=== PATIENT | male | born 1950 | race Caucasian/White ===

== ENCOUNTER → 2017-06-29 14:45 | Outpatient (CLI) | payer MEDICARE, BC, SELFPAY ==
[2017-06-29 18:19] LABS: Hemoglobin A1c 7.5 % (4.2-6.3)
[2017-06-29 18:29] LABS: Anion Gap 8 (5-15); BUN 11 mg/dL (7-18); BUN/Creat Ratio 8.3 RATIO (10-20); Calcium,Total 8.6 mg/dL (8.5-10.1); Chloride 102 mmol/L (98-107); Cholesterol 185 mg/dL (200); Creatinine, Serum 1.33 mg/dL (0.70-1.30); EST Glomerular Filtration Rate 57 mL/min (>60); Est Glom Filt Rate - Afr Amer 69 mL/min (>60); Glucose 130 mg/dL (74-106); High Density Lipoprotein 28 mg/dL; Sodium Level 135 mmol/L (136-145); Triglycerides 185 mg/dL; Very Low Density Lipoprotein 37 mg/dL (5-40)
== END ==
PROVIDERS: Family Provider Family Medicine; PCP Family Medicine; Visit Provider Family Medicine
DX: I10 Essential (primary) hypertension (principal); E66.9 Obesity, unspecified
CPT/HCPCS: 36415; 80048; 80061; 83036

== ENCOUNTER → 2017-12-15 15:28 | Outpatient (CLI) | payer MEDICARE, BC, SELFPAY ==
--- NOTE | 2017-12-15 15:34 | RAD_ITS ---
STUDY: X-RAY - LUMBAR SPINE REASON FOR EXAM: Male, 67 years old. Lower back pain TECHNIQUE: 5 view(s) of the lumbar spine were obtained. COMPARISON: None FINDINGS: There is no evidence of fracture or dislocation in the lumbar spine. The vertebral body heights are well-maintained. There are moderate degenerative changes with disc space narrowing, facet hypertrophy and osteophyte formation. This is most pronounced at T12/L1 and L1/L2. RAD/L/S Spine Min 4 Views IMPRESSION: No fracture or dislocation in the lumbar spine. Moderate degenerative changes which are most pronounced in the upper lumbar spine. Electronically Signed: Win Khan, at 16:00 EDT Tel , Service support ,
== END ==
PROVIDERS: Family Provider Family Medicine; PCP Family Medicine; Visit Provider Family Medicine
DX: M54.40 Lumbago with sciatica, unspecified side (principal)
CPT/HCPCS: 72110

== ENCOUNTER 2018-02-03 12:00 | Outpatient (RCR) | payer MEDICARE, BC, SELFPAY ==
--- NOTE | 2018-01-10 07:41 | HP.PTEVAL ---
Patient's Visit Information EARLINE PINTO is a 67 year old M referred to Physical Therapy by Sharmaine Palma MD with a diagnosis of Lumbar spine DDD. Date of Evaluation: 12/28/17 Physical Therapist: Brad Sin - Visit Plan Frequency: 2x /Week Duration: 4 Weeks Plan: Start with core strength, lumbar ROM, decompression exercises and HS/hip flexor stretching in aquatic setting to reduce stress applied to lumbar spine. - Subjective Subjective: Pt.. is here today for his initial evaluation with diagnosis of DDD of lumbar spine. Pt. reports ahving symptoms for years. 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 Pt. 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 Pt. reports some radiating pain. Increased pain: standing, walking for greater than 5 minutes, lifting. Decreased pain: sitting, lying down. Pt. trys to do some stretching, but has difficulty knowing what to do. No changes in B/B, no saddle region pain. Pt. reports no BLE weakness. Pt. does have some numbness in either leg at times, R worse than L. Pt. is hopeful to reduce symptoms in order to get back to all recreational activities without limitations. - Pain Lumbar spine Pain Intensity (Out of 10): 3 Pain Intensity Range: 1, 6 RLE Pain Intensity (Out of 10): 2 Pain Intensity Range: 1, 6 Comment: Mostly tingling - Objective POSTURE: Pt. has rounded shoulder, flexed lumnbar spine, reduced lumbar lordosis. Pt. has normal iliac crest heights. PALPATION: Pt. has mild tenderness througout lumbar spine. Pt. reports no pain with palaption throughout BLEs. Pt. has no pain with spring testing, hypombility noted throught lumbar spine with spring testing. NEURO- all intance, normal. Normal DTR x4 bilateral LEs. ROM: LUMBAR SPINE: Flexion- min loss NE (HS stretch), ext mod loss increase NW, SB R min loss increase NW, SB L min loss NE, rotations min loss bilat NE. Pt. has tight bilateral HS and hip flexors. Pt. has decreased hip ER/IR, but no increase in symptoms with testing. MMT: Pt. has 5/5 bilateral LE strength, except 4/5 bilateral hip abd and ext. Pt. reports mild increase in symtoms with SLR testing. Pt. has poor core strength. - Special Tests L/S Slump test left side: Negative L/S Slump test right side: Negative L/S Left Straight Leg Raise: Negative L/S Right Straight Leg Raise: Negative Lumbar Standing: Flexion - Mechanical Response: No effect Lumbar Standing: Flexion - Symptoms During Testing: No effect Lumbar Standing: Flexion - Symptoms After Testing: No worse Lumbar Standing: Extension - Mechanical Response: No effect Lumbar Standing: Extension - Symptoms During Testing: Increases Lumbar Standing: Extension - Symptoms After Testing: No worse Lumbar Standing: Right Side Glides - Mechanical Response: No effect Lumbar Standing: Right Side [place] - Symptoms During Testing: Increases Lumbar Standing: Right Side [place] - Symptoms After Testing: No worse Lumbar Standing: Left Side [place] - Mechanical Response: No effect Lumbar Standing: Left Side [place] - Symptoms During Testing: Increases Lumbar Standing: Left Side [place] - Symptoms After Testing: No worse Lumbar Static: Slouched Sit - Mechanical Response: No effect Lumbar Static: Slouched Sit - Symptoms During Testing: No effect Lumbar Static: Slouched Sit - Symptoms After Testing: Better Lumbar Static: Sitting Erect - Mechanical Response: No effect Lumbar Static: Sitting Erect - Symptoms During Testing: Increases Lumbar Static: Sitting Erect - Symptoms After Testing: No worse Lumbar Static:Lying Prone in Extension - Mechanical Response: No effect Lumbar Static: Lying Prone in Extension - Sx During Testing: Increases Lumbar Static: Lying Prone in Extension - Sx After Testing: No worse - Goals Goal 1:: Pt to be I with HEP. Goal Time Frame: 4-6 Weeks Goal 2:: Pt. to have decrease pain in lumbar spine and BLEs to 0-2/10 pain with walking. Goal Time Frame: 4-6 Weeks Goal 3:: Pt. to sleep throughout the night without increase in symptoms. Goal Time Frame: 4-6 Weeks Goal 4:: Pt. to have increased hip/core strength by 1/2 grade of all effected musculature. Goal Time Frame: 4-6 Weeks Goal 5:: Pt. to have increased lumbar spine ROM by 25% in all effected directions. Goal Time Frame: 4-6 Weeks Goal 6:: Pt to be instructed in prophalxis techniques. Goal Time Frame: 4-6 Weeks - Rehabilitation Potential Physical Therapy Diagnosis: Pt. has signs and symptoms consistent with lumbar spine DDD. Pt. has increased pain with walking and lumbar ext, decreased pain with flexion movements. Pt. would benefit from PT initial in aquatic setting to increase core strength and lumbar ROM. Rehabilitation Potential: Good - Anticipated Interventions Patient/Client Instruction: Educate patient on: Condition, Plan of Care, Risk Factors, Benefits of Fitness Program For the Purpose of:: To reduce risk of recurrence, To improve safety, To improve health and function, To foster healthy habits, To improve decision making, To facilitate caregiver knowledge, To improve self management, To prevent re-injury, To improve ability to perform tasks related to life management, To improve tolerance to ADL's Therapeutic Exercise to Include: Strength training, Power training, Endurance training, Body mechanics, Postural training, Flexibilty training, In an aquatic setting, Passive ROM, Dynamic Lumbar Stabilization, Sabi Exercises, Scapular Strength/Stabilization For the Purpose of:: To decrease pain, To increase ROM, To improve nutrient delivery to tissue, To increase oxygenation perfusion, To improve muscle performance and motor function, To improve ability to perform ADL's, To improve gait and locomotor functions, To improve health of tissue, To decrease soft tissue restriction, To increase flexibility/ROM Manual Therapy Techniques to Include: Trigger point massage, Mobilization, Passive ROM, Functional dry needling, Soft tissue mobilization For the Purpose of:: To decrease pain, To decrease swelling/inflammation, To increase ROM, To improve nutrient delivery to tissue, To improve health of tissue, To decrease soft tissue restriction IF ES: Yes Cryotherapy (ice pack, ice massage): Yes Thermo therapy (hot pack): Yes Ultrasound (thermal/non thermal): Yes Pelvic traction supine: Yes For the Purpose of:: To decrease pain, To decrease swelling/inflammation, To increase ROM, To improve nutrient delivery to tissue Thank you for the opportunity to evaluate your patient. For Medicare and Medicare HMO plans, please review the plan of care and approve it. It will need to be FAXED BACK to us at [phone] for Medicare purposes. Please let me know if there are questions or concerns regarding this plan of care. Physician Signature: Date:
--- NOTE | 2018-03-18 09:05 | HP.PTDCSUM ---
HP - PT D/C Summary It has been my pleasure to treat EARLINE PINTO under orders from Sharmaine Palma MD, for the diagnosis of Lumbar spine DDD for a total of 9 visit(s). Discharge Date: 02/03/18 Please see the following information for a summary of their discharge status. - Subjective Subjective: Pt. reports I am doing okay, but I still have symptoms. He reports beign ~50% better overall. Pt. reports wanting to trial injections at this point in time and put PT on hold as he sees on the injection does. - Pain Lumbar spine Pain Intensity (Out of 10): 2 RLE Pain Intensity (Out of 10): 2 - Overall Improvement % Improvement: 50 - Objective Objective/Function: ROM: flexion- min/nil loss NE, ext mod loss increase nW, SB mod loss increase nW Bilat, rotation min loss bilat increase nW. MMT: 5/5 throughout bilateral Les. Core strngth- fair. Gait: pt. has normal gait pattern, but continues to have flexed posture, rounded shoulders and post pelvic tilt in stance. Pt. is able to correct with VCing. Reviewed body mechanics with patient. - Goals Goal 1:: Pt to be I with HEP. Goal Progress: Goal Met Goal 2:: Pt. to have decrease pain in lumbar spine and BLEs to 0-2/10 pain with walking. Goal Progress: Progressing Goal 3:: Pt. to sleep throughout the night without increase in symptoms. Goal Progress: Progressing Goal 4:: Pt. to have increased hip/core strength by 1/2 grade of all effected musculature. Goal Progress: Goal Met Goal 5:: Pt. to have increased lumbar spine ROM by 25% in all effected directions. Goal Progress: Progressing Goal 6:: Pt to be instructed in prophalxis techniques. Goal Progress: Goal Met - Plan Plan: Pt. to be DC from PT at this point in time. - D/C Information Discharge Comments: Pt. was seen in aquatic setting for his lumbar stenosis with focus on postural and core strength. Pt. has some mld relief, but was not fully better. Pt decided to get injections at this point in time. Pt. will be DC from PT at this point in time. If there are questions or concerns regarding this patient's physical therapy, please feel free to call me at [phone]. Thank you for the referral of this patient. Sincerely, Brad Sin
== END 2018-02-03 19:00 | disposition home or self-care (01) ==
LOC: PT 12:00
PROVIDERS: Family Provider Family Medicine; PCP Family Medicine; Visit Provider Family Medicine
DX: M51.36 Other intervertebral disc degeneration, lumbar region (principal)
CPT/HCPCS: 97113; 97161; 97530

== ENCOUNTER → 2018-03-10 10:30 | Outpatient (CLI) | payer MEDICARE, BC, SELFPAY ==
[2018-03-10 12:35] LABS: PSA,Total - Annual Screen 4.38 ng/mL (0.00-4.00)
== END ==
PROVIDERS: Family Provider Family Medicine; PCP Family Medicine; Referring Provider Urology; Visit Provider Urology
DX: Z12.5 Encounter for screening for malignant neoplasm of prostate (principal)
CPT/HCPCS: 36415; 84153; G0103

== ENCOUNTER → 2018-05-13 17:14 | Outpatient (CLI) | payer MEDICARE, BC, SELFPAY ==
--- NOTE | 2018-05-13 17:20 | MRI_ITS ---
STUDY: MRI LUMBAR SPINE WITHOUT CONTRAST REASON FOR EXAM: Male, 68 years old. Spondylolisthesis. Stenosis. Right leg numbness x6 months and low back pain x1 year. TECHNIQUE: Standardized fat and water weighted pulse sequences were obtained in the sagittal and axial planes. COMPARISON: None FINDINGS: T11-T12: (Sagittal only). Schmorl's node in the central aspect of the T11 inferior endplate. Mild anterior wedging of T12 superior endplate may be developmental or from remote injury. Altered space height narrowing. Normal central canal and bilateral intervertebral neural foramina. T12-L1: (Sagittal only). Schmorl's nodes in the central aspect of the vertebral endplates. Moderate disc space height narrowing. No ventral extradural defect. Normal central canal and bilateral intervertebral neural foramina. Normal lumbar lordosis. There is no substantial scoliosis. Normal conus medullaris that terminates at the upper L1 vertebral body level. L1-2: ([place]ag[place] only). Moderately pronounced disc space height narrowing. Mild degenerative retrolisthesis of L1 on L2. Normal central canal and bilateral intervertebral neural foramina. L2-3: Prominent Schmorl's node in the L2 inferior endplate. Normal L3 superior endplate. Moderately pronounced disc space height narrowing. Mild degenerative retrolisthesis of L2 on L3. Normal central canal and bilateral lateral recesses. Mild dorsal epidural lipomatosis. Mild bilateral degenerative facet arthropathy. Normal bilateral intervertebral neural foramina. L3-4: Normal endplates. Mild disc space height narrowing. Mild degenerative retrolisthesis of L3 on L4. Normal central canal and bilateral lateral recesses. Mild degenerative facet arthropathy. Normal bilateral intervertebral neural foramina. L4-5: Normal endplates. Mild disc space height narrowing. Mild central canal stenosis with an AP canal diameter of 10 mm. Moderate bilateral degenerative facet arthropathy. Normal bilateral lateral recesses. Normal bilateral intervertebral neural foramina. L5-S1: Normal endplates. Mild disc space height narrowing. Minimal degenerative retrolisthesis of L5 on S1. Normal central canal and bilateral lateral recesses. Moderate left degenerative facet arthropathy. Normal right facet joint. Normal bilateral intervertebral neural foramina. Normal visualized sacral ala. Normal visualized paraspinous soft tissue structures. MRI/Spine Lumbar (Routine) IMPRESSION: 1. No MRI evidence of lumbar extruded disc fragment. 2. Mild central canal stenosis at L4-L5 disc level and moderate bilateral L4-L5 degenerative facet arthropathy. 3. Minimal degenerative retrolisthesis of L5 on S1 and moderate left L5-S1 degenerative facet arthropathy. 4. Mild degenerative retrolisthesis of L3 on L4 and mild bilateral degenerative facet arthropathy. 5. Mild degenerative retrolisthesis of L2 on L3 and mild bilateral degenerative facet arthropathy. 6. Moderately pronounced L1-L2 disc space height narrowing and mild degenerative retrolisthesis of L1 on L2. 7. Mild anterior wedging of T12 superior endplate may be developmental or from remote injury. Electronically Signed: Min Marie MD at 15:11 EST , Service support ,
== END ==
PROVIDERS: Family Provider Family Medicine; PCP Family Medicine; Referring Provider Anesthesiology Pain Medicine; Visit Provider Anesthesiology Pain Medicine
DX: M51.37 Other intervertebral disc degeneration, lumbosacral region (principal); M47.817 Spondylosis without myelopathy or radiculopathy, lumbosacral region; M48.07 Spinal stenosis, lumbosacral region
CPT/HCPCS: 72148

== ENCOUNTER → 2018-06-29 14:17 | Outpatient (CLI) | payer MEDICARE, BC, SELFPAY ==
[2018-06-29 16:17] LABS: Absolute Lymphocyte Count 0.93 X10^3/ul (0.83-4.51); Basophil# 0.01 X10^3/uL; Basophil% 0.3 % (0-1); Eosinophil# 0.03 X10^3/uL; Eosinophils% 0.8 % (0-5); Hematocrit 39.1 % (40-54); Hemoglobin 13.7 g/dl (13.0-16.5); Lymphocyte # 0.93 X10^3/ul (4.0); Lymphocyte % 26.1 % (19-41); Mean Corpuscular Hgb 33.4 pg (27.0-32.0); Mean Corpuscular Volume 95.4 fL (80-94); Mean Platelet Vol. 10.2 fl (6.2-12.0); Monocyte# 0.61 X10^3/uL; Monocyte% 17.1 % (0-10); Neutrophil # 1.98 X10^3/uL (2.7-7.7); Neutrophil % 55.4 % (47-70); Platelet Count 187 K/mm3 (150-450); RBC Distribution Width SD 40.9 fl (35.1-43.9); White Blood Count 3.6 K/mm3 (4.4-11.0)
[2018-06-29 16:31] LABS: Vitamin B12 237 pg/mL (211-911)
[2018-06-29 16:44] LABS: POSITIVE COUNT NO; POSITIVE DIFFERENTIAL NO; POSITIVE MORPHOLOGY NO
[2018-06-29 17:56] LABS: Anion Gap 9 (5-15); BUN 11 mg/dL (7-18); BUN/Creat Ratio 9.6 RATIO (10-20); Calcium,Total 8.9 mg/dL (8.5-10.1); Chloride 103 mmol/L (98-107); Creatinine, Serum 1.14 mg/dL (0.70-1.30); EST Glomerular Filtration Rate 68 mL/min (>60); Est Glom Filt Rate - Afr Amer 82 mL/min (>60); Glucose 113 mg/dL (74-106); Potassium 3.7 mmol/L (3.5-5.1); Sodium Level 135 mmol/L (136-145); Thyroid Stim Hormone (TSH) 1.06 uIU/mL (0.358-3.74)
== END ==
PROVIDERS: Family Provider Family Medicine; PCP Family Medicine; Visit Provider Family Medicine
DX: I10 Essential (primary) hypertension (principal); G62.9 Polyneuropathy, unspecified
CPT/HCPCS: 36415; 80048; 82607; 82746; 84443; 85025

== ENCOUNTER → 2018-07-08 11:38 | Outpatient (CLI) | payer MEDICARE, BC, SELFPAY ==
[2018-07-08 13:01] LABS: Absolute Lymphocyte Count 0.87 X10^3/ul (0.83-4.51); Absolute Neutrophil Count 1.3 X10^3/uL (2.0-7.7); Basophil# 0.01 X10^3/uL; Basophil% 0.4 % (0-1); Eosinophil# 0.02 X10^3/uL; Eosinophils% 0.8 % (0-5); Lymphocyte # 0.87 X10^3/ul (4.0); Lymphocyte % 34.1 % (19-41); Mean Corp Hgb Conc 34.2 g/gl (32-36); Mean Corpuscular Hgb 32.6 pg (27.0-32.0); Mean Corpuscular Volume 95.2 fL (80-94); Mean Platelet Vol. 9.8 fl (6.2-12.0); Monocyte# 0.39 X10^3/uL; Monocyte% 15.3 % (0-10); Neutrophil # 1.25 X10^3/uL (2.7-7.7); Platelet Count 186 K/mm3 (150-450); RBC Distribution Width CV 12.3 % (11.6-14.6); Red Blood Count 3.99 M/mm3 (4.6-6.2); White Blood Count 2.6 K/mm3 (4.4-11.0)
[2018-07-08 13:03] LABS: POSITIVE COUNT NO; POSITIVE DIFFERENTIAL NO; POSITIVE MORPHOLOGY NO
[2018-07-11 11:05] LABS: EBV Acute VCA IgM < 36.0 U/mL (0.0-35.9); EBV Early Antigen IgG 24.9 U/mL (0.0-8.9); EBV Nuclear Antigen IgG > 600.0 U/mL (0.0-17.9)
== END ==
PROVIDERS: Family Provider Family Medicine; PCP Family Medicine; Visit Provider Family Medicine
DX: R53.83 Other fatigue (principal)
CPT/HCPCS: 36415; 85025; 86663; 86664; 86665

== ENCOUNTER → 2018-09-12 | Outpatient (CLI) | payer MEDICARE, BC, SELFPAY ==
[2018-09-12 15:13] LABS: Absolute Lymphocyte Count 1.13 X10^3/ul (0.83-4.51); Absolute Neutrophil Count 1.7 X10^3/uL (2.0-7.7); Basophil# 0.01 X10^3/uL; Basophil% 0.3 % (0-1); Eosinophil# 0.03 X10^3/uL; Eosinophils% 0.9 % (0-5); Hematocrit 34.8 % (40-54); Hemoglobin 12.3 g/dl (13.0-16.5); Lymphocyte # 1.13 X10^3/ul (4.0); Lymphocyte % 32.2 % (19-41); Mean Corp Hgb Conc 35.3 g/gl (32-36); Mean Corpuscular Hgb 33.2 pg (27.0-32.0); Mean Corpuscular Volume 93.8 fL (80-94); Mean Platelet Vol. 9.4 fl (6.2-12.0); Monocyte# 0.64 X10^3/uL; Monocyte% 18.2 % (0-10); Neutrophil # 1.69 X10^3/uL (2.7-7.7); Neutrophil % 48.1 % (47-70); Platelet Count 172 K/mm3 (150-450); RBC Distribution Width CV 13.1 % (11.6-14.6); Red Blood Count 3.71 M/mm3 (4.6-6.2); White Blood Count 3.5 K/mm3 (4.4-11.0)
[2018-09-12 15:17] LABS: POSITIVE COUNT NO; POSITIVE DIFFERENTIAL NO; POSITIVE MORPHOLOGY NO
[2018-09-12 15:34] LABS: Vitamin B12 234 pg/mL (211-911)
[2018-09-12 15:36] LABS: Anion Gap 6 (5-15); BUN 15 mg/dL (7-18); BUN/Creat Ratio 13.5 RATIO (10-20); Calcium,Total 8.7 mg/dL (8.5-10.1); Chloride 106 mmol/L (98-107); Creatinine, Serum 1.11 mg/dL (0.70-1.30); EST Glomerular Filtration Rate 70 mL/min (>60); Est Glom Filt Rate - Afr Amer 84 mL/min (>60); Glucose 120 mg/dL (74-106); Potassium 3.3 mmol/L (3.5-5.1); Sodium Level 137 mmol/L (136-145); Thyroid Stim Hormone (TSH) 0.76 uIU/mL (0.358-3.74)
== END | disposition home or self-care (01) ==
LOC: MFPLAB 13:45
PROVIDERS: Family Provider Family Medicine; PCP Family Medicine; Visit Provider Family Medicine
DX: I10 Essential (primary) hypertension (principal); G62.9 Polyneuropathy, unspecified
CPT/HCPCS: 36415; 80048; 82607; 82746; 84443; 85025

== ENCOUNTER → 2018-11-29 | Outpatient (CLI) | payer MEDICARE, BC, SELFPAY ==
--- NOTE | 2018-11-29 15:31 | RAD_ITS ---
HISTORY: back pain when standing, leg numbness TECHNIQUE: 7 views of the lumbar spine including AP, bilateral oblique, coned-down lateral and lateral views of the lumbar spine in neutral, flexion, and extension Number of images including paperwork: 7 COMPARISON: None FINDINGS: VERTEBRAE: No acute fracture. VERTEBRAL ALIGNMENT: No traumatic subluxation. Mild multilevel degenerative listhesis is noted measuring 2-4 mm. No instability is seen with flexion and extension. DISKS AND JOINTS: Moderate discogenic degenerative changes at L1-2 and L2-3. Minimal/mild discogenic degenerative changes elsewhere. Facet arthropathy, most pronounced L4-S1. SOFT TISSUES: Unremarkable paraspinous soft tissues. RAD/L/S Spine Comp/w Bending Views IMPRESSION: 1. No acute abnormality. 2. Lumbar spondylosis. at 0333 Reported and signed by: Zahida Benedict MD Electronically Signed: Zahida Benedict MD at 3:33 EDT Tel , Service support ,
== END | disposition home or self-care (01) ==
PROVIDERS: Family Provider Family Medicine; PCP Family Medicine; Referring Provider Anesthesiology Pain Medicine; Visit Provider Anesthesiology Pain Medicine
DX: M51.37 Other intervertebral disc degeneration, lumbosacral region (principal); M47.817 Spondylosis without myelopathy or radiculopathy, lumbosacral region
CPT/HCPCS: 72114

== ENCOUNTER → 2019-01-11 | Outpatient (CLI) | payer MEDICARE, BC, SELFPAY ==
[2019-01-11 12:29] LABS: Absolute Lymphocyte Count 0.88 X10^3/uL (0.83-4.51); Absolute Neutrophil Count 2.7 X10^3/uL (2.0-7.7); Basophil# 0.02 X10^3/uL; Basophil% 0.5 % (0-1); Eosinophil# 0.05 X10^3/uL; Eosinophils% 1.2 % (0-5); Hematocrit 37.5 % (40-54); Hemoglobin 13.3 g/dL (13.0-16.5); Lymphocyte # 0.88 X10^3/ul (4.0); Lymphocyte % 21.1 % (19-41); Mean Corp Hgb Conc 35.5 g/dL (32-36); Mean Corpuscular Hgb 33.8 pg (27.0-32.0); Mean Corpuscular Volume 95.2 fL (80-94); Mean Platelet Vol. 9.8 fl (6.2-12.0); NRBC Flagged by Analyzer 0 % (0-5); Neutrophil # 2.72 X10^3/uL (2.7-7.7); Platelet Count 181 K/mm3 (150-450); RBC Distribution Width CV 11.6 % (11.6-14.6); RBC Distribution Width SD 40.6 fl (35.1-43.9); Red Blood Count 3.94 M/mm3 (4.6-6.2); White Blood Count 4.2 K/mm3 (4.4-11.0)
[2019-01-11 12:54] LABS: AST(SGOT) 15 U/L (15-37); Alanine Aminotransfer ALT/SGPT 22 U/L (16-61); Albumin, Serum 3.5 g/dL (3.2-5.0); Alkaline Phosphatase 91 U/L (45-117); Anion Gap 6 (5-15); BUN 11 mg/dL (7-18); BUN/Creat Ratio 8.9 RATIO (10-20); Bilirubin, Direct 0.15 mg/dL (0.00-0.30); Calcium,Total 8.6 mg/dL (8.5-10.1); Chloride 101 mmol/L (98-107); Cholesterol 180 mg/dL (200); Creatinine, Serum 1.23 mg/dL (0.70-1.30); EST Glomerular Filtration Rate 62 mL/min (>60); Est Glom Filt Rate - Afr Amer 75 mL/min (>60); Globulin 3.6 g/dL (2.2-4.2); Glucose 156 mg/dL (74-106); High Density Lipoprotein 31 mg/dL; Potassium 4.1 mmol/L (3.5-5.1); Protein, Total 7.1 g/dL (6.4-8.2); Sodium Level 134 mmol/L (136-145); Thyroid Stim Hormone (TSH) 1.29 uIU/mL (0.358-3.74); Triglycerides 212 mg/dL; Very Low Density Lipoprotein 42 mg/dL (5-40)
== END | disposition home or self-care (01) ==
LOC: MFPLAB 10:21
PROVIDERS: Family Provider Family Medicine; PCP Family Medicine; Referring Provider Family Medicine; Visit Provider Family Medicine
DX: I10 Essential (primary) hypertension (principal); E11.9 Type 2 diabetes mellitus without complications; D72.819 Decreased white blood cell count, unspecified; R00.2 Palpitations
CPT/HCPCS: 36415; 80048; 80061; 80076; 84443; 85025

== ENCOUNTER → 2019-01-18 | Outpatient (CLI) | payer MEDICARE, BC, SELFPAY ==
--- NOTE | 2019-01-18 14:56 | ECHOCS_ITS ---
Reason For Study: RBBB Procedure This was a 2D Doppler, Color Flow transthoracic echocardiogram. The study was technically difficult. Due to body habitus. Contrast injection was performed. Exam performed in department. Left Ventricle Normal size and thickness. The estimated ejection fraction is 65 %. Stage 1 diastolic dysfunction. No regional wall motion abnormalities noted. Right Ventricle Mildly dilated right ventricle. Normal systolic function. Atria Normal left atrium. Normal right atrium. Normal atrial septum. Mitral Valve The mitral valve is structurally normal. No prolapse or stenosis seen. Tricuspid Valve Normal tricuspid valve. Trivial tricuspid valve insufficiency. Right ventricular systolic pressure estimated to be 18 mmHg. Aortic Valve Normal aortic valve. Trisinus/trileaflet aortic valve. Pulmonic Valve The pulmonic valve is not well visualized. Great Vessels Normal aortic root. Normal arch. Normal inferior vena cava. Inferior vena cava collapse with sniff. Pericardium/Pleural No pericardial effusion. Medication 22 gauge I.V. with prn adaptor inserted into right arm. Diluted definity 4.0ml given slow IV push to enhance endocardial definition. MMode/2D Measurements & Calculations LVIDd: 4.8 cm IVSd: 1.2 cm Ao root diam: 3.8 cm LVIDs: 3.3 cm LVPWd: 1.2 cm LA dimension: 3.4 cm RVDd: 3.8 cm FS: 31.3 % LAV(MOD-bp): 36.8 ml LA A4 area: 13.9 cm2 RA A4 area: 13.9 cm2 LAV(MOD-bp) Indexed: 14.7 ml/m2 LAV(MOD-sp2): 36.4 ml LAV(MOD-sp4): 33.9 ml Doppler Measurements & Calculations MV E max chilo: 65.3 cm/sec Lat Peak E' Chilo: 6.3 cm/sec Med Peak E' Chilo: 8.7 cm/sec MV A max chilo: 94.9 cm/sec E/E' lat: 10.3 E/E' med: 7.5 MV E/A: 0.69 Ao V2 max: 112.0 cm/sec LV V1 max: 81.5 cm/sec PA V2 max: 103.4 cm/sec Ao max P.0 mmHg LV V1 max P.7 mmHg TR max chilo: 176.0 cm/sec TR max P.4 mmHg Interpretation Summary The estimated ejection fraction is 65 %. Stage 1 diastolic dysfunction. Mildly dilated right ventricle. Trivial tricuspid valve insufficiency. Right ventricular systolic pressure estimated to be 18 mmHg. There is no comparison study available. The study was technically difficult. Contrast injection was performed. Ordering Physician: Sharmaine Palma Referring Physician: Sharmaine Palma Performed By: Shantel Griffiths RDCS, RVT
== END | disposition home or self-care (01) ==
LOC: CVS 14:54
PROVIDERS: Family Provider Family Medicine; PCP Family Medicine; Referring Provider Family Medicine; Visit Provider Family Medicine
DX: R94.31 Abnormal electrocardiogram [ECG] [EKG] (principal); I45.10 Unspecified right bundle-branch block
CPT/HCPCS: 93306; Q9957; A4216; C8929

== ENCOUNTER → 2019-03-16 11:04 | Outpatient (CLI) | payer MEDICARE, BC, SELFPAY ==
[2019-03-16 14:56] LABS: PSA,Total - Annual Screen 4.52 ng/mL (0.00-4.00)
== END ==
PROVIDERS: Family Provider Family Medicine; PCP Family Medicine; Referring Provider Urology; Visit Provider Urology
DX: Z12.5 Encounter for screening for malignant neoplasm of prostate (principal)
CPT/HCPCS: 36415; 84153; G0103

== ENCOUNTER 2019-07-04 14:00 | Outpatient (RCR) | payer MEDICARE, BC, SELFPAY ==
--- NOTE | 2019-05-26 14:24 | HP.PTEVAL_ITS ---
Patient's Visit Information GLENNA PINTO is a 69 year old M referred to Physical Therapy by Michael Lopez MD with a diagnosis of DEGENERATIVE OF LUMBARSACRAL INTERBARL DISC ,STENOSIS. Date of Evaluation: 05/26/19 Physical Therapist: Maverick Vitale, PT, Cert MDT, OCS - Visit Plan Frequency: 3x /Week Duration: 3 Weeks Plan: PT INTERVENTIONS LUMBAR FLEXION ,DLS ABD/BACK LE FLEXABLITY ,POSTURAL EX'S,MODALTIES - Subjective Findings: This 69 y/o male presents to physical therapy with lumbar pain. Patient has had lumbar pain with bilateral legs > right than left. Patient symptoms located symmtrical lumbar buttuck to knee. Aggravating factors standing ,walking ,lifting ,elvations from chair . Alleviating factors sitting rest. C/O parathesia/tingling in legs. Bowel/bladder -. Patient affect sleeping. Pain management for epidural injection x5 last year. Seen DR Moreno last May not bad enough to have surgery. Patient has had Aquatic PT in past. Patient has had MRI showed stenosis ,DDD. Patient pain affects ADL'S ,housework tasks and function with walking and standing. Pain affects QOL and function. SOCIAL: . 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 GAIT: reciprocal pattern mild foward posture. NEURO: denies parathesia/tingling,reflexes intact 1/3. PALAPTION: tender L-S. MMT: quads/hams 4/5, 4/5 hip. FLEXABILITY: hams mod tight. LUMBAR ROM: flexion min tight,extension min/mod tight,side glides min loss - Special Tests L/S Slump test left side: Negative L/S Slump test right side: Negative L/S Left Straight Leg Raise: Negative L/S Right Straight Leg Raise: Negative Lumbar Standing: Flexion - Mechanical Response: No effect Lumbar Standing: Flexion - Symptoms During Testing: No effect Lumbar Standing: Flexion - Symptoms After Testing: No effect Lumbar Standing: Extension - Mechanical Response: No effect Lumbar Standing: Extension - Symptoms During Testing: Increases Lumbar Standing: Extension - Symptoms After Testing: Worse Lumbar Standing: Right Side Glides - Mechanical Response: No effect Lumbar Standing: Right Side [place] - Symptoms During Testing: Produces Lumbar Standing: Right Side [place] - Symptoms After Testing: No effect Lumbar Standing: Left Side [place] - Mechanical Response: No effect Lumbar Standing: Left Side [place] - Symptoms During Testing: No effect Lumbar Standing: Left Side [place] - Symptoms After Testing: No effect - Goals Goal 1:: Independant with HEP. Goal Time Frame: 4-6 Weeks Goal 2:: Patient improve posture for ADL'S Goal Time Frame: 4-6 Weeks Goal 3:: Patient to decrease lumbar pain by 50 % or > to improve standing and walking. Goal Time Frame: 4-6 Weeks Goal 4:: Patient to improve lumbar ROM for function of recovery. Goal Time Frame: 4-6 Weeks Goal 5:: Patient to improve back owestry score by 5 points or > to inmprove QOL. Goal Time Frame: 4-6 Weeks - Rehabilitation Potential Physical Therapy Diagnosis: This patient has lumbar stenosis wirse with walking and standing better with sitting thus benifit from skilled PT. Rehabilitation Potential: Good - Anticipated Interventions Patient/Client Instruction: Educate patient on: Condition, Plan of Care For the Purpose of:: To decrease pain, To increase ROM, To improve muscle performance and motor function, To improve ability to perform ADL's, To increase tolerance to activity/condition/position, To improve ability of physical actions for home/community/work/leisure, To improve health of tissue, To decrease soft tissue restriction, To increase flexibility/ROM, To improve ability to perform tasks related to life management Therapeutic Exercise to Include: Strength training, Body mechanics, Postural training, Flexibilty training, Dynamic Lumbar Stabilization For the Purpose of:: To decrease pain, To improve muscle performance and motor function, To improve ability to perform ADL's, To increase tolerance to activity/condition/position, To improve ability of physical actions for home/community/work/leisure, To improve health of tissue, To decrease soft tissue restriction, To increase flexibility/ROM, To improve ability to perform tasks related to life management TENS: Yes IF ES: Yes Cryotherapy (ice pack, ice massage): Yes Thermo therapy (hot pack): Yes Ultrasound (thermal/non thermal): Yes For the Purpose of:: To decrease pain, To increase ROM, To improve nutrient delivery to tissue, To increase oxygenation perfusion, To improve health of tissue, To decrease soft tissue restriction Thank you for the opportunity to evaluate your patient. For Medicare and Medicare HMO plans, please review the plan of care and approve it. It will need to be FAXED BACK to us at [phone] for Medicare purposes. For Medicare only, by signing this I certify the plan of care. Please let me know if there are questions or concerns regarding this plan of care. Physician Signature: Date:
--- NOTE | 2019-06-16 13:35 | HP.PTREVAL_ITS ---
Michael Lopez MD, It has been my pleasure to treat GLENNA PINTO over the last 6 visits for DEGENERATIVE OF LUMBARSACRAL INTERBARL DISC ,STENOSIS. Please see the progress note below for an update on the physical therapy plan of care! Subjective: Doing better overall .. pain is in buttuck and hams with Objective/Function: POSTURE: mild foward posture. GAIT: mild foward posture reciprocal pattern. NUERO: denies parathesia/tingling. LUMBAR ROM: flexion min/mod loss,extension min loss,side glides. MMT: quads/hams 4/5,hip flexion 4- /5 Plan Plan: PT INTERVENTIONS LUMBAR FLEXION ,DLS ABD/BACK LE FLEXABLITY ,POSTURAL EX'S,MODALTIES Goals Goal 1:: Independant with HEP. Goal Time Frame: 4-6 Weeks Goal Progress: Progressing Goal 2:: Patient improve posture for ADL'S Goal Time Frame: 4-6 Weeks Goal Progress: Progressing Goal 3:: Patient to decrease lumbar pain by 50 % or > to improve standing and walking. Goal Time Frame: 4-6 Weeks Goal 4:: Patient to improve lumbar ROM for function of recovery. Goal Time Frame: 4-6 Weeks Goal Progress: Progressing Goal 5:: Patient to improve back owestry score by 5 points or > to inmprove QOL. Goal Time Frame: 4-6 Weeks Goal Progress: Progressing Anticipated Interventions Patient/Client Instruction: Educate patient on: Condition, Plan of Care For the Purpose of:: To decrease pain, To increase ROM, To improve muscle performance and motor function, To improve ability to perform ADL's, To increase tolerance to activity/condition/position, To improve ability of physical actions for home/community/work/leisure, To improve health of tissue, To decrease soft tissue restriction, To increase flexibility/ROM, To improve ability to perform tasks related to life management Therapeutic Exercise to Include: Strength training, Body mechanics, Postural training, Flexibilty training, Dynamic Lumbar Stabilization For the Purpose of:: To decrease pain, To improve muscle performance and motor function, To improve ability to perform ADL's, To increase tolerance to activity/condition/position, To improve ability of physical actions for home/community/work/leisure, To improve health of tissue, To decrease soft tissue restriction, To increase flexibility/ROM, To improve ability to perform tasks related to life management TENS: Yes IF ES: Yes Cryotherapy (ice pack, ice massage): Yes Thermo therapy (hot pack): Yes Ultrasound (thermal/non thermal): Yes For the Purpose of:: To decrease pain, To increase ROM, To improve nutrient delivery to tissue, To increase oxygenation perfusion, To improve health of tissue, To decrease soft tissue restriction Please do not hesitate to contact me at [phone] by phone or if you have questions or concerns regarding this new plan of care! Sincerely, Maverick Vitale, PT, Cert MDT, OCS
--- NOTE | 2019-09-19 12:45 | HP.PT.NRP ---
GLENNA PINTO was seen in my office for initial evaluation on 05/26/19. The following Plan of Care was established for this patient: Initial Frequency: 3x /Week Initial Duration: 3 Weeks Patient/Client Instruction: Educate patient on: Condition, Plan of Care For the Purpose of:: To decrease pain, To increase ROM, To improve muscle performance and motor function, To improve ability to perform ADL's, To increase tolerance to activity/condition/position, To improve ability of physical actions for home/community/work/leisure, To improve health of tissue, To decrease soft tissue restriction, To increase flexibility/ROM, To improve ability to perform tasks related to life management Therapeutic Exercise to Include: Strength training, Body mechanics, Postural training, Flexibilty training, Dynamic Lumbar Stabilization For the Purpose of:: To decrease pain, To improve muscle performance and motor function, To improve ability to perform ADL's, To increase tolerance to activity/condition/position, To improve ability of physical actions for home/community/work/leisure, To improve health of tissue, To decrease soft tissue restriction, To increase flexibility/ROM, To improve ability to perform tasks related to life management TENS: Yes IF ES: Yes Cryotherapy (ice pack, ice massage): Yes Thermo therapy (hot pack): Yes Ultrasound (thermal/non thermal): Yes For the Purpose of:: To decrease pain, To increase ROM, To improve nutrient delivery to tissue, To increase oxygenation perfusion, To improve health of tissue, To decrease soft tissue restriction This patient was last seen in our office . Pertinent comments regarding their Physical therapy will appear below: Patient seen for PT with low back pain focusing on DLS,lumbar ROM flexion ,postural ex's and strengthening/flexablity LE with symptoms cont to be affected with extended stabding. At this point I will be discontinuing this patient from physical therapy. I would be happy to see this patient again in the future if found appropriate by the physician. Thank you! Maverick Vitale, PT, Cert MDT, OCS
== END 2019-07-04 19:00 | disposition home or self-care (01) ==
LOC: PT 14:00
PROVIDERS: Family Provider Family Medicine; PCP Family Medicine; Referring Provider Anesthesiology Pain Medicine; Visit Provider Anesthesiology Pain Medicine
DX: M51.37 Other intervertebral disc degeneration, lumbosacral region (principal); M47.817 Spondylosis without myelopathy or radiculopathy, lumbosacral region; M48.07 Spinal stenosis, lumbosacral region
CPT/HCPCS: 97110; 97162; 97530

== ENCOUNTER → 2019-07-17 14:29 | Outpatient (CLI) | payer MEDICARE, BC, SELFPAY ==
[2019-07-17 17:35] LABS: Anion Gap 5 (5-15); BUN 11 mg/dL (7-18); BUN/Creat Ratio 9.5 RATIO (10-20); Calcium,Total 8.5 mg/dL (8.5-10.1); Chloride 104 mmol/L (98-107); Creatinine, Serum 1.16 mg/dL (0.70-1.30); EST Glomerular Filtration Rate 66 mL/min (>60); Est Glom Filt Rate - Afr Amer 80 mL/min (>60); Glucose 110 mg/dL (74-106); Potassium 3.7 mmol/L (3.5-5.1); Sodium Level 135 mmol/L (136-145)
== END ==
PROVIDERS: PCP Family Medicine; Referring Provider Family Medicine; Visit Provider Family Medicine
DX: E11.9 Type 2 diabetes mellitus without complications (principal)
CPT/HCPCS: 36415; 80048

== ENCOUNTER → 2019-08-21 13:14 | Outpatient (CLI) | payer MEDICARE, BC, SELFPAY ==
--- NOTE | 2019-08-21 13:16 | CT_ITS ---
STUDY: CT ABDOMEN AND PELVIS WITHOUT CONTRAST REASON FOR EXAM: Male, 69 years old. PT STATED RLQ PAIN, HX OF STONES RADIATION DOSAGE (If Supplied By Facility): CTDIvol = ( 23.72 ) mGy, DLP = ( 1351.38 ) mGycm TECHNIQUE: Transaxial images were obtained from the dome of the diaphragm to the symphysis pubis without oral contrast, and without intravenous contrast. Sagittal and coronal images were reconstructed. Individualized dose optimization techniques were used for this CT. COMPARISON: None. FINDINGS: The visualized lung bases are unremarkable. The visualized portions of the heart are within normal limits. Normal liver. Normal gallbladder and extrahepatic biliary system. Normal spleen. Normal pancreas. Normal bilateral adrenal glands. Multiple bilateral nonobstructing renal stones. 3 mm obstructing stone in the distal right ureter just proximal to the ureterovesical junction with mild ureteral dilatation, hydronephrosis, perinephric edema. Normal visualized stomach. Normal small intestine. Normal colon. The appendix is visualized and appears normal. Normal abdominal aorta. Normal inferior vena cava. Normal retroperitoneum. Normal urinary bladder. There are prostatic calcifications. Normal abdominal wall. Normal osseous structures. CT/Abdomen/Pelvis without Cont IMPRESSION: 3 mm obstructing stone in the distal right ureter just proximal to the ureterovesical junction with mild ureteral dilatation, hydronephrosis, and perinephric edema. Electronically Signed: Donald Rashid MD at 14:13 EDT Tel , Service support ,
== END ==
PROVIDERS: PCP Family Medicine; Referring Provider Urology; Visit Provider Urology
DX: R10.31 Right lower quadrant pain (principal)
CPT/HCPCS: 74176

== ENCOUNTER → 2019-09-12 09:12 | Outpatient (CLI) | payer MEDICARE, BC, SELFPAY ==
--- NOTE | 2019-09-12 09:17 | RAD_ITS ---
STUDY: X-RAY - ESOPHAGUS (BARIUM SWALLOW) WITH FLUOROSCOPY REASON FOR EXAM: Male, 69 years old. Hoarseness since Dec. 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 FLUOROSCOPY TIME (if supplied): (0:26) minutes/seconds COMPARISON: None. FINDINGS: There is no demonstrated esophageal foreign body. There is mild dilatation of the distal esophagus with the tertiary contractions of the mid and distal esophagus. There is no evidence of gastroesophageal reflux. The patient ingested a 12 mm tablet of barium without any difficulty. There is atherosclerotic tortuosity of the aortic arch and descending thoracic aorta. Normal visualized pulmonary parenchyma. There are diffuse degenerative changes of the visualized thoracic spine. RAD/Esophagus Single Contrast IMPRESSION: Mild dilatation of the distal esophagus with tertiary contractions as described. The patient ingested a 12 mm tablet of barium without any difficulty. Electronically Signed: Anthony Sorenson, at 10:53 EDT , Service support ,
== END ==
PROVIDERS: PCP Family Medicine; Referring Provider Otolaryngology; Visit Provider Otolaryngology
DX: R05 Cough (principal); K21.9 Gastro-esophageal reflux disease without esophagitis
CPT/HCPCS: 74220

== ENCOUNTER 2019-10-17 07:09 | Day surgery (SDC) | payer MEDICARE, BC, SELFPAY ==
[2019-10-17] VITALS (8 sets, daily range): BP systolic 138–177; BP diastolic 80–97; PULSE 73–99; RESP 16–18; TEMP 36.6–37.4; O2SAT 92–99; BMI 38.4
--- NOTE | 2019-10-17 | VOCOB_PTH ---
PATIENT: GLENNA PINTO LOC: [facility] [place] U#:[id number] AGE/SX: 69/M ROOM: RE10/17/[address]: Dr. Noel Razo MD : [id number] BED: DIS: 10/17/2019 SPEC #: [id number] RECD: 10/17/19 11:52 STATUS: SUSHMA HANSEN #: [id number] MARICEL: 10/17/19 00:[address]: Noel Razo DEPT: SURGICAL PATHOLOGY RECD BY: Danielito Mayfield ENTERED: 10/17/19 11:53 SP TYPE: VOCAL CORD OTHR DR: Dr. 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 Negative for malignancy. ARIEL:talib 10/18/19 COMMENT Case has been reviewed in consultation with Dr. Yanez who concurs with the above diagnosis. IDC:AM MICROSCOPIC DESCRIPTION Slides are reviewed. GROSS DESCRIPTION Received in fixative is one container labeled with the patient's name and designated left vocal cord mass. The specimen consists of one irregular fragment of light arshad soft tissue that measures 0.3 x 0.2 x 0.1 cm. The specimen is totally submitted in one cassette. / AM:talib 10/17/19 TC:5 CPT: 04769
--- NOTE | 2019-10-17 07:30 | EKG12_ITS ---
Test Reason : PRE-OP Blood Pressure : / mmHG Vent. Rate : 086 BPM Atrial Rate : 086 BPM P-R Int : 212 ms QRS Dur : 126 ms QT Int : 362 ms P-R-T Axes : 037 -01 -34 degrees QTc Int : 433 ms Atrial fibrillation /flutter with occasional Premature ventricular complexes Right bundle branch block Abnormal ECG Confirmed by CAROL CARR, KATEYLNN ([id number]), manuscript editor DUSTIN CULLEN ([id number]) on 10/19/2019 3:15:16 PM Referred By: Robe Razo Confirmed By:KATELYNN MEDINA MD
[2019-10-17] MEDS: Lactated Ringers 1,000 ML 100 ML IV (08:11)
[2019-10-17 08:20] LABS: Anion Gap 6 (5-15); BUN 18 mg/dL (7-18); BUN/Creat Ratio 14.5 RATIO (10-20); Calcium,Total 8.7 mg/dL (8.5-10.1); Chloride 103 mmol/L (98-107); Creatinine, Serum 1.24 mg/dL (0.70-1.30); EST Glomerular Filtration Rate 61 mL/min (>60); Est Glom Filt Rate - Afr Amer 74 mL/min (>60); Estimated Creatinine Clearance 60.84 ml/min; Glucose 144 mg/dL (74-106); Potassium 3.9 mmol/L (3.5-5.1); Sodium Level 137 mmol/L (136-145)
[2019-10-17] MEDS: Oxymetazoline 0.05% 1 SPRAY SPRAY.BTL 15 SPRAY (08:41)
--- NOTE | 2019-10-17 08:58 | DCINST_ITS ---
You will use the following diet at home:: No restrictions Your food should be the consistency of: Regular Discharge Activity: Return to Normal Activity Call your doctor if your incision/area has: Increased Pain/ Swelling Allergies/Adverse Reactions: Allergies No Known Allergies Allergy (Verified 10/13/19 11:16) Medications to take at Discharge Amlodipine Besylate [Norvasc] 10 mg PO DAILY 06/21/16 Albuterol Inhaler [Ventolin Hfa (SP)] 2 puff INHALATION Q4H PRN PRN 10/13/19 Amitriptyline HCl 75 mg PO QHS 10/13/19 Cetirizine HCl [Zyrtec] 10 mg PO DAILY 10/13/19 Omeprazole 40 mg PO DAILY 10/13/19 metFORMIN HCl [Glucophage] 500 mg PO QHS 10/13/19 Primary Care Physician: Sharmaine Palma MD [Primary Care Provider] - Test Results: Test results from this visit will be discussed in further detail at your follow- up appointment, if applicable. Please Follow Up With: Robe Razo MD When: 1 week
--- NOTE | 2019-10-17 08:59 | PCM.OPRPT ---
Problem List (1) Vocal cord mass Status: Chronic Report of Operation Date of Procedure: 10/17/19 Pre-Operative Diagnosis: left vocal cord mass Post-Operative Diagnosis: left vocal cord mass Surgery/Procedure Performed:: diagnostic laryngoscopy with biopsy and use of operative telescope Type of Anesthesia:: General Description of Procedure: on the day of the procedure, after appropriate informed consent was obtained, the patient was brought to the operating room and placed in supine position on the operating table. he was placed under general endotracheal anesthesia by the anesthesiologist. the endotracheal tube was secured, the eyes were taped. the table was rotated 90 degrees toward the anesthesiologist. a tooth guard was placed. a jerica laryngoscope was inserted and suspended from the garnica. a good glottic view was obtained. the zero degree scope was placed. a left 2mm mid-cord pedunculated mass was seen. this was medialized and trimmed with endoscopic scissor. hemostasis was achieved. he had no other laryngeal, pharyngeal or hypopharyngeal lesions. he was brought out of anesthesia and transferred to the PACU in stable condition.
[2019-10-17] MEDS: Ipratropium/Albuterol Sulfate 3 ML AMPUL.NEB INHALATION (10:17)
--- NOTE | 2019-10-17 10:35 | SUR.PHASEI ---
PT RECIEVED FROM OR, HR 120, TRENDING TO SR, 90'S. PULSE OX 96%, PT ANXIOUS AND C/O SOB. PT ASKED IF HE USES AN INHALER AT HOME. PT STATESSOMETIMES. CALLED, ORDERS FOR DUO NEB RESP TX ORDERED.
== END 2019-10-17 11:18 | disposition home or self-care (01) ==
LOC: SDC 07:10 → AC 07:11
PROVIDERS: PCP Family Medicine; Referring Provider Otolaryngology; Visit Provider Otolaryngology
PROC: 0CJS8ZZ Inspection of Larynx, Via Natural or Artificial Opening Endoscopic (ICD-10-PCS; CPT 31575; principal; 2019-10-17 08:45)
DX: J38.1 Polyp of vocal cord and larynx (principal); Z11.59 Encounter for screening for other viral diseases; K21.9 Gastro-esophageal reflux disease without esophagitis; I10 Essential (primary) hypertension; G47.30 Sleep apnea, unspecified; Z79.899 Other long term (current) drug therapy
CPT/HCPCS: 31536; 80048; 87635; 88305; 93005; 94640; G2023; J7120; J2405; U0004

== ENCOUNTER → 2020-01-11 | Outpatient (CLI) | payer MEDICARE, BC, SELFPAY ==
[2019-10-17 07:47] VITALS: BMI 38.4
== END | disposition home or self-care (01) ==
PROVIDERS: PCP Family Medicine; Referring Provider Family Medicine; Visit Provider Family Medicine
DX: R05 Cough (principal)
CPT/HCPCS: 87635; U0003

== ENCOUNTER 2020-01-16 12:20 | Inpatient (IN) | payer MEDICARE, BC, SELFPAY ==
[2019-10-17 07:47] VITALS: BMI 38.4
[2020-01-16] VITALS (17 sets, daily range): BP systolic 102–192; BP diastolic 58–126; PULSE 69–118; RESP 18–34; TEMP 36.8–39; O2SAT 83–97; BMI 40.1; BMI 37.9
--- NOTE | 2020-01-16 12:38 | EKG12_ITS ---
Test Reason : SOB Blood Pressure : / mmHG Vent. Rate : 107 BPM Atrial Rate : 288 BPM P-R Int : 000 ms QRS Dur : 128 ms QT Int : 374 ms P-R-T Axes : 212 -04 021 degrees QTc Int : 499 ms Atrial flutter with variable A-V block with premature ventricular or aberrantly conducted complexes Right bundle branch block Abnormal ECG Confirmed by VIK KUMAR ([id number]), writer editor MONTY WAGNER ([id number]) on 01/18/2020 8:58:57 AM Referred By: INCHO Confirmed By:VIK KUMAR
--- NOTE | 2020-01-16 13:07 | ED.DCSUM_ITS ---
History of Present Illness Chief Complaint: Cough Informant: Patient Narrative: Patient is a 69-year-old male with a past medical history of hypertension who presents to the emergency department for worsening shortness of breath and cough. He was diagnosed with COVID this past Wednesday. He has been having symptoms over the past 5 days. He did develop some diarrhea yesterday and today. He has been having fevers and chills up until today. His also has COVID and is currently hospitalized. He has not been taking anything for this. He has been coughing up phlegm. Denies any chest pain. No abdominal pain or nausea/vomiting. He denies any leg swelling or calf pain. No history of heart attacks, strokes or DVT/PE. He has not had any leg swelling or calf pain. No headache or neck stiffness. No rash or joint swelling. Past Medical History - Allergies and Home Meds Allergies/Adverse Reactions: Allergies No Known Allergies Allergy (Verified 10/13/19 11:16) Prior records reviewed: Yes Past Medical History: - - Hypertension Smoking Status: Never smoker - Family History Maternal Family History: Reports: Heart Disease Paternal Family History: Reports: Heart Disease Review of Systems All systems negative except as indicated General: Reports: Chills, Fever. Denies: Sweats Eyes: Denies: Visual changes - bilaterally, Diplopia ENT: Denies: Rhinorrhea, Sore throat Cardiovascular: Denies: Chest pain, Palpitations Respiratory: Reports: Dyspnea, Cough, Sputum Gastrointestinal: Reports: Diarrhea. Denies: Abdominal pain, Nausea, Vomiting Genitourinary: Denies: Dysuria, Hematuria, Frequency Musculoskeletal: Denies: Back pain, Extremity Pain Skin: Denies: Rash, Wounds Neurological: Denies: Headache, Weakness, Numbness Physical Exam Vital Signs/Narrative: Vital Signs Temp Pulse Resp BP Pulse Ox 01/16/20 12:36 98.2 F 106 H 30 H 183/83 H 93 01/16/20 12:22 98.2 F 118 H 28 H 156/126 H 83 Inital Vital Signs reviewed: Yes General: Well nourished, Well developed, No Acute Distress Head: Normocephalic, Atraumatic Eyes: Perrl, EOMI ENT: Moist mucous membranes, No rhinorrhea Neck: Supple, Nontender Cardiovascular: Regular rhythm, No murmurs, Tachycardia Respiratory: CTA bilaterally, Chest nontender, - - Increased work of breathing, tachypnea Abdomen: Soft, Nontender, Nondistended, Normal bowel sounds Back: Nontender, Normal Inspection Extremities: Nontender. Negative for: Edema, Calf Tenderness Skin: Normal color, No rash Neurological: Alert, Oriented x3, Cranial nerves II-XII grossly intact, Normal Strength, Normal Sensation Psychological: Normal affect, Normal Mood Diagnostic/Tx/Re-eval - EKG Initial EKG Interpretation: - - Rate of 107 bpm and an irregularly irregular rhythm. PVCs are present. Otherwise normal intervals. Normal axis. No significant ST elevations or depressions appreciated. No T wave abnormalities. No prior EKG for comparison. - Medical Decision Making Patient presents to the ED after being diagnosed with COVID. He is having cough and worsening shortness of breath. Upon arrival to the ED is tachycardic and hypoxic. Requiring supplemental oxygen. Chest x-ray, EKG and basic lab work being repeated. We will plan on hospitalization. Patient given a dose of Decadron and will be given albuterol for his cough. Due to the hypoxia and tachycardia we will do a CT scan to evaluate for PE. Hospitalist did request dose of antibiotic. We will give a dose of azithromycin. Started on IV fluids as he does have a mildly elevated lactic acid. Patient signed out due to end of shift mostly just for follow-up of the CT scan. Hospitalist already aware of patient and evaluating at bedside now. CT scan did not show any evidence of acute PE but did show the bilateral groundglass opacities. Patient will be brought into the hospital for further evaluation and management at this time. ED Disposition - Plan for ED Patient: Disposition: Acute Care Hospital [facility] Diagnosis: COVID-19, Hypoxia, Cough, Atrial fibrillation
[2020-01-16 13:28] LABS: Absolute Lymphocyte Count 0.45 X10^3/uL (0.83-4.51); Absolute Neutrophil Count 5.7 X10^3/uL (2.0-7.7); Hemoglobin 11.5 g/dL (13.0-16.5); Lymphocyte # 0.45 X10^3/ul (4.0); Lymphocyte % 6.8 % (19-41); Mean Corp Hgb Conc 33.8 g/dL (32-36); Mean Corpuscular Hgb 33.8 pg (27.0-32.0); Mean Platelet Vol. 9.7 fl (6.2-12.0); Monocyte# 0.38 X10^3/uL; Monocyte% 5.8 % (0-10); NRBC Flagged by Analyzer 0 % (0-5); Neutrophil # 5.73 X10^3/uL (2.7-7.7); Neutrophil % 86.8 % (47-70); POSITIVE DIFFERENTIAL YES; Platelet Count 190 K/mm3 (150-450); RBC Distribution Width CV 11.9 % (11.6-14.6); RBC Distribution Width SD 44.2 fl (35.1-43.9); White Blood Count 6.6 K/mm3 (4.4-11.0)
[2020-01-16 13:33] LABS: Differential Indicated SCAN CRITERIA MET
[2020-01-16 13:38] LABS: ALB/GLOB Ratio 0.6 RATIO (0.9-2.4); AST(SGOT) 31 U/L (15-37); Alanine Aminotransfer ALT/SGPT 15 U/L (16-61); Alkaline Phosphatase 73 U/L (45-117); Anion Gap 11 (5-15); BUN 21 mg/dL (7-18); BUN/Creat Ratio 15.2 RATIO (10-20); Calcium,Total 8.5 mg/dL (8.5-10.1); Chloride 98 mmol/L (98-107); Creatinine, Serum 1.38 mg/dL (0.70-1.30); EST Glomerular Filtration Rate 54 mL/min (>60); Est Glom Filt Rate - Afr Amer 65 mL/min (>60); Estimated Creatinine Clearance 51.43 ml/min; Globulin 4.8 g/dL (2.2-4.2); Glucose 114 mg/dL (74-106); Potassium 3.6 mmol/L (3.5-5.1); Protein, Total 7.8 g/dL (6.4-8.2); Sodium Level 130 mmol/L (136-145)
[2020-01-16 13:43] LABS: Lactic Acid 2.6 mmol/L (0.4-1.9)
--- NOTE | 2020-01-16 13:45 | RAD_ITS ---
STUDY: X-RAY CHEST REASON FOR EXAM: Male, 69 years old. COVID positive on Wednesday, cough worsening TECHNIQUE: Single AP portable view of the chest. COMPARISON: Comparison is made with prior study dated 06/21/2016. FINDINGS: EKG electrodes are seen. Patchy infiltrates are seen in the peripheral aspect of the left lung as well as increased markings at both lung bases worse on the right side. There is no demonstrated pleural abnormality. Normal size heart. Normal mediastinum and toro. Normal visualized pulmonary arteries. There is atherosclerotic tortuosity of the aortic arch and descending thoracic aorta. There are diffuse degenerative changes of the visualized thoracic spine. There is degenerative osteoarthritis of the bilateral shoulders. There is no demonstrated abnormality of the visualized soft tissue structures of the upper abdomen. RAD/Chest 1 View (Portable) IMPRESSION: Patchy infiltrates in both lungs in the peripheral lateral distribution in the left hemithorax. Follow-up is recommended. Electronically Signed: Anthony Sorenson, at 14:27 EDT , Service support ,
--- NOTE | 2020-01-16 14:21 | CT_ITS ---
STUDY: CTA CHEST REASON FOR EXAM: Male, 69 years old. HYPOXIA. POSITIVE COVID. FEVER SOB RADIATION DOSAGE (If Supplied By Facility): CTDIvol = ( 11.47 ) mGy, DLP = ( 645.13 ) mGycm TECHNIQUE: The examination was performed with the intravenous administration of IV 100mL [id number]-[id number]. Post-processing of the angiographic images was performed, with multiplanar reformation and 3D reconstruction. Individualized dose optimization techniques were used for this CT. COMPARISON: Comparison is made with prior examination dated 12/19/2016. FINDINGS: Normal enhancement of the main pulmonary artery and right and left pulmonary arteries. Normal enhancement of the bilateral peripheral pulmonary arteries. There is no demonstrated pulmonary embolism. Normal thoracic aorta and visualized great vessels. There is no demonstrated aortic dissection. There are calcifications of the coronary arteries. There are enlarged mediastinal lymph nodes. The largest node is in the precarinal space and measures 2.5 cm x 1.3 cm. This is unchanged. There are bilateral hilar lymph nodes, which are normal in size and morphology. Normal visualized trachea and bronchi. The lungs are well expanded. Patchy areas of groundglass appearance involving both lungs. There is evidence of a peripheral distribution. With the patient''s history of being Covid positive, this is consistent with bilateral pulmonary infiltrates. Normal pleura. Normal chest wall structures. There are degenerative changes of thoracic spine. Mildly distended gallbladder. Small hiatal hernia. CT/CTA Chest W/WO Contrast IMPRESSION: Bilateral groundglass appearance more prominent towards a peripheral distribution suggestive of the bilateral pulmonary infiltrates in keeping with Covid Electronically Signed: Anthony Sorenson, at 15:28 EDT , Service support ,
[2020-01-16] MEDS: dexAMETHasone 10 MG/ML Vial IV (15:17)
--- NOTE | 2020-01-16 15:46 | PCM.HP.STD ---
Problem List (1) Severe sepsis Status: Acute (2) Acute respiratory failure with hypoxia Status: Acute (3) COVID-19 Status: Acute (4) Bilateral pneumonia Status: Acute Qualifiers: Pneumonia type: due to unspecified organism Lung location: unspecified part of lung Qualified Code(s): J18.9 - Pneumonia, unspecified organism (5) Atrial fibrillation Status: Acute Qualifiers: Atrial fibrillation type: paroxysmal Qualified Code(s): I48.0 - Paroxysmal atrial fibrillation (6) HTN (hypertension) Status: Chronic Qualifiers: Hypertension type: essential hypertension Qualified Code(s): I10 - Essential (primary) hypertension (7) JOE (obstructive sleep apnea) Status: Chronic (8) GERD (gastroesophageal reflux disease) Status: Chronic Qualifiers: Esophagitis presence: esophagitis presence not specified Qualified Code(s): K21.9 - Gastro-esophageal reflux disease without esophagitis (9) Peripheral neuropathy Status: Chronic Qualifiers: Peripheral neuropathy type: mononeuropathy, other Qualified Code(s): G58.8 - Other specified mononeuropathies (10) Prediabetes Status: Chronic (11) Morbid obesity Status: Chronic (12) CKD (chronic kidney disease), stage III Status: Chronic History of Present Illness Date of Admission: 01/16/20 Chief Complaint: Cough, dyspnea, N/V/D, abd pain, headache, Fever/Chills, recent admission for COVID The patient is a 69 y/o M w/ PMHx: JOE on CPAP q HS, HTN, Prediabetes mellitus type II, Morbid obesity, GERD, Peripheral neuropathy, prior EKG evidence ? atrial fibrillation noted 10/17/19 confirmed at read per Dr. Conrad prior to patient intervention with ENT for removal benign left vocal cord mass but denied any prior history who presents to the [facility] ED on 01/16/20 with history of his being recently hospitalized with positive COVID testing with onset the prior with fevers up to 103, chills, body aches, frontal throbbing headaches rated 3-5 out of 10 in severity with no specific light or sound sensitivities in addition to nausea and occasional dry heaving and loss of smell but continued ability to taste with improvement of those symptoms over the last several days however he notes now onset abdominal cramping and loose stools with sudden worsened symptoms the day prior to current presentation with dyspnea and dry cough, worsened by any exertion prompting ED presentation. Patient did have COVID testing when his had tested positive on 01/11/2020 which was positive at that time. Work-up in the ED included T 98.2, heart rate initially 118, BP 156/126, respiratory rate 30, initially 83% on room air with increased work of breathing and accessory muscle usage with most recent vital signs set T 98.7 following treatment, heart rate 102, BP 192/107, respiratory rate 34, 94% on 4 L nasal cannula, CBC with WBC 6.6, hemoglobin 0.5, platelet 190 with no significant left shift with lymphopenia, d-dimer pending per ED, CMP with sodium 130, BUN/creatinine 21/1.38, glucose 114, lactic acid 2.6, AST/ALT 31/15, alk phos 73, troponin less than 0.015, EKG with appearance of rate controlled atrial fibrillation and comparison of prior as noted from 09/2019 similar and confirmed following read per Dr. Conrad as atrial fibrillation therefore as noted we will plan therapeutic Lovenox concurrently, chest x-ray with patchy infiltrates bilaterally in a peripheral lateral distribution especially in the left hemithorax with follow-up CTPA with noted bilateral groundglass appearance more prominent toward the peripheral distribution suggestive of bilateral pulmonary infiltrates consistent with COVID infection. In the ED patient administered normal saline, Decadron 10 mg IV x1, albuterol inhaler as well as azithromycin 5 mg x 1. Past Medical History Past Medical History (Chronic Problems): Chronic Problems Vocal cord mass (Chronic) HTN (hypertension) (Chronic) JOE (obstructive sleep apnea) (Chronic) GERD (gastroesophageal reflux disease) (Chronic) Peripheral neuropathy (Chronic) Prediabetes (Chronic) Morbid obesity (Chronic) CKD (chronic kidney disease), stage III (Chronic) Allergies No Known Allergies Allergy (Verified 10/13/19 11:16) Home Medications: Ambulatory Orders Medication Instructions Recorded Amlodipine Besylate [Norvasc] 10 mg PO DAILY 06/21/16 Albuterol Inhaler [Ventolin Hfa 2 puff INHALATION Q4H PRN PRN 10/13/19 (SP)] Amitriptyline HCl 75 mg PO QHS 10/13/19 Cetirizine HCl [Zyrtec] 10 mg PO DAILY 10/13/19 Omeprazole 40 mg PO DAILY 10/13/19 metFORMIN HCl [Glucophage] 500 mg PO QHS 10/13/19 Surgical History: - - Recent left vocal mass removal noted to be benign, tonsillectomy, cataract surgery. Psychiatric History: No pertinent psych hx Lives: Spouse/ Significant Other - Patient lives at home with his who is currently admitted secondary to COVID complications and per his report complicated nephrolithiasis. Smoking Status: Never smoker Tobacco Use: Non-smoker Alcohol: None Drugs: None - *Family History Maternal History Items: Heart Disease Paternal History Items: Heart Disease Review of Systems Constitutional: Reports: Anorexia, Chills, Fever, Malaise, Weakness, Fatigue. Denies: Weight Change HEENT: Reports: Head Aches, Nasal Congestion, Sinus Congestion, Sore Throat, - - Loss of sense of smell, still has taste.. Denies: Sinus Drainage Cardiovascular: Denies: Chest Pain, Chest Pressure, Chest Tightness, Light Headedness, Orthopnea, Palpitations, Syncope Respiratory: Reports: Cough, Shortness of Breath, Shortness of breath at rest, Shortness of breath upon exertion. Denies: Sputum production, Wheezing Gastrointestinal: Reports: Abdominal Pain, Diarrhea, Nausea, Vomiting Genitourinary: Denies: Dysuria Musculoskeletal: Reports: Joint Pain, Muscle pain. Denies: Joint Tenderness Skin: Denies: Rash, Wounds Neurological: Denies: Numbness, Tingling, Focal weakness Psychiatric: Denies: Anxiety, Depression, Homicidal Ideations, Suicidal Ideations Hematologic/ Lymphatic: Reports: Anemia. Denies: Easy Bruising, Easy Bleeding VTE Information - Inpt Only VTE Present on Admission: No VTE Mechan Device Prophylaxis: SCD's VTE Pharm Prophylaxis ordered?: Yes Patient Problems: Active and Suspected Problems COVID-19 (Acute) Hypoxia (Acute) Cough (Acute) Severe sepsis (Acute) Acute respiratory failure with hypoxia (Acute) COVID-19 (Acute) Bilateral pneumonia (Acute) Atrial fibrillation (Acute) Subjective: Patient seated upright in the ED bed, fatigued and ill appearing, increased work of breathing and some accessory muscle usage but notes feeling improved since oxygen supplementation, saturations had been 83% upon initial presentation. Objective: Physical Examination: General: awake, alert, oriented x 3 and cooperative, seated upright in the ED bed, fatigued and ill-appearing, still some accessory muscle usage and evidence of increased work of breathing, improved since initial ED presentation. Skin: normal color, turgor, no icterus, cyanosis. HEENT: AT/NC, EOMI, PERRLA, mildly dry MM, no carotid bruits or JVD noted; however thickened neck makes examination difficult. Lungs: CTA bilaterally, increased effort, some accessory muscle usage, notes feeling improved since and see supplementation, still increased work of breathing ongoing, no rales, ronchi or wheezing. Heart: Irregular, tachycardic; no gallop, rub audible. Abdomen: soft, morbidly obese, generalized discomfort with palpation but no rebound or guarding, difficult to assess distention secondary to habitus, morbidly obese, hypoactive bowel sounds, difficult to assess HSM secondary to morbid obese habitus. Extremities: no cyanosis, clubbing, mild bilateral nonpitting ankle edema. Neurological: patient awake, alert, oriented x 3; cognitive function intact; pupils equally reactive to light and accomodation; cranial nerves II-XII grossly normal, moving all 4 extremities, no focal deficits, strength severely global decrease secondary to acute presentation. Psychiatric: affect appears fatigued, ill-appearing, still some increased work of breathing accessory muscle usage but notes improving since initial ED presentation, no acute evidence of depressive or anxiety feelings. - Physical Exam Vitals/I&O's: Vital Signs Temp Pulse Resp BP Pulse Ox 98.7 F 102 H 34 H 192/107 H 94 01/16/20 15:28 01/16/20 15:28 01/16/20 15:28 01/16/20 15:28 01/16/20 15:28 Oxygen Flow Rate (L/min) 4 Oxygen Delivery Method Nasal Cannula Weight: 280 lb Body Mass Index (BMI) 40.1 Laboratory Results 01/16/20 12:35: WBC 6.6, RBC 3.40 L, Hgb 11.5 L, Hct 34.0 L, MCV 100.0 H, MCH 33.8 H, MCHC 33.8, RDW Std Deviation 44.2 H, RDW Coeff of [place] 11.9, Plt Count 190, MPV 9.7, Immature Gran % (Auto) 0.600, Neut % (Auto) 86.8 H, Lymph % (Auto) 6.8 L, [place] % (Auto) 5.8, Eos % (Auto) 0.0, Baso % (Auto) 0.0, Absolute Neuts (auto) 5.7, Absolute Lymphs (auto) 0.45 L, Nucleated RBC % 0 01/16/20 12:35: Sodium 130 L, Potassium 3.6, Chloride 98, Carbon Dioxide 21.0, Anion Gap 11, BUN 21 H, Creatinine 1.38 H, Estim Creat Clear Calc 51.43, Est GFR (MDRD) Af Amer 65, Est GFR (MDRD) Non-Af 54 L, BUN/Creatinine Ratio 15.2, Glucose 114 H, Calcium 8.5, Total Bilirubin 0.70, AST 31, ALT 15 L, Alkaline Phosphatase 73, Troponin I < 0.015, Total Protein 7.8, Albumin 3.0 L, Globulin 4.8 H, Albumin/Globulin Ratio 0.6 L 01/16/20 12:35: Lactic Acid 2.6 H* 01/16/20 12:35: D-Dimer Quant (PE/DVT) Pending Current Medications Azithromycin 500 mg/ Dextrose 255 mls @ 250 mls/hr IV X1 ONE Stop: 01/16/20 16:18 Assessment/Plan All Active Problems COVID-19 (Acute) Hypoxia (Acute) Cough (Acute) Severe sepsis (Acute) Acute respiratory failure with hypoxia (Acute) COVID-19 (Acute) Bilateral pneumonia (Acute) Atrial fibrillation (Acute) The patient is a 69 y/o M w/ PMHx: JOE on CPAP q HS, HTN, Prediabetes mellitus type II, Morbid obesity, GERD, Peripheral neuropathy, prior EKG evidence ? atrial fibrillation noted 10/17/19 confirmed at read per Dr. Conrad prior to patient intervention with ENT for removal benign left vocal cord mass but denied any prior history who presents to the [facility] ED on 01/16/20 with history of his being recently hospitalized with positive COVID testing with onset the prior with fevers up to 103, chills, body aches, frontal throbbing headaches rated 3-5 out of 10 in severity with no specific light or sound sensitivities in addition to nausea and occasional dry heaving and loss of smell but continued ability to taste with improvement of those symptoms over the last several days however he notes now onset abdominal cramping and loose stools with sudden worsened symptoms the day prior to current presentation with dyspnea and dry cough. 1. Acute Severe Sepsis secondary to Acute Hypoxic Respiratory Failure secondary to Bilateral Pneumonia secondary to Acute Viral Syndrome, COVID-19: Will admit to the COVID ICU unit, will maintain on oxygen with wean as tolerated to room air, if worsening may need to consider ABG/BIPAP administration, continue PRN albuterol, maintain on IV Rocephin and Azithromycin w/ pending MRSA screen, HOB, IS parameters w/ pending sputum cultures and urine antigens, will obtain procalcitonin, CRP, CPK, Ferritin, LDH, dimer pending per ED, ED and prior EKG w/ new onset atrial fibrillation with denied history per patient and trop <0.015 thus will also obtain ECHO, cycle cardiac enzymes, repeat EKG in AM, continue supportive care including q 2 hour turning including prone. Planned consultation with ICU physician. Will continue decadron 6 mg IV daily. Infectious disease also consulted. Bld cx x 2 obtained in the ED. 2. ? New onset, Paroxsymal atrial fibrillation: EKG in ED w/ atrial fibrillation, rate controlled, noted prior EKG 09/2019 read and confirmed as atrial fibrillation prior to procedure thus unclear timeline but denies history. Will maintain on telemetry, obtain cardiac enzyme serial set, obtain magnesium level, obtain ECHO, obtain TSH level. CHADs scoring appropriate for anticoagulation especially given #1 concurrent presentation thus will start at this time therapeutic lovenoxwith transition to alternate oral agent pending cost investigation. Will start metoprolol therapy. Coags requested. 3. Hyponatremia, acute, hypovolemic: Admission sodium 130, likely secondary to GI losses with recent nausea, emesis and loose stools, will judiciously hydrate given presentation as noted, repeat CMP in a.m. 4. Macrocytic anemia: No prior history, new onset, admission hemoglobin 11.5, MCV 100, will obtain iron panel, ferritin, vitamin B12 and folic acid in case of mixed picture, denies any black stools or rectal bleeding history especially given initiation of therapeutic Lovenox. 5. Prediabetes mellitus type II: We will hold patient metformin, notes hemoglobin A1c has been appropriate and has been improving with no formal diabetes diagnosis per his report, will maintain on clear liquids per discussion with patient given nausea and emesis bouts as well as abdominal cramping but transition to ADA once improving, continue Accu-Cheks with insulin sliding scale concurrently. 6. Hypertension: Continue home regimen including amlodipine with hold parameters, PRN hydralazine. 7. Chronic Kidney Disease Stage III: Admission BUN/Cr 21/1.38, baseline renal function 1.1-1.3, similar to prior although do suspect mild dehydration is noted given GI losses and acute presentation #1, repeat BMP in AM. 8. Morbid Obesity: Weight loss and lifestyle changes encouraged, nutrition consulted. 9. Allergic rhinitis: We will continue patient home Zyrtec regimen. 10. GERD: We will maintain on omeprazole. 11. JOE: CPAP nightly. 12. DVT prophylaxis: SCDs, maintain on therapeutic Lovenox as noted. 13. CODE status: Patient TERRY is his however she is currently ill and in the ICU with COVID as well and living will is place. Discussed CODE status at length including difference between FULL code, DNR-CCA and DNR-CC status. Following discussions about the differences in these status, requested Full Code status. Advanced Care Planning Face to Face Time: 16 minutes. Inpatient E&M: 71889 Init Hosp L3 Procedures: 72061 Advncd Care Plan 30 Min
--- NOTE | 2020-01-16 16:26 | NURSING ---
ICU 2 SEVERE SEPSIS, COVID, HYPOXIC RESP FAILURE WHITE
[2020-01-16 16:32] LABS: D-Dimer Quantitative (DVT/PE) 0.66 FEU/ug/m (0.27-0.49)
[2020-01-16] MEDS: Acetaminophen 500 MG Tablet 1000 MG PO (16:35)
[2020-01-16 17:17] LABS: Reflex Lactate? Y
[2020-01-16 17:40] LABS: International Normalized Ratio 1.1; Prothrombin Time (Protime)PT. 13.9 SECONDS (11.7-14.9)
[2020-01-16 18:01] LABS: Vitamin B12 532 pg/mL (211-911)
[2020-01-16 18:02] LABS: Ferritin 1204 ng/mL (26-388); Iron 27 ug/dL (65-175); Iron Binding Capacity,Total 254 ug/dL (250-450); LDH 339 U/L (87-241); Magnesium 1.9 mg/dL (1.6-2.6); PERCENT IRON SATURATION 10.6 % (15.0-55.0); T4 Free Direct 1.57 ng/dL (0.76-1.46); Thyroid Stim Hormone (TSH) 0.26 uIU/mL (0.358-3.74)
[2020-01-16] MEDS: 0.9% Normal Saline 1,000 ML 100 ML IV (18:35)
[2020-01-16] MEDS: Enoxaparin 150 MG/ML Syringe 130 MG SC (18:35)
[2020-01-16] MEDS: Metoprolol Tartrate 25 MG Tablet PO (18:35)
[2020-01-16 20:43] LABS: M R Staph aureus DNA By PCR Negative (Negative); Probe Check PASS; Specimen Processing Control PASS
[2020-01-16] MEDS: Amitriptyline 25 MG Tablet 75 MG PO (20:58)
[2020-01-16] MEDS: MELATONIN 3 MG TABLET PO (23:38)
[2020-01-16] MEDS: Acetaminophen 325 MG Tablet 650 MG PO (23:38)
[2020-01-16] MEDS: oxyCODONE 5 MG Tablet PO (23:38)
[2020-01-16] MEDS: Insulin Lispro 100 UNIT/ML INSULN.PEN SC (23:39)
[2020-01-16] MEDS: guaiFENesin 10 ML UDC (200MG/10ML) PO (23:40)
[2020-01-17] VITALS (33 sets, daily range): BP systolic 113–138; BP diastolic 7–90; PULSE 66–96; RESP 12–93; TEMP 36.6–37.1; O2SAT 91–98
[2020-01-17 00:51] LABS: Bedside Glucose 213 mg/dL (70-110)
[2020-01-17 05:14] LABS: ALB/GLOB Ratio 0.6 RATIO (0.9-2.4); AST(SGOT) 24 U/L (15-37); Alanine Aminotransfer ALT/SGPT 16 U/L (16-61); Albumin, Serum 2.6 g/dL (3.2-5.0); Alkaline Phosphatase 66 U/L (45-117); Anion Gap 10 (5-15); BUN 27 mg/dL (7-18); BUN/Creat Ratio 19.4 RATIO (10-20); Calcium,Total 8.1 mg/dL (8.5-10.1); Chloride 100 mmol/L (98-107); Creatinine, Serum 1.39 mg/dL (0.70-1.30); EST Glomerular Filtration Rate 54 mL/min (>60); Est Glom Filt Rate - Afr Amer 65 mL/min (>60); Estimated Creatinine Clearance 54.28 ml/min; Globulin 4.6 g/dL (2.2-4.2); Glucose 197 mg/dL (74-106); Potassium 3.7 mmol/L (3.5-5.1); Protein, Total 7.2 g/dL (6.4-8.2); Sodium Level 131 mmol/L (136-145)
[2020-01-17] MEDS: Enoxaparin 150 MG/ML Syringe 130 MG SC (05:18)
--- NOTE | 2020-01-17 05:55 | EKG12_ITS ---
Test Reason : AM EKG Blood Pressure : / mmHG Vent. Rate : 066 BPM Atrial Rate : 264 BPM P-R Int : 000 ms QRS Dur : 144 ms QT Int : 466 ms P-R-T Axes : 000 018 219 degrees QTc Int : 488 ms Atrial flutter Right bundle branch block Abnormal ECG When compared with ECG of 16-JAN-2020 13:25, MANUAL COMPARISON REQUIRED, DATA IS UNCONFIRMED Confirmed by OCTAVIA CARR, IHSAN ([id number]), mill tender warm up ADIN RAMOS ([id number]) on 01/22/2020 1:44:55 PM Referred By: KRISTAN Confirmed By:TEN DUDLEY MD
--- NOTE | 2020-01-17 06:09 | CON.PCM_ITS ---
Reason for Consult Date of Consultation: 01/17/20 Reason for Consultation: Acute hypoxemic respiratory failure History of Present Illness: The patient is a 69-year-old male, with a history as outlined below, who presented to the emergency department on January 15 with complaints of worsening shortness of breath and cough. The patient was recently diagnosed with coronavirus on January 10. The patient does not utilize supplemental oxygen at his baseline. 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 His symptoms have slowly worsened over the course of the last week. On presentation to the emergency department, the patient was noted to be afebrile but was tachycardic and tachypneic. He was initially documented to be saturating 83% on room air. Laboratory evaluation revealed a normal white blood cell count. D-dimer was only elevated to 0.66. Coagulation profile was within normal limits. Chemistry profile was notable for a sodium of 130 and creatinine of 1.38. Lactate was elevated to 2.6. MRSA screen was negative. A CTA chest was obtained which revealed no evidence for PE. Patchy bilateral ground space opacities were noted. The patient was subsequently placed on empiric antimicrob ials and admitted to the medical intensive care unit for further management. He was also started on treatment strength Lovenox and Decadron therapy. Past Medical History Past Medical History (Chronic Problems): Chronic Problems Vocal cord mass (Chronic) HTN (hypertension) (Chronic) JOE (obstructive sleep apnea) (Chronic) GERD (gastroesophageal reflux disease) (Chronic) Peripheral neuropathy (Chronic) Prediabetes (Chronic) Morbid obesity (Chronic) CKD (chronic kidney disease), stage III (Chronic) Allergies No Known Allergies Allergy (Verified 10/13/19 11:16) Home Medications: Ambulatory Orders Medication Instructions Recorded Amlodipine Besylate [Norvasc] 10 mg PO DAILY 06/21/16 Albuterol Inhaler [Ventolin Hfa 2 puff INHALATION 4X/DAY PRN 10/13/19 (SP)] Amitriptyline HCl 75 mg PO QHS 10/13/19 Omeprazole 40 mg PO DAILY 10/13/19 Cetirizine HCl [Zyrtec] 10 mg PO DAILY 01/16/20 Metformin HCl [Metformin HCl ER] 500 mg PO QHS 01/16/20 Promethazine HCl/Codeine 5 - 10 ml PO Q4H PRN PRN 01/16/20 [Promethazine-Codeine Syrup] Surgical History: - - Recent left vocal mass removal noted to be benign, tonsillectomy, cataract surgery. Psychiatric History: No pertinent psych hx Lives: Spouse/ Significant Other - Patient lives at home with his who is currently admitted secondary to COVID complications and per his report complicated nephrolithiasis. Smoking Status: Never smoker Tobacco Use: Non-smoker Alcohol: None Drugs: None - *Family History Maternal History Items: Heart Disease Paternal History Items: Heart Disease Review of Systems Constitutional: Reports: Chills, Fever, Malaise, Fatigue Eyes: Denies: Blurred vision, Double vision HEENT: Denies: Head Aches, Sinus Congestion, Sinus Drainage Cardiovascular: Denies: Chest Pain, Palpitations Respiratory: Reports: Cough, Shortness of Breath Gastrointestinal: Denies: Abdominal Pain, Nausea, Vomiting Genitourinary: Denies: Dysuria Musculoskeletal: Denies: Joint Pain, Joint Tenderness Skin: Denies: Rash, Wounds Neurological: Denies: Numbness, Tingling, Focal weakness Psychiatric: Denies: Anxiety, Depression, Homicidal Ideations, Suicidal Ideations Hematologic/ Lymphatic: Reports: Anemia. Denies: Hx of blood clot Patient Problems: Active and Suspected Problems COVID-19 (Acute) Hypoxia (Acute) Cough (Acute) Severe sepsis (Acute) Acute respiratory failure with hypoxia (Acute) COVID-19 (Acute) Bilateral pneumonia (Acute) Atrial fibrillation (Acute) Objective: The patient's most recent lab work, culture data and imaging studies have all been personally reviewed. - Physical Exam Vitals/I&O's: Vital Signs Temp Pulse Resp BP Pulse Ox 97.9 F 68 18 117/79 95 01/17/20 05:00 01/17/20 05:32 01/17/20 05:32 01/17/20 05:00 01/17/20 05:00 Oxygen Flow Rate (L/min) 5 Oxygen Delivery Method Nasal Cannula Weight: 282 lb 3.067 oz Body Mass Index (BMI) 37.9 Intake and Output for Last 24 Hours 01/15/20 01/16/20 01/17/20 23:59 23:59 23:59 Intake Total 805 / 805 350 / 350 Output Total 300 / 300 75 / 75 Balance 505 / 505 275 / 275 General: Alert, Oriented x3, Cooperative, No apparent distress, - - Sitting in bedside recliner HEENT: Atraumatic, Normocephalic Oral: Moist Mucosa, No Gingival or Mucosal Lesions/ Ulcerations Neck: Supple, No Nodes, Trachea Midline Lungs: No rhonchi, No wheeze, No rales, Diminished, Tachypneic Cardiovascular: Normal S1, Normal S2, No murmurs, Irregular Rate Abdomen: Bowel Sounds Present, Soft, Non Tender, Obese Extremities: No clubbing, No cyanosis, No edema Skin: No breakdown Musculoskeletal: No Tenderness to Palpation of Joints or Extremities, No Muscle Wasting Lymphatic: No Cervical, Supraclavicular, or Inguinal Adenopathy Neurological: Cranial nerves II-XII grossly intact, Neuro grossly intact Psych/Mental Status: Alert and oriented to time, place, person, mood and affect Labs (Last 48 Hours) 01/16/20 01/16/20 01/16/20 12:35 12:35 12:35 WBC 6.6 RBC 3.40 L Hgb 11.5 L Hct 34.0 L MCV 100.0 H MCH 33.8 H MCHC 33.8 RDW Std Deviation 44.2 H RDW Coeff of [place] 11.9 Plt Count 190 MPV 9.7 Immature Gran % (Auto) 0.600 Neut % (Auto) 86.8 H Lymph % (Auto) 6.8 L [place] % (Auto) 5.8 Eos % (Auto) 0.0 Baso % (Auto) 0.0 Absolute Neuts (auto) 5.7 Absolute Lymphs (auto) 0.45 L Nucleated RBC % 0 PT INR APTT D-Dimer Quant (PE/DVT) Sodium 130 L Potassium 3.6 Chloride 98 Carbon Dioxide 21.0 Anion Gap 11 BUN 21 H Creatinine 1.38 H Estim Creat Clear Calc 51.43 Est GFR (MDRD) Af Amer 65 Est GFR (MDRD) Non-Af 54 L BUN/Creatinine Ratio 15.2 Glucose 114 H Lactic Acid 2.6 H* Calcium 8.5 Magnesium Iron TIBC Iron Saturation Ferritin Total Bilirubin 0.70 AST 31 ALT 15 L Alkaline Phosphatase 73 Lactate Dehydrogenase Troponin I < 0.015 C-React Prot Ext Range Total Protein 7.8 Albumin 3.0 L Globulin 4.8 H Albumin/Globulin Ratio 0.6 L Vitamin B12 Folate Procalcitonin TSH Free T4 MRSA (PCR) POC Glucose 01/16/20 01/16/20 01/16/20 12:35 17:00 17:00 WBC RBC Hgb Hct MCV MCH MCHC RDW Std Deviation RDW Coeff of [place] Plt Count MPV Immature Gran % (Auto) Neut % (Auto) Lymph % (Auto) [place] % (Auto) Eos % (Auto) Baso % (Auto) Absolute Neuts (auto) Absolute Lymphs (auto) Nucleated RBC % PT 13.9 INR 1.1 APTT 34.0 D-Dimer Quant (PE/DVT) 0.66 H* Sodium Potassium Chloride Carbon Dioxide Anion Gap BUN Creatinine Estim Creat Clear Calc Est GFR (MDRD) Af Amer Est GFR (MDRD) Non-Af BUN/Creatinine Ratio Glucose Lactic Acid Calcium Magnesium 1.9 Iron 27 L TIBC 254 Iron Saturation 10.6 L Ferritin 1204 H Total Bilirubin AST ALT Alkaline Phosphatase Lactate Dehydrogenase 339 H Troponin I < 0.015 C-React Prot Ext Range 184.00 H Total Protein Albumin Globulin Albumin/Globulin Ratio Vitamin B12 Folate 7.90 Procalcitonin TSH 0.26 L Free T4 1.57 H MRSA (PCR) POC Glucose 01/16/20 01/16/20 01/16/20 17:00 17:00 20:05 WBC RBC Hgb Hct MCV MCH MCHC RDW Std Deviation RDW Coeff of [place] Plt Count MPV Immature Gran % (Auto) Neut % (Auto) Lymph % (Auto) [place] % (Auto) Eos % (Auto) Baso % (Auto) Absolute Neuts (auto) Absolute Lymphs (auto) Nucleated RBC % PT INR APTT D-Dimer Quant (PE/DVT) Sodium Potassium Chloride Carbon Dioxide Anion Gap BUN Creatinine Estim Creat Clear Calc Est GFR (MDRD) Af Amer Est GFR (MDRD) Non-Af BUN/Creatinine Ratio Glucose Lactic Acid Calcium Magnesium Iron TIBC Iron Saturation Ferritin Total Bilirubin AST ALT Alkaline Phosphatase Lactate Dehydrogenase Troponin I < 0.015 C-React Prot Ext Range Total Protein Albumin Globulin Albumin/Globulin Ratio Vitamin B12 532 Folate Procalcitonin 0.10 H TSH Free T4 MRSA (PCR) Negative POC Glucose 01/16/20 01/16/20 01/17/20 23:28 23:30 04:29 WBC RBC Hgb Hct MCV MCH MCHC RDW Std Deviation RDW Coeff of [place] Plt Count MPV Immature Gran % (Auto) Neut % (Auto) Lymph % (Auto) [place] % (Auto) Eos % (Auto) Baso % (Auto) Absolute Neuts (auto) Absolute Lymphs (auto) Nucleated RBC % PT INR APTT D-Dimer Quant (PE/DVT) Sodium 131 L Potassium 3.7 Chloride 100 Carbon Dioxide 21.0 Anion Gap 10 BUN 27 H Creatinine 1.39 H Estim Creat Clear Calc 54.28 Est GFR (MDRD) Af Amer 65 Est GFR (MDRD) Non-Af 54 L BUN/Creatinine Ratio 19.4 Glucose 197 H Lactic Acid Calcium 8.1 L Magnesium Iron TIBC Iron Saturation Ferritin Total Bilirubin 0.50 AST 24 ALT 16 Alkaline Phosphatase 66 Lactate Dehydrogenase Troponin I < 0.015 C-React Prot Ext Range Total Protein 7.2 Albumin 2.6 L Globulin 4.6 H Albumin/Globulin Ratio 0.6 L Vitamin B12 Folate Procalcitonin TSH Free T4 MRSA (PCR) POC Glucose 213 H Microbiology 01/16/20 17:00 Urine, Clean Catch Streptococcus pneumoniae Antigen (M - Final 01/16/20 17:00 Urine, Clean Catch Legionella Antigen - Final Clinical Impression(s) from Imaging Studies Chest X-Ray 01/16/20 13:45 IMPRESSION: Patchy infiltrates in both lungs in the peripheral lateral distribution in the left hemithorax. Follow-up is recommended. Electronically Signed: Anthony Sorenson, at 14:27 EDT , Service support , Chest CTA 01/16/20 14:21 IMPRESSION: Bilateral groundglass appearance more prominent towards a peripheral distribution suggestive of the bilateral pulmonary infiltrates in keeping with Covid Electronically Signed: Anthony Sorenson, at 15:28 EDT , Service support , Current Medications Acetaminophen (Tylenol) 650 mg PO Q6H PRN PRN PRN Reason: Pain Score 1-10/Temp > 100.7 F Last Admin: 01/16/20 23:38 Dose: 650 mg Documented by: Al Hydroxide/Mg Hydroxide (Mylanta Ii) 30 ml PO Q6H PRN PRN PRN Reason: Gastric Burning Albuterol Sulfate (Ventolin Aerosols) 2.5 mg INHALATION Q2H PRN PRN PRN Reason: Dyspnea, wheezing Amitriptyline HCl (Elavil) 75 mg PO QHS [facility] Last Admin: 01/16/20 20:58 Dose: 75 mg Documented by: Amlodipine Besylate (Norvasc) 10 mg PO DAILY [facility] Dexamethasone Sodium Phosphate (Decadron) 6 mg IV DAILY [facility] Enoxaparin Sodium (Lovenox) 130 mg SC Q12@0600,1800 [facility] Last Admin: 01/17/20 05:18 Dose: 130 mg Documented by: Guaifenesin (Robitussin) 10 ml PO Q4H PRN PRN PRN Reason: COUGH Last Admin: 01/16/20 23:40 Dose: 10 ml Documented by: Hydralazine HCl (Apresoline Iv) 10 mg IV Q4H PRN PRN PRN Reason: SBP > 160 Sodium Chloride () 1,000 mls @ 100 mls/hr IV .Q10H [facility] Last Admin: 01/16/20 18:35 Dose: 100 mls/hr Documented by: Ceftriaxone Sodium 2 gm/ (Sodium Chloride) 50 mls @ 100 mls/hr IV Q24 [facility] Last Infusion: 01/16/20 21:11 Dose: Infused Documented by: Azithromycin 500 mg/ Dextrose 255 mls @ 250 mls/hr IV Q24 [facility] Sodium Chloride () 250 mls @ 15 mls/hr IV .[id number] PRN PRN Reason: Saline Flush Sodium Chloride () 250 mls @ 15 mls/hr IV .[id number] PRN PRN Reason: Additional IVPB Infusion Insulin Human Lispro (Humalog Kwikpen (Bkc)) 0 unit SC ACHS [facility]; Protocol Last Admin: 01/16/20 23:39 Dose: 2 units Documented by: Loratadine (Claritin) 10 mg PO DAILY [facility] Melatonin (Melatonin) 3 mg PO QHS PRN PRN PRN Reason: INSOMNIA Last Admin: 01/16/20 23:38 Dose: 3 mg Documented by: Metoprolol Tartrate (Lopressor (Beta Ferdinand)) 25 mg PO BID [facility] Last Admin: 01/16/20 18:35 Dose: 25 mg Documented by: Morphine Sulfate () 2 mg IV Q3H PRN PRN PRN Reason: Pain Score 6-10/10 Nitroglycerin (Nitrostat) 0.4 mg SUBLINGUAL Q5M PRN PRN Reason: CARDIAC/CHEST PAIN Ondansetron HCl (Zofran) 4 mg IV Q8H PRN PRN PRN Reason: NAUSEA/VOMITING Oxycodone HCl (Oxyir) 5 mg PO Q4H PRN PRN PRN Reason: Pain Score 4-5/10 Last Admin: 01/16/20 23:38 Dose: 5 mg Documented by: Pantoprazole Sodium (Protonix) 40 mg PO DAILY [facility] Prochlorperazine Edisylate (Compazine Iv) 5 mg IV Q4H PRN PRN PRN Reason: Breakthrough Nausea/Vomiting Sodium Chloride () 10 - 40 ml IV UD PRN PRN Reason: SALINE FLUSH Throat Lozenges (Cepacol Sore Throat Lozenge) 1 lozenge MUCOUS MEM Q2H PRN PRN PRN Reason: SORE THROAT Assessment/Plan Active and Suspected Problems COVID-19 (Acute) Hypoxia (Acute) Cough (Acute) Severe sepsis (Acute) Acute respiratory failure with hypoxia (Acute) COVID-19 (Acute) Bilateral pneumonia (Acute) Atrial fibrillation (Acute) RECOMMENDATIONS: 1. Continue Decadron with plans to complete a 10-day treatment course. 2. Transition from Lovenox to Eliquis by mouth. 3. Continue beta-blockade as ordered. 4. Wean supplemental oxygen to maintain saturations at or above 90%. 5. Infectious diseases consultation is pending. Antibiotics can be discontinued from my perspective. IMPRESSIONS: 1. Acute hypoxemic respiratory failure secondary to COVID-19 pneumonia The patient presented to the hospital with 1 week of worsening shortness of breath and cough after having tested positive for coronavirus on January 10. The patient is currently stable from an oxygenation status on supplemental oxygen via nasal cannula. Agree with continuing Decadron and systemic anticoagulation. Continue to wean supplemental oxygen to maintain saturations at or above 90%. Infectious diseases consultation is currently pending. However, antibiotics can be discontinued from my perspective. 2. Atrial flutter/fibrillation The patient is currently rate controlled on Lopressor, which will be continued. I would recommend that he be continued on Eliquis as well, which will be started today. 3. Hypertension/chronic kidney disease/morbid obesity/GERD/obstructive sleep apnea Complicates care, management, recovery and prognosis. Continue home medications as indicated. Continue nocturnal Pap therapy per home regimen. This note was generated with Vin[employer] dictation software. It may contain incorrect words, spelling, and punctuation that were not noted in checking the note before signing. Inpatient E&M: 48568 Init Hosp L3
[2020-01-17] MEDS: 0.9% Normal Saline 1,000 ML 100 ML IV ×2 (06:17→21:15)
--- NOTE | 2020-01-17 08:18 | PN_ITS ---
Patient Problems: Active and Suspected Problems COVID-19 (Acute) Hypoxia (Acute) Cough (Acute) Severe sepsis (Acute) Acute respiratory failure with hypoxia (Acute) COVID-19 (Acute) Bilateral pneumonia (Acute) Atrial fibrillation (Acute) Subjective: Patient was seen and examined today in the ICU, he voices no complaints of any shortness of breath or chest discomfort, patient's respiratory status is stable on 5 L nasal cannula at this time, I wrote a diet for the patient today. Talked briefly with critical care about the patient's care - Physical Exam Vitals/I&O's: Vital Signs Temp Pulse Resp BP Pulse Ox 97.9 F 67 23 H 130/73 H 91 01/17/20 05:00 01/17/20 07:52 01/17/20 07:00 01/17/20 07:00 01/17/20 07:00 Oxygen Flow Rate (L/min) 5 Oxygen Delivery Method Nasal Cannula Weight: 128 kg Body Mass Index (BMI) 37.9 Intake and Output for Last 24 Hours 01/15/20 01/16/20 01/17/20 23:59 23:59 23:59 Intake Total 805 / 805 1550 / 1550 Output Total 300 / 300 175 / 175 Balance 505 / 505 1375 / 1375 General: Alert, Oriented x3, Cooperative HEENT: Atraumatic, PERRLA, EOMI, Normocephalic Oral: Moist Mucosa Neck: Supple, Trachea Midline, Thyroid Normal Size and Texture Lungs: Clear to auscultation, Normal air movement, No rhonchi, No wheeze, No rales Cardiovascular: Regular rate, Regular Rhythm, Normal S1, Normal S2, No murmurs, PMI Normal, No rub noted Abdomen: Bowel Sounds Present, Soft, Non Tender, Non-Distended Extremities: No clubbing, No cyanosis, No edema, Capillary Refill Less than 3 Seconds Skin: No rashes, No breakdown Musculoskeletal: No Tenderness to Palpation of Joints or Extremities Neurological: Cranial nerves II-XII grossly intact, Neuro grossly intact, Sensory exam intact to light touch and pain, Coordination normal Psych/Mental Status: Normal Affect, Appropriate, Alert and oriented to time, place, person, mood and affect Microbiology Past 72 Hours 01/16/20 17:00 Urine, Clean Catch Streptococcus pneumoniae Antigen (M - Final 01/16/20 17:00 Urine, Clean Catch Legionella Antigen - Final Laboratory Results 01/16/20 12:35: WBC 6.6, RBC 3.40 L, Hgb 11.5 L, Hct 34.0 L, MCV 100.0 H, MCH 33.8 H, MCHC 33.8, RDW Std Deviation 44.2 H, RDW Coeff of [place] 11.9, Plt Count 190, MPV 9.7, Immature Gran % (Auto) 0.600, Neut % (Auto) 86.8 H, Lymph % (Auto) 6.8 L, [place] % (Auto) 5.8, Eos % (Auto) 0.0, Baso % (Auto) 0.0, Absolute Neuts (auto) 5.7, Absolute Lymphs (auto) 0.45 L, Nucleated RBC % 0 01/16/20 12:35: Sodium 130 L, Potassium 3.6, Chloride 98, Carbon Dioxide 21.0, Anion Gap 11, BUN 21 H, Creatinine 1.38 H, Estim Creat Clear Calc 51.43, Est GFR (MDRD) Af Amer 65, Est GFR (MDRD) Non-Af 54 L, BUN/Creatinine Ratio 15.2, Glucose 114 H, Calcium 8.5, Total Bilirubin 0.70, AST 31, ALT 15 L, Alkaline Phosphatase 73, Troponin I < 0.015, Total Protein 7.8, Albumin 3.0 L, Globulin 4.8 H, Albumin/Globulin Ratio 0.6 L 01/16/20 12:35: Lactic Acid 2.6 H* 01/16/20 12:35: D-Dimer Quant (PE/DVT) 0.66 H* 01/16/20 17:00: Magnesium 1.9, Iron 27 L, TIBC 254, Iron Saturation 10.6 L, Ferritin 1204 H, Lactate Dehydrogenase 339 H, Troponin I < 0.015, C-React Prot Ext Range 184.00 H, Folate 7.90, TSH 0.26 L, Free T4 1.57 H 01/16/20 17:00: PT 13.9, INR 1.1, APTT 34.0 01/16/20 17:00: Vitamin B12 532, Procalcitonin 0.10 H 01/16/20 17:00: MRSA (PCR) Negative 01/16/20 20:05: Troponin I < 0.015 01/16/20 23:28: POC Glucose 213 H 01/16/20 23:30: Troponin I < 0.015 01/17/20 04:29: Sodium 131 L, Potassium 3.7, Chloride 100, Carbon Dioxide 21.0, Anion Gap 10, BUN 27 H, Creatinine 1.39 H, Estim Creat Clear Calc 54.28, Est GFR (MDRD) Af Amer 65, Est GFR (MDRD) Non-Af 54 L, BUN/Creatinine Ratio 19.4, Glucose 197 H, Calcium 8.1 L, Total Bilirubin 0.50, AST 24, ALT 16, Alkaline Phosphatase 66, Total Protein 7.2, Albumin 2.6 L, Globulin 4.6 H, Albumin/Globulin Ratio 0.6 L Current Medications Acetaminophen (Tylenol) 650 mg PO Q6H PRN PRN PRN Reason: Pain Score 1-10/Temp > 100.7 F Last Admin: 01/16/20 23:38 Dose: 650 mg Documented by: Al Hydroxide/Mg Hydroxide (Mylanta Ii) 30 ml PO Q6H PRN PRN PRN Reason: Gastric Burning Albuterol Sulfate (Ventolin Aerosols) 2.5 mg INHALATION Q2H PRN PRN PRN Reason: Dyspnea, wheezing Amitriptyline HCl (Elavil) 75 mg PO QHS [facility] Last Admin: 01/16/20 20:58 Dose: 75 mg Documented by: Amlodipine Besylate (Norvasc) 10 mg PO DAILY [facility] Dexamethasone Sodium Phosphate (Decadron) 6 mg IV DAILY [facility] Enoxaparin Sodium (Lovenox) 130 mg SC Q12@0600,1800 [facility] Last Admin: 01/17/20 05:18 Dose: 130 mg Documented by: Guaifenesin (Robitussin) 10 ml PO Q4H PRN PRN PRN Reason: COUGH Last Admin: 01/16/20 23:40 Dose: 10 ml Documented by: Hydralazine HCl (Apresoline Iv) 10 mg IV Q4H PRN PRN PRN Reason: SBP > 160 Sodium Chloride () 1,000 mls @ 100 mls/hr IV .Q10H [facility] Last Admin: 01/17/20 06:17 Dose: 100 mls/hr Documented by: Ceftriaxone Sodium 2 gm/ (Sodium Chloride) 50 mls @ 100 mls/hr IV Q24 [facility] Last Infusion: 01/16/20 21:11 Dose: Infused Documented by: Azithromycin 500 mg/ Dextrose 255 mls @ 250 mls/hr IV Q24 [facility] Sodium Chloride () 250 mls @ 15 mls/hr IV .[id number] PRN PRN Reason: Saline Flush Sodium Chloride () 250 mls @ 15 mls/hr IV .[id number] PRN PRN Reason: Additional IVPB Infusion Insulin Human Lispro (Humalog Kwikpen (Bkc)) 0 unit SC ACHS [facility]; Protocol Last Admin: 01/16/20 23:39 Dose: 2 units Documented by: Loratadine (Claritin) 10 mg PO DAILY [facility] Melatonin (Melatonin) 3 mg PO QHS PRN PRN PRN Reason: INSOMNIA Last Admin: 01/16/20 23:38 Dose: 3 mg Documented by: Metoprolol Tartrate (Lopressor (Beta Ferdinand)) 25 mg PO BID [facility] Last Admin: 01/16/20 18:35 Dose: 25 mg Documented by: Morphine Sulfate () 2 mg IV Q3H PRN PRN PRN Reason: Pain Score 6-10/10 Nitroglycerin (Nitrostat) 0.4 mg SUBLINGUAL Q5M PRN PRN Reason: CARDIAC/CHEST PAIN Ondansetron HCl (Zofran) 4 mg IV Q8H PRN PRN PRN Reason: NAUSEA/VOMITING Oxycodone HCl (Oxyir) 5 mg PO Q4H PRN PRN PRN Reason: Pain Score 4-5/10 Last Admin: 01/16/20 23:38 Dose: 5 mg Documented by: Pantoprazole Sodium (Protonix) 40 mg PO DAILY [facility] Prochlorperazine Edisylate (Compazine Iv) 5 mg IV Q4H PRN PRN PRN Reason: Breakthrough Nausea/Vomiting Sodium Chloride () 10 - 40 ml IV UD PRN PRN Reason: SALINE FLUSH Throat Lozenges (Cepacol Sore Throat Lozenge) 1 lozenge MUCOUS MEM Q2H PRN PRN PRN Reason: SORE THROAT Medical Necessity - Tobacco Use Smoking Status: Never smoker Tobacco Use: Non-smoker Assessment/Plan All Active Problems COVID-19 (Acute) Hypoxia (Acute) Cough (Acute) Severe sepsis (Acute) Acute respiratory failure with hypoxia (Acute) COVID-19 (Acute) Bilateral pneumonia (Acute) Atrial fibrillation (Acute) #1 Severe sepsis secondary to acute COVID-19 infection with hypoxic respiratory failure-again patient appears stable on 5 L nasal cannula at this time, continue present treatment #2 Acute atrial fibrillation-rate is controlled at this time, patient will have an echocardiogram today, etiology is unclear #3 type 2 diabetes-blood sugars will be monitored #4 essential hypertension #5 acute hypoxic respiratory failure secondary to #1 Inpatient E&M: 89787 Subs Hosp L2
[2020-01-17] MEDS: Insulin Lispro 100 UNIT/ML INSULN.PEN SC ×4 (08:26→21:34)
[2020-01-17] MEDS: Metoprolol Tartrate 25 MG Tablet PO ×2 (08:27→21:16)
[2020-01-17] MEDS: Pantoprazole Sodium 40 MG Tablet PO (08:27)
[2020-01-17] MEDS: Loratadine 10 MG Tablet PO (08:28)
[2020-01-17] MEDS: amLODIPine 10 MG Tablet PO (08:28)
[2020-01-17] MEDS: dexAMETHasone 10 MG/ML Vial 6 MG IV (08:29)
--- NOTE | 2020-01-17 11:28 | CASEMGMT ---
RAFAEL VASQUEZ ASSESSMENT Dx: COVID positive. Call to pt's room for initial transition planning/care coordination assessment. RAFAEL VASQUEZ introduced self and role at [facility]. Pt voices understanding and consents to assessment at this time. Pt is A/O at this time and answers all questions appropriately. Care providers, pharmacy, and demographics verified/updated at this time. PCP: Dr Palma Specialists: Dr Petersen Preferred Pharmacy: [facility]. Insurance: Rosalva LOVELL Prescription Benefit: Yes. Anticipate pt will discharge home on Eliquis for new-onset A-Fib. Pt made aware of Free 30-day trial offer/savings card that can be sent to [facility] pharmacy prior to discharge. Pt made aware, that if refills are not affordable, to inform his PCP to discuss other options before the 30-day supply runs out. Pt voices understanding. Living Will/HPOA: Has both LW and Healthcare POA, who is his , Lucretia. LNOK: . 2 daughters: Radha and Allison. Son, Dino Living Arrangements: Lives w/his in one-story home w/basement. Independent prior to hospitalization. was just discharged home w/COVID and pt states she is still weak and will not be able to help him much in the home if needed. He does state, though, that his daughter has been staying w/his to help her and would be available to assist him as well. He states they have been quarantining at home and that they have masks and cleaning supplies. His children are able to assist w/bringing groceries, supplies, and medications. Transportation: Pt states drives self and states no transportation concerns at this time. Daughter will be able to take him home @discharge. DME: States has the following DME: rails/grab bars, hand held shower. Does not have home O2. States if he needs oxygen @ home at discharge, he has no preference of DME company. Pt states no need for further DME at this time. HHC/SNF: No history of either and no needs identified. Pt wishes to return home and states has no concerns with going home at time of discharge. CM to follow for home oxygen needs and any further discharge planning/needs. Pt voices no further concerns/needs at this time. Advised pt to ask for CM if any further questions/concerns/needs arise. Voices understanding. PLAN: Home w/family support May need Home O2. CM to follow. Scott BEARDN RN CM
[2020-01-17 11:30] LABS: Bedside Glucose 202 mg/dL (70-110)
--- NOTE | 2020-01-17 14:14 | PCM.HP.ID ---
Reason for Consult: COVID-19 pneumonia Consulted by: Dr. Cho History of Present Illness: The patient is a 69 year old M [] This is a 69-year-old gentleman with history of hypertension, type 2 diabetes mellitus, obesity who initially presented with symptoms roughly a week ago with loss to smell and taste. Over the past week he has developed increasing shortness of breath with cough that is nonproductive. He is also had intermittent fevers for the past 4 days. He was diagnosed with COVID-19 as an outpatient earlier in the week and was subsequently admitted because of his respiratory symptoms. He is currently in the ICU bed 2. His also recently was found to have COVID-19. Patient is also found to have atrial fibrillation which is new finding and is currently on anticoagulation therapy upon his admission. Denies any significant gastrointestinal distress. He is otherwise hemodynamically stable. Is currently on 4 L nasal cannula. - Medical History Past Medical History (Chronic Problems): Chronic Problems Vocal cord mass (Chronic) HTN (hypertension) (Chronic) JOE (obstructive sleep apnea) (Chronic) GERD (gastroesophageal reflux disease) (Chronic) Peripheral neuropathy (Chronic) Prediabetes (Chronic) Morbid obesity (Chronic) CKD (chronic kidney disease), stage III (Chronic) Allergies/Adverse Reactions: Allergies No Known Allergies Allergy (Verified 10/13/19 11:16) Home Medications: Ambulatory Orders Medication Instructions Recorded Amlodipine Besylate [Norvasc] 10 mg PO DAILY 06/21/16 Albuterol Inhaler [Ventolin Hfa 2 puff INHALATION 4X/DAY PRN 10/13/19 (SP)] Amitriptyline HCl 75 mg PO QHS 10/13/19 Omeprazole 40 mg PO DAILY 10/13/19 Cetirizine HCl [Zyrtec] 10 mg PO DAILY 01/16/20 Metformin HCl [Metformin HCl ER] 500 mg PO QHS 01/16/20 Promethazine HCl/Codeine 5 - 10 ml PO Q4H PRN PRN 01/16/20 [Promethazine-Codeine Syrup] Vital Signs Temp Pulse Resp BP Pulse Ox 98.2 F 69 19 H 113/77 93 01/17/20 12:00 01/17/20 12:00 01/17/20 12:00 01/17/20 12:00 01/17/20 12:00 Oxygen Flow Rate (L/min) 4 Oxygen Delivery Method Nasal Cannula Weight: 128 kg Body Mass Index (BMI) 37.9 Alert responsive does not appear toxic on 4 L nasal cannula lungs are clear heart exam S1-S2 abdomen is obese but soft Microbiology Past 72 Hours 01/16/20 17:00 Streptococcus pneumoniae Antigen (M - Final Urine, Clean Catch 01/16/20 17:00 Legionella Antigen - Final Urine, Clean Catch Laboratory Tests Past 24 Hrs 01/16/20 01/16/20 01/16/20 12:35 17:00 17:00 PT 13.9 INR 1.1 APTT 34.0 D-Dimer Quant (PE/DVT) 0.66 H* Sodium Potassium Chloride Carbon Dioxide Anion Gap BUN Creatinine Estim Creat Clear Calc Est GFR (MDRD) Af Amer Est GFR (MDRD) Non-Af BUN/Creatinine Ratio Glucose Calcium Magnesium 1.9 Iron 27 L TIBC 254 Iron Saturation 10.6 L Ferritin 1204 H Total Bilirubin AST ALT Alkaline Phosphatase Lactate Dehydrogenase 339 H Troponin I < 0.015 C-React Prot Ext Range 184.00 H Total Protein Albumin Globulin Albumin/Globulin Ratio Vitamin B12 Folate 7.90 Procalcitonin TSH 0.26 L Free T4 1.57 H MRSA (PCR) 01/16/20 01/16/20 01/16/20 17:00 17:00 20:05 PT INR APTT D-Dimer Quant (PE/DVT) Sodium Potassium Chloride Carbon Dioxide Anion Gap BUN Creatinine Estim Creat Clear Calc Est GFR (MDRD) Af Amer Est GFR (MDRD) Non-Af BUN/Creatinine Ratio Glucose Calcium Magnesium Iron TIBC Iron Saturation Ferritin Total Bilirubin AST ALT Alkaline Phosphatase Lactate Dehydrogenase Troponin I < 0.015 C-React Prot Ext Range Total Protein Albumin Globulin Albumin/Globulin Ratio Vitamin B12 532 Folate Procalcitonin 0.10 H TSH Free T4 MRSA (PCR) Negative 01/16/20 01/17/20 23:30 04:29 PT INR APTT D-Dimer Quant (PE/DVT) Sodium 131 L Potassium 3.7 Chloride 100 Carbon Dioxide 21.0 Anion Gap 10 BUN 27 H Creatinine 1.39 H Estim Creat Clear Calc 54.28 Est GFR (MDRD) Af Amer 65 Est GFR (MDRD) Non-Af 54 L BUN/Creatinine Ratio 19.4 Glucose 197 H Calcium 8.1 L Magnesium Iron TIBC Iron Saturation Ferritin Total Bilirubin 0.50 AST 24 ALT 16 Alkaline Phosphatase 66 Lactate Dehydrogenase Troponin I < 0.015 C-React Prot Ext Range Total Protein 7.2 Albumin 2.6 L Globulin 4.6 H Albumin/Globulin Ratio 0.6 L Vitamin B12 Folate Procalcitonin TSH Free T4 MRSA (PCR) - Other Studies Radiology: [] Other Studies: [] Route of nutrition/ use of supplements: [] Nutritional Intake: [] IV Site: [] Dockery Catheter: [] - Assessment/Plan Antibiotics: [] Assessment/Plan: [] Active and Suspected Problems COVID-19 (Acute) Hypoxia (Acute) Cough (Acute) Severe sepsis (Acute) Acute respiratory failure with hypoxia (Acute) COVID-19 (Acute) Bilateral pneumonia (Acute) Atrial fibrillation (Acute) COVID-19 pneumonia in a older gentleman with obesity and underlying hypertension and diabetes mellitus. Patient does have bilateral infiltrates on CT scan of the chest. He also has elevated inflammatory markers. At this point we will continue dexamethasone low-dose 6 mg IV daily. Will start Remdesevir this afternoon and follow clinically.
--- NOTE | 2020-01-17 15:33 | CHAPLAIN ---
Type of Pastoral Visit ___ Initial Visit ___ Follow-up Visit ___ On-call Visit ___ General Patient Visit ___ Spiritual Assessment ___ Family Conference ___ Bereavement ___ Rapid Response ___ Code Blue _x__ Other (describe below) Pastoral Care Referral From _x__ Patient ___ Family ___ Nurse ___ Physician ___ Medical Service Representative ___ Family Support Worker ___ Other (describe below) Sacrament/Intervention ___ Active listening ___ Anointing ___ Rastafarian ___ Bereavement ___ Communion ___ Bee exploration ___ ___ Life review _x__ Prayer ___ Reconciliation ___ Sacrament of Sick _x__ Supportive presence ___ Wedding ___ Other (describe below) Pastoral Comments contacted made with patient through phone call; pt able to talk and receive support verbally; pt welcomes spiritual care support and prayers; pt also acknowledges needs for his who also was recently hospitalized;
[2020-01-17 17:05] LABS: Bedside Glucose 185 mg/dL (70-110)
[2020-01-17] MEDS: Amitriptyline 25 MG Tablet 75 MG PO (21:15)
[2020-01-17] MEDS: guaiFENesin 10 ML UDC (200MG/10ML) PO (21:15)
[2020-01-17] MEDS: APIXABAN 5 MG TABLET 10 MG PO (21:15)
[2020-01-17] MEDS: MELATONIN 3 MG TABLET PO (21:15)
[2020-01-17] MEDS: Acetaminophen 325 MG Tablet 650 MG PO (21:16)
[2020-01-18] VITALS (20 sets, daily range): BP systolic 118–155; BP diastolic 72–93; PULSE 63–118; RESP 16–23; TEMP 36.6–37.2; O2SAT 91–97
[2020-01-18] MEDS: busPIRone 5 MG Tablet PO (03:11)
[2020-01-18] MEDS: BENZOCAINE/MENTHOL 1 LOZENGE MUCOUS MEM (03:11)
[2020-01-18] MEDS: guaiFENesin 10 ML UDC (200MG/10ML) PO ×2 (03:11→21:53)
[2020-01-18 04:01] LABS: Hematocrit 29.8 % (40-54); Hemoglobin 10.1 g/dL (13.0-16.5); Mean Corp Hgb Conc 33.9 g/dL (32-36); Mean Corpuscular Hgb 34.1 pg (27.0-32.0); Mean Corpuscular Volume 100.7 fL (80-94); Mean Platelet Vol. 10.2 fl (6.2-12.0); Platelet Count 183 K/mm3 (150-450); RBC Distribution Width CV 11.9 % (11.6-14.6); RBC Distribution Width SD 43.2 fl (35.1-43.9); Red Blood Count 2.96 M/mm3 (4.6-6.2); White Blood Count 9.2 K/mm3 (4.4-11.0)
[2020-01-18 04:19] LABS: ALB/GLOB Ratio 0.6 RATIO (0.9-2.4); AST(SGOT) 28 U/L (15-37); Alanine Aminotransfer ALT/SGPT 18 U/L (16-61); Albumin, Serum 2.5 g/dL (3.2-5.0); Alkaline Phosphatase 60 U/L (45-117); Anion Gap 8 (5-15); BUN 35 mg/dL (7-18); BUN/Creat Ratio 28.2 RATIO (10-20); Calcium,Total 8.2 mg/dL (8.5-10.1); Chloride 100 mmol/L (98-107); Creatinine, Serum 1.24 mg/dL (0.70-1.30); EST Glomerular Filtration Rate 61 mL/min (>60); Est Glom Filt Rate - Afr Amer 74 mL/min (>60); Estimated Creatinine Clearance 60.84 ml/min; Globulin 4.2 g/dL (2.2-4.2); Glucose 163 mg/dL (74-106); Protein, Total 6.7 g/dL (6.4-8.2); Sodium Level 131 mmol/L (136-145)
--- NOTE | 2020-01-18 06:09 | PCM.PN.INT ---
Subjective: The patient was seen and examined at the bedside this morning. Events from the last 24 hours have been reviewed. The patient is currently afebrile, hemodynamically stable and maintaining appropriate oxygen saturations on 3 L/min via nasal cannula. Per nursing report, the patient did develop some anxiety overnight, for which he was started on buspar. The patient was also evaluated by infectious diseases yesterday and subsequently started on Remdesevir. He remains systemically anticoagulated on Eliquis and is currently receiving a 10-day treatment course of Decadron. Objective: The patient's most recent lab work, culture data and imaging studies have all been personally reviewed. General: Alert, Cooperative, No apparent distress HEENT: Atraumatic, Normocephalic Oral: Moist Mucosa, No Gingival or Mucosal Lesions/ Ulcerations Neck: Supple, No Nodes, Trachea Midline Lungs: No rhonchi, No wheeze, No rales, Diminished Cardiovascular: Normal S1, Normal S2, No murmurs, Irregular Rate Abdomen: Bowel Sounds Present, Soft, Non Tender, Obese Extremities: No clubbing, No cyanosis, No edema Skin: No breakdown Musculoskeletal: No Tenderness to Palpation of Joints or Extremities, No Muscle Wasting Lymphatic: No Cervical, Supraclavicular, or Inguinal Adenopathy Neurological: Cranial nerves II-XII grossly intact, Neuro grossly intact Psych/Mental Status: Normal Affect, Appropriate Vital Signs Temp Pulse Resp BP Pulse Ox 99 F 69 20 H 118/73 93 01/18/20 02:00 01/18/20 05:00 01/18/20 05:00 01/18/20 05:00 01/18/20 05:00 Oxygen Flow Rate (L/min) 3 Oxygen Delivery Method Nasal Cannula Weight: 282 lb 3.067 oz Body Mass Index (BMI) 37.9 Intake and Output for Last 24 Hours 01/16/20 01/17/20 01/18/20 23:59 23:59 23:59 Intake Total 805 / 805 4155 / 4355 750 / 750 Output Total 300 / 300 775 / 925 400 / 400 Balance 505 / 505 3380 / 3430 350 / 350 Labs (Last 48 Hours) 01/16/20 01/16/20 01/16/20 12:35 12:35 12:35 WBC 6.6 RBC 3.40 L Hgb 11.5 L Hct 34.0 L MCV 100.0 H MCH 33.8 H MCHC 33.8 RDW Std Deviation 44.2 H RDW Coeff of [place] 11.9 Plt Count 190 MPV 9.7 Immature Gran % (Auto) 0.600 Neut % (Auto) 86.8 H Lymph % (Auto) 6.8 L [place] % (Auto) 5.8 Eos % (Auto) 0.0 Baso % (Auto) 0.0 Absolute Neuts (auto) 5.7 Absolute Lymphs (auto) 0.45 L Nucleated RBC % 0 PT INR APTT D-Dimer Quant (PE/DVT) Sodium 130 L Potassium 3.6 Chloride 98 Carbon Dioxide 21.0 Anion Gap 11 BUN 21 H Creatinine 1.38 H Estim Creat Clear Calc 51.43 Est GFR (MDRD) Af Amer 65 Est GFR (MDRD) Non-Af 54 L BUN/Creatinine Ratio 15.2 Glucose 114 H Lactic Acid 2.6 H* Calcium 8.5 Magnesium Iron TIBC Iron Saturation Ferritin Total Bilirubin 0.70 AST 31 ALT 15 L Alkaline Phosphatase 73 Lactate Dehydrogenase Troponin I < 0.015 C-React Prot Ext Range Total Protein 7.8 Albumin 3.0 L Globulin 4.8 H Albumin/Globulin Ratio 0.6 L Vitamin B12 Folate Procalcitonin TSH Free T4 MRSA (PCR) POC Glucose 01/16/20 01/16/20 01/16/20 12:35 17:00 17:00 WBC RBC Hgb Hct MCV MCH MCHC RDW Std Deviation RDW Coeff of [place] Plt Count MPV Immature Gran % (Auto) Neut % (Auto) Lymph % (Auto) [place] % (Auto) Eos % (Auto) Baso % (Auto) Absolute Neuts (auto) Absolute Lymphs (auto) Nucleated RBC % PT 13.9 INR 1.1 APTT 34.0 D-Dimer Quant (PE/DVT) 0.66 H* Sodium Potassium Chloride Carbon Dioxide Anion Gap BUN Creatinine Estim Creat Clear Calc Est GFR (MDRD) Af Amer Est GFR (MDRD) Non-Af BUN/Creatinine Ratio Glucose Lactic Acid Calcium Magnesium 1.9 Iron 27 L TIBC 254 Iron Saturation 10.6 L Ferritin 1204 H Total Bilirubin AST ALT Alkaline Phosphatase Lactate Dehydrogenase 339 H Troponin I < 0.015 C-React Prot Ext Range 184.00 H Total Protein Albumin Globulin Albumin/Globulin Ratio Vitamin B12 Folate 7.90 Procalcitonin TSH 0.26 L Free T4 1.57 H MRSA (PCR) POC Glucose 01/16/20 01/16/20 01/16/20 17:00 17:00 20:05 WBC RBC Hgb Hct MCV MCH MCHC RDW Std Deviation RDW Coeff of [place] Plt Count MPV Immature Gran % (Auto) Neut % (Auto) Lymph % (Auto) [place] % (Auto) Eos % (Auto) Baso % (Auto) Absolute Neuts (auto) Absolute Lymphs (auto) Nucleated RBC % PT INR APTT D-Dimer Quant (PE/DVT) Sodium Potassium Chloride Carbon Dioxide Anion Gap BUN Creatinine Estim Creat Clear Calc Est GFR (MDRD) Af Amer Est GFR (MDRD) Non-Af BUN/Creatinine Ratio Glucose Lactic Acid Calcium Magnesium Iron TIBC Iron Saturation Ferritin Total Bilirubin AST ALT Alkaline Phosphatase Lactate Dehydrogenase Troponin I < 0.015 C-React Prot Ext Range Total Protein Albumin Globulin Albumin/Globulin Ratio Vitamin B12 532 Folate Procalcitonin 0.10 H TSH Free T4 MRSA (PCR) Negative POC Glucose 01/16/20 01/16/20 01/17/20 23:28 23:30 04:29 WBC RBC Hgb Hct MCV MCH MCHC RDW Std Deviation RDW Coeff of [place] Plt Count MPV Immature Gran % (Auto) Neut % (Auto) Lymph % (Auto) [place] % (Auto) Eos % (Auto) Baso % (Auto) Absolute Neuts (auto) Absolute Lymphs (auto) Nucleated RBC % PT INR APTT D-Dimer Quant (PE/DVT) Sodium 131 L Potassium 3.7 Chloride 100 Carbon Dioxide 21.0 Anion Gap 10 BUN 27 H Creatinine 1.39 H Estim Creat Clear Calc 54.28 Est GFR (MDRD) Af Amer 65 Est GFR (MDRD) Non-Af 54 L BUN/Creatinine Ratio 19.4 Glucose 197 H Lactic Acid Calcium 8.1 L Magnesium Iron TIBC Iron Saturation Ferritin Total Bilirubin 0.50 AST 24 ALT 16 Alkaline Phosphatase 66 Lactate Dehydrogenase Troponin I < 0.015 C-React Prot Ext Range Total Protein 7.2 Albumin 2.6 L Globulin 4.6 H Albumin/Globulin Ratio 0.6 L Vitamin B12 Folate Procalcitonin TSH Free T4 MRSA (PCR) POC Glucose 213 H 01/17/20 01/17/20 01/17/20 11:13 16:52 Unknown WBC RBC Hgb Hct MCV MCH MCHC RDW Std Deviation RDW Coeff of [place] Plt Count MPV Immature Gran % (Auto) Neut % (Auto) Lymph % (Auto) [place] % (Auto) Eos % (Auto) Baso % (Auto) Absolute Neuts (auto) Absolute Lymphs (auto) Nucleated RBC % PT INR APTT D-Dimer Quant (PE/DVT) Sodium Potassium Chloride Carbon Dioxide Anion Gap BUN Creatinine Estim Creat Clear Calc Est GFR (MDRD) Af Amer Est GFR (MDRD) Non-Af BUN/Creatinine Ratio Glucose Lactic Acid Calcium Magnesium Iron TIBC Iron Saturation Ferritin Total Bilirubin AST ALT Alkaline Phosphatase Cancelled Lactate Dehydrogenase Troponin I C-React Prot Ext Range Total Protein Albumin Globulin Albumin/Globulin Ratio Vitamin B12 Folate Procalcitonin TSH Free T4 MRSA (PCR) POC Glucose 202 H 185 H 01/18/20 01/18/20 03:40 03:40 WBC 9.2 RBC 2.96 L Hgb 10.1 L Hct 29.8 L MCV 100.7 H MCH 34.1 H MCHC 33.9 RDW Std Deviation 43.2 RDW Coeff of [place] 11.9 Plt Count 183 MPV 10.2 Immature Gran % (Auto) Neut % (Auto) Lymph % (Auto) [place] % (Auto) Eos % (Auto) Baso % (Auto) Absolute Neuts (auto) Absolute Lymphs (auto) Nucleated RBC % PT INR APTT D-Dimer Quant (PE/DVT) Sodium 131 L Potassium 4.0 Chloride 100 Carbon Dioxide 23.0 Anion Gap 8 BUN 35 H Creatinine 1.24 Estim Creat Clear Calc 60.84 Est GFR (MDRD) Af Amer 74 Est GFR (MDRD) Non-Af 61 BUN/Creatinine Ratio 28.2 H Glucose 163 H Lactic Acid Calcium 8.2 L Magnesium Iron TIBC Iron Saturation Ferritin Total Bilirubin 0.40 AST 28 ALT 18 Alkaline Phosphatase 60 Lactate Dehydrogenase Troponin I C-React Prot Ext Range Total Protein 6.7 Albumin 2.5 L Globulin 4.2 Albumin/Globulin Ratio 0.6 L Vitamin B12 Folate Procalcitonin TSH Free T4 MRSA (PCR) POC Glucose Microbiology 01/16/20 17:00 Urine, Clean Catch Streptococcus pneumoniae Antigen (M - Final 01/16/20 17:00 Urine, Clean Catch Legionella Antigen - Final Clinical Impression(s) from Imaging Studies Chest X-Ray 01/16/20 13:45 IMPRESSION: Patchy infiltrates in both lungs in the peripheral lateral distribution in the left hemithorax. Follow-up is recommended. Electronically Signed: Anthony Sorenson, at 14:27 EDT , Service support , Chest CTA 01/16/20 14:21 IMPRESSION: Bilateral groundglass appearance more prominent towards a peripheral distribution suggestive of the bilateral pulmonary infiltrates in keeping with Covid Electronically Signed: Anthony Sorenson, at 15:28 EDT , Service support , Medical Necessity - Tobacco Use Smoking Status: Never smoker Tobacco Use: Non-smoker Assessment/Plan All Active Problems COVID-19 (Acute) Hypoxia (Acute) Cough (Acute) Severe sepsis (Acute) Acute respiratory failure with hypoxia (Acute) COVID-19 (Acute) Bilateral pneumonia (Acute) Atrial fibrillation (Acute) RECOMMENDATIONS: 1. Continue Decadron with plans to complete a 10-day treatment course. 2. Continue Remdesevir to complete treatment course. 3. Continue Eliquis. 4. Wean supplemental oxygen to maintain saturations at or above 90%. IMPRESSIONS: 1. Acute hypoxemic respiratory failure secondary to COVID-19 pneumonia The patient presented to the hospital with 1 week of worsening shortness of breath and cough after having tested positive for coronavirus on January 10. The patient is currently stable from an oxygenation status on supplemental oxygen via nasal cannula. Agree with continuing Decadron and systemic anticoagulation. Continue to wean supplemental oxygen to maintain saturations at or above 90%. Continue Remdesevir to complete treatment course. 2. Atrial flutter/fibrillation The patient is currently rate controlled on Lopressor, which will be continued. I would recommend that he be continued on Eliquis as well. 3. Hypertension/chronic kidney disease/morbid obesity/GERD/obstructive sleep apnea Complicates care, management, recovery and prognosis. Continue home medications as indicated. Continue nocturnal Pap therapy per home regimen. This note was generated with Ziltaation software. It may contain incorrect words, spelling, and punctuation that were not noted in checking the note before signing. Inpatient E&M: 47138 Subs Hosp L2
[2020-01-18] MEDS: Insulin Lispro 100 UNIT/ML INSULN.PEN SC ×4 (06:46→22:06)
[2020-01-18] MEDS: 0.9% Normal Saline 1,000 ML 100 ML IV ×2 (06:46→17:01)
[2020-01-18] MEDS: amLODIPine 10 MG Tablet PO (08:30)
[2020-01-18] MEDS: Metoprolol Tartrate 25 MG Tablet PO ×2 (08:30→21:54)
[2020-01-18] MEDS: Loratadine 10 MG Tablet PO (08:30)
[2020-01-18] MEDS: Pantoprazole Sodium 40 MG Tablet PO (08:31)
[2020-01-18] MEDS: APIXABAN 5 MG TABLET 10 MG PO ×2 (08:31→21:54)
[2020-01-18] MEDS: dexAMETHasone 10 MG/ML Vial 6 MG IV (08:33)
--- NOTE | 2020-01-18 08:42 | PN.ID_ITS ---
Patient Problems: Active and Suspected Problems COVID-19 (Acute) Hypoxia (Acute) Cough (Acute) Severe sepsis (Acute) Acute respiratory failure with hypoxia (Acute) COVID-19 (Acute) Bilateral pneumonia (Acute) Atrial fibrillation (Acute) Subjective: Patient is alert and responsive currently on 4 L nasal cannula. Relatively uneventful night currently eating breakfast. Tolerating remdesivir Objective: Alert responsive in no acute distress eating breakfast. On 4 L nasal cannula. - Physical Exam Vitals/I&O's: Vital Signs Temp Pulse Resp BP Pulse Ox 99 F 95 16 123/78 H 96 01/18/20 02:00 01/18/20 08:30 01/18/20 07:00 01/18/20 08:30 01/18/20 07:00 Oxygen Flow Rate (L/min) 3 Oxygen Delivery Method Nasal Cannula Weight: 129.1 kg Body Mass Index (BMI) 37.9 Intake and Output for Last 24 Hours 01/16/20 01/17/20 01/18/20 23:59 23:59 23:59 Intake Total 805 / 805 4155 / 4355 / Output Total 300 / 300 775 / 925 625 / 625 Balance 505 / 505 3380 / 3430 1376.67 / 1376.67 Microbiology Past 72 Hours 01/16/20 17:00 Urine, Clean Catch Streptococcus pneumoniae Antigen (M - Final 01/16/20 17:00 Urine, Clean Catch Legionella Antigen - Final Laboratory Results 01/17/20 11:13: POC Glucose 202 H 01/17/20 16:52: POC Glucose 185 H 01/17/20 : Alkaline Phosphatase Cancelled 01/18/20 03:40: WBC 9.2, RBC 2.96 L, Hgb 10.1 L, Hct 29.8 L, MCV 100.7 H, MCH 34.1 H, MCHC 33.9, RDW Std Deviation 43.2, RDW Coeff of [place] 11.9, Plt Count 183, MPV 10.2 01/18/20 03:40: Sodium 131 L, Potassium 4.0, Chloride 100, Carbon Dioxide 23.0, Anion Gap 8, BUN 35 H, Creatinine 1.24, Estim Creat Clear Calc 60.84, Est GFR (MDRD) Af Amer 74, Est GFR (MDRD) Non-Af 61, BUN/Creatinine Ratio 28.2 H, Glucose 163 H, Calcium 8.2 L, Total Bilirubin 0.40, AST 28, ALT 18, Alkaline Phosphatase 60, Total Protein 6.7, Albumin 2.5 L, Globulin 4.2, Albumin/Globulin Ratio 0.6 L Current Medications Acetaminophen (Tylenol) 650 mg PO Q6H PRN PRN PRN Reason: Pain Score 1-10/Temp > 100.7 F Last Admin: 01/17/20 21:16 Dose: 650 mg Documented by: Al Hydroxide/Mg Hydroxide (Mylanta Ii) 30 ml PO Q6H PRN PRN PRN Reason: Gastric Burning Albuterol Sulfate (Ventolin Aerosols) 2.5 mg INHALATION Q2H PRN PRN PRN Reason: Dyspnea, wheezing Amitriptyline HCl (Elavil) 75 mg PO QHS [facility] Last Admin: 01/17/20 21:15 Dose: 75 mg Documented by: Amlodipine Besylate (Norvasc) 10 mg PO DAILY [facility] Last Admin: 01/18/20 08:30 Dose: 10 mg Documented by: Apixaban (Eliquis) 10 mg PO BID [facility] Stop: 01/23/20 22:01 Last Admin: 01/18/20 08:31 Dose: 10 mg Documented by: Apixaban (Eliquis) 5 mg PO BID [facility] Buspirone HCl (Buspar) 5 mg PO BID [facility] Last Admin: 01/18/20 08:31 Dose: Not Given Documented by: Dexamethasone Sodium Phosphate (Decadron) 6 mg IV DAILY [facility] Last Admin: 01/18/20 08:33 Dose: 6 mg Documented by: Guaifenesin (Robitussin) 10 ml PO Q4H PRN PRN PRN Reason: COUGH Last Admin: 01/18/20 03:11 Dose: 10 ml Documented by: Hydralazine HCl (Apresoline Iv) 10 mg IV Q4H PRN PRN PRN Reason: SBP > 160 Sodium Chloride () 1,000 mls @ 100 mls/hr IV .Q10H [facility] Last Admin: 01/18/20 06:46 Dose: 100 mls/hr Documented by: Sodium Chloride () 250 mls @ 15 mls/hr IV .[id number] PRN PRN Reason: Saline Flush Sodium Chloride () 250 mls @ 15 mls/hr IV .[id number] PRN PRN Reason: Additional IVPB Infusion Remdesivir (Investigational) (100 mg/ Sodium Chloride) 250 mls @ 125 mls/hr IV DAILY [facility]; Protocol Stop: 01/21/20 11:59 Insulin Human Lispro (Humalog Kwikpen (Bkc)) 0 unit SC ACHS [facility]; Protocol Last Admin: 01/18/20 06:46 Dose: 1 units Documented by: Loratadine (Claritin) 10 mg PO DAILY [facility] Last Admin: 01/18/20 08:30 Dose: 10 mg Documented by: Melatonin (Melatonin) 3 mg PO QHS PRN PRN PRN Reason: INSOMNIA Last Admin: 01/17/20 21:15 Dose: 3 mg Documented by: Metoprolol Tartrate (Lopressor (Beta Ferdinand)) 25 mg PO BID [facility] Last Admin: 01/18/20 08:30 Dose: 25 mg Documented by: Nitroglycerin (Nitrostat) 0.4 mg SUBLINGUAL Q5M PRN PRN Reason: CARDIAC/CHEST PAIN Ondansetron HCl (Zofran) 4 mg IV Q8H PRN PRN PRN Reason: NAUSEA/VOMITING Pantoprazole Sodium (Protonix) 40 mg PO DAILY [facility] Last Admin: 01/18/20 08:31 Dose: 40 mg Documented by: Prochlorperazine Edisylate (Compazine Iv) 5 mg IV Q4H PRN PRN PRN Reason: Breakthrough Nausea/Vomiting Sodium Chloride () 10 - 40 ml IV UD PRN PRN Reason: SALINE FLUSH Throat Lozenges (Cepacol Sore Throat Lozenge) 1 lozenge MUCOUS MEM Q2H PRN PRN PRN Reason: SORE THROAT Last Admin: 01/18/20 03:11 Dose: 1 lozenge Documented by: Medical Necessity - Tobacco Use Smoking Status: Never smoker Tobacco Use: Non-smoker Route of nutrition/ use of supplements: [] Nutritional Intake: [] IV Site: [] Dockery Catheter: [] COVID-19 pneumonia currently on low-dose dexamethasone plus remdesivir. Continue supportive care.
[2020-01-18 09:11] LABS: Bedside Glucose 159 mg/dL (70-110)
--- NOTE | 2020-01-18 09:20 | NURSING ---
report called to med-surg for transfer to room 209
--- NOTE | 2020-01-18 10:43 | NURSING ---
pt given remdesivir handout
[2020-01-18 12:10] LABS: Bedside Glucose 178 mg/dL (70-110)
--- NOTE | 2020-01-18 14:03 | CASEMGMT ---
RN CM Note: plan of care discussed with Dr. Branch. Patient started on Remdesivir which would require 4 day treatment. No dc plan at this time. Is on 2L [place] currently. Will continue to follow for dc needs re: oxygen on dc. DC PLAN: home. Arnie SELLERS RN ACM
--- NOTE | 2020-01-18 15:55 | PN_ITS ---
Patient Problems: Active and Suspected Problems COVID-19 (Acute) Hypoxia (Acute) Cough (Acute) Severe sepsis (Acute) Acute respiratory failure with hypoxia (Acute) COVID-19 (Acute) Bilateral pneumonia (Acute) Atrial fibrillation (Acute) Subjective: Patient was seen and examined today, he is currently on 2 L of O2, he does not complain of any shortness of breath or chest discomfort. - Physical Exam Vitals/I&O's: Vital Signs Temp Pulse Resp BP Pulse Ox 98.3 F 106 H 16 139/76 H 97 01/18/20 10:53 01/18/20 15:21 01/18/20 10:53 01/18/20 10:53 01/18/20 10:53 Oxygen Flow Rate (L/min) 2 Oxygen Delivery Method Nasal Cannula Weight: 129.1 kg Body Mass Index (BMI) 37.9 Intake and Output for Last 24 Hours 01/16/20 01/17/20 01/18/20 23:59 23:59 23:59 Intake Total 805 / 805 4155 / 4355 2931.67 / 2931.67 Output Total 300 / 300 775 / 925 625 / 625 Balance 505 / 505 3380 / 3430 2306.67 / 2306.67 General: Alert, Oriented x3, Cooperative HEENT: Atraumatic, PERRLA, EOMI, Normocephalic Oral: Moist Mucosa Neck: Supple, No JVD, Trachea Midline, Thyroid Normal Size and Texture Lungs: Clear to auscultation, Normal air movement, No rhonchi, No wheeze, No rales Cardiovascular: Normal S1, Normal S2, No murmurs, PMI Normal, Irregular Rate, No rub noted, No Gallop Abdomen: Bowel Sounds Present, Soft, Non Tender, Non-Distended, No hernias noted Extremities: No clubbing, No cyanosis, No edema, Capillary Refill Less than 3 Seconds Skin: No rashes, No breakdown Musculoskeletal: No Tenderness to Palpation of Joints or Extremities Neurological: Cranial nerves II-XII grossly intact, Neuro grossly intact, Sensory exam intact to light touch and pain, Coordination normal Psych/Mental Status: Normal Affect, Appropriate, Alert and oriented to time, place, person, mood and affect Microbiology Past 72 Hours 01/16/20 17:00 Urine, Clean Catch Streptococcus pneumoniae Antigen (M - Final 01/16/20 17:00 Urine, Clean Catch Legionella Antigen - Final Laboratory Results 01/17/20 16:52: POC Glucose 185 H 01/18/20 03:40: WBC 9.2, RBC 2.96 L, Hgb 10.1 L, Hct 29.8 L, MCV 100.7 H, MCH 34.1 H, MCHC 33.9, RDW Std Deviation 43.2, RDW Coeff of [place] 11.9, Plt Count 183, MPV 10.2 01/18/20 03:40: Sodium 131 L, Potassium 4.0, Chloride 100, Carbon Dioxide 23.0, Anion Gap 8, BUN 35 H, Creatinine 1.24, Estim Creat Clear Calc 60.84, Est GFR (MDRD) Af Amer 74, Est GFR (MDRD) Non-Af 61, BUN/Creatinine Ratio 28.2 H, Glucose 163 H, Calcium 8.2 L, Total Bilirubin 0.40, AST 28, ALT 18, Alkaline Phosphatase 60, Total Protein 6.7, Albumin 2.5 L, Globulin 4.2, Albumin/Globulin Ratio 0.6 L 01/18/20 06:44: POC Glucose 159 H 01/18/20 11:54: POC Glucose 178 H Current Medications Acetaminophen (Tylenol) 650 mg PO Q6H PRN PRN PRN Reason: Pain Score 1-10/Temp > 100.7 F Last Admin: 01/17/20 21:16 Dose: 650 mg Documented by: Al Hydroxide/Mg Hydroxide (Mylanta Ii) 30 ml PO Q6H PRN PRN PRN Reason: Gastric Burning Albuterol Sulfate (Ventolin Aerosols) 2.5 mg INHALATION Q2H PRN PRN PRN Reason: Dyspnea, wheezing Amitriptyline HCl (Elavil) 75 mg PO QHS [facility] Last Admin: 01/17/20 21:15 Dose: 75 mg Documented by: Amlodipine Besylate (Norvasc) 10 mg PO DAILY [facility] Last Admin: 01/18/20 08:30 Dose: 10 mg Documented by: Apixaban (Eliquis) 10 mg PO BID [facility] Stop: 01/23/20 22:01 Last Admin: 01/18/20 08:31 Dose: 10 mg Documented by: Apixaban (Eliquis) 5 mg PO BID [facility] Buspirone HCl (Buspar) 5 mg PO BID [facility] Last Admin: 01/18/20 08:31 Dose: Not Given Documented by: Dexamethasone Sodium Phosphate (Decadron) 6 mg IV DAILY [facility] Last Admin: 01/18/20 08:33 Dose: 6 mg Documented by: Guaifenesin (Robitussin) 10 ml PO Q4H PRN PRN PRN Reason: COUGH Last Admin: 01/18/20 03:11 Dose: 10 ml Documented by: Hydralazine HCl (Apresoline Iv) 10 mg IV Q4H PRN PRN PRN Reason: SBP > 160 Sodium Chloride () 1,000 mls @ 100 mls/hr IV .Q10H [facility] Last Admin: 01/18/20 06:46 Dose: 100 mls/hr Documented by: Sodium Chloride () 250 mls @ 15 mls/hr IV .[id number] PRN PRN Reason: Saline Flush Sodium Chloride () 250 mls @ 15 mls/hr IV .[id number] PRN PRN Reason: Additional IVPB Infusion Remdesivir (Investigational) (100 mg/ Sodium Chloride) 250 mls @ 125 mls/hr IV DAILY [facility]; Protocol Stop: 01/21/20 11:59 Last Infusion: 01/18/20 13:42 Dose: Infused Documented by: Insulin Human Lispro (Humalog Franchescapen (Bkc)) 0 unit SC ACHS [facility]; Protocol Last Admin: 01/18/20 11:56 Dose: 1 units Documented by: Loratadine (Claritin) 10 mg PO DAILY [facility] Last Admin: 01/18/20 08:30 Dose: 10 mg Documented by: Melatonin (Melatonin) 3 mg PO QHS PRN PRN PRN Reason: INSOMNIA Last Admin: 01/17/20 21:15 Dose: 3 mg Documented by: Metoprolol Tartrate (Lopressor (Beta Ferdinand)) 25 mg PO BID [facility] Last Admin: 01/18/20 08:30 Dose: 25 mg Documented by: Nitroglycerin (Nitrostat) 0.4 mg SUBLINGUAL Q5M PRN PRN Reason: CARDIAC/CHEST PAIN Ondansetron HCl (Zofran) 4 mg IV Q8H PRN PRN PRN Reason: NAUSEA/VOMITING Pantoprazole Sodium (Protonix) 40 mg PO DAILY [facility] Last Admin: 01/18/20 08:31 Dose: 40 mg Documented by: Prochlorperazine Edisylate (Compazine Iv) 5 mg IV Q4H PRN PRN PRN Reason: Breakthrough Nausea/Vomiting Sodium Chloride () 10 - 40 ml IV UD PRN PRN Reason: SALINE FLUSH Throat Lozenges (Cepacol Sore Throat Lozenge) 1 lozenge MUCOUS MEM Q2H PRN PRN PRN Reason: SORE THROAT Last Admin: 01/18/20 03:11 Dose: 1 lozenge Documented by: Medical Necessity - Tobacco Use Smoking Status: Never smoker Tobacco Use: Non-smoker Assessment/Plan All Active Problems COVID-19 (Acute) Hypoxia (Acute) Cough (Acute) Severe sepsis (Acute) Acute respiratory failure with hypoxia (Acute) COVID-19 (Acute) Bilateral pneumonia (Acute) Atrial fibrillation (Acute) #1 Severe sepsis secondary to acute COVID-19 infection with hypoxic respiratory failure-again patient appears stable on 5 L nasal cannula at this time, continue present treatment, infectious diseases is directing his treatment-I talked to infectious diseases today and they stated that if the patient made good improvement over the next 48 hours and was on room air, the Remdesivir possibly could be stopped and the patient could be discharged home #2 Paroxysmal atrial fibrillation-rate is controlled at this time, patient has had a previous history of atrial fibrillation but is never been on anticoagulants, I will start Eliquis on patient today and stop his Lovenox. #3 type 2 diabetes-blood sugars will be monitored #4 essential hypertension #5 acute hypoxic respiratory failure secondary to #1, patient is currently on nasal cannula O2 Inpatient E&M: 16798 [facility] Hosp L2
[2020-01-18 17:11] LABS: Bedside Glucose 221 mg/dL (70-110)
[2020-01-18] MEDS: Amitriptyline 25 MG Tablet 75 MG PO (21:53)
[2020-01-18] MEDS: MELATONIN 3 MG TABLET PO (21:54)
[2020-01-18 22:20] LABS: Bedside Glucose 176 mg/dL (70-110)
[2020-01-19] VITALS (11 sets, daily range): BP systolic 123–140; BP diastolic 66–95; PULSE 71–88; RESP 18–20; TEMP 36.5–36.8; O2SAT 92–95
[2020-01-19] MEDS: 0.9% Normal Saline 1,000 ML 100 ML IV ×3 (03:13→22:23)
[2020-01-19] MEDS: Acetaminophen 325 MG Tablet 650 MG PO (03:19)
[2020-01-19] MEDS: guaiFENesin 10 ML UDC (200MG/10ML) PO ×2 (03:19→22:17)
[2020-01-19] MEDS: Insulin Lispro 100 UNIT/ML INSULN.PEN SC ×4 (06:53→22:17)
[2020-01-19 07:05] LABS: Bedside Glucose 200 mg/dL (70-110)
--- NOTE | 2020-01-19 09:19 | PCM.PN.PUL ---
Patient Problems: Active and Suspected Problems COVID-19 (Acute) Hypoxia (Acute) Cough (Acute) Severe sepsis (Acute) Acute respiratory failure with hypoxia (Acute) COVID-19 (Acute) Bilateral pneumonia (Acute) Atrial fibrillation (Acute) Subjective: The patient was seen and examined at the bedside this morning. Events from the last 24 hours have been reviewed. The patient is currently afebrile, hemodynamically stable and maintaining appropriate oxygen saturations on 3 L/min via nasal cannula. The patient still gets winded very easily with exertion. He remains systemically anticoagulated on Eliquis and is receiving Decadron and Remdesevir. Objective: The patient's most recent lab work, culture data and imaging studies have all been personally reviewed. Coronavirus PCR was positive on January 10. Strep and urine Legionella antigens were negative. - Physical Exam Vitals/I&O's: Vital Signs Temp Pulse Resp BP Pulse Ox 97.7 F L 71 20 H 140/68 H 93 01/19/20 02:15 01/19/20 02:59 01/19/20 02:15 01/19/20 02:15 01/19/20 07:35 Oxygen Flow Rate (L/min) 3 Oxygen Delivery Method Nasal Cannula Weight: 284 lb 9.868 oz Body Mass Index (BMI) 37.9 Intake and Output for Last 24 Hours 01/17/20 01/18/20 01/19/20 23:59 23:59 23:59 Intake Total 4155 / 4355 4421.67 / 4421.67 1150 / 1150 Output Total 775 / 925 625 / 625 Balance 3380 / 3430 3796.67 / 3796.67 1150 / 1150 General: Alert, Cooperative, No apparent distress HEENT: Atraumatic, Normocephalic Oral: Moist Mucosa, No Gingival or Mucosal Lesions/ Ulcerations Neck: Supple, No Nodes, Trachea Midline Lungs: Diminished Cardiovascular: Normal S1, Normal S2, No murmurs, Irregular Rate Abdomen: Bowel Sounds Present, Soft, Non Tender, Obese Extremities: No clubbing, No cyanosis, No edema Skin: No breakdown Musculoskeletal: No Tenderness to Palpation of Joints or Extremities, No Muscle Wasting Lymphatic: No Cervical, Supraclavicular, or Inguinal Adenopathy Neurological: Cranial nerves II-XII grossly intact, Neuro grossly intact Psych/Mental Status: Normal Affect, Appropriate Labs (Last 48 Hours) 01/17/20 01/17/20 01/17/20 11:13 16:52 Unknown WBC RBC Hgb Hct MCV MCH MCHC RDW Std Deviation RDW Coeff of [place] Plt Count MPV Sodium Potassium Chloride Carbon Dioxide Anion Gap BUN Creatinine Estim Creat Clear Calc Est GFR (MDRD) Af Amer Est GFR (MDRD) Non-Af BUN/Creatinine Ratio Glucose Calcium Total Bilirubin AST ALT Alkaline Phosphatase Cancelled Total Protein Albumin Globulin Albumin/Globulin Ratio POC Glucose 202 H 185 H 01/18/20 01/18/20 01/18/20 03:40 03:40 06:44 WBC 9.2 RBC 2.96 L Hgb 10.1 L Hct 29.8 L MCV 100.7 H MCH 34.1 H MCHC 33.9 RDW Std Deviation 43.2 RDW Coeff of [place] 11.9 Plt Count 183 MPV 10.2 Sodium 131 L Potassium 4.0 Chloride 100 Carbon Dioxide 23.0 Anion Gap 8 BUN 35 H Creatinine 1.24 Estim Creat Clear Calc 60.84 Est GFR (MDRD) Af Amer 74 Est GFR (MDRD) Non-Af 61 BUN/Creatinine Ratio 28.2 H Glucose 163 H Calcium 8.2 L Total Bilirubin 0.40 AST 28 ALT 18 Alkaline Phosphatase 60 Total Protein 6.7 Albumin 2.5 L Globulin 4.2 Albumin/Globulin Ratio 0.6 L POC Glucose 159 H 01/18/20 01/18/20 01/18/20 11:54 16:51 22:05 WBC RBC Hgb Hct MCV MCH MCHC RDW Std Deviation RDW Coeff of [place] Plt Count MPV Sodium Potassium Chloride Carbon Dioxide Anion Gap BUN Creatinine Estim Creat Clear Calc Est GFR (MDRD) Af Amer Est GFR (MDRD) Non-Af BUN/Creatinine Ratio Glucose Calcium Total Bilirubin AST ALT Alkaline Phosphatase Total Protein Albumin Globulin Albumin/Globulin Ratio POC Glucose 178 H 221 H 176 H 01/19/20 06:49 WBC RBC Hgb Hct MCV MCH MCHC RDW Std Deviation RDW Coeff of [place] Plt Count MPV Sodium Potassium Chloride Carbon Dioxide Anion Gap BUN Creatinine Estim Creat Clear Calc Est GFR (MDRD) Af Amer Est GFR (MDRD) Non-Af BUN/Creatinine Ratio Glucose Calcium Total Bilirubin AST ALT Alkaline Phosphatase Total Protein Albumin Globulin Albumin/Globulin Ratio POC Glucose 200 H Clinical Impression(s) from Imaging Studies Chest X-Ray 01/16/20 13:45 IMPRESSION: Patchy infiltrates in both lungs in the peripheral lateral distribution in the left hemithorax. Follow-up is recommended. Electronically Signed: Anthony Jacomechicashelli, at 14:27 EDT , Service support , Chest CTA 01/16/20 14:21 IMPRESSION: Bilateral groundglass appearance more prominent towards a peripheral distribution suggestive of the bilateral pulmonary infiltrates in keeping with Covid Electronically Signed: Anthony Yas, at 15:28 EDT , Service support , Current Medications Acetaminophen (Tylenol) 650 mg PO Q6H PRN PRN PRN Reason: Pain Score 1-10/Temp > 100.7 F Last Admin: 01/19/20 03:19 Dose: 650 mg Documented by: Al Hydroxide/Mg Hydroxide (Mylanta Ii) 30 ml PO Q6H PRN PRN PRN Reason: Gastric Burning Albuterol Sulfate (Ventolin Aerosols) 2.5 mg INHALATION Q2H PRN PRN PRN Reason: Dyspnea, wheezing Amitriptyline HCl (Elavil) 75 mg PO QHS [facility] Last Admin: 01/18/20 21:53 Dose: 75 mg Documented by: Amlodipine Besylate (Norvasc) 10 mg PO DAILY [facility] Last Admin: 01/18/20 08:30 Dose: 10 mg Documented by: Apixaban (Eliquis) 10 mg PO BID [facility] Stop: 01/23/20 22:01 Last Admin: 01/18/20 21:54 Dose: 10 mg Documented by: Apixaban (Eliquis) 5 mg PO BID [facility] Buspirone HCl (Buspar) 5 mg PO BID [facility] Last Admin: 01/18/20 21:57 Dose: Not Given Documented by: Dexamethasone Sodium Phosphate (Decadron) 6 mg IV DAILY [facility] Last Admin: 01/18/20 08:33 Dose: 6 mg Documented by: Guaifenesin (Robitussin) 10 ml PO Q4H PRN PRN PRN Reason: COUGH Last Admin: 01/19/20 03:19 Dose: 10 ml Documented by: Hydralazine HCl (Apresoline Iv) 10 mg IV Q4H PRN PRN PRN Reason: SBP > 160 Sodium Chloride () 1,000 mls @ 100 mls/hr IV .Q10H [facility] Last Admin: 01/19/20 03:13 Dose: 100 mls/hr Documented by: Sodium Chloride () 250 mls @ 15 mls/hr IV .[id number] PRN PRN Reason: Saline Flush Sodium Chloride () 250 mls @ 15 mls/hr IV .[id number] PRN PRN Reason: Additional IVPB Infusion Remdesivir (Investigational) (100 mg/ Sodium Chloride) 250 mls @ 125 mls/hr IV DAILY [facility]; Protocol Stop: 01/21/20 11:59 Last Infusion: 01/18/20 13:42 Dose: Infused Documented by: Insulin Human Lispro (Humalog Kwikpen (Bkc)) 0 unit SC ACHS [facility]; Protocol Last Admin: 01/19/20 06:53 Dose: 2 units Documented by: Loratadine (Claritin) 10 mg PO DAILY [facility] Last Admin: 01/18/20 08:30 Dose: 10 mg Documented by: Melatonin (Melatonin) 3 mg PO QHS PRN PRN PRN Reason: INSOMNIA Last Admin: 01/18/20 21:54 Dose: 3 mg Documented by: Metoprolol Tartrate (Lopressor (Beta Ferdinand)) 25 mg PO BID [facility] Last Admin: 01/18/20 21:54 Dose: 25 mg Documented by: Nitroglycerin (Nitrostat) 0.4 mg SUBLINGUAL Q5M PRN PRN Reason: CARDIAC/CHEST PAIN Ondansetron HCl (Zofran) 4 mg IV Q8H PRN PRN PRN Reason: NAUSEA/VOMITING Pantoprazole Sodium (Protonix) 40 mg PO DAILY [facility] Last Admin: 01/18/20 08:31 Dose: 40 mg Documented by: Prochlorperazine Edisylate (Compazine Iv) 5 mg IV Q4H PRN PRN PRN Reason: Breakthrough Nausea/Vomiting Sodium Chloride () 10 - 40 ml IV UD PRN PRN Reason: SALINE FLUSH Throat Lozenges (Cepacol Sore Throat Lozenge) 1 lozenge MUCOUS MEM Q2H PRN PRN PRN Reason: SORE THROAT Last Admin: 01/18/20 03:11 Dose: 1 lozenge Documented by: Medical Necessity - Tobacco Use Smoking Status: Never smoker Tobacco Use: Non-smoker Assessment/Plan All Active Problems COVID-19 (Acute) Hypoxia (Acute) Cough (Acute) Severe sepsis (Acute) Acute respiratory failure with hypoxia (Acute) COVID-19 (Acute) Bilateral pneumonia (Acute) Atrial fibrillation (Acute) RECOMMENDATIONS: 1. Continue Decadron with plans to complete a 10-day treatment course. 2. Continue Remdesevir to complete treatment course. 3. Continue Eliquis. 4. Wean supplemental oxygen to maintain saturations at or above 90%. IMPRESSIONS: 1. Acute hypoxemic respiratory failure secondary to COVID-19 pneumonia The patient presented to the hospital with 1 week of worsening shortness of breath and cough after having tested positive for coronavirus on January 10. The patient is currently stable from an oxygenation status on supplemental oxygen via nasal cannula. Agree with continuing Decadron and systemic anticoagulation. Continue to wean supplemental oxygen to maintain saturations at or above 90%. Continue Remdesevir to complete treatment course. 2. Atrial flutter/fibrillation The patient is currently rate controlled on Lopressor, which will be continued. I would recommend that he be continued on Eliquis as well. 3. Hypertension/chronic kidney disease/morbid obesity/GERD/obstructive sleep apnea Complicates care, management, recovery and prognosis. Continue home medications as indicated. Continue nocturnal Pap therapy per home regimen. This note was generated with [employer] dictation software. It may contain incorrect words, spelling, and punctuation that were not noted in checking the note before signing. Inpatient E&M: 21213 [facility] Hosp L2
[2020-01-19] MEDS: Metoprolol Tartrate 25 MG Tablet PO ×2 (09:41→22:16)
[2020-01-19] MEDS: Loratadine 10 MG Tablet PO (09:42)
[2020-01-19] MEDS: dexAMETHasone 10 MG/ML Vial 6 MG IV (09:42)
[2020-01-19] MEDS: Pantoprazole Sodium 40 MG Tablet PO (09:42)
[2020-01-19] MEDS: amLODIPine 10 MG Tablet PO (09:42)
[2020-01-19] MEDS: APIXABAN 5 MG TABLET 10 MG PO ×2 (10:17→22:16)
[2020-01-19 12:46] LABS: Bedside Glucose 195 mg/dL (70-110)
--- NOTE | 2020-01-19 12:46 | PN_ITS ---
Patient Problems: Active and Suspected Problems COVID-19 (Acute) Hypoxia (Acute) Cough (Acute) Severe sepsis (Acute) Acute respiratory failure with hypoxia (Acute) COVID-19 (Acute) Bilateral pneumonia (Acute) Atrial fibrillation (Acute) Subjective: Patient was seen and examined today, he does not complain of any increased shortness of breath and he has no complaints of chest discomfort. I talked briefly with critical care concerning his medical condition and plan of care. I also talked with infectious diseases about his plan of care. Patient is currently on 2 L of oxygen at this time, he continues to receive Remdesivir. Objective: General: Alert, Oriented x3, Cooperative HEENT: Atraumatic, PERRLA, EOMI, Normocephalic Oral: Moist Mucosa Neck: Supple, No JVD, Trachea Midline, Thyroid Normal Size and Texture Lungs: Clear to auscultation, Normal air movement, No rhonchi, No wheeze, No rales Cardiovascular: Normal S1, Normal S2, No murmurs, PMI Normal, Irregular Rate, No rub noted, No Gallop Abdomen: Bowel Sounds Present, Soft, Non Tender, Non-Distended, No hernias noted Extremities: No clubbing, No cyanosis, No edema, Capillary Refill Less than 3 Seconds Skin: No rashes, No breakdown Musculoskeletal: No Tenderness to Palpation of Joints or Extremities Neurological: Cranial nerves II-XII grossly intact, Neuro grossly intact, Sensory exam intact to light touch and pain, Coordination normal Psych/Mental Status: Normal Affect, Appropriate, Alert and oriented to time, place, person, mood and affect - Physical Exam Vitals/I&O's: Vital Signs Temp Pulse Resp BP Pulse Ox 97.9 F 88 18 137/95 H 92 01/19/20 08:15 01/19/20 10:00 01/19/20 08:15 01/19/20 08:15 01/19/20 08:15 Oxygen Flow Rate (L/min) 2 Oxygen Delivery Method Nasal Cannula Weight: 129.1 kg Body Mass Index (BMI) 37.9 Intake and Output for Last 24 Hours 01/17/20 01/18/20 01/19/20 23:59 23:59 23:59 Intake Total 4155 / 4355 4421.67 / 4421.67 2054 / 2054 Output Total 775 / 925 625 / 625 Balance 3380 / 3430 3796.67 / 3796.67 2054 / 2054 Microbiology Past 72 Hours 01/16/20 17:00 Urine, Clean Catch Streptococcus pneumoniae Antigen (M - Final 01/16/20 17:00 Urine, Clean Catch Legionella Antigen - Final Laboratory Results 01/18/20 16:51: POC Glucose 221 H 01/18/20 22:05: POC Glucose 176 H 01/19/20 06:49: POC Glucose 200 H 01/19/20 12:31: POC Glucose Pending Current Medications Acetaminophen (Tylenol) 650 mg PO Q6H PRN PRN PRN Reason: Pain Score 1-10/Temp > 100.7 F Last Admin: 01/19/20 03:19 Dose: 650 mg Documented by: Al Hydroxide/Mg Hydroxide (Mylanta Ii) 30 ml PO Q6H PRN PRN PRN Reason: Gastric Burning Albuterol Sulfate (Ventolin Aerosols) 2.5 mg INHALATION Q2H PRN PRN PRN Reason: Dyspnea, wheezing Amitriptyline HCl (Elavil) 75 mg PO QHS [facility] Last Admin: 01/18/20 21:53 Dose: 75 mg Documented by: Amlodipine Besylate (Norvasc) 10 mg PO DAILY [facility] Last Admin: 01/19/20 09:42 Dose: 10 mg Documented by: Apixaban (Eliquis) 10 mg PO BID [facility] Stop: 01/23/20 22:01 Last Admin: 01/19/20 10:17 Dose: 10 mg Documented by: Apixaban (Eliquis) 5 mg PO BID [facility] Buspirone HCl (Buspar) 5 mg PO BID [facility] Last Admin: 01/19/20 09:44 Dose: Not Given Documented by: Dexamethasone Sodium Phosphate (Decadron) 6 mg IV DAILY [facility] Last Admin: 01/19/20 09:42 Dose: 6 mg Documented by: Guaifenesin (Robitussin) 10 ml PO Q4H PRN PRN PRN Reason: COUGH Last Admin: 01/19/20 03:19 Dose: 10 ml Documented by: Hydralazine HCl (Apresoline Iv) 10 mg IV Q4H PRN PRN PRN Reason: SBP > 160 Sodium Chloride () 1,000 mls @ 100 mls/hr IV .Q10H [facility] Last Infusion: 01/19/20 11:46 Dose: 100 mls/hr Documented by: Sodium Chloride () 250 mls @ 15 mls/hr IV .[id number] PRN PRN Reason: Saline Flush Sodium Chloride () 250 mls @ 15 mls/hr IV .[id number] PRN PRN Reason: Additional IVPB Infusion Remdesivir (Investigational) (100 mg/ Sodium Chloride) 250 mls @ 125 mls/hr IV DAILY [facility]; Protocol Stop: 01/21/20 11:59 Last Infusion: 01/19/20 11:46 Dose: Infused Documented by: Insulin Human Lispro (Humalog Kwikpen (Bkc)) 0 unit SC ACHS [facility]; Protocol Last Admin: 01/19/20 12:32 Dose: 2 units Documented by: Loratadine (Claritin) 10 mg PO DAILY [facility] Last Admin: 01/19/20 09:42 Dose: 10 mg Documented by: Melatonin (Melatonin) 3 mg PO QHS PRN PRN PRN Reason: INSOMNIA Last Admin: 01/18/20 21:54 Dose: 3 mg Documented by: Metoprolol Tartrate (Lopressor (Beta Ferdinand)) 25 mg PO BID [facility] Last Admin: 01/19/20 09:41 Dose: 25 mg Documented by: Nitroglycerin (Nitrostat) 0.4 mg SUBLINGUAL Q5M PRN PRN Reason: CARDIAC/CHEST PAIN Ondansetron HCl (Zofran) 4 mg IV Q8H PRN PRN PRN Reason: NAUSEA/VOMITING Pantoprazole Sodium (Protonix) 40 mg PO DAILY [facility] Last Admin: 01/19/20 09:42 Dose: 40 mg Documented by: Prochlorperazine Edisylate (Compazine Iv) 5 mg IV Q4H PRN PRN PRN Reason: Breakthrough Nausea/Vomiting Sodium Chloride () 10 - 40 ml IV UD PRN PRN Reason: SALINE FLUSH Throat Lozenges (Cepacol Sore Throat Lozenge) 1 lozenge MUCOUS MEM Q2H PRN PRN PRN Reason: SORE THROAT Last Admin: 01/18/20 03:11 Dose: 1 lozenge Documented by: Medical Necessity - Tobacco Use Smoking Status: Never smoker Tobacco Use: Non-smoker Assessment/Plan All Active Problems COVID-19 (Acute) Hypoxia (Acute) Cough (Acute) Severe sepsis (Acute) Acute respiratory failure with hypoxia (Acute) COVID-19 (Acute) Bilateral pneumonia (Acute) Atrial fibrillation (Acute) #1 Severe sepsis secondary to acute COVID-19 infection with hypoxic respiratory failure-patient is currently on 2 L of oxygen at this time, it appears likely that the patient will finish his treatment with his Remdesivir-his 5 days of treatment will and with the dose on 01/21/2020. Again, if the patient is on room air before that time, according to ID, he could be discharged to home without finishing the course of Remdesivir. #2 Paroxysmal atrial fibrillation-rate is controlled at this time, patient is currently on Eliquis #3 type 2 diabetes-blood sugars will be monitored #4 essential hypertension #5 acute hypoxic respiratory failure secondary to #1, patient is currently on nasal cannula O2 at 2 L/min Inpatient E&M: 53528 [facility] Hosp L2
--- NOTE | 2020-01-19 12:49 | CASEMGMT ---
Addendum entered by Bernard Mccarthy 01/19/20 14:43: Spoke w/Shiva from [facility]. He confirms they are able to accept pt. Call placed to [facility] and msg left informing her of same and was provided with [facility] contact informaion on VM as well. Call placed to pt and he was made aware of acceptance. He denies having any other discharge needs, questions, or concerns. Green sheet placed on pt's chart w/instructions for HHC and oxygen, if needed. Original Note: RAFAEL VASQUEZ NOTE: Pt may need oxygen at discharge. Call placed to pt's room. Pt states she does not have preference of [employer] for Oxygen and is agreeable to [employer]. Pt made aware his and Mary are both interested in /pt getting [facility] to have a nurse check on them. He is also agreeable to this and denies preference of HHC agency and is agreeable to [facility]. Call placed to [facility] and referral made for both pt and pt's . [facility] made aware pt and are both COVID +, that anticipate discharge for both pt's over the weekend. Awaiting acceptance. [facility] asked RAFAEL VASQUEZ to ensure pt is agreeable to wearing PPE while HHC in the home. Call placed back to pt at this time. He was made aware of referral sent to [facility] and confirmed he is agreeable to wearing PPE. Pt made aware Mary was inquiring about Healthcare POA paperwork for he and his to complete. Pt made aware these could be completed after he and his are no longer in isolation precautions for COVID and that Mary has been provided with contact info for he/ to make appt as an out-pt to have these completed. He voices appreciation. He denies having any other discharge needs/concerns/questions at this time. D/C Plan: Home w/HHC. Awaiting acceptance from [facility]. May need Home oxygen testing prior to discharge. If pt requires Home oxygen, green sheet is on chart w/instructions. Scott SELLERS RN, CM
--- NOTE | 2020-01-19 13:30 | PCM.PN.ID ---
Patient Problems: Active and Suspected Problems COVID-19 (Acute) Hypoxia (Acute) Cough (Acute) Severe sepsis (Acute) Acute respiratory failure with hypoxia (Acute) COVID-19 (Acute) Bilateral pneumonia (Acute) Atrial fibrillation (Acute) Subjective: Patient is out of bed to a chair just completed lunch currently on 2 L nasal cannula. States a feeling better. Does have some dyspnea with activity. No fever Objective: Alert does not appear toxic lungs are clear heart exam S1-S2 abdomen soft - Physical Exam Vitals/I&O's: Vital Signs Temp Pulse Resp BP Pulse Ox 97.9 F 88 18 137/95 H 92 01/19/20 08:15 01/19/20 10:00 01/19/20 08:15 01/19/20 08:15 01/19/20 08:15 Oxygen Flow Rate (L/min) 2 Oxygen Delivery Method Nasal Cannula Weight: 129.1 kg Body Mass Index (BMI) 37.9 Intake and Output for Last 24 Hours 01/17/20 01/18/20 01/19/20 23:59 23:59 23:59 Intake Total 4155 / 4355 4421.67 / 4421.67 2054 Output Total 775 / 925 625 / 625 Balance 3380 / 3430 3796.67 / 3796.67 2054 Microbiology Past 72 Hours 01/16/20 17:00 Urine, Clean Catch Streptococcus pneumoniae Antigen (M - Final 01/16/20 17:00 Urine, Clean Catch Legionella Antigen - Final Laboratory Results 01/18/20 16:51: POC Glucose 221 H 01/18/20 22:05: POC Glucose 176 H 01/19/20 06:49: POC Glucose 200 H 01/19/20 12:31: POC Glucose 195 H Current Medications Acetaminophen (Tylenol) 650 mg PO Q6H PRN PRN PRN Reason: Pain Score 1-10/Temp > 100.7 F Last Admin: 01/19/20 03:19 Dose: 650 mg Documented by: Al Hydroxide/Mg Hydroxide (Mylanta Ii) 30 ml PO Q6H PRN PRN PRN Reason: Gastric Burning Albuterol Sulfate (Ventolin Aerosols) 2.5 mg INHALATION Q2H PRN PRN PRN Reason: Dyspnea, wheezing Amitriptyline HCl (Elavil) 75 mg PO QHS [facility] Last Admin: 01/18/20 21:53 Dose: 75 mg Documented by: Amlodipine Besylate (Norvasc) 10 mg PO DAILY [facility] Last Admin: 01/19/20 09:42 Dose: 10 mg Documented by: Apixaban (Eliquis) 10 mg PO BID [facility] Stop: 01/23/20 22:01 Last Admin: 01/19/20 10:17 Dose: 10 mg Documented by: Apixaban (Eliquis) 5 mg PO BID [facility] Buspirone HCl (Buspar) 5 mg PO BID [facility] Last Admin: 01/19/20 09:44 Dose: Not Given Documented by: Dexamethasone Sodium Phosphate (Decadron) 6 mg IV DAILY [facility] Last Admin: 01/19/20 09:42 Dose: 6 mg Documented by: Guaifenesin (Robitussin) 10 ml PO Q4H PRN PRN PRN Reason: COUGH Last Admin: 01/19/20 03:19 Dose: 10 ml Documented by: Hydralazine HCl (Apresoline Iv) 10 mg IV Q4H PRN PRN PRN Reason: SBP > 160 Sodium Chloride () 1,000 mls @ 100 mls/hr IV .Q10H [facility] Last Infusion: 01/19/20 11:46 Dose: 100 mls/hr Documented by: Sodium Chloride () 250 mls @ 15 mls/hr IV .[id number] PRN PRN Reason: Saline Flush Sodium Chloride () 250 mls @ 15 mls/hr IV .[id number] PRN PRN Reason: Additional IVPB Infusion Remdesivir (Investigational) (100 mg/ Sodium Chloride) 250 mls @ 125 mls/hr IV DAILY [facility]; Protocol Stop: 01/21/20 11:59 Last Infusion: 01/19/20 11:46 Dose: Infused Documented by: Insulin Human Lispro (Humalog Kwikpen (Bkc)) 0 unit SC ACHS [facility]; Protocol Last Admin: 01/19/20 12:32 Dose: 2 units Documented by: Loratadine (Claritin) 10 mg PO DAILY [facility] Last Admin: 01/19/20 09:42 Dose: 10 mg Documented by: Melatonin (Melatonin) 3 mg PO QHS PRN PRN PRN Reason: INSOMNIA Last Admin: 01/18/20 21:54 Dose: 3 mg Documented by: Metoprolol Tartrate (Lopressor (Beta Ferdinand)) 25 mg PO BID [facility] Last Admin: 01/19/20 09:41 Dose: 25 mg Documented by: Nitroglycerin (Nitrostat) 0.4 mg SUBLINGUAL Q5M PRN PRN Reason: CARDIAC/CHEST PAIN Ondansetron HCl (Zofran) 4 mg IV Q8H PRN PRN PRN Reason: NAUSEA/VOMITING Pantoprazole Sodium (Protonix) 40 mg PO DAILY [facility] Last Admin: 01/19/20 09:42 Dose: 40 mg Documented by: Prochlorperazine Edisylate (Compazine Iv) 5 mg IV Q4H PRN PRN PRN Reason: Breakthrough Nausea/Vomiting Sodium Chloride () 10 - 40 ml IV UD PRN PRN Reason: SALINE FLUSH Throat Lozenges (Cepacol Sore Throat Lozenge) 1 lozenge MUCOUS MEM Q2H PRN PRN PRN Reason: SORE THROAT Last Admin: 01/18/20 03:11 Dose: 1 lozenge Documented by: Medical Necessity - Tobacco Use Smoking Status: Never smoker Tobacco Use: Non-smoker Route of nutrition/ use of supplements: [] Nutritional Intake: [] IV Site: [] Dockery Catheter: [] - Assessment/Plan Over 19 pneumonia slowly improving. Continue antiviral therapy along with low-dose dexamethasone.
[2020-01-19] MEDS: 0.9% Saline Lock 10 ML Syringe IV (14:23)
[2020-01-19 17:20] LABS: Bedside Glucose 218 mg/dL (70-110)
[2020-01-19] MEDS: Amitriptyline 25 MG Tablet 75 MG PO (22:16)
[2020-01-19] MEDS: MELATONIN 3 MG TABLET PO (22:16)
[2020-01-19 22:40] LABS: Bedside Glucose 184 mg/dL (70-110)
[2020-01-20] VITALS (15 sets, daily range): BP systolic 127–171; BP diastolic 75–89; PULSE 65–94; RESP 18–20; TEMP 36.4–36.9; O2SAT 92–95
[2020-01-20] MEDS: Insulin Lispro 100 UNIT/ML INSULN.PEN SC ×4 (06:32→23:03)
[2020-01-20 07:10] LABS: Bedside Glucose 180 mg/dL (70-110)
[2020-01-20] MEDS: dexAMETHasone 10 MG/ML Vial 6 MG IV (08:41)
[2020-01-20] MEDS: busPIRone 5 MG Tablet PO (08:43)
[2020-01-20] MEDS: APIXABAN 5 MG TABLET 10 MG PO ×2 (08:44→23:01)
[2020-01-20] MEDS: Loratadine 10 MG Tablet PO (08:44)
[2020-01-20] MEDS: Metoprolol Tartrate 25 MG Tablet PO ×2 (08:44→23:01)
[2020-01-20] MEDS: amLODIPine 10 MG Tablet PO (08:45)
[2020-01-20] MEDS: Pantoprazole Sodium 40 MG Tablet PO (08:45)
[2020-01-20] MEDS: 0.9% Normal Saline 1,000 ML 100 ML IV (08:45)
[2020-01-20] MEDS: Furosemide 40 MG/4 ML Vial IV (10:02)
[2020-01-20] MEDS: 0.9% Saline Lock 10 ML Syringe IV (10:02)
--- NOTE | 2020-01-20 10:14 | PCM.PN.HOSP ---
Patient Problems: Active and Suspected Problems COVID-19 (Acute) Hypoxia (Acute) Cough (Acute) Severe sepsis (Acute) Acute respiratory failure with hypoxia (Acute) COVID-19 (Acute) Bilateral pneumonia (Acute) Atrial fibrillation (Acute) Reason for Visit: Follow-up on severe sepsis/Acute COVID infection/New onset A. fib Subjective: Patient seen and examined. He denied any worsening shortness of breath and fever. He was dyspneic with ambulation and went up to 4L of oxygen. Currently on 2.5L oxygen. Objective: Physical exam: General: Alert, Oriented x3, Cooperative, obese, comfortable HEENT: Atraumatic, PERRLA, EOMI, Normocephalic Oral: Moist mucosa Neck: Supple Lungs: Clear to auscultation, Normal air movement, No rhonchi, No wheeze, No rales Cardiovascular: Normal S1, Normal S2, No murmurs, PMI Normal, Irregular Rate Abdomen: Bowel Sounds Present, Soft, Non Tender, Non-Distended Extremities: No edema Skin: No rashes, No breakdown Musculoskeletal: No Tenderness to Palpation of Joints or Extremities Neurological: Cranial nerves II-XII grossly intact, Neuro grossly intact, Sensory exam intact to light touch and pain, Coordination normal Psych/Mental Status: Normal Affect, Appropriate, Alert and oriented to time, place, person, mood and affect Vitals/I&O's: Vital Signs Temp Pulse Resp BP Pulse Ox 98.2 F 83 18 151/75 H 92 01/20/20 08:36 01/20/20 09:11 01/20/20 08:36 01/20/20 08:36 01/20/20 08:36 Oxygen Flow Rate (L/min) 2 Oxygen Delivery Method Nasal Cannula Weight: 126.6 kg Body Mass Index (BMI) 37.9 Intake and Output for Last 24 Hours 01/18/20 01/19/20 01/20/20 23:59 23:59 23:59 Intake Total 4421.67 / 4421.67 3116.67 / 3216.67 1380.00 / 1380.00 Output Total 625 / 625 Balance 3796.67 / 3796.67 3116.67 / 3216.67 1380.00 / 1380.00 Laboratory Results 01/19/20 12:31: POC Glucose 195 H 01/19/20 17:06: POC Glucose 218 H 01/19/20 22:13: POC Glucose 184 H 01/20/20 06:24: POC Glucose 180 H Current Medications Acetaminophen (Tylenol) 650 mg PO Q6H PRN PRN PRN Reason: Pain Score 1-10/Temp > 100.7 F Last Admin: 01/19/20 03:19 Dose: 650 mg Documented by: Al Hydroxide/Mg Hydroxide (Mylanta Ii) 30 ml PO Q6H PRN PRN PRN Reason: Gastric Burning Albuterol Sulfate (Ventolin Aerosols) 2.5 mg INHALATION Q2H PRN PRN PRN Reason: Dyspnea, wheezing Amitriptyline HCl (Elavil) 75 mg PO QHS [facility] Last Admin: 01/19/20 22:16 Dose: 75 mg Documented by: Amlodipine Besylate (Norvasc) 10 mg PO DAILY [facility] Last Admin: 01/20/20 08:45 Dose: 10 mg Documented by: Apixaban (Eliquis) 10 mg PO BID [facility] Stop: 01/23/20 22:01 Last Admin: 01/20/20 08:44 Dose: 10 mg Documented by: Apixaban (Eliquis) 5 mg PO BID [facility] Buspirone HCl (Buspar) 5 mg PO BID [facility] Last Admin: 01/20/20 08:43 Dose: 5 mg Documented by: Dexamethasone Sodium Phosphate (Decadron) 6 mg IV DAILY [facility] Last Admin: 01/20/20 08:41 Dose: 6 mg Documented by: Guaifenesin (Robitussin) 10 ml PO Q4H PRN PRN PRN Reason: COUGH Last Admin: 01/19/20 22:17 Dose: 10 ml Documented by: Hydralazine HCl (Apresoline Iv) 10 mg IV Q4H PRN PRN PRN Reason: SBP > 160 Sodium Chloride () 250 mls @ 15 mls/hr IV .[id number] PRN PRN Reason: Saline Flush Sodium Chloride () 250 mls @ 15 mls/hr IV .[id number] PRN PRN Reason: Additional IVPB Infusion Remdesivir (Investigational) (100 mg/ Sodium Chloride) 250 mls @ 125 mls/hr IV DAILY [facility]; Protocol Stop: 01/21/20 11:59 Last Admin: 01/20/20 10:03 Dose: 125 mls/hr Documented by: Insulin Human Lispro (Humalog Kwikpen (Bkc)) 0 unit SC ACHS [facility]; Protocol Last Admin: 01/20/20 06:32 Dose: 1 units Documented by: Loratadine (Claritin) 10 mg PO DAILY [facility] Last Admin: 01/20/20 08:44 Dose: 10 mg Documented by: Melatonin (Melatonin) 3 mg PO QHS PRN PRN PRN Reason: INSOMNIA Last Admin: 01/19/20 22:16 Dose: 3 mg Documented by: Metoprolol Tartrate (Lopressor (Beta Efrdinand)) 25 mg PO BID [facility] Last Admin: 01/20/20 08:44 Dose: 25 mg Documented by: Nitroglycerin (Nitrostat) 0.4 mg SUBLINGUAL Q5M PRN PRN Reason: CARDIAC/CHEST PAIN Ondansetron HCl (Zofran) 4 mg IV Q8H PRN PRN PRN Reason: NAUSEA/VOMITING Pantoprazole Sodium (Protonix) 40 mg PO DAILY [facility] Last Admin: 01/20/20 08:45 Dose: 40 mg Documented by: Prochlorperazine Edisylate (Compazine Iv) 5 mg IV Q4H PRN PRN PRN Reason: Breakthrough Nausea/Vomiting Sodium Chloride () 10 - 40 ml IV UD PRN PRN Reason: SALINE FLUSH Last Admin: 01/20/20 10:02 Dose: 10 ml Documented by: Throat Lozenges (Cepacol Sore Throat Lozenge) 1 lozenge MUCOUS MEM Q2H PRN PRN PRN Reason: SORE THROAT Last Admin: 01/18/20 03:11 Dose: 1 lozenge Documented by: STROKE Vital Signs/Narrative: Vital Signs Temp Pulse Resp BP Pulse Ox 01/20/20 09:11 83 01/20/20 08:44 83 01/20/20 08:36 98.2 F 83 18 151/75 H 92 01/20/20 06:49 98.2 F 73 18 144/85 H 93 01/20/20 06:40 93 Medical Necessity - Tobacco Use Smoking Status: Never smoker Tobacco Use: Non-smoker Assessment/Plan All Active Problems COVID-19 (Acute) Hypoxia (Acute) Cough (Acute) Severe sepsis (Acute) Acute respiratory failure with hypoxia (Acute) COVID-19 (Acute) Bilateral pneumonia (Acute) Atrial fibrillation (Acute) 1. Acute hypoxic respiratory failure secondary to #2, On nasal cannula O2 at 2.5 L/min Continue to encourage use of incentive spirometer 2. Severe sepsis secondary to acute COVID-19 infection, improved On Dexamethasone and remdesivir 3. Paroxysmal atrial fibrillation, newly found, rate controlled, Controlled on metoprolol, Eliquis 4. Type 2 DM, BS is fairly controlled, Will resume metformin, blood glucose checks and ISS 5. Hypertension, controlled, continue on amlodipine 6. Anxiety, on Buspar and amitriptyline 7. DVT PPx- on Eliquis Inpatient E&M: 79740 Subs Hosp L2
[2020-01-20 11:01] LABS: Bedside Glucose 173 mg/dL (70-110)
--- NOTE | 2020-01-20 14:37 | NURSING ---
bladderscanned for 568ml, st cathed for 575ml. pt proclaimed immediate relief.
[2020-01-20 16:21] LABS: Bedside Glucose 251 mg/dL (70-110)
[2020-01-20] MEDS: Amitriptyline 25 MG Tablet 75 MG PO (23:01)
[2020-01-20] MEDS: metFORMIN (XR) 500 MG Tablet PO (23:02)
[2020-01-20] MEDS: MELATONIN 3 MG TABLET PO (23:02)
[2020-01-20 23:16] LABS: Bedside Glucose 186 mg/dL (70-110)
[2020-01-21] VITALS (7 sets, daily range): BP systolic 135–157; BP diastolic 74–82; PULSE 71–84; RESP 18; TEMP 36.4–36.6; O2SAT 83–95
[2020-01-21 06:34] LABS: Absolute Lymphocyte Count 0.61 X10^3/uL (0.83-4.51); Basophil# 0.01 X10^3/uL; Basophil% 0.1 % (0-1); Hematocrit 31.5 % (40-54); Hemoglobin 11.2 g/dL (13.0-16.5); Lymphocyte # 0.61 X10^3/ul (4.0); Lymphocyte % 7.4 % (19-41); Mean Corp Hgb Conc 35.6 g/dL (32-36); Mean Corpuscular Hgb 34.7 pg (27.0-32.0); Mean Corpuscular Volume 97.5 fL (80-94); Monocyte# 0.54 X10^3/uL; Monocyte% 6.6 % (0-10); NRBC Flagged by Analyzer 0 % (0-5); Neutrophil # 6.95 X10^3/uL (2.7-7.7); Neutrophil % 84.6 % (47-70); Platelet Count 202 K/mm3 (150-450); RBC Distribution Width CV 11.6 % (11.6-14.6); RBC Distribution Width SD 40.9 fl (35.1-43.9); Red Blood Count 3.23 M/mm3 (4.6-6.2); White Blood Count 8.2 K/mm3 (4.4-11.0)
--- NOTE | 2020-01-21 06:52 | PCM.PN.PUL ---
Patient Problems: Active and Suspected Problems COVID-19 (Acute) Hypoxia (Acute) Cough (Acute) Severe sepsis (Acute) Acute respiratory failure with hypoxia (Acute) COVID-19 (Acute) Bilateral pneumonia (Acute) Atrial fibrillation (Acute) Subjective: The patient was seen and examined at the bedside this morning. Events from the last 24 hours have been reviewed. The patient is currently afebrile, hemodynamically stable and maintaining appropriate oxygen saturations on 2 L/min via nasal cannula. The patient remains systemically anticoagulated on Eliquis and is currently completing his treatment course of dexamethasone. Today should be the last day of the patient's remdesevir. The patient reports continued improvement in his shortness of breath, which is typically only occurring with exertion. Objective: The patient's most recent lab work, culture data and imaging studies have all been personally reviewed. Coronavirus PCR was positive on January 10. Strep and urine Legionella antigens were negative. - Physical Exam Vitals/I&O's: Vital Signs Temp Pulse Resp BP Pulse Ox 98 F 71 18 135/82 H 94 01/21/20 02:13 01/21/20 03:00 01/21/20 02:13 01/21/20 02:13 01/21/20 02:13 Oxygen Flow Rate (L/min) 2 Oxygen Delivery Method Nasal Cannula Weight: 278 lb 3.574 oz Body Mass Index (BMI) 37.9 Intake and Output for Last 24 Hours 01/19/20 01/20/20 01/21/20 23:59 23:59 23:59 Intake Total 3116.67 / 3216.67 1930.00 / 2230.00 500 / 500 Output Total 450 / 450 Balance 3116.67 / 3216.67 1480.00 / 1780.00 500 / 500 General: Alert, Oriented x3, Cooperative, No apparent distress, - - Sitting in bedside recliner. HEENT: Atraumatic, PERRLA, Normocephalic Oral: Moist Mucosa, No Gingival or Mucosal Lesions/ Ulcerations Neck: Supple, No Nodes, Trachea Midline Lungs: No rhonchi, No wheeze, No rales, - - Good inspiratory effort Cardiovascular: Normal S1, Normal S2, No murmurs, Irregular Rate Abdomen: Bowel Sounds Present, Soft, Non Tender, Obese Extremities: No clubbing, No cyanosis, No edema Skin: No breakdown Musculoskeletal: No Tenderness to Palpation of Joints or Extremities, No Muscle Wasting Lymphatic: No Cervical, Supraclavicular, or Inguinal Adenopathy Neurological: Cranial nerves II-XII grossly intact, Neuro grossly intact Psych/Mental Status: Alert and oriented to time, place, person, mood and affect Labs (Last 48 Hours) 01/19/20 01/19/20 01/19/20 06:49 12:31 17:06 WBC RBC Hgb Hct MCV MCH MCHC RDW Std Deviation RDW Coeff of [place] Plt Count MPV Immature Gran % (Auto) Neut % (Auto) Lymph % (Auto) Cocke % (Auto) Eos % (Auto) Baso % (Auto) Absolute Neuts (auto) Absolute Lymphs (auto) Nucleated RBC % Sodium Potassium Chloride Carbon Dioxide Anion Gap BUN Creatinine Est GFR (MDRD) Af Amer Est GFR (MDRD) Non-Af BUN/Creatinine Ratio Glucose Calcium Total Bilirubin AST ALT Alkaline Phosphatase Total Protein Albumin POC Glucose 200 H 195 H 218 H 01/19/20 01/20/20 01/20/20 22:13 06:24 10:49 WBC RBC Hgb Hct MCV MCH MCHC RDW Std Deviation RDW Coeff of [place] Plt Count MPV Immature Gran % (Auto) Neut % (Auto) Lymph % (Auto) Cocke % (Auto) Eos % (Auto) Baso % (Auto) Absolute Neuts (auto) Absolute Lymphs (auto) Nucleated RBC % Sodium Potassium Chloride Carbon Dioxide Anion Gap BUN Creatinine Est GFR (MDRD) Af Amer Est GFR (MDRD) Non-Af BUN/Creatinine Ratio Glucose Calcium Total Bilirubin AST ALT Alkaline Phosphatase Total Protein Albumin POC Glucose 184 H 180 H 173 H 01/20/20 01/20/20 01/21/20 15:57 22:57 06:25 WBC 8.2 RBC 3.23 L Hgb 11.2 L Hct 31.5 L MCV 97.5 H MCH 34.7 H MCHC 35.6 D RDW Std Deviation 40.9 RDW Coeff of [place] 11.6 Plt Count 202 MPV 10.0 Immature Gran % (Auto) 1.300 H Neut % (Auto) 84.6 H Lymph % (Auto) 7.4 L Cocke % (Auto) 6.6 Eos % (Auto) 0.0 Baso % (Auto) 0.1 Absolute Neuts (auto) 7.0 Absolute Lymphs (auto) 0.61 L Nucleated RBC % 0 Sodium Potassium Chloride Carbon Dioxide Anion Gap BUN Creatinine Est GFR (MDRD) Af Amer Est GFR (MDRD) Non-Af BUN/Creatinine Ratio Glucose Calcium Total Bilirubin AST ALT Alkaline Phosphatase Total Protein Albumin POC Glucose 251 H 186 H 01/21/20 06:25 WBC RBC Hgb Hct MCV MCH MCHC RDW Std Deviation RDW Coeff of [place] Plt Count MPV Immature Gran % (Auto) Neut % (Auto) Lymph % (Auto) Cocke % (Auto) Eos % (Auto) Baso % (Auto) Absolute Neuts (auto) Absolute Lymphs (auto) Nucleated RBC % Sodium Pending Potassium Pending Chloride Pending Carbon Dioxide Pending Anion Gap Pending BUN Pending Creatinine Pending Est GFR (MDRD) Af Amer Pending Est GFR (MDRD) Non-Af Pending BUN/Creatinine Ratio Pending Glucose Pending Calcium Pending Total Bilirubin Pending AST Pending ALT Pending Alkaline Phosphatase Pending Total Protein Pending Albumin Pending POC Glucose Clinical Impression(s) from Imaging Studies Chest X-Ray 01/16/20 13:45 IMPRESSION: Patchy infiltrates in both lungs in the peripheral lateral distribution in the left hemithorax. Follow-up is recommended. Electronically Signed: Anthony Sorenson, at 14:27 EDT , Service support , Chest CTA 01/16/20 14:21 IMPRESSION: Bilateral groundglass appearance more prominent towards a peripheral distribution suggestive of the bilateral pulmonary infiltrates in keeping with Covid Electronically Signed: Anthony Sorenson at 15:28 EDT , Service support , Current Medications Acetaminophen (Tylenol) 650 mg PO Q6H PRN PRN PRN Reason: Pain Score 1-10/Temp > 100.7 F Last Admin: 01/19/20 03:19 Dose: 650 mg Documented by: Al Hydroxide/Mg Hydroxide (Mylanta Ii) 30 ml PO Q6H PRN PRN PRN Reason: Gastric Burning Albuterol Sulfate (Ventolin Aerosols) 2.5 mg INHALATION Q2H PRN PRN PRN Reason: Dyspnea, wheezing Amitriptyline HCl (Elavil) 75 mg PO QHS [facility] Last Admin: 01/20/20 23:01 Dose: 75 mg Documented by: Amlodipine Besylate (Norvasc) 10 mg PO DAILY [facility] Last Admin: 01/20/20 08:45 Dose: 10 mg Documented by: Apixaban (Eliquis) 10 mg PO BID [facility] Stop: 01/23/20 22:01 Last Admin: 01/20/20 23:01 Dose: 10 mg Documented by: Apixaban (Eliquis) 5 mg PO BID [facility] Buspirone HCl (Buspar) 5 mg PO BID [facility] Last Admin: 01/20/20 21:15 Dose: Not Given Documented by: Dexamethasone Sodium Phosphate (Decadron) 6 mg IV DAILY [facility] Last Admin: 01/20/20 08:41 Dose: 6 mg Documented by: Guaifenesin (Robitussin) 10 ml PO Q4H PRN PRN PRN Reason: COUGH Last Admin: 01/19/20 22:17 Dose: 10 ml Documented by: Hydralazine HCl (Apresoline Iv) 10 mg IV Q4H PRN PRN PRN Reason: SBP > 160 Sodium Chloride () 250 mls @ 15 mls/hr IV .[id number] PRN PRN Reason: Saline Flush Sodium Chloride () 250 mls @ 15 mls/hr IV .[id number] PRN PRN Reason: Additional IVPB Infusion Remdesivir (Investigational) (100 mg/ Sodium Chloride) 250 mls @ 125 mls/hr IV DAILY [facility]; Protocol Stop: 01/21/20 11:59 Last Infusion: 01/20/20 12:03 Dose: Infused Documented by: Insulin Human Lispro (Humalog Kwikpen (Bkc)) 0 unit SC ACHS [facility]; Protocol Last Admin: 01/20/20 23:03 Dose: 1 units Documented by: Loratadine (Claritin) 10 mg PO DAILY [facility] Last Admin: 01/20/20 08:44 Dose: 10 mg Documented by: Melatonin (Melatonin) 3 mg PO QHS PRN PRN PRN Reason: INSOMNIA Last Admin: 01/20/20 23:02 Dose: 3 mg Documented by: Metformin HCl (Glucophage Xr) 500 mg PO QHS [facility] Last Admin: 01/20/20 23:02 Dose: 500 mg Documented by: Metoprolol Tartrate (Lopressor (Beta Ferdinand)) 25 mg PO BID [facility] Last Admin: 01/20/20 23:01 Dose: 25 mg Documented by: Nitroglycerin (Nitrostat) 0.4 mg SUBLINGUAL Q5M PRN PRN Reason: CARDIAC/CHEST PAIN Ondansetron HCl (Zofran) 4 mg IV Q8H PRN PRN PRN Reason: NAUSEA/VOMITING Pantoprazole Sodium (Protonix) 40 mg PO DAILY [facility] Last Admin: 01/20/20 08:45 Dose: 40 mg Documented by: Prochlorperazine Edisylate (Compazine Iv) 5 mg IV Q4H PRN PRN PRN Reason: Breakthrough Nausea/Vomiting Sodium Chloride () 10 - 40 ml IV UD PRN PRN Reason: SALINE FLUSH Last Admin: 01/20/20 10:02 Dose: 10 ml Documented by: Throat Lozenges (Cepacol Sore Throat Lozenge) 1 lozenge MUCOUS MEM Q2H PRN PRN PRN Reason: SORE THROAT Last Admin: 01/18/20 03:11 Dose: 1 lozenge Documented by: Medical Necessity - Tobacco Use Smoking Status: Never smoker Tobacco Use: Non-smoker Assessment/Plan All Active Problems COVID-19 (Acute) Hypoxia (Acute) Cough (Acute) Severe sepsis (Acute) Acute respiratory failure with hypoxia (Acute) COVID-19 (Acute) Bilateral pneumonia (Acute) Atrial fibrillation (Acute) RECOMMENDATIONS: 1. Continue Decadron with plans to complete a 10-day treatment course. 2. Continue Remdesevir to complete treatment course. 3. Continue Eliquis. 4. Wean supplemental oxygen to maintain saturations at or above 90%. 5. Encourage incentive spirometer use and mobilize patient as tolerated. IMPRESSIONS: 1. Acute hypoxemic respiratory failure secondary to COVID-19 pneumonia The patient presented to the hospital with 1 week of worsening shortness of breath and cough after having tested positive for coronavirus on January 10. The patient is currently stable from an oxygenation status on supplemental oxygen via nasal cannula. Agree with continuing Decadron and systemic anticoagulation. Continue to wean supplemental oxygen to maintain saturations at or above 90%. Continue Remdesevir to complete treatment course. 2. Atrial flutter/fibrillation The patient is currently rate controlled on Lopressor, which will be continued. I would recommend that he be continued on Eliquis as well. 3. Hypertension/chronic kidney disease/morbid obesity/GERD/obstructive sleep apnea Complicates care, management, recovery and prognosis. Continue home medications as indicated. Continue nocturnal Pap therapy per home regimen. This note was generated with [employer] dictation software. It may contain incorrect words, spelling, and punctuation that were not noted in checking the note before signing. Inpatient E&M: 93932 Subs Hosp L2
[2020-01-21 06:59] LABS: ALB/GLOB Ratio 0.7 RATIO (0.9-2.4); AST(SGOT) 16 U/L (15-37); Alanine Aminotransfer ALT/SGPT 21 U/L (16-61); Albumin, Serum 2.6 g/dL (3.2-5.0); Alkaline Phosphatase 69 U/L (45-117); Anion Gap 8 (5-15); BUN 25 mg/dL (7-18); BUN/Creat Ratio 25.3 RATIO (10-20); Calcium,Total 8.3 mg/dL (8.5-10.1); Chloride 101 mmol/L (98-107); Creatinine, Serum 0.99 mg/dL (0.70-1.30); EST Glomerular Filtration Rate 79 mL/min (>60); Est Glom Filt Rate - Afr Amer 96 mL/min (>60); Estimated Creatinine Clearance 76.21 ml/min; Globulin 3.9 g/dL (2.2-4.2); Glucose 170 mg/dL (74-106); Potassium 3.9 mmol/L (3.5-5.1); Protein, Total 6.5 g/dL (6.4-8.2); Sodium Level 131 mmol/L (136-145)
--- NOTE | 2020-01-21 07:46 | DCINST_ITS ---
- Discharge Diagnoses Current Active Problems: Current Active and Chronic Problems COVID-19 (Acute) Hypoxia (Acute) Cough (Acute) Severe sepsis (Acute) Acute respiratory failure with hypoxia (Acute) COVID-19 (Acute) Bilateral pneumonia (Acute) Atrial fibrillation (Acute) HTN (hypertension) (Chronic) JOE (obstructive sleep apnea) (Chronic) GERD (gastroesophageal reflux disease) (Chronic) Peripheral neuropathy (Chronic) Prediabetes (Chronic) Morbid obesity (Chronic) CKD (chronic kidney disease), stage III (Chronic) Reason(s) for Visit for Discharge Instructions: COVID-19 infection/pneumonia You will use the following diet at home:: Calorie/Carbohydrate Controlled (specify 1200, 1400, etc) - 1800, Cardiac Your food should be the consistency of: Regular Your liquids should be the consistency of: Regular/Thin Discharge Activity: Return to Normal Activity Additional Instructions: You are being discharged with oxygen. Wear your oxygen at all times. Be careful of going near fire whilst on oxygen. Continue to keep yourself quarantined and isolated for 4 more days making a total of 14 days since diagnosis. Continue to wear a mask when going out of the house. Use the incentive spirometer as recommended. Keep yourself hydrated. Follow-up with your primary care doctor in 2 weeks as well as the data reporting analyst. Allergies/Adverse Reactions: Allergies No Known Allergies Allergy (Verified 10/13/19 11:16) Medications to take at Discharge Amlodipine Besylate [Norvasc] 10 mg PO DAILY 06/21/16 Albuterol Inhaler [Ventolin Hfa] 2 puff INHALATION 4X/DAY PRN 10/13/19 Amitriptyline HCl 75 mg PO QHS 10/13/19 Omeprazole 40 mg PO DAILY 10/13/19 Cetirizine HCl [Zyrtec] 10 mg PO DAILY 01/16/20 Metformin HCl [Metformin HCl ER] 500 mg PO QHS 01/16/20 Promethazine HCl/Codeine [Promethazine-Codeine Syrup] 5 - 10 ml PO Q4H PRN PRN 01/16/20 Acetaminophen [Tylenol Tablet] 650 mg PO Q6H PRN PRN tablet 01/21/20 Apixaban [Eliquis] 5 mg PO BID 30 Days #60 tab 01/21/20 Apixaban [Eliquis] 10 mg PO BID 4 Days #14 tab 01/21/20 Metoprolol Tartrate [Lopressor (beta jeanmarie)] 25 mg PO BID 30 Days #60 tab 01/21/20 busPIRone [Buspar] 5 mg PO BID 30 Days #60 tab 01/21/20 The following prescriptions were given: busPIRone [Buspar] 5 mg PO BID 30 Days #60 tab Transmission Status: [facility] to [id number] Apixaban [Eliquis] 10 mg PO BID 4 Days #14 tab Transmission Status: [id number] Apixaban [Eliquis] 5 mg PO BID 30 Days #60 tab Transmission Status: [id number] Metoprolol Tartrate [Lopressor (beta jeanmarie)] 25 mg PO BID 30 Days #60 tab Transmission Status: [id number] Primary Care Physician: Sharmaine Palma MD [Primary Care Provider] - Please follow up with your Primary Care Physician in: within 1-2 weeks Test Results: Test results from this visit will be discussed in further detail at your follow- up appointment, if applicable. Please Follow Up With: Abdullahi Pleitez DO When: in 2 weeks Proposed Discharge Date: 01/21/20
--- NOTE | 2020-01-21 07:51 | DS.PCM_ITS ---
Discharge Date and Diagnosis - Problem List Patient Problems: Active and Suspected Problems COVID-19 (Acute) Hypoxia (Acute) Cough (Acute) Severe sepsis (Acute) Acute respiratory failure with hypoxia (Acute) COVID-19 (Acute) Bilateral pneumonia (Acute) Atrial fibrillation (Acute) Date of Admission: 01/16/20 Date of Discharge: 01/21/20 - Primary Discharge Diagnosis Acute Problems: Active Problems Acute hypoxic respiratory failure Severe sepsis Acute COVID-19 infection and related pneumonia Paroxysmal atrial fibrillation Hyponatremia Acute kidney injury, present on admission - Secondary Discharge Diagnosis Chronic Problems: Chronic Problems Vocal cord mass (Chronic) HTN (hypertension) (Chronic) JOE (obstructive sleep apnea) (Chronic) GERD (gastroesophageal reflux disease) (Chronic) Peripheral neuropathy (Chronic) Prediabetes (Chronic) Morbid obesity (Chronic) CKD (chronic kidney disease), stage III (Chronic) Hospital Course and Treatment Imaging Results: Clinical Impression(s) from Imaging Studies Chest X-Ray 01/16/20 13:45 IMPRESSION: Patchy infiltrates in both lungs in the peripheral lateral distribution in the left hemithorax. Follow-up is recommended. Electronically Signed: Anthony Sorenson, at 14:27 EDT , Service support , Chest CTA 01/16/20 14:21 IMPRESSION: Bilateral groundglass appearance more prominent towards a peripheral distribution suggestive of the bilateral pulmonary infiltrates in keeping with Covid Electronically Signed: Anthony Sorenson, at 15:28 EDT , Service support , Infectious disease Critical care Operations: None Procedures: None Summary of Care Provided: The patient is a 69 year old M with past medical history of hypertension, prediabetes, morbid obesity, GERD, who presented with cough, shortness of breath, nausea, vomiting, fever on 01/16/20. His was hospitalized with acute COVID-19 infection. Patient was admitted with fever, chills, body aches as well as loss of smell. He was positive for acute COVID 19 infection on 01/11/20. Patient was found to have severe sepsis with elevation in his creatinine. He had bilateral infiltrates on chest x-ray and CT of the chest. He was also found to be PAF, and started on metoprolol and Lovenox. Patient also concomitantly started on Decadron transition to room April. Infectious disease and critical care was consulted. Patient was managed additionally on Remdisivir. Patient remained in atrial fibrillation, he was rate controlled. He was discharged on Eliquis and metoprolol. His elevated creatinine improved with IV fluids. He was back to his baseline at the time of discharge. Patient continued to improve gradually. He completed 6 days of Remdesivir and Decadron. He however was still on oxygen and qualified for discharge with oxygen. He will follow-up with pulmonology in the outpatient. He was educated on the use of oxygen advised to avoid open flame whilst on oxygen. He will follow-up with his primary care doctor also within 2 weeks. Patient Problems: Active and Suspected Problems COVID-19 (Acute) Hypoxia (Acute) Cough (Acute) Severe sepsis (Acute) Acute respiratory failure with hypoxia (Acute) COVID-19 (Acute) Bilateral pneumonia (Acute) Atrial fibrillation (Acute) Subjective: On the day of discharge, patient was seen and examined. He feels improved. No new complains. He remains on oxygen, 2L. He will be discharged with oxygen. Objective: Physical exam: General: Alert, Oriented x3, Cooperative, obese, comfortable HEENT: Atraumatic, PERRLA, EOMI, Normocephalic Oral: Moist mucosa Neck: Supple Lungs: Clear to auscultation, Normal air movement, No rhonchi, No wheeze, No rales Cardiovascular: Normal S1, Normal S2, No murmurs, PMI Normal, Irregular Rate Abdomen: Bowel Sounds Present, Soft, Non Tender, Non-Distended Extremities: No edema Skin: No rashes, No breakdown Musculoskeletal: No Tenderness to Palpation of Joints or Extremities Neurological: Cranial nerves II-XII grossly intact, Neuro grossly intact, Sensory exam intact to light touch and pain, Coordination normal Psych/Mental Status: Normal Affect, Appropriate, Alert and oriented to time, place, person, mood and affect - Physical Exam Vitals/I&O's: Vital Signs Temp Pulse Resp BP Pulse Ox 98 F 71 18 135/82 H 94 01/21/20 02:13 01/21/20 03:00 01/21/20 02:13 01/21/20 02:13 01/21/20 02:13 Oxygen Flow Rate (L/min) 2 Oxygen Delivery Method Nasal Cannula Weight: 126.2 kg Body Mass Index (BMI) 37.9 Intake and Output for Last 24 Hours 01/19/20 01/20/20 01/21/20 23:59 23:59 23:59 Intake Total 3116.67 / 3216.67 1930.00 / 2230.00 500 / 500 Output Total 450 / 450 Balance 3116.67 / 3216.67 1480.00 / 1780.00 500 / 500 Laboratory Results 01/20/20 10:49: POC Glucose 173 H 01/20/20 15:57: POC Glucose 251 H 01/20/20 22:57: POC Glucose 186 H 01/21/20 06:25: WBC 8.2, RBC 3.23 L, Hgb 11.2 L, Hct 31.5 L, MCV 97.5 H, MCH 34.7 H, MCHC 35.6 D, RDW Std Deviation 40.9, RDW Coeff of [place] 11.6, Plt Count 202, MPV 10.0, Immature Gran % (Auto) 1.300 H, Neut % (Auto) 84.6 H, Lymph % (Auto) 7.4 L, Crosby % (Auto) 6.6, Eos % (Auto) 0.0, Baso % (Auto) 0.1, Absolute Neuts (auto) 7.0, Absolute Lymphs (auto) 0.61 L, Nucleated RBC % 0 01/21/20 06:25: Sodium 131 L, Potassium 3.9, Chloride 101, Carbon Dioxide 22.0, Anion Gap 8, BUN 25 H, Creatinine 0.99, Estim Creat Clear Calc 76.21, Est GFR (MDRD) Af Amer 96, Est GFR (MDRD) Non-Af 79, BUN/Creatinine Ratio 25.3 H, Glucose 170 H, Calcium 8.3 L, Total Bilirubin 0.70, AST 16, ALT 21, Alkaline Phosphatase 69, Total Protein 6.5, Albumin 2.6 L, Globulin 3.9, Albumin/Globulin Ratio 0.7 L Current Medications Acetaminophen (Tylenol) 650 mg PO Q6H PRN PRN PRN Reason: Pain Score 1-10/Temp > 100.7 F Last Admin: 01/19/20 03:19 Dose: 650 mg Documented by: Al Hydroxide/Mg Hydroxide (Mylanta Ii) 30 ml PO Q6H PRN PRN PRN Reason: Gastric Burning Albuterol Sulfate (Ventolin Aerosols) 2.5 mg INHALATION Q2H PRN PRN PRN Reason: Dyspnea, wheezing Amitriptyline HCl (Elavil) 75 mg PO QHS COUNTS INCLUDE 234 BEDS AT THE [facility] Last Admin: 01/20/20 23:01 Dose: 75 mg Documented by: Amlodipine Besylate (Norvasc) 10 mg PO DAILY COUNTS INCLUDE 234 BEDS AT THE [facility] Last Admin: 01/20/20 08:45 Dose: 10 mg Documented by: Apixaban (Eliquis) 10 mg PO BID COUNTS INCLUDE 234 BEDS AT THE [facility] Stop: 01/23/20 22:01 Last Admin: 01/20/20 23:01 Dose: 10 mg Documented by: Apixaban (Eliquis) 5 mg PO BID COUNTS INCLUDE 234 BEDS AT THE [facility] Buspirone HCl (Buspar) 5 mg PO BID COUNTS INCLUDE 234 BEDS AT THE [facility] Last Admin: 01/20/20 21:15 Dose: Not Given Documented by: Dexamethasone Sodium Phosphate (Decadron) 6 mg IV DAILY COUNTS INCLUDE 234 BEDS AT THE [facility] Last Admin: 01/20/20 08:41 Dose: 6 mg Documented by: Guaifenesin (Robitussin) 10 ml PO Q4H PRN PRN PRN Reason: COUGH Last Admin: 01/19/20 22:17 Dose: 10 ml Documented by: Hydralazine HCl (Apresoline Iv) 10 mg IV Q4H PRN PRN PRN Reason: SBP > 160 Sodium Chloride () 250 mls @ 15 mls/hr IV .[id number] PRN PRN Reason: Saline Flush Sodium Chloride () 250 mls @ 15 mls/hr IV .[id number] PRN PRN Reason: Additional IVPB Infusion Remdesivir (Investigational) (100 mg/ Sodium Chloride) 250 mls @ 125 mls/hr IV DAILY COUNTS INCLUDE 234 BEDS AT THE [facility]; Protocol Stop: 01/21/20 11:59 Last Infusion: 01/20/20 12:03 Dose: Infused Documented by: Insulin Human Lispro (Humalog Franchescapen (Bkc)) 0 unit SC ACHS COUNTS INCLUDE 234 BEDS AT THE [facility]; Protocol Last Admin: 01/20/20 23:03 Dose: 1 units Documented by: Loratadine (Claritin) 10 mg PO DAILY COUNTS INCLUDE 234 BEDS AT THE [facility] Last Admin: 01/20/20 08:44 Dose: 10 mg Documented by: Melatonin (Melatonin) 3 mg PO QHS PRN PRN PRN Reason: INSOMNIA Last Admin: 01/20/20 23:02 Dose: 3 mg Documented by: Metformin HCl (Glucophage Xr) 500 mg PO QHS COUNTS INCLUDE 234 BEDS AT THE [facility] Last Admin: 01/20/20 23:02 Dose: 500 mg Documented by: Metoprolol Tartrate (Lopressor (Beta Ferdinand)) 25 mg PO BID COUNTS INCLUDE 234 BEDS AT THE [facility] Last Admin: 01/20/20 23:01 Dose: 25 mg Documented by: Nitroglycerin (Nitrostat) 0.4 mg SUBLINGUAL Q5M PRN PRN Reason: CARDIAC/CHEST PAIN Ondansetron HCl (Zofran) 4 mg IV Q8H PRN PRN PRN Reason: NAUSEA/VOMITING Pantoprazole Sodium (Protonix) 40 mg PO DAILY COUNTS INCLUDE 234 BEDS AT THE [facility] Last Admin: 01/20/20 08:45 Dose: 40 mg Documented by: Prochlorperazine Edisylate (Compazine Iv) 5 mg IV Q4H PRN PRN PRN Reason: Breakthrough Nausea/Vomiting Sodium Chloride () 10 - 40 ml IV UD PRN PRN Reason: SALINE FLUSH Last Admin: 01/20/20 10:02 Dose: 10 ml Documented by: Throat Lozenges (Cepacol Sore Throat Lozenge) 1 lozenge MUCOUS MEM Q2H PRN PRN PRN Reason: SORE THROAT Last Admin: 01/18/20 03:11 Dose: 1 lozenge Documented by: Discharge Diet: Low fat/ Low Cholesterol, 2000 mg Sodium Diet, Carb Control Diet Discharge Activity: Return to Normal Activity Home Medications: Medications to take at Discharge Amlodipine Besylate [Norvasc] 10 mg PO DAILY 06/21/16 Albuterol Inhaler [Ventolin Hfa] 2 puff INHALATION 4X/DAY PRN 10/13/19 Amitriptyline HCl 75 mg PO QHS 10/13/19 Omeprazole 40 mg PO DAILY 10/13/19 Cetirizine HCl [Zyrtec] 10 mg PO DAILY 01/16/20 Metformin HCl [Metformin HCl ER] 500 mg PO QHS 01/16/20 Promethazine HCl/Codeine [Promethazine-Codeine Syrup] 5 - 10 ml PO Q4H PRN PRN 01/16/20 Acetaminophen [Tylenol Tablet] 650 mg PO Q6H PRN PRN tab 01/21/20 Apixaban [Eliquis] 5 mg PO BID 30 Days #60 tab 01/21/20 Apixaban [Eliquis] 10 mg PO BID 4 Days #14 tab 01/21/20 Metoprolol Tartrate [Lopressor (beta ferdinand)] 25 mg PO BID 30 Days #60 tab 01/21/20 busPIRone [Buspar] 5 mg PO BID 30 Days #60 tab 01/21/20 Following Prescriptions Were Given to Patient: busPIRone [Buspar] 5 mg PO BID 30 Days #60 tab Transmission Status: [id number] Apixaban [Eliquis] 10 mg PO BID 4 Days #14 tab Transmission Status: [facility] by [id number] Apixaban [Eliquis] 5 mg PO BID 30 Days #60 tab Transmission Status: Re[facility] by [id number] Metoprolol Tartrate [Lopressor (beta ferdinand)] 25 mg PO BID 30 Days #60 tab Transmission Status: [facility] by [id number] Primary Care Physician: Sharmaine Palma MD [Primary Care Provider] - Please follow up with your Primary Care Physician in: within 1-2 weeks Please Follow Up With: Abdullahi Pleitez DO When: in 2 weeks Disposition: Home Minutes spent on discharge:: 40 Patient Condition:: Stable Medical Necessity - Tobacco Use Smoking Status: Never smoker Tobacco Use: Non-smoker Meaningful Use Info Meaningful Use Diagnoses (Choose all that apply): None applicable Inpatient E&M: 79147 Disch Hosp
[2020-01-21] MEDS: Insulin Lispro 100 UNIT/ML INSULN.PEN SC ×2 (07:57→11:16)
[2020-01-21] MEDS: Pantoprazole Sodium 40 MG Tablet PO (07:58)
[2020-01-21] MEDS: Loratadine 10 MG Tablet PO (07:58)
[2020-01-21] MEDS: APIXABAN 5 MG TABLET 10 MG PO (07:59)
[2020-01-21] MEDS: Metoprolol Tartrate 25 MG Tablet PO (08:00)
[2020-01-21] MEDS: dexAMETHasone 10 MG/ML Vial 6 MG IV (08:00)
[2020-01-21] MEDS: amLODIPine 10 MG Tablet PO (08:01)
[2020-01-21 08:30] LABS: Bedside Glucose 164 mg/dL (70-110)
[2020-01-21] MEDS: 0.9% Saline Lock 10 ML Syringe IV (10:32)
[2020-01-21 11:25] LABS: Bedside Glucose 244 mg/dL (70-110)
--- NOTE | 2020-01-24 15:47 | CASEMGMT ---
RAFAEL VASQUEZ DC PHONE CALL DC DATE: 01/21/20 DC DISPOSITION: Home DC DIAGNOSIS: SARS COVID 2 Intro role of CM to , who also is COVID + and was in hospital, dc'd 01/20/20. states patient is doing well, had tele-visit with his physician yesterday. Patient remains on oxygen and is being quarantined in home with her. Family is providing groceries any any outside needs to be brought to home. [facility] was scheduled to see patient and , but they deferred visits for now as they are feeling better. RAFAEL VASQUEZ let know office nurse can also answer questions, and refer to physician is issues arise. No other concerns noted and no care improvement suggestions were given. Arnie SELLERS RN ACM
== END 2020-01-21 14:30 | disposition home or self-care (01) | DRG 871 ==
LOC: ED 15:19 → ICU 17:07 → MS2 01-18 09:34 → ICU 01-20 15:01
PROVIDERS: Internal Medicine; Internal Medicine Infectious Disease; Admitting Provider Family Medicine; Emergency Provider Emergency Medicine; PCP Family Medicine; Visit Provider Internal Medicine
DX: A41.89 Other specified sepsis (principal); U07.1 COVID-19; J12.89 Other viral pneumonia; J96.01 Acute respiratory failure with hypoxia; E87.1 Hypo-osmolality and hyponatremia; N17.9 Acute kidney failure, unspecified; Z68.41 Body mass index [BMI] 40.0-44.9, adult; I48.92 Unspecified atrial flutter; R65.20 Severe sepsis without septic shock; I48.0 Paroxysmal atrial fibrillation; I12.9 Hypertensive chronic kidney disease with stage 1 through stage 4 chronic kidney disease, or unspecified chronic kidney disease; J30.9 Allergic rhinitis, unspecified; E86.1 Hypovolemia; D53.9 Nutritional anemia, unspecified; E11.22 Type 2 diabetes mellitus with diabetic chronic kidney disease; N18.3 Chronic kidney disease, stage 3 (moderate); E11.42 Type 2 diabetes mellitus with diabetic polyneuropathy; E66.01 Morbid (severe) obesity due to excess calories; G47.33 Obstructive sleep apnea (adult) (pediatric); K21.9 Gastro-esophageal reflux disease without esophagitis; I49.3 Ventricular premature depolarization; F41.9 Anxiety disorder, unspecified; Z79.84 Long term (current) use of oral hypoglycemic drugs; Z79.899 Other long term (current) drug therapy
CPT/HCPCS: 71045; 71275; 80053; 82607; 82728; 82746; 82962; 83540; 83550; 83605; 83615; 83735; 84145; 84439; 84443; 84484; 85025; 85027; 85379; 85610; 85730; 86140; 87449; 87641; 93005; 94002; 94640; 99251; 99285; J7030; J7050; Q9967; A4216; G0463; J0696; J1940

== ENCOUNTER → 2020-02-15 10:17 | Outpatient (CLI) | payer MEDICARE, BC, SELFPAY ==
[2020-02-13 08:46] VITALS: BMI 35.8
--- NOTE | 2020-02-15 10:17 | EKG12_ITS ---
Test Reason : ROUTINE Blood Pressure : / mmHG Vent. Rate : 082 BPM Atrial Rate : 278 BPM P-R Int : 000 ms QRS Dur : 132 ms QT Int : 364 ms P-R-T Axes : 000 073 032 degrees QTc Int : 425 ms Atrial flutter with variable A-V block Right bundle branch block Abnormal ECG Confirmed by OCTAVIA CARR, IHSAN ([id number]), editor house organ MONTY WAGNER ([id number]) on 02/22/2020 8:35:47 AM Referred By: Sarahi Schulte Confirmed By:TEN DUDLEY MD
== END ==
PROVIDERS: PCP Family Medicine; Referring Provider Nurse Practitioner Acute Care; Visit Provider Nurse Practitioner Acute Care
DX: I48.91 Unspecified atrial fibrillation (principal)
CPT/HCPCS: 93005

== ENCOUNTER → 2020-02-19 12:11 | Outpatient (CLI) | payer MEDICARE, BC, SELFPAY ==
[2020-02-13 08:46] VITALS: BMI 35.8
[2020-02-19 12:55] VITALS: PULSE 102; PULSE 124; PULSE 126; PULSE 128; PULSE 135; PULSE 137; PULSE 83; PULSE 95; O2SAT 88; O2SAT 91; O2SAT 92; O2SAT 93; O2SAT 96
--- NOTE | 2020-02-19 12:58 | CPS ---
Patient came in on 2L pulse dose oxygen. Patient's SpO2 was 96% on RA resting. Patient began test on RA, but at the 2 min won patient's SpO2 dropped to 88%. I put patient on 2L pulse dose O2. Patient's SpO2 stayed above 90% on the 2L pulse dose. 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
--- NOTE | 2020-02-19 13:49 | WT_ITS ---
PSN 6 Minute Walk Test - 6 Minute Walk Test 6 Minute Walk Test: 6 Minute Walk Test PSN:6-Minute Walk Test Start: 02/19/20 12:55 Freq: Status: Active Protocol: [id number] Document 02/19/20 12:55 ADAM (Rec: 02/19/20 13:00 JLA [id number]) 6 Minute Walk Test Date Performed 02/19/20 Time Performed 12:15 Height 6 ft Weight: 113.398 kg Weight in Pounds 250.[address]: Sarahi Schulte TAX ACCOUNTING ASSISTANT Assistive device used: None Pre-test Oxygen Delivery Method Room Air Pulse Ox (%) 96 Pulse Rate (60-100 beats/min) 83 Dyspnea Luis Eduardo Scale (0-10) 0 Exertion Luis Eduardo Scale (6-20) 6 1st minute Oxygen Delivery Method Room Air Pulse Ox (%) 92 Pulse Rate (60-100 beats/min) 102 H 2nd minute Oxygen Delivery Method Room Air Pulse Ox (%) 88 Pulse Rate (60-100 beats/min) 124 H Dyspnea Luis Eduardo Scale (0-10) 0 Exertion Luis Eduardo Scale (6-20) 12 3rd minute Oxygen Flow Rate (L/min) (L/min) 2 Oxygen Delivery Method Nasal Cannula Pulse Ox (%) 93 Pulse Rate (60-100 beats/min) 128 H 4th minute Oxygen Flow Rate (L/min) (L/min) 2 Oxygen Delivery Method Nasal Cannula Pulse Ox (%) 96 Pulse Rate (60-100 beats/min) 126 H 5th minute Oxygen Flow Rate (L/min) (L/min) 2 Oxygen Delivery Method Nasal Cannula Pulse Ox (%) 91 Pulse Rate (60-100 beats/min) 135 H 6th minute Oxygen Flow Rate (L/min) (L/min) 2 Oxygen Delivery Method Nasal Cannula Pulse Ox (%) 91 Pulse Rate (60-100 beats/min) 137 H Dyspnea Luis Eduardo Scale (0-10) 0 Exertion Luis Eduardo Scale (6-20) 13 Post-test Oxygen Flow Rate (L/min) (L/min) 2 Oxygen Delivery Method Nasal Cannula Pulse Ox (%) 96 Pulse Rate (60-100 beats/min) 95 Full Laps Walked 15 Partial Lap, Number of Tiles Walked 0 Total Distance Walked (ft) 885 02/19/20 12:58 Cardiopulmonary Services by Aberegg,Molly L Patient came in on 2L pulse dose oxygen. Patient's SpO2 was 96% on RA resting. Patient began test on RA, but at the 2 min won patient's SpO2 dropped to 88%. I put patient on 2L pulse dose O2. Patient's SpO2 stayed above 90% on the 2L pulse dose. Tank PRECISION OPTICAL GOODS WORKER Initialized on 02/19/20 12:58 - END OF NOTE - Interpretation Interpretation: The patient was noted to be 96% on room air at rest. The patient then started ambulating, but desaturated to 88% in the second minute. Patient was placed on 2 L pulse dose to complete ambulation. In total, the patient traveled 885 feet over the course of 6 minutes with an oxygen vania of 88% and a peak heart rate of 137 bpm. These findings are consistent with a respiratory limitation exercise tolerance. - Recommendations Recommendations: No supplemental oxygen is indicated at rest, but patient should be using 2 L pulse dose with any ambulation.
== END ==
PROVIDERS: PCP Family Medicine; Referring Provider Nurse Practitioner Acute Care; Visit Provider Nurse Practitioner Acute Care
DX: J96.01 Acute respiratory failure with hypoxia (principal)
CPT/HCPCS: 94618

== ENCOUNTER → 2020-03-18 14:28 | Outpatient (CLI) | payer MEDICARE, BC, SELFPAY ==
[2020-02-13 08:46] VITALS: BMI 35.8
[2020-03-14 11:05] VITALS: BMI 34.6
[2020-03-18 18:56] LABS: PSA,Total- Diagnostic 5.64 ng/mL (0.0-4.0)
== END ==
PROVIDERS: PCP Family Medicine; Referring Provider Urology; Visit Provider Urology
DX: R97.20 Elevated prostate specific antigen [PSA] (principal)
CPT/HCPCS: 36415; 84153

== ENCOUNTER → 2020-03-26 10:00 | Outpatient (CLI) | payer MEDICARE, BC, SELFPAY ==
[2020-03-14 11:05] VITALS: BMI 34.6
== END ==
PROVIDERS: PCP Family Medicine; Referring Provider Internal Medicine Critical Care Medicine; Visit Provider Internal Medicine Critical Care Medicine
DX: Z46.89 Encounter for fitting and adjustment of other specified devices (principal)

== ENCOUNTER → 2020-04-04 17:04 | Outpatient (CLI) | payer MEDICARE, BC, SELFPAY ==
[2020-03-14 11:05] VITALS: BMI 34.6
--- NOTE | 2020-04-04 17:23 | MRI_ITS ---
STUDY: MRI LUMBAR SPINE WITHOUT CONTRAST REASON FOR EXAM: Male, 70 years old. intervertebral disc degen -- stenosis, low back and rt leg pain x 2 1/2 years TECHNIQUE: Standardized fat and water weighted pulse sequences were obtained in the sagittal and axial planes. COMPARISON: 05/13/2019 FINDINGS: T12-L1: Normal endplates. Normal disc height, hydration and morphology. Normal bilateral facet joints. Normal central canal and bilateral lateral recesses. Normal bilateral intervertebral neural foramina. Normal lumbar lordosis. Mild levoscoliosis centered at L3. Normal conus medullaris that terminates at the L1/L2. L1-2: Mild bilateral facet hypertrophy with fluid in the facet joints consistent with instability and mild ligament flavum hypertrophy. No change in the 2 mm retrolisthesis of L1 on L2 with a mild bilobed disc protrusion which produces mild spinal stenosis and mild bilateral neural foraminal stenosis. L2-3: Mild bilateral facet hypertrophy with fluid in the facet joints consistent with instability and mild ligament flavum hypertrophy. No change in the 2 mm retrolisthesis of L2 on L3 with a mild bilobed disc protrusion which produces mild spinal stenosis and mild bilateral neural foraminal stenosis. L3-4: Mild bilateral facet hypertrophy and moderate ligament flavum hypertrophy. No change in the mild bilobed disc protrusion produces mild spinal stenosis and mild bilateral neural foraminal stenosis. L4-5: Moderate bilateral facet hypertrophy and ligament flavum hypertrophy. No change in the mild broad disc protrusion which produces mild spinal stenosis, moderate right neural foraminal stenosis with abutment of the right L4 nerve root laterally and mild left neural foraminal stenosis. L5-S1: No change in the mild broad disc protrusion which produces mild spinal stenosis and mild bilateral neural foraminal stenosis. Normal visualized sacral ala. Normal visualized paraspinous soft tissue structures. MRI/Spine Lumbar (Routine) IMPRESSION: No change from 05/13/2018. Electronically Signed: Donald Rashid MD at 17:39 EST Tel , Service support ,
== END ==
PROVIDERS: PCP Family Medicine; Referring Provider Nurse Practitioner Acute Care; Visit Provider Nurse Practitioner Acute Care
DX: M48.061 Spinal stenosis, lumbar region without neurogenic claudication (principal)
CPT/HCPCS: 72148

== ENCOUNTER → 2020-04-23 11:56 | Outpatient (CLI) | payer MEDICARE, BC, SELFPAY ==
[2020-03-14 11:05] VITALS: BMI 34.6
[2020-04-23 16:01] LABS: Color, Urine Yellow (Yellow); Glucose, Dipstick Normal (Normal); Ketone-Dipstick Negative (Negative); Leukocyte Esterase-Dipstick Negative /ul (Negative); Nitrite-Dipstick Negative (Negative); Occult Blood-Urine Negative /ul (Negative); Protein-Dipstick Negative (Negative); Urine Bilirubin Dipstick Negative (Negative); Urine Clarity Clear (Clear); Urine Urobilinogen Normal (Normal)
[2020-04-23 16:09] LABS: Hematocrit 35.9 % (40-54); Hemoglobin 11.9 g/dL (13.0-16.5); Mean Corp Hgb Conc 33.1 g/dL (32-36); Mean Corpuscular Hgb 32.3 pg (27.0-32.0); Mean Corpuscular Volume 97.6 fL (80-94); Mean Platelet Vol. 10.2 fl (6.2-12.0); Platelet Count 184 K/mm3 (150-450); RBC Distribution Width CV 13.3 % (11.6-14.6); RBC Distribution Width SD 47.7 fl (35.1-43.9); Red Blood Count 3.68 M/mm3 (4.6-6.2); White Blood Count 4.7 K/mm3 (4.4-11.0)
[2020-04-23 16:27] LABS: Vitamin D,25 Hydroxy 15.5 ng/mL
[2020-04-23 16:29] LABS: Hemoglobin A1c 6.8 % (3.8-5.6)
[2020-04-23 16:31] LABS: Albumin, Serum 3.8 g/dL (3.2-5.0); Anion Gap 7 (5-15); BUN 20 mg/dL (7-18); BUN/Creat Ratio 19.2 RATIO (10-20); Calcium,Total 9.1 mg/dL (8.5-10.1); Chloride 103 mmol/L (98-107); Creatinine, Serum 1.04 mg/dL (0.70-1.30); EST Glomerular Filtration Rate 75 mL/min (>60); Est Glom Filt Rate - Afr Amer 91 mL/min (>60); Glucose 117 mg/dL (74-106); Potassium 3.8 mmol/L (3.5-5.1); Sodium Level 135 mmol/L (136-145)
[2020-04-23 16:36] LABS: COTININE Drug Screen Negative (<200 ng/mL)
== END ==
PROVIDERS: PCP Family Medicine; Referring Provider Nurse Practitioner Acute Care; Visit Provider Nurse Practitioner Acute Care
DX: M43.16 Spondylolisthesis, lumbar region (principal)
CPT/HCPCS: 36415; 80048; 80307; 81002; 82040; 82306; 83036; 85027

== ENCOUNTER 2020-05-06 16:57 | Inpatient (IN) | payer MEDICARE, BC, SELFPAY ==
[2020-03-14 11:05] VITALS: BMI 34.6
[2020-05-06 16:57] VITALS: BP 166/91; PULSE 110; RESP 17; TEMP 36.3; O2SAT 98; BMI 37.3
--- NOTE | 2020-05-06 17:36 | MRI_ITS ---
STUDY: MRI LUMBAR SPINE WITH AND WITHOUT CONTRAST REASON FOR EXAM: Male, 70 years old. post op pain , sx 4 days ago, unable to walk TECHNIQUE: Standardized fat and water weighted pulse sequences were obtained in the sagittal and axial planes. IV dotarem 25ml was administered for the contrast portion of the examination. COMPARISON: 05/13/2018, x-ray 04/04/2020. FINDINGS: T12-L1: Schmorl''s nodes. Normal disc height, hydration and morphology. Normal bilateral facet joints. Normal central canal and bilateral lateral recesses. Normal bilateral intervertebral neural foramina. Normal lumbar lordosis. There is no substantial scoliosis. Normal conus medullaris that terminates at the T12-L1 level. L1-2: Normal endplates. Disc space narrowing. Normal bilateral facet joints. Normal central canal and bilateral lateral recesses. Normal bilateral intervertebral neural foramina. L2-3: Normal endplates. Disc space narrowing. Normal bilateral facet joints. Normal central canal and bilateral lateral recesses. Normal bilateral intervertebral neural foramina. L3-4: Normal endplates. Normal disc height, hydration and morphology. Normal bilateral facet joints. Normal central canal and bilateral lateral recesses. Mild left foraminal encroachment due to spurring L4-5: Normal endplates. Normal disc height, hydration and morphology. Status post laminectomy and posterior fusion. Mild right foraminal encroachment due to spurring. There is a 1.6 x 4.6 x 1.8 cm lesion in the posterior spinal canal extending from L4 level through L5-S1. There is no peripheral enhancement. Thecal sac is effaced and displaced anteriorly. Findings are consistent with fluid collection. L5-S1: Normal endplates. Disc dehydration. Normal bilateral facet joints. Normal central canal and bilateral lateral recesses. Mild left foraminal encroachment due to spurring. No enhancing lesion. Trace fluid in the subcutaneous tissues at the L5 level. No abnormal enhancement. Normal visualized sacral ala. Normal visualized paraspinous soft tissue structures. MRI/Spine Lumbar W/WO Contrast IMPRESSION: 1. Cystic collection within the spinal canal from L4 through L5 S1 without enhancement. Findings are consistent with a postoperative fluid collection. No definite abscess or hemorrhage. 2. Degenerative and postoperative changes as noted. Electronically Signed: Desire Cardenas MD at 21:20 EST Tel , Service support ,
--- NOTE | 2020-05-06 17:54 | ED.VIS.GEN ---
History of Present Illness Chief Complaint: Weakness Informant: Patient Narrative: Patient is postoperative day 3 from a posterior lumbar fusion by Dr. Moreno from the [facility]. Surgery was performed at [facility]. He was discharged home on Wednesday. Patient tells me that he is having so much pain that he cannot ambulate or stand. He states that him and his talk to Dr. Moreno's office and they recommended he come to the local emergency department. He tells me that we know what to do. He denies any fevers or chills. He notes minimal drainage on his surgical dressings. He denies any leg symptoms. He states he is able to urinate. No bowel dysfunction. Patient cannot tell me what pain medication he is taking. - Past Medical History (1) Atrial fibrillation Status: Chronic (2) CKD (chronic kidney disease), stage III Status: Chronic (3) Essential hypertension Status: Chronic (4) GERD (gastroesophageal reflux disease) Status: Chronic (5) Morbid obesity Status: Chronic (6) JOE (obstructive sleep apnea) Status: Chronic (7) Peripheral neuropathy Status: Chronic Past Medical History - Allergies and Home Meds Allergies/Adverse Reactions: Allergies No Known Allergies Allergy (Verified 05/06/20 16:59) Primary Care Physician: Sharmaine Palma MD [Primary Care Provider] - Prior records reviewed: Yes Surgical History: - - Recent left vocal mass removal noted to be benign, tonsillectomy, cataract surgery. Lumbar fusion Lives: Spouse/ Significant Other Smoking Status: Never smoker Drugs: None - Family History Maternal Family History: Family History (Last Reviewed 03/14/20 @ 11:06 by Radha Pinon) Mother Myocardial infarction Heart disease Cancer Brother CAD (coronary artery disease), Onset Age: 65 Family History: Reports: Heart Disease Paternal Family History: Family History (Last Reviewed 03/14/20 @ 11:06 by Radha Pinon) Mother Myocardial infarction Heart disease Cancer Brother CAD (coronary artery disease), Onset Age: 65 Family History: Reports: Heart Disease Review of Systems General: Denies: Chills, Fever, Sweats Eyes: Denies: Visual changes - bilaterally, Diplopia ENT: Denies: Rhinorrhea, Sore throat Cardiovascular: Denies: Chest pain, Palpitations Respiratory: Denies: Dyspnea, Cough, Dyspnea on exertion Gastrointestinal: Denies: Abdominal pain, Nausea, Vomiting, Diarrhea, Melena, Hematochezia Genitourinary: Denies: Dysuria, Hematuria, Frequency Musculoskeletal: Reports: Back pain. Denies: Extremity Pain Skin: Denies: Rash, Wounds Neurological: Denies: Headache, Weakness, Numbness Physical Exam Vital Signs/Narrative: Vital Signs Temp Pulse Resp BP Pulse Ox 05/06/20 16:57 97.4 F L 110 H 17 166/91 H 98 Inital Vital Signs reviewed: Yes General: Well nourished, Well developed, Obese - Morbid obesity, No Acute Distress, - - Patient requires multiple nurses to get him out of a wheelchair. Head: Normocephalic, Atraumatic Eyes: Perrl, EOMI ENT: Moist mucous membranes, No rhinorrhea Neck: Supple, Nontender Cardiovascular: Regular rate, Regular rhythm, No murmurs Respiratory: No distress, CTA bilaterally, Chest nontender Abdomen: Soft, Nontender, Nondistended, Normal bowel sounds Back: - - Is a recent surgical incision held together by shira. I do not appreciate any erythema. There is minimal drainage on the dressing that appears to be serosanguineous. Extremities: Nontender, No edema Skin: Normal color, No rash Neurological: Alert, Oriented x3, Cranial nerves II-XII grossly intact, Normal Strength, Normal Sensation Psychological: Normal affect, Normal Mood Diagnostic/Tx/Re-eval Clinical Impression(s) from Imaging Studies Lumbar Spine MRI 05/06/20 17:36 IMPRESSION: 1. Cystic collection within the spinal canal from L4 through L5 S1 without enhancement. Findings are consistent with a postoperative fluid collection. No definite abscess or hemorrhage. 2. Degenerative and postoperative changes as noted. Electronically Signed: Desire Cardenas MD at 21:20 EST Tel , Service support , Laboratory Last Values WBC 10.2 K/mm3 (4.4-11.0) 05/06/20 17:54 RBC 2.99 M/mm3 (4.6-6.2) L 05/06/20 17:54 Hgb 10.0 g/dL (13.0-16.5) L 05/06/20 17:54 Hct 28.6 % (40-54) L 05/06/20 17:54 MCV 95.7 fL (80-94) H 05/06/20 17:54 MCH 33.4 pg (27.0-32.0) H 05/06/20 17:54 MCHC 35.0 g/dL (32-36) 05/06/20 17:54 RDW Std Deviation 46.5 fl (35.1-43.9) H 05/06/20 17:54 RDW Coeff of [place] 13.2 % (11.6-14.6) 05/06/20 17:54 Plt Count 160 K/mm3 (150-450) 05/06/20 17:54 MPV 9.7 fl (6.2-12.0) 05/06/20 17:54 Immature Gran % (Auto) 0.800 % (0.0-0.9) 05/06/20 17:54 Neut % (Auto) 75.5 % (47-70) H 05/06/20 17:54 Lymph % (Auto) 8.8 % (19-41) L 05/06/20 17:54 [place] % (Auto) 14.5 % (0-10) H 05/06/20 17:54 Eos % (Auto) 0.2 % (0-5) 05/06/20 17:54 Baso % (Auto) 0.2 % (0-1) 05/06/20 17:54 Absolute Neuts (auto) 7.7 X10^3/uL (2.0-7.7) 05/06/20 17:54 Absolute Lymphs (auto) 0.90 X10^3/uL (0.83-4.51) 05/06/20 17:54 Nucleated RBC % 0 % (0-5) 05/06/20 17:54 PT 14.7 SECONDS (11.7-14.9) 05/06/20 17:54 INR 1.2 05/06/20 17:54 APTT 36.4 Seconds (24.1-36.2) H 05/06/20 17:54 Sodium 128 mmol/L (136-145) L 05/06/20 17:54 Potassium 3.8 mmol/L (3.5-5.1) 05/06/20 17:54 Chloride 94 mmol/L (98-107) L 05/06/20 17:54 Carbon Dioxide 24.0 mmol/L (21.0-32.0) 05/06/20 17:54 Anion Gap 10 (5-15) 05/06/20 17:54 BUN 18 mg/dL (7-18) 05/06/20 17:54 Creatinine 1.17 mg/dL (0.70-1.30) 05/06/20 17:54 Estim Creat Clear Calc 63.56 ml/min 05/06/20 17:54 Est GFR (MDRD) Af Amer 79 mL/min (>60) 05/06/20 17:54 Est GFR (MDRD) Non-Af 65 mL/min (>60) 05/06/20 17:54 BUN/Creatinine Ratio 15.4 RATIO (10-20) 05/06/20 17:54 Glucose 91 mg/dL (74-106) 05/06/20 17:54 Calcium 8.4 mg/dL (8.5-10.1) L 05/06/20 17:54 Total Bilirubin 1.00 mg/dL (0.20-1.00) 05/06/20 17:54 AST 27 U/L (15-37) 05/06/20 17:54 ALT 17 U/L (16-61) 05/06/20 17:54 Alkaline Phosphatase 65 U/L (45-117) 05/06/20 17:54 Total Protein 6.5 g/dL (6.4-8.2) 05/06/20 17:54 Albumin 3.2 g/dL (3.2-5.0) 05/06/20 17:54 Globulin 3.3 g/dL (2.2-4.2) 05/06/20 17:54 Albumin/Globulin Ratio 1.0 RATIO (0.9-2.4) 05/06/20 17:54 Urine Color Yellow (Yellow) 05/06/20 18:00 Urine Clarity Sl. Cloudy (Clear) 05/06/20 18:00 Urine pH 6.0 (5.0 - 8.0) 05/06/20 18:00 Ur Specific [place] 1.015 (1.002-1.030) 05/06/20 18:00 Urine Protein 30 mg/dl (Negative) H 05/06/20 18:00 Urine Glucose (UA) Normal mg/dl (Normal) 05/06/20 18:00 Urine Ketones 15 mg/dl (Negative) H 05/06/20 18:00 Urine Occult Blood 50 /ul (Negative) H 05/06/20 18:00 Urine Nitrite Negative (Negative) 05/06/20 18:00 Urine Bilirubin Negative mg/dL (Negative) 05/06/20 18:00 Urine Urobilinogen Normal mg/dl (Normal) 05/06/20 18:00 Ur Leukocyte Esterase Negative /ul (Negative) 05/06/20 18:00 Urine RBC 0-5 SEEN /hpf (0-5) 05/06/20 18:00 Urine WBC 0-5 SEEN /hpf (0-5) 05/06/20 18:00 Ur Squamous Epith Cells 0-5 SEEN /hpf (0-5) 05/06/20 18:00 Amorphous Sediment 1+ URATE 05/06/20 18:00 Urine Bacteria 0 SEEN /hpf (None Seen) 05/06/20 18:00 Urine Mucus 0 SEEN /hpf (<or=2+) 05/06/20 18:00 - Medical Decision Making Patient received Valium and Dilaudid Zofran. The patient's MRI was reviewed with [facility] on-call surgeon Dr. Villela. It is most likely felt that this is not an infectious fluid collection as he has no fever no white count and is not having enhancement. He is comfortable with us admitting him for pain control here and most likely placement for rehab. Should he have any concerns in the inpatient side regarding his care they are happy to be consulted or transferred up there. ED Disposition - Plan for ED Patient: Disposition: Acute Care Hospital [facility] Diagnosis: Intractable back pain, Postoperative pain after spinal surgery Referrals: Sharmaine Palma MD [Primary Care Provider] -
[2020-05-06] MEDS: diazePAM 5 MG Tablet PO (17:56)
[2020-05-06] MEDS: Ondansetron 4 MG/2 ML Vial IV (17:59)
[2020-05-06] MEDS: HYDROmorphone 1 MG/ML Syringe IV (17:59)
[2020-05-06 18:04] LABS: Absolute Neutrophil Count 7.7 X10^3/uL (2.0-7.7); Basophil# 0.02 X10^3/uL; Basophil% 0.2 % (0-1); Eosinophil# 0.02 X10^3/uL; Eosinophils% 0.2 % (0-5); Hematocrit 28.6 % (40-54); Lymphocyte % 8.8 % (19-41); Mean Corpuscular Hgb 33.4 pg (27.0-32.0); Mean Corpuscular Volume 95.7 fL (80-94); Mean Platelet Vol. 9.7 fl (6.2-12.0); Monocyte# 1.47 X10^3/uL; Monocyte% 14.5 % (0-10); NRBC Flagged by Analyzer 0 % (0-5); Neutrophil # 7.68 X10^3/uL (2.7-7.7); Neutrophil % 75.5 % (47-70); Platelet Count 160 K/mm3 (150-450); RBC Distribution Width CV 13.2 % (11.6-14.6); RBC Distribution Width SD 46.5 fl (35.1-43.9); Red Blood Count 2.99 M/mm3 (4.6-6.2); White Blood Count 10.2 K/mm3 (4.4-11.0)
[2020-05-06 18:08] LABS: Bacteria 0 SEEN /hpf (None Seen); Mucous, Urine 0 SEEN /hpf (<or=2+)
[2020-05-06 18:18] LABS: International Normalized Ratio 1.2; Prothrombin Time (Protime)PT. 14.7 SECONDS (11.7-14.9)
[2020-05-06 18:19] LABS: Partial Thromboplast Time 36.4 Seconds (24.1-36.2)
[2020-05-06 18:21] LABS: Color, Urine Yellow (Yellow); Glucose, Dipstick Normal (Normal); Ketone-Dipstick 15 mg/dl (Negative); Leukocyte Esterase-Dipstick Negative /ul (Negative); Nitrite-Dipstick Negative (Negative); Occult Blood-Urine 50 /ul (Negative); Protein-Dipstick 30 mg/dl (Negative); Specific Gravity, Urine 1.015 (1.002-1.030); Urine Bilirubin Dipstick Negative (Negative); Urine Clarity Sl. Cloudy (Clear); Urine Urobilinogen Normal (Normal)
[2020-05-06 18:47] LABS: AST(SGOT) 27 U/L (15-37); Alanine Aminotransfer ALT/SGPT 17 U/L (16-61); Albumin, Serum 3.2 g/dL (3.2-5.0); Alkaline Phosphatase 65 U/L (45-117); Anion Gap 10 (5-15); BUN 18 mg/dL (7-18); BUN/Creat Ratio 15.4 RATIO (10-20); Calcium,Total 8.4 mg/dL (8.5-10.1); Chloride 94 mmol/L (98-107); Creatinine, Serum 1.17 mg/dL (0.70-1.30); EST Glomerular Filtration Rate 65 mL/min (>60); Est Glom Filt Rate - Afr Amer 79 mL/min (>60); Estimated Creatinine Clearance 63.56 ml/min; Globulin 3.3 g/dL (2.2-4.2); Glucose 91 mg/dL (74-106); Potassium 3.8 mmol/L (3.5-5.1); Protein, Total 6.5 g/dL (6.4-8.2); Sodium Level 128 mmol/L (136-145)
[2020-05-06 19:05] LABS: White Blood Cells 0-5 SEEN /hpf (0-5)
[2020-05-06 19:06] LABS: Amorphous Sediment 1+ URATE; Red Blood Cells-Urine 0-5 SEEN /hpf (0-5); Squamous Epithelial Cells - UA 0-5 SEEN /hpf (0-5)
--- NOTE | 2020-05-06 19:57 | ED.RN ---
ATTEMPTED TO CALL WITH UPDATE PER PT REQUEST, DOES NOT ANSWER, VOICE MAIL BOX IS FULL.
[2020-05-06 21:29] VITALS: BP 156/64; PULSE 91; RESP 16; O2SAT 96
--- NOTE | 2020-05-06 22:08 | HP.PCM_ITS ---
Problem List (1) Risk for falls Status: Acute (2) Essential hypertension Status: Chronic (3) Atrial flutter Status: Chronic (4) Morbid obesity Status: Chronic (5) CKD (chronic kidney disease), stage III Status: Chronic History of Present Illness Date of Admission: 05/06/20 Chief Complaint: unable to walk after back surgery The patient is a 70 year old male patient with a significant past medical history of atrial fibrillation, obesity, hypertension who is status post lumbar fusion surgery by Dr. Moreno at the [facility] postoperative day 3 who presents to the hospital with lower back pain and inability to walk. Current pain after being medicated this -11/30 in lower back. Of note the patient has recovered from COVID-19 virus infection in December 2019. The patient denies any chest pain shortness of breath fever or chills at this time and he has minimal drainage from his surgical dressing site. The patient will be admitted to our hospital for pain control and rehab along with discharge planning. Past Medical History Past Medical History (Chronic Problems): Chronic Problems (Last Reviewed 03/14/20 @ 11:06 by Radha Pinon) Essential hypertension (Chronic) Atrial flutter (Chronic) Atrial fibrillation (Chronic) JOE (obstructive sleep apnea) (Chronic) GERD (gastroesophageal reflux disease) (Chronic) Peripheral neuropathy (Chronic) Prediabetes (Chronic) Morbid obesity (Chronic) CKD (chronic kidney disease), stage III (Chronic) Medical History: Medical History (Last Reviewed 03/14/20 @ 11:06 by Radha Pinon) Essential hypertension (Chronic) I10 Atrial flutter (Acute) I48.92 COVID-19 (Acute) U07.1 Hypoxia (Resolved) R09.02 Cough (Resolved) R05 Severe sepsis (Resolved) A41.9, R65.20 Acute respiratory failure with hypoxia (Resolved) J96.01 COVID-19 (Acute) U07.1 Bilateral pneumonia (Resolved) J18.9 Atrial fibrillation (Chronic) I48.91 JOE (obstructive sleep apnea) (Chronic) G47.33 GERD (gastroesophageal reflux disease) (Chronic) K21.9 Peripheral neuropathy (Chronic) G62.9 Prediabetes (Chronic) R73.03 Morbid obesity (Chronic) E66.01 CKD (chronic kidney disease), stage III (Chronic) N18.3 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 Allergies No Known Allergies Allergy (Verified 05/06/20 16:59) Home Medications: Ambulatory Orders Medication Instructions Recorded Amlodipine Besylate [Norvasc] 10 mg PO DAILY 06/21/16 Albuterol Inhaler [Ventolin Hfa] 2 puff INHALATION 4X/DAY PRN 10/13/19 Amitriptyline HCl 75 mg PO QHS 10/13/19 Omeprazole 40 mg PO DAILY 10/13/19 Cetirizine HCl [Zyrtec] 10 mg PO DAILY 01/16/20 Metformin HCl [Metformin HCl ER] 500 mg PO QHS 01/16/20 Acetaminophen [Tylenol Tablet] 650 mg PO Q6H PRN PRN tab 01/21/20 tamsulosin 0.4 mg capsule 0.4 mg PO QHS 02/21/20 apixaban 5 mg tablet 5 mg PO BID #60 tab 03/04/20 Surgical History: Surgical History (Last Reviewed 03/14/20 @ 11:06 by Radha Pinon) History of foot surgery Z98.890 S/P excision of vocal cord nodule Z98.890 Surgical History: - - Recent left vocal mass removal noted to be benign, tonsillectomy, cataract surgery. Lumbar fusion Psychiatric History: No pertinent psych hx Lives: Spouse/ Significant Other Smoking Status: Never smoker Drugs: None - *Family History Maternal Family History: Family History (Last Reviewed 03/14/20 @ 11:06 by Radha Pinon) Mother Myocardial infarction Heart disease Cancer Brother CAD (coronary artery disease), Onset Age: 65 History Items: Heart Disease Paternal Family History: Family History (Last Reviewed 03/14/20 @ 11:06 by Radha Pinon) Mother Myocardial infarction Heart disease Cancer Brother CAD (coronary artery disease), Onset Age: 65 History Items: Heart Disease Review of Systems Constitutional: Reports: Weakness. Denies: Chills, Fever, Weight Change HEENT: Denies: Head Aches, Sinus Congestion, Sinus Drainage Cardiovascular: Denies: Chest Pain, Palpitations Respiratory: Denies: Cough, Shortness of breath at rest, Sputum production Gastrointestinal: Denies: Abdominal Pain, Nausea, Vomiting Genitourinary: Denies: Dysuria Musculoskeletal: Reports: Back Pain. Denies: Joint Pain, Joint Tenderness Skin: Denies: Rash, Wounds Neurological: Denies: Numbness, Tingling Psychiatric: Denies: Anxiety, Depression, Homicidal Ideations, Suicidal Ideations Hematologic/ Lymphatic: Denies: Easy Bruising, Easy Bleeding VTE Information - Inpt Only VTE Present on Admission: No VTE Mechan Device Prophylaxis: None VTE Pharm Prophylaxis ordered?: No - Physical Exam Vitals/I&O's: Vital Signs Temp Pulse Resp BP Pulse Ox 97.4 F L 91 16 156/64 H 96 05/06/20 16:57 05/06/20 21:29 05/06/20 21:29 05/06/20 21:29 05/06/20 21:29 Oxygen Delivery Method Room Air Weight: 275 lb Body Mass Index (BMI) 37.3 Intake and Output for Last 24 Hours 05/04/20 05/05/20 05/06/20 23:59 23:59 23:59 Output Total 150 / 150 Balance -150 / -150 General: Alert, Oriented x3, Cooperative, - - in distress HEENT: Atraumatic, Normocephalic Neck: Supple Lungs: Clear to auscultation, Normal air movement Cardiovascular: Regular rate, No murmurs Abdomen: Bowel Sounds Present, Soft, Non Tender, Obese Extremities: No edema Skin: No rashes, No breakdown Musculoskeletal: - - lower back tenderness Neurological: Neuro grossly intact Psych/Mental Status: Normal Affect, Appropriate Laboratory Results 05/06/20 17:54: WBC 10.2, RBC 2.99 L, Hgb 10.0 L, Hct 28.6 L, MCV 95.7 H, MCH 33.4 H, MCHC 35.0, RDW Std Deviation 46.5 H, RDW Coeff of [place] 13.2, Plt Count 160, MPV 9.7, Immature Gran % (Auto) 0.800, Neut % (Auto) 75.5 H, Lymph % (Auto) 8.8 L, [place] % (Auto) 14.5 H, Eos % (Auto) 0.2, Baso % (Auto) 0.2, Absolute Neuts (auto) 7.7, Absolute Lymphs (auto) 0.90, Nucleated RBC % 0 05/06/20 17:54: PT 14.7, INR 1.2, APTT 36.4 H 05/06/20 17:54: Sodium 128 L, Potassium 3.8, Chloride 94 L, Carbon Dioxide 24.0, Anion Gap 10, BUN 18, Creatinine 1.17, Estim Creat Clear Calc 63.56, Est GFR (MDRD) Af Amer 79, Est GFR (MDRD) Non-Af 65, BUN/Creatinine Ratio 15.4, Glucose 91, Calcium 8.4 L, Total Bilirubin 1.00, AST 27, ALT 17, Alkaline Phosphatase 65, Total Protein 6.5, Albumin 3.2, Globulin 3.3, Albumin/Globulin Ratio 1.0 05/06/20 18:00: Urine Color Yellow, Urine Clarity Sl. Cloudy, Urine pH 6.0, Ur Specific [place] 1.015, Urine Protein 30 H, Urine Glucose (UA) Normal, Urine Ketones 15 H, Urine Occult Blood 50 H, Urine Nitrite Negative, Urine Bilirubin Negative, Urine Urobilinogen Normal, Ur Leukocyte Esterase Negative, Urine RBC 0-5 SEEN, Urine WBC 0-5 SEEN, Ur Squamous Epith Cells 0-5 SEEN, Amorphous Sediment 1+ URATE, Urine Bacteria 0 SEEN, Urine Mucus 0 SEEN Assessment/Plan All Active Problems (Last Reviewed 03/14/20 @ 11:06 by Radha Pinon) Risk for falls (Acute) COVID-19 (Acute) Hypoxia (Resolved) Cough (Resolved) Severe sepsis (Resolved) Acute respiratory failure with hypoxia (Resolved) COVID-19 (Acute) Bilateral pneumonia (Resolved) Chronic Problems (Last Reviewed 03/14/20 @ 11:06 by Radha Pinon) Essential hypertension (Chronic) Atrial flutter (Chronic) Atrial fibrillation (Chronic) JOE (obstructive sleep apnea) (Chronic) GERD (gastroesophageal reflux disease) (Chronic) Peripheral neuropathy (Chronic) Prediabetes (Chronic) Morbid obesity (Chronic) CKD (chronic kidney disease), stage III (Chronic) Plan 1. Lumbar back pain with lower extremity weakness status post lumbar fusion surgery 3 days ago?admit patient to general medical floor, Dilaudid 1 mg every 3 hours as needed pain, consult case management for discharge planning to rehab facility, consult physical therapy for rehabilitation assessment for activities of daily living 2. Atrial fibrillation/flutter?stable continue patient's anticoagulation with Eliquis 3. Obstructive sleep apnea?okay to use home machine CPAP settings 4. Morbid obesity?encourage weight loss 5. DVT prophylaxis?patient is already anticoagulated Inpatient E&M: 00883 Init Hosp L3
[2020-05-06 22:43] VITALS: BP 147/72; PULSE 89; RESP 16; TEMP 36.6; O2SAT 98
--- NOTE | 2020-05-06 22:45 | ED.RN ---
PT REQUESTS URINARY CATHETER, MD AWARE AND STATES PT SHOULD NOT HAVE [place] IF EMPTYING BLADDER. POST VOID BLADDER SCANNED X2, SEE DOCUMENTATION.
[2020-05-06 23:40] VITALS: BP 149/93; PULSE 116; RESP 18; TEMP 37.6; O2SAT 96
[2020-05-07 00:03] VITALS: BMI 39.2
[2020-05-07 00:20] VITALS: BMI 39.2
[2020-05-07] MEDS: Amitriptyline 25 MG Tablet 75 MG PO (00:36)
[2020-05-07] MEDS: 0.9% Saline Lock 10 ML Syringe IV ×4 (00:49→19:20)
[2020-05-07] MEDS: HYDROmorphone 1 MG/ML Syringe IV ×2 (00:49→09:07)
[2020-05-07 05:36] VITALS: BP 136/53; PULSE 84; RESP 18; TEMP 38.4; O2SAT 94
[2020-05-07] MEDS: Acetaminophen 325 MG Tablet 650 MG PO (05:39)
--- NOTE | 2020-05-07 05:46 | PCS.PANDOC ---
PANDEMIC DOCUMENTATION INITIATED: Date: 05/06/20 Time: 3795
[2020-05-07 06:45] VITALS: TEMP 37.7
[2020-05-07 08:55] LABS: Absolute Lymphocyte Count 0.78 X10^3/uL (0.83-4.51); Absolute Neutrophil Count 5.3 X10^3/uL (2.0-7.7); Basophil# 0.01 X10^3/uL; Basophil% 0.1 % (0-1); Eosinophil# 0.03 X10^3/uL; Eosinophils% 0.4 % (0-5); Hematocrit 26.8 % (40-54); Hemoglobin 9.3 g/dL (13.0-16.5); Lymphocyte # 0.78 X10^3/ul (4.0); Mean Corp Hgb Conc 34.7 g/dL (32-36); Mean Corpuscular Hgb 33.2 pg (27.0-32.0); Mean Corpuscular Volume 95.7 fL (80-94); Mean Platelet Vol. 9.6 fl (6.2-12.0); Monocyte# 0.94 X10^3/uL; Monocyte% 13.2 % (0-10); NRBC Flagged by Analyzer 0 % (0-5); Neutrophil # 5.28 X10^3/uL (2.7-7.7); Neutrophil % 74.3 % (47-70); Platelet Count 154 K/mm3 (150-450); RBC Distribution Width CV 13.2 % (11.6-14.6); White Blood Count 7.1 K/mm3 (4.4-11.0)
[2020-05-07 09:13] LABS: Anion Gap 7 (5-15); BUN 16 mg/dL (7-18); BUN/Creat Ratio 14.8 RATIO (10-20); Calcium,Total 8.1 mg/dL (8.5-10.1); Chloride 95 mmol/L (98-107); Creatinine, Serum 1.08 mg/dL (0.70-1.30); EST Glomerular Filtration Rate 72 mL/min (>60); Est Glom Filt Rate - Afr Amer 87 mL/min (>60); Estimated Creatinine Clearance 68.86 ml/min; Glucose 94 mg/dL (74-106); Potassium 3.9 mmol/L (3.5-5.1); Sodium Level 129 mmol/L (136-145)
[2020-05-07 09:25] VITALS: PULSE 80
--- NOTE | 2020-05-07 10:01 | CASEMGMT ---
Social Work Assessment PT/OT updated this worker that SNF is being recommended. Pt prefers to remain at [facility]. ALTHEA placed a call to [facility] with referral line. No beds are available on RU or TCU. Personal Status: SW in to speak with pt to complete initial assessment. SW introduced self and role at [facility]. Pt is alert and orientated, answers questions appropriately. Living Arrangements: Pt states that he lives with his in a one story home. Pt states from the garage there is one step and then to enter the front there is one step. DME: Walker, Cane, oxygen through [employer] ADLs: Pt states prior to his recent back surgery, pt was independent with ADLs, states he still drove. PCP: Dr. Palma Pharmacy: [facility] [address] [facility] Substance Abuse Hx: Pt denied Mental Health Hx: Pt denied HHC: Pt denied SNF: Pt denied Pt states that he had back surgery on April 23, was discharged home on Wednesday the and pt has had difficulty managing at home since then. ALTHEA spoke with pt regarding discharge plans. Pt agreeable to SNF. ALTHEA provided pt with list of SNF that accept pt's insurance. Pt states first choice is [facility]. ALTHEA explained referral process. Pt will need COVID test. ALTHEA placed a call to Yoko at [facility] and provided referral. ALTHEA faxed referral. Plan: [facility] pending acceptance Joanne Talavera MSW, CAREER REPRESENTATIVE
--- NOTE | 2020-05-07 10:29 | CASEMGMT ---
Social Work Note Per process development technician questions, pt has completed HCPOA and LW, haven't provided copies to [facility] and pt unable to bring in copies. Joanne Talavera MATERIAL DISPOSITION INSPECTOR, ESCALATOR INSTALLER
[2020-05-07] MEDS: amLODIPine 10 MG Tablet PO (10:34)
[2020-05-07] MEDS: Pantoprazole Sodium 40 MG Tablet PO (10:34)
[2020-05-07] MEDS: APIXABAN 5 MG TABLET PO (10:34)
[2020-05-07] MEDS: Loratadine 10 MG Tablet PO (10:34)
--- NOTE | 2020-05-07 10:53 | CASEMGMT ---
Social Work Note Pt is being transferred out. SW placed a call to Yoko at [facility] and left message to disregard referral as pt is being transferred out. Joanne Talavera DIRECTOR WORKFORCE MANAGEMENT, RESIDENCY PROGRAM COORDINATOR
--- NOTE | 2020-05-07 11:28 | CON.PCM_ITS ---
Problem List (1) Intractable back pain Status: Acute Reason for Consult: fever, back pain Consulted by: Dr. Tian History of Present Illness: The patient is a 70 year old M with covid in December, presented with severe back pain and BLE weakness (R more than L). Had lumbar fusion at [facility] [place] by Dr. Moreno on 05/03. Sent home 05/05, got out of car and had sudden onset severe back pain. Has not been able to get around. No fever or chills. Minimal bloody drainage from incision. Came to ED here due to persistent pain, weakness. Now with fever to 101.1 and urinary retention. Full ROS performed and neg except as noted above. - Medical History Past Medical History (Chronic Problems): Chronic Problems (Last Reviewed 03/14/20 @ 11:06 by Radha Pinon) Essential hypertension (Chronic) Atrial flutter (Chronic) Atrial fibrillation (Chronic) JOE (obstructive sleep apnea) (Chronic) GERD (gastroesophageal reflux disease) (Chronic) Peripheral neuropathy (Chronic) Prediabetes (Chronic) Morbid obesity (Chronic) CKD (chronic kidney disease), stage III (Chronic) Allergies/Adverse Reactions: Allergies No Known Allergies Allergy (Verified 05/06/20 16:59) Home Medications: Ambulatory Orders Medication Instructions Recorded Amlodipine Besylate [Norvasc] 10 mg PO DAILY 06/21/16 Albuterol Inhaler [Ventolin Hfa] 2 puff INHALATION 4X/DAY PRN 10/13/19 Amitriptyline HCl 75 mg PO QHS 10/13/19 Omeprazole 40 mg PO DAILY 10/13/19 Cetirizine HCl [Zyrtec] 10 mg PO DAILY 01/16/20 Metformin HCl [Metformin HCl ER] 500 mg PO QHS 01/16/20 Acetaminophen [Tylenol Tablet] 650 mg PO Q6H PRN PRN tab 01/21/20 tamsulosin 0.4 mg capsule 0.4 mg PO QHS 02/21/20 apixaban 5 mg tablet 5 mg PO BID #60 tab 03/04/20 - Social History Tobacco Use: non-smoker Vital Signs Temp Pulse Resp BP Pulse Ox 99.9 F H 80 18 136/53 H 94 05/07/20 06:45 05/07/20 09:25 05/07/20 05:36 05/07/20 05:36 05/07/20 05:36 Oxygen Delivery Method Room Air Weight: 131.1 kg Body Mass Index (BMI) 39.2 Laboratory Tests Past 24 Hrs 05/06/20 05/06/20 05/06/20 17:54 17:54 17:54 WBC 10.2 RBC 2.99 L Hgb 10.0 L Hct 28.6 L MCV 95.7 H MCH 33.4 H MCHC 35.0 RDW Std Deviation 46.5 H RDW Coeff of [place] 13.2 Plt Count 160 MPV 9.7 Immature Gran % (Auto) 0.800 Neut % (Auto) 75.5 H Lymph % (Auto) 8.8 L [place] % (Auto) 14.5 H Eos % (Auto) 0.2 Baso % (Auto) 0.2 Absolute Neuts (auto) 7.7 Absolute Lymphs (auto) 0.90 Nucleated RBC % 0 PT 14.7 INR 1.2 APTT 36.4 H Sodium 128 L Potassium 3.8 Chloride 94 L Carbon Dioxide 24.0 Anion Gap 10 BUN 18 Creatinine 1.17 Estim Creat Clear Calc 63.56 Est GFR (MDRD) Af Amer 79 Est GFR (MDRD) Non-Af 65 BUN/Creatinine Ratio 15.4 Glucose 91 Calcium 8.4 L Total Bilirubin 1.00 AST 27 ALT 17 Alkaline Phosphatase 65 Total Protein 6.5 Albumin 3.2 Globulin 3.3 Albumin/Globulin Ratio 1.0 Urine Color Urine Clarity Urine pH Ur Specific [place] Urine Protein Urine Glucose (UA) Urine Ketones Urine Occult Blood Urine Nitrite Urine Bilirubin Urine Urobilinogen Ur Leukocyte Esterase Urine RBC Urine WBC Ur Squamous Epith Cells Amorphous Sediment Urine Bacteria Urine Mucus 05/06/20 05/07/20 05/07/20 18:00 08:34 08:34 WBC 7.1 RBC 2.80 L Hgb 9.3 L Hct 26.8 L MCV 95.7 H MCH 33.2 H MCHC 34.7 RDW Std Deviation 46.0 H RDW Coeff of [place] 13.2 Plt Count 154 MPV 9.6 Immature Gran % (Auto) 1.000 H Neut % (Auto) 74.3 H Lymph % (Auto) 11.0 L [place] % (Auto) 13.2 H Eos % (Auto) 0.4 Baso % (Auto) 0.1 Absolute Neuts (auto) 5.3 Absolute Lymphs (auto) 0.78 L Nucleated RBC % 0 PT INR APTT Sodium 129 L Potassium 3.9 Chloride 95 L Carbon Dioxide 27.0 Anion Gap 7 BUN 16 Creatinine 1.08 Estim Creat Clear Calc 68.86 Est GFR (MDRD) Af Amer 87 Est GFR (MDRD) Non-Af 72 BUN/Creatinine Ratio 14.8 Glucose 94 Calcium 8.1 L Total Bilirubin AST ALT Alkaline Phosphatase Total Protein Albumin Globulin Albumin/Globulin Ratio Urine Color Yellow Urine Clarity Sl. Cloudy Urine pH 6.0 Ur Specific [place] 1.015 Urine Protein 30 H Urine Glucose (UA) Normal Urine Ketones 15 H Urine Occult Blood 50 H Urine Nitrite Negative Urine Bilirubin Negative Urine Urobilinogen Normal Ur Leukocyte Esterase Negative Urine RBC 0-5 SEEN Urine WBC 0-5 SEEN Ur Squamous Epith Cells 0-5 SEEN Amorphous Sediment 1+ URATE Urine Bacteria 0 SEEN Urine Mucus 0 SEEN - Other Studies Radiology: [] reviewed Other Studies: [] Route of nutrition/ use of supplements: [] Nutritional Intake: [] IV Site: [] Dockery Catheter: [] - Physical Exam General: Alert, Oriented x3, Cooperative, No apparent distress HEENT: Atraumatic, PERRLA Neck: Supple, No Nodes Lungs: Clear to auscultation, Normal air movement Cardiovascular: Regular rate, Regular Rhythm Abdomen: Soft, Non Tender, Non-Distended Extremities: No edema Skin: Incision IV Site: Peripheral, without redness Musculoskeletal: No Tenderness to Palpation of Joints or Extremities Neurological: Cranial nerves II-XII grossly intact - Assessment/Plan Antibiotics: [] Assessment/Plan: [] Active and Suspected Problems (Last Reviewed 03/14/20 @ 11:06 by Radha Pinon) Risk for falls (Acute) Intractable back pain (Acute) Postoperative pain after spinal surgery (Acute) fever, back pain, urinary retention, and fluid collection seen on imaging s/p lumbar fusion 05/03. Recommend transfer to see his surgeon. Bcx pending. Had covid 12/2019. On zosyn, will add vanc. Order wound cx from any drainage from incision. Will follow while here, thank you, d/w Dr. Tian
--- NOTE | 2020-05-07 12:00 | PN_ITS ---
<Norm Cheema - Last Filed: 05/07/20 13:07> Patient Problems: Active and Suspected Problems (Last Reviewed 03/14/20 @ 11:06 by Radha Pinon) Risk for falls (Acute) Intractable back pain (Acute) Postoperative pain after spinal surgery (Acute) Reason for Visit: spinal fusion post op complications Subjective: Ongoing severe pain. Fever this AM 101.1. Increased RLE weakness today. Pt now with inability to empty bladder. Dockery placed. Vitals/I&O's: Vital Signs Temp Pulse Resp BP Pulse Ox 99.9 F H 80 18 136/53 H 94 05/07/20 06:45 05/07/20 09:25 05/07/20 05:36 05/07/20 05:36 05/07/20 05:36 Oxygen Delivery Method Room Air Weight: 289 lb 0.416 oz Body Mass Index (BMI) 39.2 Intake and Output for Last 24 Hours 05/05/20 05/06/20 05/07/20 23:59 23:59 23:59 Intake Total 157.25 / 157.25 Output Total 290 / 290 1100 / 1100 Balance -290 / -290 -942.75 / -942.75 General: Alert, Oriented x3, Cooperative HEENT: Atraumatic, PERRLA, EOMI, Normocephalic Neck: Supple, No JVD, Negative Carotid Bruits Lungs: Clear to auscultation, Normal air movement Cardiovascular: Regular rate, No murmurs Abdomen: Bowel Sounds Present, Soft, Non Tender Extremities: No edema, Capillary Refill Less than 3 Seconds Skin: No rashes, No breakdown Musculoskeletal: No Tenderness to Palpation of Joints or Extremities Neurological: Cranial nerves II-XII grossly intact Psych/Mental Status: Normal Affect, Appropriate Laboratory Results 05/06/20 17:54: WBC 10.2, RBC 2.99 L, Hgb 10.0 L, Hct 28.6 L, MCV 95.7 H, MCH 33.4 H, MCHC 35.0, RDW Std Deviation 46.5 H, RDW Coeff of [place] 13.2, Plt Count 160, MPV 9.7, Immature Gran % (Auto) 0.800, Neut % (Auto) 75.5 H, Lymph % (Auto) 8.8 L, Mchenry % (Auto) 14.5 H, Eos % (Auto) 0.2, Baso % (Auto) 0.2, Absolute Neuts (auto) 7.7, Absolute Lymphs (auto) 0.90, Nucleated RBC % 0 05/06/20 17:54: PT 14.7, INR 1.2, APTT 36.4 H 05/06/20 17:54: Sodium 128 L, Potassium 3.8, Chloride 94 L, Carbon Dioxide 24.0, Anion Gap 10, BUN 18, Creatinine 1.17, Estim Creat Clear Calc 63.56, Est GFR (MDRD) Af Amer 79, Est GFR (MDRD) Non-Af 65, BUN/Creatinine Ratio 15.4, Glucose 91, Calcium 8.4 L, Total Bilirubin 1.00, AST 27, ALT 17, Alkaline Phosphatase 65, Total Protein 6.5, Albumin 3.2, Globulin 3.3, Albumin/Globulin Ratio 1.0 05/06/20 18:00: Urine Color Yellow, Urine Clarity Sl. Cloudy, Urine pH 6.0, Ur Specific [place] 1.015, Urine Protein 30 H, Urine Glucose (UA) Normal, Urine Ketones 15 H, Urine Occult Blood 50 H, Urine Nitrite Negative, Urine Bilirubin Negative, Urine Urobilinogen Normal, Ur Leukocyte Esterase Negative, Urine RBC 0-5 SEEN, Urine WBC 0-5 SEEN, Ur Squamous Epith Cells 0-5 SEEN, Amorphous Sediment 1+ URATE, Urine Bacteria 0 SEEN, Urine Mucus 0 SEEN 05/07/20 08:34: WBC 7.1, RBC 2.80 L, Hgb 9.3 L, Hct 26.8 L, MCV 95.7 H, MCH 33.2 H, MCHC 34.7, RDW Std Deviation 46.0 H, RDW Coeff of [place] 13.2, Plt Count 154, MPV 9.6, Immature Gran % (Auto) 1.000 H, Neut % (Auto) 74.3 H, Lymph % (Auto) 11.0 L, Mchenry % (Auto) 13.2 H, Eos % (Auto) 0.4, Baso % (Auto) 0.1, Absolute Neuts (auto) 5.3, Absolute Lymphs (auto) 0.78 L, Nucleated RBC % 0 05/07/20 08:34: Sodium 129 L, Potassium 3.9, Chloride 95 L, Carbon Dioxide 27.0, Anion Gap 7, BUN 16, Creatinine 1.08, Estim Creat Clear Calc 68.86, Est GFR (MDRD) Af Amer 87, Est GFR (MDRD) Non-Af 72, BUN/Creatinine Ratio 14.8, Glucose 94, Calcium 8.1 L Current Medications Acetaminophen (Acetaminophen 325 Mg Tablet) 650 mg PO Q6H PRN PRN PRN Reason: Pain Score 1-10/Temp > 100.7 F Last Admin: 05/07/20 05:39 Dose: 650 mg Documented by: Amitriptyline HCl (Amitriptyline 25 Mg Tablet) 75 mg PO QHS [facility] Last Admin: 05/07/20 00:36 Dose: 75 mg Documented by: Amlodipine Besylate (Amlodipine 10 Mg Tablet) 10 mg PO DAILY [facility] Last Admin: 05/07/20 10:34 Dose: 10 mg Documented by: Apixaban (Apixaban 5 Mg Tablet) 5 mg PO BID [facility] Last Admin: 05/07/20 10:34 Dose: 5 mg Documented by: Hydromorphone HCl (Hydromorphone 1 Mg/Ml Syringe) 1 mg IV Q4H PRN PRN PRN Reason: Pain Score 6-10 Last Admin: 05/07/20 09:07 Dose: 1 mg Documented by: Piperacillin Sod/Tazobactam (Sod 3.375 gm/ Sodium Chloride) 50 mls @ 12.5 mls/hr IV Q8 [facility] Last Admin: 05/07/20 09:36 Dose: 12.5 mls/hr Documented by: Sodium Chloride () 250 mls @ 15 mls/hr IV .[id number] PRN PRN Reason: Saline Flush Last Infusion: 05/07/20 09:37 Dose: 0 mls/hr Documented by: Vancomycin IV Pharmacy to Dose (1 ea/ Sodium Chloride) 500 mls @ 250 mls/hr IV X1 PRN; Protocol PRN Reason: Rx to Dose Vancomycin HCl 2,000 mg/ (Sodium Chloride) 540 mls @ 250 mls/hr IV X1 ONE Stop: 05/07/20 14:09 Loratadine (Loratadine 10 Mg Tablet) 10 mg PO DAILY [facility] Last Admin: 05/07/20 10:34 Dose: 10 mg Documented by: Metformin HCl (Metformin (Xr) 500 Mg Tablet) 500 mg PO QHS [facility] Ondansetron HCl (Ondansetron 4 Mg/2 Ml Vial) 4 mg IV Q8H PRN PRN PRN Reason: NAUSEA/VOMITING Oxycodone HCl (Oxycodone 5 Mg Tablet) 5 mg PO Q4H PRN PRN PRN Reason: Pain Score 4-5 Pantoprazole Sodium (Pantoprazole Sodium 40 Mg Tablet) 40 mg PO DAILY [facility] Last Admin: 05/07/20 10:34 Dose: 40 mg Documented by: Sodium Chloride (0.9% Saline Lock 10 Ml Syringe) 10 - 40 ml IV UD PRN PRN Reason: SALINE FLUSH Last Admin: 05/07/20 09:07 Dose: 10 ml Documented by: Tamsulosin HCl (Tamsulosin Hcl 0.4 Mg Capsule) 0.4 mg PO QHS [facility] STROKE Vital Signs/Narrative: Vital Signs Pulse 05/07/20 09:25 80 Medical Necessity - Tobacco Use Smoking Status: Never smoker Assessment/Plan All Active Problems (Last Reviewed 03/14/20 @ 11:06 by Radha Pinon) Risk for falls (Acute) Intractable back pain (Acute) Postoperative pain after spinal surgery (Acute) COVID-19 (Acute) Hypoxia (Resolved) Cough (Resolved) Severe sepsis (Resolved) Acute respiratory failure with hypoxia (Resolved) COVID-19 (Acute) Bilateral pneumonia (Resolved) 1. Suspected spinal abscess 2/2 recent spinal fusion at [facility] L4-S1 (05/03/20) - fever, urinary retention, RLE weakness. MRI shows 1.6x4.6x1.8 cm lesion L4-S1 with thecal sac effacement and anterior displacement. ID consulted. Pt placed on Vanc/Zosyn. Obtain blood and drainage cultures. -Pt needs transferred for evaluation by [facility] surgery - his surgeon was Dr. Mathew Moreno -I called the [facility] and was put in touch with the Nurse Practitioner Yuliya Handy who stated that the patient would need transferred to [facility] for evaluation -I spoke with the admitting surgeon at [facility] Dr. Remy (?spelling) who recommended the patient be admitted to [facility] under the medical service -The patient was accepted by Dr. Snyder from the medical service. -The patient will be transferred when a bed becomes available - this may be today or tomorrow possibly 2. Hx Afib - Eliquis, not on rate limiting meds. 3. DMt2 - hold metformin - provide SSI. 4. BPH - flomax 5. HTN -stable DVT ppx: eliquis DC planning: awaiting bed at [facility]. This patient was seen by Norm Cheema PA-C under the supervision of Dr. Tian <[email or web address] - Last Filed: 05/07/20 16:04> Reason for Visit: Follow-up postoperative complication after his lumbar spinal fusion surgery done in [facility]. Objective: Patient was admitted yesterday. Patient had lumbar spinal fusion surgery for chronic lumbar spinal stenosis for chronic back pain and right lower extremity paresthesia. Patient was operated on 05/03/[address] Mathew Moreno Patient complain of weakness on the right lower extremity more than left lower extremity. Patient could not stand up or walk. Patient also had urinary retent ion and required 2 times straight cath and then Dockery catheter was ordered. Physical exam General: Alert, Oriented x3, Cooperative HEENT: Atraumatic, PERRLA, EOMI, Normocephalic Oral: No Gingival or Mucosal Lesions/ Ulcerations Neck: Supple, No JVD, Negative Carotid Bruits Lungs: Air entry diminished in bilateral lung bases. No crepitation/rhonchi Cardiovascular: Regular rate, Regular Rhythm, Normal S1, Normal S2, No murmurs Abdomen: Bowel Sounds Present, Soft, Non Tender, Non-Distended : No renal angle tenderness. No suprapubic tenderness. Spine: Mild soakage of dressing on the back, serous nature. Tenderness present. Extremities: No edema, Capillary Refill Less than 3 Seconds Skin: No rashes, No breakdown Musculoskeletal: No Tenderness to Palpation of Joints or Extremities Neurological: Strength 4/5 at right knee, right hip joint. Right great toe 4/5. No foot drop. Left lower extremity 5/5 at major joints. Urinary retention. Cranial nerves II-XII grossly intact. Psych/Mental Status: Normal Affect, Appropriate. Vitals/I&O's: Vital Signs Temp Pulse Resp BP Pulse Ox 98.9 F 94 18 126/98 H 99 05/07/20 15:26 05/07/20 15:26 05/07/20 15:26 05/07/20 15:26 05/07/20 15:26 Oxygen Delivery Method Room Air Weight: 289 lb 0.416 oz Body Mass Index (BMI) 39.2 Intake and Output for Last 24 Hours 05/05/20 05/06/20 05/07/20 23:59 23:59 23:59 Intake Total 732.75 / 732.75 Output Total 290 / 290 1450 / 1450 Balance -290 / -290 -717.25 / -717.25 Microbiology Past 72 Hours 05/07/20 14:00 Mucosa - Nose SARS-CoV-2 Antigen (Rapid) - Final Laboratory Results 05/06/20 17:54: WBC 10.2, RBC 2.99 L, Hgb 10.0 L, Hct 28.6 L, MCV 95.7 H, MCH 33.4 H, MCHC 35.0, RDW Std Deviation 46.5 H, RDW Coeff of [place] 13.2, Plt Count 160, MPV 9.7, Immature Gran % (Auto) 0.800, Neut % (Auto) 75.5 H, Lymph % (Auto) 8.8 L, Mchenry % (Auto) 14.5 H, Eos % (Auto) 0.2, Baso % (Auto) 0.2, Absolute Neuts (auto) 7.7, Absolute Lymphs (auto) 0.90, Nucleated RBC % 0 05/06/20 17:54: PT 14.7, INR 1.2, APTT 36.4 H 05/06/20 17:54: Sodium 128 L, Potassium 3.8, Chloride 94 L, Carbon Dioxide 24.0, Anion Gap 10, BUN 18, Creatinine 1.17, Estim Creat Clear Calc 63.56, Est GFR (MDRD) Af Amer 79, Est GFR (MDRD) Non-Af 65, BUN/Creatinine Ratio 15.4, Glucose 91, Calcium 8.4 L, Total Bilirubin 1.00, AST 27, ALT 17, Alkaline Phosphatase 65, Total Protein 6.5, Albumin 3.2, Globulin 3.3, Albumin/Globulin Ratio 1.0 05/06/20 18:00: Urine Color Yellow, Urine Clarity Sl. Cloudy, Urine pH 6.0, Ur Specific [place] 1.015, Urine Protein 30 H, Urine Glucose (UA) Normal, Urine Ketones 15 H, Urine Occult Blood 50 H, Urine Nitrite Negative, Urine Bilirubin Negative, Urine Urobilinogen Normal, Ur Leukocyte Esterase Negative, Urine RBC 0-5 SEEN, Urine WBC 0-5 SEEN, Ur Squamous Epith Cells 0-5 SEEN, Amorphous Sediment 1+ URATE, Urine Bacteria 0 SEEN, Urine Mucus 0 SEEN 05/07/20 08:34: WBC 7.1, RBC 2.80 L, Hgb 9.3 L, Hct 26.8 L, MCV 95.7 H, MCH 33.2 H, MCHC 34.7, RDW Std Deviation 46.0 H, RDW Coeff of [place] 13.2, Plt Count 154, MPV 9.6, Immature Gran % (Auto) 1.000 H, Neut % (Auto) 74.3 H, Lymph % (Auto) 11.0 L, [place] % (Auto) 13.2 H, Eos % (Auto) 0.4, Baso % (Auto) 0.1, Absolute Neuts (auto) 5.3, Absolute Lymphs (auto) 0.78 L, Nucleated RBC % 0 05/07/20 08:34: Sodium 129 L, Potassium 3.9, Chloride 95 L, Carbon Dioxide 27.0, Anion Gap 7, BUN 16, Creatinine 1.08, Estim Creat Clear Calc 68.86, Est GFR (MDRD) Af Amer 87, Est GFR (MDRD) Non-Af 72, BUN/Creatinine Ratio 14.8, Glucose 94, Calcium 8.1 L 05/07/20 12:18: POC Glucose 109 Current Medications Acetaminophen (Acetaminophen 325 Mg Tablet) 650 mg PO Q6H PRN PRN PRN Reason: Pain Score 1-10/Temp > 100.7 F Last Admin: 05/07/20 05:39 Dose: 650 mg Documented by: Amitriptyline HCl (Amitriptyline 25 Mg Tablet) 75 mg PO QHS [facility] Last Admin: 05/07/20 00:36 Dose: 75 mg Documented by: Amlodipine Besylate (Amlodipine 10 Mg Tablet) 10 mg PO DAILY [facility] Last Admin: 05/07/20 10:34 Dose: 10 mg Documented by: Dexamethasone Sodium Phosphate (Dexamethasone 10 Mg/Ml Vial) 8 mg IV Q8 [facility] Last Admin: 05/07/20 15:35 Dose: 8 mg Documented by: Dextrose (Dextrose 50%-Water 25 Gm/50 Ml Disp.Syrin) 0 gm IV X1 PRN; Protocol PRN Reason: Hypoglycemia Glucagon (Glucagon 1 Mg/Ml Syringe) 1 mg IM .X1 PRN PRN Reason: Hypoglycemia Hydromorphone HCl (Hydromorphone 1 Mg/Ml Syringe) 1 mg IV Q4H PRN PRN PRN Reason: Pain Score 6-10 Last Admin: 05/07/20 09:07 Dose: 1 mg Documented by: Piperacillin Sod/Tazobactam (Sod 3.375 gm/ Sodium Chloride) 50 mls @ 12.5 mls/hr IV Q8 [facility] Last Infusion: 05/07/20 13:36 Dose: Infused Documented by: Sodium Chloride () 250 mls @ 15 mls/hr IV .[id number] PRN PRN Reason: Saline Flush Last Infusion: 05/07/20 13:58 Dose: 0 mls/hr Documented by: Vancomycin IV Pharmacy to Dose (1 ea/ Sodium Chloride) 500 mls @ 250 mls/hr IV PRN PRN; Protocol PRN Reason: Rx to Dose Vancomycin HCl 2,000 mg/ (Sodium Chloride) 540 mls @ 250 mls/hr IV Q12H [facility] Insulin Human Lispro (Insulin Lispro 100 Unit/Ml Insuln.Pen) 0 unit SC ACHS [facility]; Protocol Loratadine (Loratadine 10 Mg Tablet) 10 mg PO DAILY [facility] Last Admin: 05/07/20 10:34 Dose: 10 mg Documented by: Ondansetron HCl (Ondansetron 4 Mg/2 Ml Vial) 4 mg IV Q8H PRN PRN PRN Reason: NAUSEA/VOMITING Oxycodone HCl (Oxycodone 5 Mg Tablet) 5 mg PO Q4H PRN PRN PRN Reason: Pain Score 4-5 Last Admin: 05/07/20 14:10 Dose: 5 mg Documented by: Pantoprazole Sodium (Pantoprazole Sodium 40 Mg Tablet) 40 mg PO DAILY [facility] Last Admin: 05/07/20 10:34 Dose: 40 mg Documented by: Sodium Chloride (0.9% Saline Lock 10 Ml Syringe) 10 - 40 ml IV UD PRN PRN Reason: SALINE FLUSH Last Admin: 05/07/20 15:35 Dose: 10 ml Documented by: Tamsulosin HCl (Tamsulosin Hcl 0.4 Mg Capsule) 0.4 mg PO QHS [facility] Vital Signs/Narrative: Vital Signs Temp Pulse Resp BP Pulse Ox 05/07/20 15:26 98.9 F 94 18 126/98 H 99 05/07/20 12:22 98.9 F 100 18 133/70 H 96 Assessment/Plan This patient was seen in conjunction with Norm RUSH. I have independently interviewed and examined the patient and reviewed pertinent history, examination findings, laboratory and plan of management. I have reviewed the note and agree with the documented findings with the few additional points. In brief, patient is 70-year-old gentleman with history of chronic lumbar spinal stenosis with lumbar radiculopathy with chronic back pain and right lower extremity paresthesia status post lumbar spinal fusion was admitted for right lower extremity weakness, fever, urinary retention. MRI lumbar spine shows cystic collection within the spinal canal from L4-S1 without enhancement consistent with postoperative fluid collection. Clinically suspicious of abscess as patient having fever and may be hematoma as patient was on Eliquis which is discontinued. [facility] was called by VICTOR MANUEL Zheng who advised patient to transfer to [facility]. Currently they do not have bed but he will be transferred as soon as bed available. Patient was assessed by Dr. Sommer as mentioned above. I also discussed with our spine surgeon Dr. Amaya who advised heavy dose of dexamethasone 8 mg every 8 hourly. He agrees with IV antibiotics Vanco, Zosyn, ID consultation. Continue to hold Eliquis. Rest comorbidities as mentioned above: Diabetes mellitus type 2, chronic A. fib on Eliquis, hypertension BPH Total time of the visit including total time spent in counseling or coordination of care, (more than 50% of the total time, spent in obtaining medical information from nurses and other ancillary care providers,explaining to the patient about labs, imaging, diagnosis and management), discussion with ID and spine surgeon and transfer call, review of labs and imaging is 30 minutes. I have discussed my assessment with Norm RUSH and orders have been reviewed. Clinical Impression(s) from Imaging Studies Lumbar Spine MRI 05/06/20 17:36 IMPRESSION: 1. Cystic collection within the spinal canal from L4 through L5 S1 without enhancement. Findings are consistent with a postoperative fluid collection. No definite abscess or hemorrhage. 2. Degenerative and postoperative changes as noted. Inpatient E&M: 95238 Subs Hosp L3
[2020-05-07 12:22] VITALS: BP 133/70; PULSE 100; RESP 18; TEMP 37.2; O2SAT 96
[2020-05-07 12:51] LABS: Bedside Glucose 109 mg/dL (70-110)
[2020-05-07] MEDS: oxyCODONE 5 MG Tablet PO ×2 (14:10→18:12)
--- NOTE | 2020-05-07 14:16 | CHAPLAIN ---
Type of Pastoral Visit _x__ Initial Visit ___ Follow-up Visit ___ On-call Visit ___ General Patient Visit ___ Spiritual Assessment ___ Family Conference ___ Bereavement ___ Rapid Response ___ Code Blue ___ Other (describe below) Pastoral Care Referral From _x__ Patient ___ Family ___ Nurse ___ Physician ___ Business And Marketing Teacher ___ Tank Systems Maintainer ___ Other (describe below) Sacrament/Intervention ___ Active listening ___ Anointing ___ Uatsdin ___ Bereavement ___ Communion ___ Bee exploration ___ ___ Life review _x__ Prayer ___ Reconciliation ___ Sacrament of Sick _x__ Supportive presence ___ Wedding ___ Other (describe below) Pastoral Comments patient desires spiritual care support
--- NOTE | 2020-05-07 14:20 | PCM.RX.CS ---
Consult Pharmacy has been consulted to manage selected antiobiotic: Vancomycin Type of Consult: New start Suspected Infection: Other Labs: Sodium 129 mmol/L (136-145) L 05/07/20 08:34 Potassium 3.9 mmol/L (3.5-5.1) 05/07/20 08:34 Chloride 95 mmol/L (98-107) L 05/07/20 08:34 Carbon Dioxide 27.0 mmol/L (21.0-32.0) 05/07/20 08:34 Anion Gap 7 (5-15) 05/07/20 08:34 BUN 16 mg/dL (7-18) 05/07/20 08:34 Creatinine 1.08 mg/dL (0.70-1.30) 05/07/20 08:34 Est GFR (MDRD) Af Amer 87 mL/min (>60) 05/07/20 08:34 Est GFR (MDRD) Non-Af 72 mL/min (>60) 05/07/20 08:34 BUN/Creatinine Ratio 14.8 RATIO (10-20) 05/07/20 08:34 Glucose 94 mg/dL (74-106) 05/07/20 08:34 Goal Trough: 15-20 mcg/mL Pharmacy Plan for Drug Dosing: NEW START IV VANCOMYCIN Consulting Physician: Dr. Chavis Indication: post-op infection Goal Trough: 15-20 SrCr: 1.08 CrCl: 87 mL/min (using AdjBW of 99kg) Comments: Loading dose 2000mg IV x1 ordered and admin 05/07 @1357. Vancomcyin Dose: 2000mg IV Q12hr to start 05/08/20 @0200 Pending Level: 05/09/20 @0130, prior to 4th total dose per protocol. Pharmacy Service will continue to monitor and adjust dosing as required.
[2020-05-07 15:26] VITALS: BP 126/98; PULSE 94; RESP 18; TEMP 37.2; O2SAT 99
[2020-05-07] MEDS: dexAMETHasone 10 MG/ML Vial 8 MG IV (15:35)
[2020-05-07 17:25] LABS: Bedside Glucose 133 mg/dL (70-110)
--- NOTE | 2020-05-07 18:03 | DS.PCM_ITS ---
<Norm Cheema - Last Filed: 05/07/20 18:03> Discharge Date and Diagnosis - Problem List Patient Problems: Active and Suspected Problems (Last Reviewed 03/14/20 @ 11:06 by Radha Pinon) Risk for falls (Acute) Intractable back pain (Acute) Postoperative pain after spinal surgery (Acute) Date of Admission: 05/06/20 Date of Discharge: 05/07/20 - Primary Discharge Diagnosis Acute Problems: Active Problems (Last Reviewed 03/14/20 @ 11:06 by Radha Pinon) Recent spinal fusion at [facility] per Dr. Mathew Moreno ([facility]), L4 to S1, POD#4 Cauda equina 2/2 above Suspected spinal abscess 2/2 above - Secondary Discharge Diagnosis Chronic Problems: Chronic Problems (Last Reviewed 03/14/20 @ 11:06 by Radha Pinon) Essential hypertension (Chronic) Atrial flutter (Chronic) Atrial fibrillation (Chronic) JOE (obstructive sleep apnea) (Chronic) GERD (gastroesophageal reflux disease) (Chronic) Peripheral neuropathy (Chronic) Prediabetes (Chronic) Morbid obesity (Chronic) CKD (chronic kidney disease), stage III (Chronic) Hospital Course and Treatment Imaging Results: MRI/Spine Lumbar W/WO Contrast IMPRESSION: 1. Cystic collection within the spinal canal from L4 through L5 S1 without enhancement. Findings are consistent with a postoperative fluid collection. No definite abscess or hemorrhage. 2. Degenerative and postoperative changes as noted. Consultations Infectious Disease - Dr. Chavis Spinal surgery - Dr. Amaya Operations: None Procedures: None Summary of Care Provided: Hospital Course: The patient is a 70 year old M with pmhx of atrial flutter on eliquis, CKDIII, HTN, obesity, who presented to the ER with increased back pain and inability to walk after surgery. He had L4-S1 spinal fusion per Dr. Mathew Moreno at [facility] discharged three days prior to this presentation. He was admitted for pain control. He had an MRI of his spine here that showed a 1.6x4.6x1.8 with tehcal sac effacement and displaced anteriorly. The next mornin g he had a fever of 101.1F. He developed increased RLE weakness and inability to void his bladder. ID and spinal surgery were consulted. ID recommended Vanco and Zosyn, obtaining blood and surgical site cultures as this may be an abscess, as well as transfer back to his spinal surgeon. Our spinal surgeon recommended that IV decadron 8mg q8 be started for cauda equina and the patient be transferred to his spinal surgeon. I contacted the [facility] and spoke with the [employer] [employer] Yuliya Handy who recommended the patient be transferred to [facility] for further Evaluation. I spoke to Dr. Remy (?cherrie) from [facility] orthopedic surgery who recommended the patient be transferred to [facility] under the medical service. Dr. Snyder from the medical service accepted the patient, however no beds were available. In the mean time, the patients surgeon, Dr. Mathew Moreno, contacted the floor here and arranged for the patient to get a bed at [facility] and accepted the patient under his service. The patient was transferred to [facility] in stable condition. Blood and wound cultures are pending. Covid test is negative. This patient was seen by Norm Cheema PA-C under the supervision of Dr. Tian. [] Patient Problems: Active and Suspected Problems (Last Reviewed 03/14/20 @ 11:06 by Radha Pinon) Risk for falls (Acute) Intractable back pain (Acute) Postoperative pain after spinal surgery (Acute) - Physical Exam Vitals/I&O's: Vital Signs Temp Pulse Resp BP Pulse Ox 98.9 F 94 18 126/98 H 99 05/07/20 15:26 05/07/20 15:26 05/07/20 15:26 05/07/20 15:26 05/07/20 15:26 Oxygen Delivery Method Room Air Weight: 289 lb 0.416 oz Body Mass Index (BMI) 39.2 Intake and Output for Last 24 Hours 05/05/20 05/06/20 05/07/20 23:59 23:59 23:59 Intake Total 1290.25 / 1290.25 Output Total 290 / 290 1450 / 1450 Balance -290 / -290 -159.75 / -159.75 General: Alert, Oriented x3, Cooperative HEENT: Atraumatic, PERRLA, EOMI, Normocephalic Neck: Supple, No JVD, Negative Carotid Bruits Lungs: Clear to auscultation, Normal air movement Cardiovascular: Regular rate, No murmurs Abdomen: Bowel Sounds Present, Soft, Non Tender Extremities: No edema, Capillary Refill Less than 3 Seconds Skin: No rashes, No breakdown Musculoskeletal: No Tenderness to Palpation of Joints or Extremities Neurological: Cranial nerves II-XII grossly intact Psych/Mental Status: Normal Affect, Appropriate, Alert and oriented to time, place, person, mood and affect Microbiology Past 72 Hours 05/07/20 14:00 Mucosa - Nose SARS-CoV-2 Antigen (Rapid) - Final Laboratory Results 05/06/20 17:54: WBC 10.2, RBC 2.99 L, Hgb 10.0 L, Hct 28.6 L, MCV 95.7 H, MCH 33.4 H, MCHC 35.0, RDW Std Deviation 46.5 H, RDW Coeff of [place] 13.2, Plt Count 160, MPV 9.7, Immature Gran % (Auto) 0.800, Neut % (Auto) 75.5 H, Lymph % (Auto) 8.8 L, [place] % (Auto) 14.5 H, Eos % (Auto) 0.2, Baso % (Auto) 0.2, Absolute Neuts (auto) 7.7, Absolute Lymphs (auto) 0.90, Nucleated RBC % 0 05/06/20 17:54: PT 14.7, INR 1.2, APTT 36.4 H 05/06/20 17:54: Sodium 128 L, Potassium 3.8, Chloride 94 L, Carbon Dioxide 24.0, Anion Gap 10, BUN 18, Creatinine 1.17, Estim Creat Clear Calc 63.56, Est GFR (MDRD) Af Amer 79, Est GFR (MDRD) Non-Af 65, BUN/Creatinine Ratio 15.4, Glucose 91, Calcium 8.4 L, Total Bilirubin 1.00, AST 27, ALT 17, Alkaline Phosphatase 65, Total Protein 6.5, Albumin 3.2, Globulin 3.3, Albumin/Globulin Ratio 1.0 05/06/20 18:00: Urine Color Yellow, Urine Clarity Sl. Cloudy, Urine pH 6.0, Ur Specific [place] 1.015, Urine Protein 30 H, Urine Glucose (UA) Normal, Urine Ketones 15 H, Urine Occult Blood 50 H, Urine Nitrite Negative, Urine Bilirubin Negative, Urine Urobilinogen Normal, Ur Leukocyte Esterase Negative, Urine RBC 0-5 SEEN, Urine WBC 0-5 SEEN, Ur Squamous Epith Cells 0-5 SEEN, Amorphous Sediment 1+ URATE, Urine Bacteria 0 SEEN, Urine Mucus 0 SEEN 05/07/20 08:34: WBC 7.1, RBC 2.80 L, Hgb 9.3 L, Hct 26.8 L, MCV 95.7 H, MCH 33.2 H, MCHC 34.7, RDW Std Deviation 46.0 H, RDW Coeff of [place] 13.2, Plt Count 154, MPV 9.6, Immature Gran % (Auto) 1.000 H, Neut % (Auto) 74.3 H, Lymph % (Auto) 11.0 L, [place] % (Auto) 13.2 H, Eos % (Auto) 0.4, Baso % (Auto) 0.1, Absolute Neuts (auto) 5.3, Absolute Lymphs (auto) 0.78 L, Nucleated RBC % 0 05/07/20 08:34: Sodium 129 L, Potassium 3.9, Chloride 95 L, Carbon Dioxide 27.0, Anion Gap 7, BUN 16, Creatinine 1.08, Estim Creat Clear Calc 68.86, Est GFR (MDRD) Af Amer 87, Est GFR (MDRD) Non-Af 72, BUN/Creatinine Ratio 14.8, Glucose 94, Calcium 8.1 L 05/07/20 12:18: POC Glucose 109 05/07/20 17:14: POC Glucose 133 H Current Medications Acetaminophen (Acetaminophen 325 Mg Tablet) 650 mg PO Q6H PRN PRN PRN Reason: Pain Score 1-10/Temp > 100.7 F Last Admin: 05/07/20 05:39 Dose: 650 mg Documented by: Amitriptyline HCl (Amitriptyline 25 Mg Tablet) 75 mg PO QHS [facility] Last Admin: 05/07/20 00:36 Dose: 75 mg Documented by: Amlodipine Besylate (Amlodipine 10 Mg Tablet) 10 mg PO DAILY [facility] Last Admin: 05/07/20 10:34 Dose: 10 mg Documented by: Dexamethasone Sodium Phosphate (Dexamethasone 10 Mg/Ml Vial) 8 mg IV Q8 [facility] Last Admin: 05/07/20 15:35 Dose: 8 mg Documented by: Dextrose (Dextrose 50%-Water 25 Gm/50 Ml Disp.Syrin) 0 gm IV X1 PRN; Protocol PRN Reason: Hypoglycemia Glucagon (Glucagon 1 Mg/Ml Syringe) 1 mg IM .X1 PRN PRN Reason: Hypoglycemia Hydromorphone HCl (Hydromorphone 1 Mg/Ml Syringe) 1 mg IV Q4H PRN PRN PRN Reason: Pain Score 6-10 Last Admin: 05/07/20 09:07 Dose: 1 mg Documented by: Piperacillin Sod/Tazobactam (Sod 3.375 gm/ Sodium Chloride) 50 mls @ 12.5 mls/hr IV Q8 [facility] Last Admin: 05/07/20 17:16 Dose: 12.5 mls/hr Documented by: Sodium Chloride () 250 mls @ 15 mls/hr IV .[id number] PRN PRN Reason: Saline Flush Last Infusion: 05/07/20 17:17 Dose: 0 mls/hr Documented by: Vancomycin IV Pharmacy to Dose (1 ea/ Sodium Chloride) 500 mls @ 250 mls/hr IV PRN PRN; Protocol PRN Reason: Rx to Dose Vancomycin HCl 2,000 mg/ (Sodium Chloride) 540 mls @ 250 mls/hr IV Q12H [facility] Insulin Human Lispro (Insulin Lispro 100 Unit/Ml Insuln.Pen) 0 unit SC ACHS [facility]; Protocol Last Admin: 05/07/20 17:16 Dose: Not Given Documented by: Loratadine (Loratadine 10 Mg Tablet) 10 mg PO DAILY [facility] Last Admin: 05/07/20 10:34 Dose: 10 mg Documented by: Ondansetron HCl (Ondansetron 4 Mg/2 Ml Vial) 4 mg IV Q8H PRN PRN PRN Reason: NAUSEA/VOMITING Oxycodone HCl (Oxycodone 5 Mg Tablet) 5 mg PO Q4H PRN PRN PRN Reason: Pain Score 4-5 Last Admin: 05/07/20 14:10 Dose: 5 mg Documented by: Pantoprazole Sodium (Pantoprazole Sodium 40 Mg Tablet) 40 mg PO DAILY [facility] Last Admin: 05/07/20 10:34 Dose: 40 mg Documented by: Sodium Chloride (0.9% Saline Lock 10 Ml Syringe) 10 - 40 ml IV UD PRN PRN Reason: SALINE FLUSH Last Admin: 05/07/20 15:35 Dose: 10 ml Documented by: Tamsulosin HCl (Tamsulosin Hcl 0.4 Mg Capsule) 0.4 mg PO QHS [facility] Discharge Diet: - - as directed by receiving facility Discharge Activity: - - as directed by receiving facility Home Medications: Medications to take at Discharge Amlodipine Besylate [Norvasc] 10 mg PO DAILY 06/21/16 Albuterol Inhaler [Ventolin Hfa] 2 puff INHALATION 4X/DAY PRN 10/13/19 Amitriptyline HCl 75 mg PO QHS 10/13/19 Omeprazole 40 mg PO DAILY 10/13/19 Cetirizine HCl [Zyrtec] 10 mg PO DAILY 01/16/20 Metformin HCl [Metformin HCl ER] 500 mg PO QHS 01/16/20 Acetaminophen [Tylenol Tablet] 650 mg PO Q6H PRN PRN tab 01/21/20 tamsulosin 0.4 mg capsule 0.4 mg PO QHS 02/21/20 apixaban 5 mg tablet 5 mg PO BID #60 tab 03/04/20 Primary Care Physician: Sharmaine Palma MD [Primary Care Provider] - Disposition: Acute [facility] Minutes spent on discharge:: 45 Patient Condition:: Stable Medical Necessity - Tobacco Use Smoking Status: Never smoker Meaningful Use Info Meaningful Use Diagnoses (Choose all that apply): None applicable <Anshu Tian - Last Filed: 05/08/20 16:58> Discharge Date and Diagnosis - Primary Discharge Diagnosis Acute Problems: Active Problems (Last Reviewed 03/14/20 @ 11:06 by Radah Pinon) Risk for falls (Acute) Intractable back pain (Acute) Postoperative pain after spinal surgery (Acute) - Secondary Discharge Diagnosis Chronic Problems: Chronic Problems (Last Reviewed 03/14/20 @ 11:06 by Radha Pinon) Essential hypertension (Chronic) Atrial flutter (Chronic) Atrial fibrillation (Chronic) JOE (obstructive sleep apnea) (Chronic) GERD (gastroesophageal reflux disease) (Chronic) Peripheral neuropathy (Chronic) Prediabetes (Chronic) Morbid obesity (Chronic) CKD (chronic kidney disease), stage III (Chronic) Hospital Course and Treatment Summary of Care Provided: [] This patient was seen in conjunction with Norm RUSH. I have independently interviewed and examined the patient and reviewed pertinent history, examination findings, laboratory and plan of management. I have reviewed the note and agree with the documented findings with the few additional points. In brief, patient is 70-year-old gentleman with history of chronic lumbar spinal stenosis with lumbar radiculopathy with chronic back pain and right lower extremity paresthesia status post lumbar spinal fusion was admitted for right lower extremity weakness, fever, urinary retention. MRI lumbar spine shows cystic collection within the spinal canal from L4-S1 without enhancement consistent with postoperative fluid collection. Clinically suspicious of abscess as patient having fever and may be hematoma as patient was on Eliquis which is discontinued. [facility] was called by VICTOR MANUEL Zheng who advised patient to transfer to [facility]. Currently they do not have bed but he will be transferred as soon as bed available. Patient was assessed by Dr. Sommer as mentioned above. I also discussed with our spine surgeon Dr. Amaya who advised heavy dose of dexamethasone 8 mg every 8 hourly. He agrees with IV antibiotics Vanco, Zosyn. ID recommended to continue Vanco and Zosyn. Continue to hold Eliquis. Rest comorbidities as mentioned above: Diabetes mellitus type 2, chronic A. fib on Eliquis, hypertension BPH Patient is transferred to [facility] and patient was accepted under the service of Dr. Mathew Moreno. I have discussed my assessment with Norm RUSH and orders have been reviewed. Objective: Patient was seen and examined at the time of discharge. Please see the progress note on the same date. - Physical Exam Vitals/I&O's: Vital Signs Temp Pulse Resp BP Pulse Ox 99.7 F H 99 16 140/60 H 97 05/07/20 18:33 05/07/20 18:33 05/07/20 18:33 05/07/20 18:33 05/07/20 18:33 Oxygen Delivery Method Room Air Weight: 289 lb 0.416 oz Body Mass Index (BMI) 39.2 Intake and Output for Last 24 Hours 05/06/20 05/07/20 05/08/20 23:59 23:59 23:59 Intake Total 2316.08 / 2316.08 Output Total 290 / 290 1850 / 1850 Balance -290 / -290 466.08 / 466.08 Microbiology Past 72 Hours 05/07/20 14:00 Wound - Back Gram Stain - Final 05/07/20 14:00 Wound - Back Wound Culture - Preliminary No growth-Final to follow 05/07/20 14:00 Mucosa - Nose SARS-CoV-2 Antigen (Rapid) - Final Laboratory Results 05/07/20 17:14: POC Glucose 133 H Please cancel the progress note charge of the same date. Inpatient E&M: [id number] Disch Hosp
[2020-05-07 18:33] VITALS: BP 140/60; PULSE 99; RESP 16; TEMP 37.6; O2SAT 97
--- NOTE | 2020-05-07 18:52 | NURSING ---
REPORT CALLED TO RAFAEL MARKHAM AT [facility].
== END 2020-05-07 19:31 | disposition short-term general hospital (02) | DRG 862 ==
LOC: ED 22:23 → MS3 22:32
PROVIDERS: Physician Assistant; Admitting Provider Family Medicine; Emergency Provider Emergency Medicine; PCP Family Medicine; Visit Provider Internal Medicine
DX: T81.43XA Infection following a procedure, organ and space surgical site, initial encounter (principal); G06.1 Intraspinal abscess and granuloma; G83.4 Cauda equina syndrome; I48.92 Unspecified atrial flutter; I48.20 Chronic atrial fibrillation, unspecified; G97.62 Postprocedural hematoma of a nervous system organ or structure following other procedure; R50.9 Fever, unspecified; M48.061 Spinal stenosis, lumbar region without neurogenic claudication; M54.16 Radiculopathy, lumbar region; Z91.81 History of falling; Z98.1 Arthrodesis status; E66.01 Morbid (severe) obesity due to excess calories; G47.33 Obstructive sleep apnea (adult) (pediatric); I12.9 Hypertensive chronic kidney disease with stage 1 through stage 4 chronic kidney disease, or unspecified chronic kidney disease; E11.22 Type 2 diabetes mellitus with diabetic chronic kidney disease; E11.42 Type 2 diabetes mellitus with diabetic polyneuropathy; K21.9 Gastro-esophageal reflux disease without esophagitis; N18.30 Chronic kidney disease, stage 3 unspecified; N40.0 Benign prostatic hyperplasia without lower urinary tract symptoms; Z68.39 Body mass index [BMI] 39.0-39.9, adult; Z86.19 Personal history of other infectious and parasitic diseases; Z87.01 Personal history of pneumonia (recurrent); Z79.84 Long term (current) use of oral hypoglycemic drugs; Z79.899 Other long term (current) drug therapy; Z79.01 Long term (current) use of anticoagulants
CPT/HCPCS: 72158; 80048; 80053; 81001; 82962; 85025; 85610; 85730; 87040; 87070; 87205; 87426; 97162; 97166; 99284; A9575; J7040; J7050; A4216; J2405

== ENCOUNTER → 2020-08-01 13:54 | Outpatient (CLI) | payer MEDICARE, BC, SELFPAY ==
[2020-06-12 11:21] VITALS: BMI 34.6
--- NOTE | 2020-08-01 13:56 | VDLE_ITS ---
Reason For Study: Right leg pain RIGHT GSV is normal. CFV is compressible, spontaneous, phasic, competent and demonstrates normal augmentation. FV is compressible, spontaneous, phasic, competent and demonstrates normal augmentation. POP V is compressible, spontaneous, phasic, competent and demonstrates normal augmentation. T/P Trunk is compressible. PTV is compressible. RT PerV is compressible. Procedure This is a venous duplex using B-mode, color flow and spectral Doppler. Exam performed in department. A preliminary report was called and/or faxed to Lyn[facility]. Interpretation Summary There is no evidence of right lower extremity deep vein thrombosis. Right great saphenous vein appears patent and compressible segmentally. Ordering Physician: Rosa Maria Howell Referring Physician: Sharmaine Palma M.D. Performed By: Joanne Tobin RVT
== END ==
PROVIDERS: PCP Family Medicine; Visit Provider Nurse Practitioner
DX: M79.604 Pain in right leg (principal)
CPT/HCPCS: 93971

== ENCOUNTER → 2020-09-16 14:23 | Outpatient (CLI) | payer MEDICARE, BC, SELFPAY ==
[2020-08-26 11:01] VITALS: BMI 36.8
[2020-09-16 18:28] LABS: PSA,Total- Diagnostic 6.36 ng/mL (0.0-4.0)
== END ==
PROVIDERS: PCP Family Medicine; Referring Provider Urology; Visit Provider Urology
DX: R97.20 Elevated prostate specific antigen [PSA] (principal)
CPT/HCPCS: 36415; 84153

== ENCOUNTER → 2020-10-14 11:35 | Outpatient (CLI) | payer MEDICARE, BC, SELFPAY ==
[2020-08-26 11:01] VITALS: BMI 36.8
[2020-10-14 16:06] LABS: AST(SGOT) 17 U/L (15-37); Alanine Aminotransfer ALT/SGPT 15 U/L (16-61); Albumin, Serum 3.5 g/dL (3.2-5.0); Alkaline Phosphatase 78 U/L (45-117); Anion Gap 7 (5-15); BUN 22 mg/dL (7-18); BUN/Creat Ratio 19.1 RATIO (10-20); Bilirubin, Direct 0.11 mg/dL (0.00-0.30); Calcium,Total 8.9 mg/dL (8.5-10.1); Chloride 103 mmol/L (98-107); Cholesterol 149 mg/dL (200); Creatinine, Serum 1.15 mg/dL (0.70-1.30); EST Glomerular Filtration Rate 67 mL/min (>60); Est Glom Filt Rate - Afr Amer 81 mL/min (>60); Globulin 3.4 g/dL (2.2-4.2); Glucose 137 mg/dL (74-106); High Density Lipoprotein 34 mg/dL; Protein, Total 6.9 g/dL (6.4-8.2); Sodium Level 133 mmol/L (136-145); Thyroid Stim Hormone (TSH) 1.05 uIU/mL (0.358-3.74); Triglycerides 169 mg/dL; Very Low Density Lipoprotein 34 mg/dL (5-40)
[2020-10-14 16:22] LABS: Hemoglobin A1c 6.9 % (3.8-5.6)
== END ==
PROVIDERS: PCP Family Medicine; Visit Provider Family Medicine
DX: E11.9 Type 2 diabetes mellitus without complications (principal); I10 Essential (primary) hypertension
CPT/HCPCS: 36415; 80048; 80061; 80076; 83036; 84443

== ENCOUNTER 2020-12-11 00:43 | Observation (INO) | payer MEDICARE, BC, SELFPAY ==
[2020-08-26 11:01] VITALS: BMI 36.8
[2020-12-11] VITALS (19 sets, daily range): BP systolic 114–177; BP diastolic 77–111; PULSE 61–89; RESP 16–98; TEMP 36.2–37.1; O2SAT 2–98; BMI 39.3; BMI 37.5
--- NOTE | 2020-12-11 01:19 | CT_ITS ---
STUDY: CT HEAD STROKE PROTOCOL W/O CONTRAST INJECTION REASON FOR EXAM: Male, 70 years old. Neuro deficit, acute, stroke suspected RADIATION DOSAGE (If Supplied By Facility): CTDIvol = ( ) mGy, DLP = ( ) mGycm TECHNIQUE: Transaxial CT imaging of the brain was performed without administration of intravenous contrast material. Individualized dose optimization techniques were used for this CT. COMPARISON: No relevant priors. FINDINGS: Normal soft tissue structures. Normal calvarium. There is mild cerebral atrophy with widening of the extra-axial spaces and ventricular dilatation. There are areas of decreased attenuation within the white matter tracts of the supratentorial brain, consistent with microvascular disease changes. Normal basal ganglia and thalami. Normal brainstem. Normal cerebellum. There is no intracranial hemorrhage. There are no findings of an acute ischemic infarction. Normal visualized paranasal sinuses. ASPECT score: CT/STROKE Brain/Head without Cont IMPRESSION: Chronic involutional changes of the brain. N.B. : The above Results were Read Back by Tony Mascorro DO to Dr. Urbano Garcia MD, and understanding confirmed on 12/11/2020 01:49:29 (ET). Electronically Signed: Tony Mascorro DO at 1:50 EDT Tel , Service support ,
--- NOTE | 2020-12-11 01:19 | EKG12_ITS ---
Test Reason : CP Blood Pressure : / mmHG Vent. Rate : 087 BPM Atrial Rate : 300 BPM P-R Int : 000 ms QRS Dur : 132 ms QT Int : 360 ms P-R-T Axes : 000 003 054 degrees QTc Int : 433 ms Atrial flutter with variable A-V block with premature ventricular or aberrantly conducted complexes Right bundle branch block Abnormal ECG Confirmed by CAROL CARR, KATELYNN ([id number]), commercial production editor ADIN RAMOS ([id number]) on 12/13/2020 10:03:40 AM Referred By: TL Confirmed By:KATELYNN MEDINA MD
--- NOTE | 2020-12-11 01:19 | RAD_ITS ---
STUDY: X-RAY CHEST REASON FOR EXAM: Male, 70 years old. Neuro deficit, acute, stroke suspected TECHNIQUE: Single AP portable view of the chest. COMPARISON: 01/16/2020 FINDINGS: The lungs are clear and expanded. There is no demonstrated pleural abnormality. There is mild cardiac enlargement. Normal mediastinum and toro. Normal visualized pulmonary arteries. Normal visualized aortic arch and descending thoracic aorta. Normal visualized thoracic spine. Normal visualized ribs, clavicles, and shoulders. There is no demonstrated abnormality of the visualized soft tissue structures of the upper abdomen. RAD/Chest 1 View IMPRESSION: Normal x-ray examination of the chest. Electronically Signed: Tony Mascorro DO at 2:15 EDT Tel , Service support ,
[2020-12-11 01:27] LABS: Absolute Lymphocyte Count 1.12 X10^3/uL (0.83-4.51); Absolute Neutrophil Count 2.1 X10^3/uL (2.0-7.7); Basophil# 0.02 X10^3/uL; Basophil% 0.5 % (0-1); Eosinophil# 0.07 X10^3/uL; Eosinophils% 1.7 % (0-5); Hematocrit 35.2 % (40-54); Lymphocyte # 1.12 X10^3/ul (0.83-4.51); Lymphocyte % 27.8 % (19-41); Mean Corp Hgb Conc 34.1 g/dL (32-36); Mean Corpuscular Hgb 31.8 pg (27.0-32.0); Mean Corpuscular Volume 93.4 fL (80-94); Mean Platelet Vol. 10.2 fl (6.2-12.0); Monocyte# 0.68 X10^3/uL; Monocyte% 16.9 % (0-10); NRBC Flagged by Analyzer 0 % (0-5); Neutrophil # 2.12 X10^3/uL (2.7-7.7); Neutrophil % 52.6 % (47-70); Platelet Count 190 K/mm3 (150-450); RBC Distribution Width CV 13.4 % (11.6-14.6); RBC Distribution Width SD 45.5 fl (35.1-43.9); Red Blood Count 3.77 M/mm3 (4.6-6.2)
[2020-12-11 01:33] LABS: International Normalized Ratio 1.3; Prothrombin Time (Protime)PT. 15.1 SECONDS (11.7-14.9)
[2020-12-11 01:34] LABS: Partial Thromboplast Time 32.9 Seconds (24.1-36.2)
[2020-12-11 01:41] LABS: Anion Gap 8 (5-15); BUN 17 mg/dL (7-18); BUN/Creat Ratio 12.1 RATIO (10-20); Calcium,Total 8.6 mg/dL (8.5-10.1); Chloride 103 mmol/L (98-107); EST Glomerular Filtration Rate 53 mL/min (>60); Est Glom Filt Rate - Afr Amer 64 mL/min (>60); Estimated Creatinine Clearance 53.12 ml/min; Glucose 175 mg/dL (74-106); Potassium 3.8 mmol/L (3.5-5.1); Sodium Level 134 mmol/L (136-145); Troponin-I HS 22.4 pg/mL (3.0-78.5)
--- NOTE | 2020-12-11 02:30 | EDS_ITS ---
HPI History of Present Illness Chief Complaint: Dizziness Informant: patient and spouse/S.O. Narrative Narrative: Patient presents here with mother for evaluation of transient lightheaded symptoms and trouble speaking. He reports watching TV at 10:45 PM. He states sitting there was lightheaded when he stood up. He had multiple attempts trying to stand up however unable to. He is status post lumbar laminectomy in April, reported he had a walker therefore used it to wake up his significant other. 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 Reports during that time patient had 10-minute episode of word salad. She was concerned. Reported by 1130 symptoms resolved. He denies any stroke history. He does have a history of chronic atrial fibrillation on Eliquis with no missed doses. Denies any recent illness. Denies any previous similar symptoms in the past. Prior similar symptoms: No PFSH PFSH Medical History Acute respiratory failure with hypoxia Atrial fibrillation Atrial flutter Bilateral pneumonia CKD (chronic kidney disease), stage III Cough COVID-19 COVID-19 Essential hypertension GERD (gastroesophageal reflux disease) Hypoxia Morbid obesity JOE (obstructive sleep apnea) Peripheral neuropathy Prediabetes Severe sepsis Vocal cord mass Home Medications amlodipine 10 mg PO DAILY 06/21/16 [History Last Taken 05/06/20] albuterol sulfate 2 puff INHALATION 4X/DAY PRN 10/13/19 [History Last Taken Unknown] amitriptyline 75 mg PO QHS 10/13/19 [History Last Taken 05/05/20] omeprazole 40 mg PO DAILY 10/13/19 [History Last Taken 05/06/20] cetirizine 10 mg PO DAILY 01/16/20 [History Last Taken 05/06/20] metformin 500 mg PO QHS 01/16/20 [History Last Taken 05/05/20] acetaminophen 650 mg PO Q6H PRN PRN tab 01/21/20 [Rx Last Taken Unknown] tamsulosin 0.4 mg capsule 0.4 mg PO QHS 02/21/20 [History Last Taken Unknown] apixaban 5 mg tablet 5 mg PO BID #60 tab 03/04/20 [Rx Last Taken 05/06/20] buspirone 5 mg BID 12/11/20 [History Last Taken Unknown] Allergy/AdvReac Type Severity Reaction Status Date / Time No Known Allergies Allergy Verified 08/26/20 10:57 Family History Mother Myocardial infarction Heart disease Cancer parathyroid cancer Brother CAD (coronary artery disease), Onset Age: 65 CABG Surgical History History of foot surgery S/P excision of vocal cord nodule Social History Smoking Status: Never smoker alcohol intake: never substance use type: does not use caffeine: No ROS ROS ED Constitutional Constitutional ED: Denies chills, fever(s) or sweats Eyes Eyes: Denies change in vision ENT ENT ED: Denies dysphagia or sore throat Cardiovascular Cardiovascular: Reports other Details: Lightheaded ; Denies chest pain, leg edema, palpitations or racing heartbeat Respiratory/Chest Respiratory/Chest: Denies cough, dyspnea or dyspnea on exertion Gastrointestinal Gastrointestinal: Denies abdominal pain, diarrhea, nausea or vomiting Genitourinary Genitourinary ED: Denies dysuria, hematuria or urinary frequency Musculoskeletal Musculoskeletal: Denies back pain, extremity pain or neck pain Integumentary Denies rash or wounds Neurologic Neurologic: Reports other Details: Transient speech issues ; Denies headache(s), paresthesias or weakness EXAM Physical Exam Const Vital Signs: 12/11/20 00:44 12/11/20 01:19 12/11/20 01:24 Temperature 98.7 F Temperature Source Temporal Pulse Rate 83 89 Respiratory Rate 22 H 17 Blood Pressure 168/77 H 177/90 H Blood Pressure Mean 107 119 Pulse Ox 97 97 98 Oxygen Delivery Method Room Air Room Air Room Air Positive well nourished and well developed General Appearance ED: well developed and NAD HEENT Reports moist mucous membranes normocephalic and atraumatic Eyes PERRL, EOMs intact bilaterally and conjunctivae normal General Eye ED: Yes normal appearance of both eyes Neck no lymphadenopathy and supple General: Negative for tenderness Chest Wall Chest: Negative for tenderness Resp normal respiratory effort and normal air movement Effort and Inspection: symmetric chest movement; Negative for respiratory distress Cardio regular rate and no murmurs Rate: other Other Details: Irregular rhythm Peripheral Pulses: pulses 2+ throughout GI normal to inspection, nondistended, normoactive bowel sounds and non-tender Palpation: Negative for guarding or rebound tenderness present Back/Spine no CVA tenderness and no thoracic nor lumbar tenderness Extremity normal to inspection General Extremety ED: Negative for edema or tenderness General Extremity: Negative for edema Neuro oriented x3 and no sensory deficits noted Neuro Narrative: NIH equals 0 Sensorium / Orientation: awake and alert Skin no rashes or lesions noted and no wounds MDM MDM MDM Narrative Medical decision making narrative: Patient current NIH 0. Presenting with transient Broca's aphasia with transient lightheaded symptoms. He does have history of atrial fibrillation denies any missed doses of his Eliquis. CT head discussion with radiologist was negative. Labs stable, noted creatinine 1.4, slightly up from baseline, he does have history of CKD. EKG is rate controlled atrial fibrillation. Reevaluation no return of symptoms, vitals remained stable. Discussed with hospitalist, Dr. Hope for admission for further work-up. Lab Data Attestation: I reviewed the patient's lab results. Labs: Laboratory Results - last 24 hr 12/11/20 12/11/20 12/11/20 00:50 00:50 00:50 WBC 4.0 L RBC 3.77 L Hgb 12.0 L Hct 35.2 L MCV 93.4 MCH 31.8 MCHC 34.1 RDW Std Deviation 45.5 H RDW Coeff of [place] 13.4 Plt Count 190 MPV 10.2 Immature Gran % (Auto) 0.500 Neut % (Auto) 52.6 Lymph % (Auto) 27.8 [place] % (Auto) 16.9 H Eos % (Auto) 1.7 Baso % (Auto) 0.5 Absolute Neuts (auto) 2.1 Absolute Lymphs (auto) 1.12 Nucleated RBC % 0 PT 15.1 H INR 1.3 APTT 32.9 Sodium 134 L Potassium 3.8 Chloride 103 Carbon Dioxide 23.0 Anion Gap 8 BUN 17 Creatinine 1.40 H Estim Creat Clear Calc 53.12 Est GFR (MDRD) Af Amer 64 Est GFR (MDRD) Non-Af 53 L BUN/Creatinine Ratio 12.1 Glucose 175 H Calcium 8.6 Troponin I High Sens 22.4 Radiography Chest X-Ray - ED: 1 View, Read by ED Physician and Read by Radiologist Diagnostic Testing: Radiology Impression Chest X-Ray 12/11/20 01:19 IMPRESSION: Normal x-ray examination of the chest. Electronically Signed: Tony Mascorro DO at 2:15 EDT Tel , Service support , EKG Initial EKG: Attestation: I personally reviewed and interpreted this EKG as follows: Comments: Rate controlled atrial fibrillation, rate of 87, intermittent PVCs noted. Right bundle branch block. Discharge Plan Triage Chief Complaint: Dizziness ED Provider: Urbano Garcia Dx/Rx/DC Orders Clinical Impression: TIA (transient ischemic attack), Aphasia Prescriptions: No Action tamsulosin 0.4 mg capsule 0.4 mg PO QHS RF: 0 amlodipine 10 MG tablet 10 mg PO DAILY RF: 0 amitriptyline 75 MG tablet 75 mg PO QHS RF: 0 omeprazole 40 MG capsule,delayed release(DR/EC) 40 mg PO DAILY RF: 0 albuterol sulfate 1 INHALER inhaler 2 puff INHALATION 4X/DAY PRN (Reason: Sob &/Or Wheezing) RF: 0 cetirizine 10 MG tablet 10 mg PO DAILY RF: 0 metformin 500 MG tablet extended release 24 hr 500 mg PO QHS RF: 0 acetaminophen 325 MG tablet 650 mg PO Q6H PRN PRN (Reason: Pain Score 1-10/Temp > 100.7 F) RF: 0 buspirone 5 mg tablet 5 mg BID RF: 0 Eliquis 5 mg tablet 5 mg PO BID Qty: 60 RF: 11 Primary Care Provider: Sharmaine Palma Referrals: Sharmaine Palma MD [Primary Care Provider] - Disposition Disposition: Acute Care Hospital [facility]
--- NOTE | 2020-12-11 02:40 | HP.PCM.HOS_ITS ---
HPI - General General Date of Admission: 12/11/20 HPI Narrative GLENNA PINTO, is a 70 M with a significant history of hypertension; atrial fibrillation; and disc fusion who presents to the emergency department with strokelike symptoms. He describes his strokelike symptoms as lightheadedness and aphasia. Further he was unable to walk. His lightheadedness lasted for about 45 minutes and his aphasia lasted for about 10 seconds. He presented to the emergency department about 10 minutes after his symptoms resolved. [facility] Medical History Acute respiratory failure with hypoxia Atrial fibrillation Atrial flutter Bilateral pneumonia CKD (chronic kidney disease), stage III Cough COVID-19 COVID-19 Essential hypertension GERD (gastroesophageal reflux disease) Hypoxia Morbid obesity JOE (obstructive sleep apnea) Peripheral neuropathy Prediabetes Severe sepsis Vocal cord mass Home Medications amlodipine 10 mg PO DAILY 06/21/16 [History Last Taken 05/06/20] albuterol sulfate 2 puff INHALATION 4X/DAY PRN 10/13/19 [History Last Taken U nknown] amitriptyline 75 mg PO QHS 10/13/19 [History Last Taken 05/05/20] omeprazole 40 mg PO DAILY 10/13/19 [History Last Taken 05/06/20] cetirizine 10 mg PO DAILY 01/16/20 [History Last Taken 05/06/20] metformin 500 mg PO QHS 01/16/20 [History Last Taken 05/05/20] acetaminophen 650 mg PO Q6H PRN PRN tab 01/21/20 [Rx Last Taken Unknown] tamsulosin 0.4 mg capsule 0.4 mg PO QHS 02/21/20 [History Last Taken Unknown] apixaban 5 mg tablet 5 mg PO BID #60 tab 03/04/20 [Rx Last Taken 05/06/20] buspirone 5 mg BID 12/11/20 [History Last Taken Unknown] Allergy/AdvReac Type Severity Reaction Status Date / Time No Known Allergies Allergy Verified 08/26/20 10:57 Family History Mother Myocardial infarction Heart disease Cancer parathyroid cancer Brother CAD (coronary artery disease), Onset Age: 65 CABG Surgical History History of foot surgery S/P excision of vocal cord nodule Social History Smoking Status: Never smoker alcohol intake: never substance use type: does not use caffeine: No ROS ROS Narrative 12 point review of system is negative except as stated in HPI. Vital Signs Vital Signs Vital Signs: 12/11/20 00:44 12/11/20 01:19 12/11/20 01:24 Temperature 98.7 F Temperature Source Temporal Pulse Rate 83 89 Respiratory Rate 22 H 17 Blood Pressure 168/77 H 177/90 H Blood Pressure Mean 107 119 Pulse Ox 97 97 98 Oxygen Delivery Method Room Air Room Air Room Air Weight Weight: 131.5 kg Body Mass Index (BMI) 39.3 Physical Exam Narrative Physical exam: General: Well-nourished, well-developed, no acute distress Head: Normocephalic, atraumatic, no tenderness Eyes: PERRLA, EOMI ENT, no trauma, moist mucous membranes, no rhinorrhea Neck: Nontender, full range of motion, no spinal tenderness, deformities, step- off CVS: Regular rate and rhythm Respiratory no acute distress, clear to auscultation bilaterally, chest wall nontender, no wheezing Abdomen: Soft, nontender, nondistended, normal bowel sounds, no masses : Deferred Extremities: Nontender full range of motion, no trauma Skin: Normal color, no trauma, abrasions Neuro: Alert, oriented, cranial nerves II through XII grossly intact. Strength in left upper extremity; right upper extremity; left lower extremity 5 out of 5. Strength in the right lower extremity 4 out of 5 (reports baseline). No dysmetria. Deep tendon reflexes 2 out of 4 throughout. Results Lab / Micro Data Result Diagrams: 12/11/20 00:50 12/11/20 00:50 Labs: Laboratory Results - last 24 hr 12/11/20 00:50: WBC 4.0 L, RBC 3.77 L, Hgb 12.0 L, Hct 35.2 L, MCV 93.4, MCH 31 .8, MCHC 34.1, RDW Std Deviation 45.5 H, RDW Coeff of [place] 13.4, Plt Count 190, MPV 10.2, Immature Gran % (Auto) 0.500, Neut % (Auto) 52.6, Lymph % (Auto) 27.8, [place] % (Auto) 16.9 H, Eos % (Auto) 1.7, Baso % (Auto) 0.5, Absolute Neuts (auto) 2.1, Absolute Lymphs (auto) 1.12, Nucleated RBC % 0 12/11/20 00:50: PT 15.1 H, INR 1.3, APTT 32.9 12/11/20 00:50: Sodium 134 L, Potassium 3.8, Chloride 103, Carbon Dioxide 23.0, Anion Gap 8, BUN 17, Creatinine 1.40 H, Estim Creat Clear Calc 53.12, Est GFR (MDRD) Af Amer 64, Est GFR (MDRD) Non-Af 53 L, BUN/Creatinine Ratio 12.1, Glucose 175 H, Calcium 8.6, Troponin I High Sens 22.[address] 12/11/20 01:19 IMPRESSION: Chronic involutional changes of the brain. N.B. : The above Results were Read Back by Tony Mascorro DO to Dr. Urbano Garcia MD, and understanding confirmed on 12/11/2020 01:49:29 (ET). Electronically Signed: Tony Mascorro DO at 1:50 EDT Tel , Service support , Chest X-Ray 12/11/20 01:19 IMPRESSION: Normal x-ray examination of the chest. Electronically Signed: Tony Mascorro DO at 2:15 EDT Tel , Service support , Assessment & Plan Assessment/Plan (1) Stroke-like symptoms: PLAN: Serial NINDS NIH Scale ordered Impression of head CT by radiology: Chronic involutional changes of the brain. Actual CT of the head was independently interpreted and I agree with radiologist interpretation. -Check Lipid level Physical therapy, occupational therapy and speech therapy to work with patient. N.p.o. until bedside swallow eval. Daily aspirin ordered High intensity statin Eliquis continued Permissive hypertension. Control blood pressure with labetalol for systolic blood pressure of more than 220 or diastolic blood pressure of more than 120. MRI/MRAM of head; brain; and neck. Per patient request Ativan prior to MRI ordered. Echocardiogram ordered. Emergency department labs reviewed showed mild leukopenia. Hypertension Hold home amlodipine permissive hypertension. Labetalol and hydralazine per stroke protocol. Trend blood pressures. MATHIEU Review of ED labs showed creatinine of 1.40. Baseline creatinine is around 1.1. Gentle IV hydration ordered. Trend BMP. Diabetes mellitus Patient with hyperglycemia on presentation. A1c on 10/14/2020 was 6.9. Review of old records showed that his A1c on 04/23/2020 was 6.8 and 06/29/2017 was 7.5. Metformin held in the hospital setting. Accu-Chek with correction scale insulin ordered. DVT prophylaxis: Not indicated since patient is on Eliquis for A. fib. Eliquis continued.
--- NOTE | 2020-12-11 03:13 | MRI_ITS ---
STUDY: MRA OF THE HEAD WITHOUT CONTRAST REASON FOR EXAM: Male, 70 years old. cva TECHNIQUE: 3-D [id number] (TOF) imaging was performed with MIPs. The study was performed unenhanced. COMPARISON: None. FINDINGS: Normal bilateral petrous carotid arteries. Normal right cavernous carotid artery with a normal supraclinoid bifurcation. Normal left cavernous carotid artery with a normal supraclinoid bifurcation. Normal right A1 segments of the anterior cerebral artery. Normal left A1 segments of the anterior cerebral artery. Normal intact anterior communicating artery (ACOM). Normal bilateral A2 segments of the anterior cerebral arteries. Normal right M1 and M2 segments of the middle cerebral arteries, with a normal M1 bifurcation. Normal left M1 and M2 segments of the middle cerebral arteries, with a normal M1 bifurcation. There is a persistent origin of the right posterior cerebral artery with absence of the P1 segment of the right posterior cerebral artery. Normal left posterior communicating artery (PCOM). Complete signal loss within the distal aspect of the right vertebral artery which may be from motion artifact or occlusion. Correlation with CTA would be useful. O markedly attenuated signal within the proximal aspect of the basilar artery which may be secondary to significant stenosis or vasospasm or artifact. Hhe visualized bilateral superior cerebellar (SCA) arteries are normal. Signal loss within the P2 segment the left posterior cerebral artery may be secondary to stenosis and vasospasm or motion artifact. Right posterior cerebral artery is normal. There is no demonstrated aneurysm of the [place] of [place]. There is no major vessel occlusion or hemodynamically significant stenosis. There is no demonstrated abnormality of the visualized brain. MRI/MRA Head ONLY without Contrast IMPRESSION: Significant signal loss within the distal right vertebral artery, basilar artery, and left posterior cerebral artery worrisome for stenosis, vasospasm, or possibly motion artifact. CTA may be useful. Electronically Signed: Donald Rashid MD at 11:57 EDT Tel , Service support ,
--- NOTE | 2020-12-11 03:13 | ECHOCS_ITS ---
Reason For Study: TIA/CVA Procedure This was a 2D Doppler, Color Flow transthoracic echocardiogram. Contrast injection was performed. Exam performed portable in patient room. Left Ventricle Normal LV size. Left ventricular systolic function is normal. The estimated ejection fraction is 55 %. No regional wall motion abnormalities noted. Right Ventricle Normal RV size. Normal systolic function. Atria Normal left atrium. Normal right atrium. Bubble contrast study negative for right to left interatrial shunt. Mitral Valve Normal mitral valve. Tricuspid Valve Normal tricuspid valve. Mild tricuspid valve insufficiency. Pulmonary artery systolic pressure is 26 mmHg. Aortic Valve The aortic valve is not well visualized. Pulmonic Valve The pulmonic valve is not well visualized. Great Vessels Normal aortic root. Pericardium/Pleural No pericardial effusion. Medication Performed a rapid injection of agitated mix of 9 cc saline and 1cc air to assess for atrial septal defect. Diluted definity 4ml given slow IV push to enhance endocardial definition. MMode/2D Measurements & Calculations LVIDd: 5.4 cm IVSd: 0.96 cm Ao root diam: 3.7 cm LVIDs: 3.3 cm LVPWd: 1.1 cm RVDd: 3.7 cm FS: 39.1 % LAV(MOD-bp): 67.0 ml LVAd ap4: 32.8 cm2 LVAd ap2: 32.7 cm2 LAV(MOD-bp) Indexed: 27.1 ml/m2 LVLd ap4: 8.2 cm LVLd ap2: 8.5 cm LAV(MOD-sp2): 57.2 ml EDV(MOD-sp4): 106.3 ml EDV(MOD-sp2): 102.3 ml LAV(MOD-sp4): 73.6 ml EDV(sp4-el): 111.0 ml EDV(sp2-el): 106.8 ml LVAs ap4: 18.5 cm2 LVAs ap2: 18.9 cm2 LVLs ap4: 6.7 cm LVLs ap2: 7.2 cm ESV(MOD-sp4): 43.0 ml ESV(MOD-sp2): 43.5 ml ESV(sp4-el): 43.4 ml ESV(sp2-el): 42.4 ml EF(MOD-sp4): 59.6 % EF(MOD-sp2): 57.5 % EF(sp4-el): 60.9 % SV(MOD-sp4): 63.4 ml SV(MOD-sp2): 58.8 ml SV(sp4-el): 67.5 ml LA A4 area: 24.8 cm2 LA dimension(2D): 4.1 cm RA A4 area: 21.6 cm2 Doppler Measurements & Calculations MV E max norma: 110.7 cm/sec Ao V2 max: 152.5 cm/sec LV V1 max: 117.0 cm/sec Ao max P.3 mmHg LV V1 max P.5 mmHg Ao V2 mean: 103.4 cm/sec Ao mean P.8 mmHg Ao V2 VTI: 27.9 cm PA V2 max: 110.2 cm/sec TR max norma: 233.5 cm/sec TR max P.8 mmHg ECHO/Echo Complete W/ Contrast Interpretation Summary Normal LV size. Left ventricular systolic function is normal. The estimated ejection fraction is 55 %. Bubble contrast study negative for right to left interatrial shunt. Contrast injection was performed. Ordering Physician: Horacio Hope Referring Physician: Sharmaine Palma Performed By: Corrie Morrison RDCS, RVT
--- NOTE | 2020-12-11 03:13 | MRI_ITS ---
STUDY: MRA NECK WITHOUT CONTRAST REASON FOR EXAM: Male, 70 years old. Stroke-like symptoms TECHNIQUE: Source images were obtained, MIPs were performed. The study was performed unenhanced. COMPARISON: None. FINDINGS: RIGHT CAROTID ARTERIES: Normal right common carotid artery (CCA). Normal right common carotid bulb. Normal origin of the right internal carotid (ICA) artery without a hemodynamically significant stenosis. Normal visualized cervical portion of the right internal carotid artery. Normal origin of the right external carotid artery (ECA). LEFT CAROTID ARTERIES: Normal left common carotid artery (CCA). Normal left common carotid bulb. Normal origin of the left internal carotid (ICA) artery without a hemodynamically significant stenosis. Normal visualized cervical portion of the left internal carotid artery. Normal origin of the left external carotid artery (ECA). VERTEBRAL ARTERIES: Normal antegrade flow within the bilateral vertebral artery without a hemodynamically significant stenosis. MRI/MRA Neck without Contrast IMPRESSION: Normal bilateral cervical carotid and vertebral arteries. Electronically Signed: Donald Rashid MD at 11:57 EDT Tel , Service support ,
--- NOTE | 2020-12-11 03:13 | MRI_ITS ---
STUDY: MRI BRAIN WITHOUT CONTRAST REASON FOR EXAM: Male, 70 years old. stroke-like symptoms TECHNIQUE: Standardized multiplanar fat and water weighted pulse sequences were obtained. COMPARISON: CT earlier today FINDINGS: There is mild cerebral atrophy with widening of the extra-axial spaces and ventricular dilatation. There are a limited number of small white matter hyperintensities, distributed throughout the deep white matter tracts of the cerebral hemispheres, consistent with mild chronic white matter ischemic changes. There is no evidence for recent intracranial ischemia or other cause of cytotoxic edema on diffusion weighted imaging (DWI). Normal T2* images of the brain without demonstrated susceptibility artifact. There is no demonstrated hemosiderin stain. Normal bilateral basal ganglia. Normal thalami. There is no extra-axial fluid accumulation. Normal flow voids within the major intracranial circulation suggesting patency by spin echo criteria. Normal sella turcica, pituitary gland, infundibular stalk, optic chiasm and hypothalamus. Normal tectal plate and pineal gland. Normal midbrain, nadja and medulla. Normal cerebellum. Normal basal cisterns. Normal bilateral temporal bones. Normal bilateral internal auditory canals. There are bilateral ocular lens implants with otherwise normal intraorbital contents. Normal visualized paranasal sinuses. Normal calvarium and skull base. Normal visualized soft tissue structures. Normal visualized upper cervical spine. MRI/Brain without Contrast IMPRESSION: Involutional changes of the brain, as described above. No acute infarct. Electronically Signed: Donald Rashid MD at 11:51 EDT Tel , Service support ,
[2020-12-11] MEDS: 0.9% Normal Saline 1,000 ML 75 ML IV (03:45)
[2020-12-11 04:06] LABS: Bedside Glucose 177 mg/dL (70-110)
[2020-12-11 05:33] LABS: Absolute Lymphocyte Count 0.79 X10^3/uL (0.83-4.51); Absolute Neutrophil Count 2.7 X10^3/uL (2.0-7.7); Basophil# 0.01 X10^3/uL; Basophil% 0.2 % (0-1); Eosinophil# 0.02 X10^3/uL; Eosinophils% 0.5 % (0-5); Hematocrit 33.5 % (40-54); Hemoglobin 11.5 g/dL (13.0-16.5); Lymphocyte # 0.79 X10^3/ul (0.83-4.51); Lymphocyte % 18.9 % (19-41); Mean Corp Hgb Conc 34.3 g/dL (32-36); Mean Corpuscular Hgb 31.7 pg (27.0-32.0); Mean Corpuscular Volume 92.3 fL (80-94); Mean Platelet Vol. 9.6 fl (6.2-12.0); Monocyte# 0.62 X10^3/uL; Monocyte% 14.8 % (0-10); NRBC Flagged by Analyzer 0 % (0-5); Neutrophil # 2.74 X10^3/uL (2.7-7.7); Neutrophil % 65.4 % (47-70); Platelet Count 168 K/mm3 (150-450); RBC Distribution Width CV 13.3 % (11.6-14.6); RBC Distribution Width SD 45.2 fl (35.1-43.9); Red Blood Count 3.63 M/mm3 (4.6-6.2); White Blood Count 4.2 K/mm3 (4.4-11.0)
[2020-12-11 05:50] LABS: Anion Gap 7 (5-15); BUN 16 mg/dL (7-18); BUN/Creat Ratio 12.5 RATIO (10-20); Calcium,Total 8.5 mg/dL (8.5-10.1); Chloride 102 mmol/L (98-107); Cholesterol 141 mg/dL (200); Creatinine, Serum 1.28 mg/dL (0.70-1.30); EST Glomerular Filtration Rate 59 mL/min (>60); Est Glom Filt Rate - Afr Amer 71 mL/min (>60); Estimated Creatinine Clearance 59.82 ml/min; Glucose 161 mg/dL (74-106); High Density Lipoprotein 28 mg/dL; Sodium Level 135 mmol/L (136-145); Triglycerides 203 mg/dL; Very Low Density Lipoprotein 41 mg/dL (5-40)
[2020-12-11 06:45] LABS: Bedside Glucose 147 mg/dL (70-110)
--- NOTE | 2020-12-11 09:52 | NURSING ---
Report called to radiology manager Karen.
[2020-12-11] MEDS: LORazepam 2 MG/ML Syringe 1 MG IV (09:54)
[2020-12-11] MEDS: 0.9% Saline Lock 10 ML Syringe IV (09:54)
[2020-12-11] MEDS: Pantoprazole Sodium 40 MG Tablet PO (11:35)
[2020-12-11] MEDS: Loratadine 10 MG Tablet PO (11:36)
[2020-12-11] MEDS: busPIRone 5 MG Tablet PO (11:36)
[2020-12-11] MEDS: APIXABAN 5 MG TABLET PO (11:36)
[2020-12-11] MEDS: Aspirin 81 MG TAB.CHEW PO (11:36)
[2020-12-11] MEDS: amLODIPine 10 MG Tablet PO (11:36)
[2020-12-11 11:55] LABS: Bedside Glucose 186 mg/dL (70-110)
--- NOTE | 2020-12-11 13:08 | TELEMED_ITS ---
[facility] Telemed has confirmed receipt of a request for visit. This document confirms receipt of the order initiating the consult. To find the results of the consultation, please view the patient's reports for the scanned Telemed Consult.
--- NOTE | 2020-12-11 13:33 | CASEMGMT ---
Social Work Pt presents with stroke like symptoms. SW met with pt and completed PHQ9 depression screen. Pt with score of 3 indicating no depression. SW educated pt and on link of depression and stroke. Pt appreciative of information. Denies needs at this time. Che Bolivar, CONCRETE BLOCK MOLDER
[2020-12-11] MEDS: Insulin Lispro 100 UNIT/ML INSULN.PEN SC (13:50)
--- NOTE | 2020-12-11 15:02 | CHAPLAIN ---
Type of Pastoral Visit _x__ Initial Visit ___ Follow-up Visit ___ On-call Visit ___ General Patient Visit ___ Spiritual Assessment ___ Family Conference ___ Bereavement ___ Rapid Response ___ Code Blue ___ Other (describe below) Pastoral Care Referral From _x__ Patient ___ Family ___ Nurse ___ Physician ___ Dental Practitioner ___ Operations Management Trainee ___ Other (describe below) Sacrament/Intervention _x__ Active listening ___ Anointing ___ Zoroastrian ___ Bereavement ___ Communion ___ Bee exploration ___ ___ Life review _x__ Prayer ___ Reconciliation ___ Sacrament of Sick _x__ Supportive presence ___ Wedding ___ Other (describe below) Pastoral Comments patient requested a Bible and one was given to him
--- NOTE | 2020-12-11 15:24 | PCM.DC ---
Discharge Instructions Diet Discharge Diet: Carb Control Diet Activity Discharge Activity: Return to Normal Activity and May Not Drive (Until neurology follow-up) Additional Activity Instructions:: Avoid excessive activity Dressing / Incision Call your doctor if you observe: Shortness of breath, Dizziness, Chest pain and - (Numbness, tingling, unilateral weakness, speech changes) Follow Up Care Test Results: Test results from this visit will be discussed in further detail at your follow-up appointment, if applicable. Discharge Plan Admission Admit Date/Time: 12/11/20 02:37 Primary Reason for Your Visit: Strokelike symptoms- stroke ruled out Attending Provider: Hema Franco Primary Care Provider: Sharmaine Palma Instructions Additional Instructions / Restrictions: You will need referral by PCP/neurology for cerebral arteriogram due to possible basilar artery stenosis found on imaging. Discharge Orders/Prescriptions Prescriptions: New aspirin 81 mg Tablet,Chewable 81 mg PO DAILY@0800 Qty: 30 RF: 0 Continued tamsulosin 0.4 mg capsule 0.4 mg PO QHS RF: 0 amlodipine 10 MG tablet 10 mg PO DAILY RF: 0 amitriptyline 75 MG tablet 75 mg PO QHS RF: 0 omeprazole 40 MG capsule,delayed release(DR/EC) 40 mg PO DAILY RF: 0 albuterol sulfate 1 INHALER inhaler 2 puff INHALATION 4X/DAY PRN (Reason: Sob &/Or Wheezing) RF: 0 cetirizine 10 MG tablet 10 mg PO DAILY RF: 0 metformin 500 MG tablet extended release 24 hr 500 mg PO QHS RF: 0 acetaminophen 325 MG tablet 650 mg PO Q6H PRN PRN (Reason: Pain Score 1-10/Temp > 100.7 F) RF: 0 buspirone 5 mg tablet 5 mg BID RF: 0 oxycodone 5 mg Tablet 5 mg PO BID MDD PAIN PRN (Reason: Pain) RF: 0 Eliquis 5 mg tablet 5 mg PO BID Qty: 60 RF: 11 Referrals / Follow Up: Sharmaine Palma MD [Primary Care Provider] - In 1 Week Freddy Messer MD [NON-STAFF] - See Referral Note (Within one week or soonest available) Disposition Disposition (needs filled in before D/C Order can be placed): Home, Self Care
--- NOTE | 2020-12-11 15:36 | DS.PCM_ITS ---
Documented by User: Molly Cristina NP, [employer] 12/11/20 15:47 Providers Date of Admission: 12/11/20 Date of Discharge: 12/11/20 Primary Care Physician: Dr. Sharmaine Palma MD Reason For Visit: STROKELIKE SYMPTOMS Diagnosis Discharge Diagnosis (1) Stroke-like symptoms: Status: Acute Code(s): R29.90 - Unspecified symptoms and signs involving the nervous system Medications at Discharge Home Medications amlodipine 10 mg PO DAILY 06/21/16 albuterol sulfate 2 puff INHALATION 4X/DAY PRN 10/13/19 amitriptyline 75 mg PO QHS 10/13/19 omeprazole 40 mg PO DAILY 10/13/19 cetirizine 10 mg PO DAILY 01/16/20 metformin 500 mg PO QHS 01/16/20 acetaminophen 650 mg PO Q6H PRN PRN tab 01/21/20 tamsulosin 0.4 mg capsule 0.4 mg PO QHS 02/21/20 apixaban 5 mg tablet 5 mg PO BID #60 tab 03/04/20 aspirin 81 mg PO DAILY@0800 #30 tab 12/11/20 buspirone 5 mg BID 12/11/20 oxycodone 5 mg PO BID PRN MDD PAIN 12/11/20 Hospital Course Operations None Procedures 2-D Echocardiogram Summary of Care Provided Minutes Spent on Discharge: 35 Hospital Course: Patient is a 70-year-old male admitted 12/11/2020 due to lightheadedness and aphasia. 1. Strokelike symptoms-CVA ruled out. MRI of brain normal. MRA of neck normal. Echocardiogram demonstrates an EF of 55%. Orthostatic vitals negative. [facility] neurology consulted due to abnormal MRI of head. MRA of head shows signal loss within the distal right vertebral artery, basilar artery and left posterior cerebral artery worrisome for stenosis, vasospasm or possible motion artifact. Recommending referral to neurology for cerebral arteriogram. Referred to [facility] neurology. Neurology suspects symptoms may be orthostatic versus vertigo in nature as well. Patient received IV fluids prior to orthostatic vitals and he is on Flomax. Neurology discussed switching amitriptyline to nortriptyline and discontinuing Flomax however patient would like to further discuss with neurology as outpatient prior to making these changes. Continue baby aspirin at discharge. Neurology did not recommend statin as lipid profile normal and patient did not have TIA/stroke. Follow-up with PCP in 1 week. Follow-up with neurology in 1 week as well. 2. Acute kidney injury on chronic kidney disease stage II-resolved with IV fluids. Patient voices concern regarding his kidney function as he states it has been abnormal following Covid. Creatinine at baseline following fluids. Discussed routine BMP by PCP to follow kidney function. 3. Type 2 diabetes mellitus-recent hemoglobin A1c 10/14/2020 6.9%. Continue home regimen. 4. BPH-on Flomax. 5. Hypertension-stable, continue amlodipine. 6. GERD-on PPI. 7. Anxiety/depression-on amitriptyline, buspirone. Patient seen and examined prior to discharge. Physical assessment as noted below. Patient is stable for discharge with follow up recommendations as noted above. This patient was seen by HÉCTOR Roman under the supervision of Dr. Franco. Physical Exam Const alert, oriented x3 and no apparent distress Orientation / Consciousness: awake, oriented to person, oriented to place and oriented to time HEENT normocephalic and moist oral mucous membranes Eyes PERRL, EOMs intact bilaterally and conjunctivae normal Neck no lymphadenopathy Resp normal respiratory effort and clear to auscultation bilaterally Cardio regular rate, regular rhythm and no murmurs Peripheral Pulses: pulses 2+ throughout GI normal to inspection, nondistended, normoactive bowel sounds, non-tender and non-distended Extremity normal to inspection Skin no rashes or lesions noted Lesions: no lesions Rashes: no rashes Trauma: no lacerations or abrasions Neuro CN's II-XII intact bilaterally, no focal motor deficits, no sensory deficits noted and deep tendon reflexes 2+ bilaterally Psych mental status grossly normal and affect normal Medical Records Data Medical Nutrition Assessment Dietitian: Nutrition Therapy Diagnosis Start: 12/11/20 12:57 Freq: Status: Active Protocol: Document 12/11/20 12:57 (Rec: 12/11/20 12:57 AG [id number]) Nutrition Malnutrition Evidence of Malnutrition Exists No Clinical Problem Altered Nutrient-Related Laboratory Values Etiology r/t endocrine dysfunction Signs/Symptoms as evidenced by glucose 161, HgbA1c 6.9, POC glucose 177 and 147. Status Active Problem Recommendation Dietitian Recommendations/Changes Cardiac, carbohydrate controlled diet. Encouraged follow-up with outpatient nutrition services for ongoing teaching/education . Weight / BMI Weight Weight: 284 lb 9.868 oz Body Mass Index (BMI) 37.5 ABG / Lab / Microbiology Data Result Diagrams: 12/11/20 05:18 12/11/20 05:18 Laboratory: Laboratory Results - last 24 hr 12/11/20 00:50: WBC 4.0 L, RBC 3.77 L, Hgb 12.0 L, Hct 35.2 L, MCV 93.4, MCH 31.8, MCHC 34.1, RDW Std Deviation 45.5 H, RDW Coeff of [place] 13.4, Plt Count 190, MPV 10.2, Immature Gran % (Auto) 0.500, Neut % (Auto) 52.6, Lymph % (Auto) 27.8, Dubois % (Auto) 16.9 H, Eos % (Auto) 1.7, Baso % (Auto) 0.5, Absolute Neuts (auto) 2.1, Absolute Lymphs (auto) 1.12, Nucleated RBC % 0 12/11/20 00:50: PT 15.1 H, INR 1.3, APTT 32.9 12/11/20 00:50: Sodium 134 L, Potassium 3.8, Chloride 103, Carbon Dioxide 23.0, Anion Gap 8, BUN 17, Creatinine 1.40 H, Estim Creat Clear Calc 53.12, Est GFR (MDRD) Af Amer 64, Est GFR (MDRD) Non-Af 53 L, BUN/Creatinine Ratio 12.1, Glucose 175 H, Calcium 8.6, Troponin I High Sens 22.4 12/11/20 03:58: POC Glucose 177 H 12/11/20 05:18: WBC 4.2 L, RBC 3.63 L, Hgb 11.5 L, Hct 33.5 L, MCV 92.3, MCH 31.7, MCHC 34.3, RDW Std Deviation 45.2 H, RDW Coeff of [place] 13.3, Plt Count 168, MPV 9.6, Immature Gran % (Auto) 0.200, Neut % (Auto) 65.4, Lymph % (Auto) 18.9 L , Dubois % (Auto) 14.8 H, Eos % (Auto) 0.5, Baso % (Auto) 0.2, Absolute Neuts (auto) 2.7, Absolute Lymphs (auto) 0.79 L, Nucleated RBC % 0 12/11/20 05:18: Sodium 135 L, Potassium 4.0, Chloride 102, Carbon Dioxide 26.0, Anion Gap 7, BUN 16, Creatinine 1.28, Estim Creat Clear Calc 59.82, Est GFR (MDRD) Af Amer 71, Est GFR (MDRD) Non-Af 59 L, BUN/Creatinine Ratio 12.5, Glucose 161 H, Calcium 8.5, Triglycerides 203 H, Cholesterol 141, LDL Cholesterol 72, VLDL Cholesterol 41 H, HDL Cholesterol 28 L 12/11/20 06:40: POC Glucose 147 H 12/11/20 11:32: POC Glucose 186 H Radiography Diagnostic Testing: Radiology Impression Brain CT 12/11/20 01:19 IMPRESSION: Chronic involutional changes of the brain. N.B. : The above Results were Read Back by Tony Mascorro DO to Dr. Urbano Garcia MD, and understanding confirmed on 12/11/2020 01:49:29 (ET). Electronically Signed: Tony Mascorro DO at 1:50 EDT Tel , Service support , Chest X-Ray 12/11/20 01:19 IMPRESSION: Normal x-ray examination of the chest. Electronically Signed: Tony Mascorro DO at 2:15 EDT Tel , Service support , Brain MRI 12/11/20 03:13 IMPRESSION: Involutional changes of the brain, as described above. No acute infarct. Electronically Signed: Donald Rashid MD at 11:51 EDT Tel , Service support , Echocardiogram 12/11/20 03:13 Interpretation Summary Normal LV size. Left ventricular systolic function is normal. The estimated ejection fraction is 55 %. Bubble contrast study negative for right to left interatrial shunt. Contrast injection was performed. Ordering Physician: Horacio Hope Referring Physician: Sharmaine Palma Performed By: Corrie Morrison, BING, T Head MRA 12/11/20 03:13 IMPRESSION: Significant signal loss within the distal right vertebral artery, basilar artery, and left posterior cerebral artery worrisome for stenosis, vasospasm, or possibly motion artifact. CTA may be useful. Electronically Signed: Donald Rashid MD at 11:57 EDT Tel , Service support , Neck MRA 12/11/20 03:13 IMPRESSION: Normal bilateral cervical carotid and vertebral arteries. Electronically Signed: Donald Rashid MD at 11:57 EDT Tel , Service support , D/C Instructions Discharge Diet: Carb Control Diet Additional Activity Instructions: Avoid excessive activity Call your doctor if you observe: Shortness of breath, Dizziness, Chest pain and - (Numbness, tingling, unilateral weakness, speech changes) Meaningful Use Info Meaningful Use Diagnoses (Choose all that apply): None applicable Discharge Plan Admission Admit Date/Time: 12/11/20 02:37 Primary Reason for Your Visit: Strokelike symptoms- stroke ruled out Attending Provider: Hema Franco Primary Care Provider: Sharmaine Palma Instructions Additional Instructions / Restrictions: You will need referral by PCP/neurology for cerebral arteriogram due to possible basilar artery stenosis found on imaging. Discharge Orders/Prescriptions Prescriptions: New aspirin 81 mg Tablet,Chewable 81 mg PO DAILY@0800 Qty: 30 RF: 0 Continued tamsulosin 0.4 mg capsule 0.4 mg PO QHS RF: 0 amlodipine 10 MG tablet 10 mg PO DAILY RF: 0 amitriptyline 75 MG tablet 75 mg PO QHS RF: 0 omeprazole 40 MG capsule,delayed release(DR/EC) 40 mg PO DAILY RF: 0 albuterol sulfate 1 INHALER inhaler 2 puff INHALATION 4X/DAY PRN (Reason: Sob &/Or Wheezing) RF: 0 cetirizine 10 MG tablet 10 mg PO DAILY RF: 0 metformin 500 MG tablet extended release 24 hr 500 mg PO QHS RF: 0 acetaminophen 325 MG tablet 650 mg PO Q6H PRN PRN (Reason: Pain Score 1-10/Temp > 100.7 F) RF: 0 buspirone 5 mg tablet 5 mg BID RF: 0 oxycodone 5 mg Tablet 5 mg PO BID MDD PAIN PRN (Reason: Pain) RF: 0 Eliquis 5 mg tablet 5 mg PO BID Qty: 60 RF: 11 Referrals / Follow Up: Sharmaine Palma MD [Primary Care Provider] - In 1 Week Freddy Messer MD [NON-STAFF] - 01/29/21 9:20 am (Your appointment will be at the [facility] [phone]) Disposition Disposition (needs filled in before D/C Order can be placed): Home, Self Care Documented by User: Dr. Hema Franco MD 12/11/20 16:38 Providers Date of Admission: 12/11/20 Reason For Visit: STROKELIKE SYMPTOMS Medications at Discharge Home Medications amlodipine 10 mg PO DAILY 06/21/16 albuterol sulfate 2 puff INHALATION 4X/DAY PRN 10/13/19 amitriptyline 75 mg PO QHS 10/13/19 omeprazole 40 mg PO DAILY 10/13/19 cetirizine 10 mg PO DAILY 01/16/20 metformin 500 mg PO QHS 01/16/20 acetaminophen 650 mg PO Q6H PRN PRN tab 01/21/20 tamsulosin 0.4 mg capsule 0.4 mg PO QHS 02/21/20 apixaban 5 mg tablet 5 mg PO BID #60 tab 03/04/20 aspirin 81 mg PO DAILY@0800 #30 tab 12/11/20 buspirone 5 mg BID 12/11/20 oxycodone 5 mg PO BID PRN MDD PAIN 12/11/20 ABG / Lab / Microbiology Data Result Diagrams: 12/11/20 05:18 12/11/20 05:18 Discharge Plan Admission Admit Date/Time: 12/11/20 02:37 Primary Reason for Your Visit: Strokelike symptoms- stroke ruled out Attending Provider: Hema Franco Primary Care Provider: Sharmaine Palma Instructions Additional Instructions / Restrictions: You will need referral by PCP/neurology for cerebral arteriogram due to possible basilar artery stenosis found on imaging. Discharge Orders/Prescriptions Prescriptions: New aspirin 81 mg Tablet,Chewable 81 mg PO DAILY@0800 Qty: 30 RF: 0 Continued tamsulosin 0.4 mg capsule 0.4 mg PO QHS RF: 0 amlodipine 10 MG tablet 10 mg PO DAILY RF: 0 amitriptyline 75 MG tablet 75 mg PO QHS RF: 0 omeprazole 40 MG capsule,delayed release(DR/EC) 40 mg PO DAILY RF: 0 albuterol sulfate 1 INHALER inhaler 2 puff INHALATION 4X/DAY PRN (Reason: Sob &/Or Wheezing) RF: 0 cetirizine 10 MG tablet 10 mg PO DAILY RF: 0 metformin 500 MG tablet extended release 24 hr 500 mg PO QHS RF: 0 acetaminophen 325 MG tablet 650 mg PO Q6H PRN PRN (Reason: Pain Score 1-10/Temp > 100.7 F) RF: 0 buspirone 5 mg tablet 5 mg BID RF: 0 oxycodone 5 mg Tablet 5 mg PO BID MDD PAIN PRN (Reason: Pain) RF: 0 Eliquis 5 mg tablet 5 mg PO BID Qty: 60 RF: 11 Referrals / Follow Up: Sharmaine Palma MD [Primary Care Provider] - In 1 Week Freddy Messer MD [NON-STAFF] - 01/29/21 9:20 am (Your appointment [facility] be at the [facility] [phone]) Disposition Disposition (needs filled in before D/C Order can be placed): Home, Self Care Charges/Coding Addendum Addendum: Dr. Franco: I personally reviewed the chart and examined the patient, and agree with the above findings. 70-year-old male presented from home with strokelike symptoms. These have since resolved and his MRI of his brain was negative for stroke. He did have an MRI of his head and neck which did have some concerning signal loss that was also felt to potentially be motion artifact however the neurologist recommended a cerebral arteriogram as an outpatient. No statin was recommended secondary to the unlikely quintana of a TIA/stroke event. There was concern for possible orthostasis versus vertigo, he did not have positive orthostatic vital signs however he was receiving IV fluids. They did recommend discontinuing Flomax and transitioning amitriptyline to nortriptyline however he has been on these medications for quite a long time. I recommend that he follow-up with his PCP in 3 to 5 days and outpatient neurology in 1 to 2 weeks for close monitoring. Would recommend continuing with an aspirin as well as his Eliquis. I discussed with him and his the plan for discharge today and expressed understanding of the risk and benefits of going home and would like to go home today. Visit Charges OBSV E&M: [id number] Observation care discharge
--- NOTE | 2020-12-11 15:45 | CASEMGMT ---
RAFAEL VASQUEZ NOTE: PT/OT notes have been reviewed. No additional therapy recommended. RN CM to room to discuss discharge planning. Introduced self and role of RN CHRISTINA . Pt sitting up in recliner chair. in room. Pt denies having any concerns w/going home @ discharge and denies needs or concerns. Scott BEARDN RAFAEL CM
--- NOTE | 2020-12-11 16:05 | PHA.DC.MC ---
Pharmacy Service has performed discharge medication reconciliation and counseling for this patient. 1. ASPIRIN 81MG PO DAILY The patient's discharge medication list was reviewed for discrepancies and discrepancies were resolved. Home Medications amlodipine 10 mg PO DAILY 06/21/16 albuterol sulfate 2 puff INHALATION 4X/DAY PRN 10/13/19 amitriptyline 75 mg PO QHS 10/13/19 omeprazole 40 mg PO DAILY 10/13/19 cetirizine 10 mg PO DAILY 01/16/20 metformin 500 mg PO QHS 01/16/20 acetaminophen 650 mg PO Q6H PRN PRN tab 01/21/20 tamsulosin 0.4 mg capsule 0.4 mg PO QHS 02/21/20 apixaban 5 mg tablet 5 mg PO BID #60 tab 03/04/20 aspirin 81 mg PO DAILY@0800 #30 tab 12/11/20 buspirone 5 mg BID 12/11/20 oxycodone 5 mg PO BID PRN MDD PAIN 12/11/20 The patient was counseled on the following discharge medications and changes in medications for homegoing were reviewed. The Reason for Use, instructions for use, and potential side effects were reviewed for all new medications. The patient's questions regarding all of their medications were answered. The patient was able to verbally demonstrate an understanding of their discharge medications.
== END 2020-12-11 15:28 | disposition home or self-care (01) ==
LOC: ED 02:36 → PCU 04:12
PROVIDERS: Admitting Provider Hospitalist; Emergency Provider Emergency Medicine; PCP Family Medicine; Visit Provider Family Medicine
DX: R42 Dizziness and giddiness (principal); R47.01 Aphasia; I48.20 Chronic atrial fibrillation, unspecified; I48.92 Unspecified atrial flutter; I12.9 Hypertensive chronic kidney disease with stage 1 through stage 4 chronic kidney disease, or unspecified chronic kidney disease; K21.9 Gastro-esophageal reflux disease without esophagitis; E11.22 Type 2 diabetes mellitus with diabetic chronic kidney disease; E11.42 Type 2 diabetes mellitus with diabetic polyneuropathy; N17.9 Acute kidney failure, unspecified; R93.0 Abnormal findings on diagnostic imaging of skull and head, not elsewhere classified; G62.9 Polyneuropathy, unspecified; N18.2 Chronic kidney disease, stage 2 (mild); N40.0 Benign prostatic hyperplasia without lower urinary tract symptoms; F32.9 Major depressive disorder, single episode, unspecified; F41.9 Anxiety disorder, unspecified; G47.33 Obstructive sleep apnea (adult) (pediatric); E66.01 Morbid (severe) obesity due to excess calories; Z79.01 Long term (current) use of anticoagulants; Z79.899 Other long term (current) drug therapy; Z86.16 Personal history of COVID-19; Z79.84 Long term (current) use of oral hypoglycemic drugs
CPT/HCPCS: 36415; 70450; 70544; 70547; 70551; 71045; 80048; 80061; 82962; 84484; 85025; 85610; 85730; 92523; 92610; 93005; 93306; 94762; 96361; 96374; 97161; 97166; 97802; 99218; 99285; J7030; Q9957; A4216; C8929; G0378; J3490

== ENCOUNTER → 2021-03-20 14:40 | Outpatient (CLI) | payer MEDICARE, BC, SELFPAY | PROVIDERS: PCP Family Medicine; Referring Provider Urology; Visit Provider Urology | DX: R97.20 Elevated prostate specific antigen [PSA] (principal) | CPT/HCPCS: 36415; 84153; G0103 ==

== ENCOUNTER → 2021-10-13 | Outpatient (CLI) | payer MEDICARE, BC, SELFPAY ==
[2021-10-13 18:30] LABS: AST(SGOT) 15 U/L (15-37); Alanine Aminotransfer ALT/SGPT 20 U/L (16-61); Albumin, Serum 3.5 g/dL (3.2-5.0); Alkaline Phosphatase 93 U/L (45-117); Anion Gap 6 (5-15); BUN 15 mg/dL (7-18); BUN/Creat Ratio 12.3 RATIO (10-20); Bilirubin, Direct 0.17 mg/dL (0.00-0.30); Calcium,Total 8.6 mg/dL (8.5-10.1); Chloride 102 mmol/L (98-107); Cholesterol 98 mg/dL (200); Creatinine, Serum 1.22 mg/dL (0.70-1.30); EST Glomerular Filtration Rate 62 mL/min (>60); Est Glom Filt Rate - Afr Amer 75 mL/min (>60); Glucose 168 mg/dL (74-106); High Density Lipoprotein 32 mg/dL; Potassium 4.1 mmol/L (3.5-5.1); Protein, Total 6.5 g/dL (6.4-8.2); Sodium Level 133 mmol/L (136-145); Triglycerides 180 mg/dL; Very Low Density Lipoprotein 36 mg/dL (5-40)
== END | disposition home or self-care (01) ==
LOC: MFPLAB 15:52
PROVIDERS: PCP Family Medicine; Visit Provider Family Medicine
DX: E11.9 Type 2 diabetes mellitus without complications (principal)
CPT/HCPCS: 36415; 80048; 80061; 80076

== ENCOUNTER → 2022-03-25 | Outpatient (CLI) | payer MEDICARE, BC, SELFPAY ==
[2022-03-25 13:40] LABS: PSA,Total- Diagnostic 7.62 ng/mL (0.0-4.0)
== END | disposition home or self-care (01) ==
PROVIDERS: PCP Family Medicine; Referring Provider Urology; Visit Provider Urology
DX: N40.1 Benign prostatic hyperplasia with lower urinary tract symptoms (principal)
CPT/HCPCS: 36415; 84153

== ENCOUNTER → 2022-06-22 | Outpatient (CLI) | payer MEDICARE, BC, SELFPAY ==
[2022-06-22 18:37] LABS: PSA,Total - Annual Screen 7.44 ng/mL (0.00-4.00)
== END | disposition home or self-care (01) ==
LOC: MFPLAB 15:01
PROVIDERS: PCP Family Medicine; Visit Provider Family Medicine
DX: Z00.00 Encounter for general adult medical examination without abnormal findings (principal); E11.59 Type 2 diabetes mellitus with other circulatory complications; Z12.5 Encounter for screening for malignant neoplasm of prostate
CPT/HCPCS: 36415; 84153; G0103

== ENCOUNTER → 2022-07-01 | Outpatient (CLI) | payer MEDICARE, BC, SELFPAY ==
--- NOTE | 2022-07-01 13:23 | MRI_ITS ---
STUDY: MRI LUMBAR SPINE WITH AND WITHOUT CONTRAST REASON FOR EXAM: Male, 72 years old patient with right-sided back pain status post lumbar fusion. TECHNIQUE: Standardized fat and water weighted pulse sequences were obtained in the sagittal and axial planes. 26 ml of IV Clariscan was administered for the contrast portion of the examination. COMPARISON: MRI lumbar spine dated May 06, 2020. FINDINGS: T12-L1: There are small Schmorl''s nodes at the endplates. There is mild disc bulge. There is degenerative arthropathy of bilateral facet joints. Normal central canal and bilateral lateral recesses. Normal bilateral intervertebral neural foramina. There is an exaggerated lumbar lordosis. There is no substantial scoliosis. Normal conus medullaris that terminates at the L1 level. L1-2: There is mild annular disk bulge and osteophyte complex. There is narrowing of the disc. There is irregular contour of the endplates possibly representing small erosions. There is mild degenerative arthropathy of the facet joints. Bilateral neuroforamina are narrowed without MR evidence for nerve impingement. There is mild acquired central canal stenosis. L2-3: There is moderate annular disk bulge and osteophyte complex. There is narrowing of the disc. There is irregular contour of the endplates possibly representing small erosions. There is mild degenerative arthropathy of the facet joints. Bilateral neuroforamina are narrowed without MR evidence for nerve impingement. There is mild acquired central canal stenosis. L3-4: There is mild annular disk bulge and osteophyte complex. There is mild degenerative arthropathy of the facet joints. Bilateral neuroforamina are moderately narrowed without MR evidence for nerve impingement. There is no appreciable acquired central canal stenosis. Patient appears to have had laminectomies of L4. L4-5: There is mild annular disk bulge and osteophyte complex. There is mild degenerative arthropathy of the facet joints. Bilateral neuroforamina are narrowed with MR evidence for potential right-sided L4 nerve impingement. There is no appreciable acquired central canal stenosis. Patient appears to have had laminectomies of L4 and L5. Patient has had surgical fusion of the L4 and L5 vertebral segments with interpedicular screws and rods. L5-S1: There is mild annular disk bulge and osteophyte complex. There is mild degenerative arthropathy of the facet joints. Bilateral neuroforamina are narrowed without MR evidence for nerve impingement. There is no appreciable acquired central canal stenosis. Normal visualized sacral ala. There is prominent edema involving the superficial soft tissues of the lumbar spine posterior to L3, L4 and L5. This is new since the previous study. Has the patient had recent intervention or trauma? There is no demonstrated abnormal enhancement. There is some susceptibility artifact surrounding the interpedicular screws on the enhanced images. MRI/Spine Lumbar W/WO Contrast IMPRESSION: 1. Status post surgical fusion of the L4 and L5 vertebral segments appears similar to previous study. 2. Abnormal signal in the marrow may be secondary to reactivated hematopoietic marrow. Hematologic malignancy is not excluded. 3. Moderately severe multilevel degenerative changes of the lumbar spine with neural foraminal narrowing, central canal stenosis and potential nerve impingement, as described. This appears similar to previous study. 4. Superficial soft tissue edema posterior to L3, L4 and L5 suggests the possibility of recent trauma or interventional procedure. There maybe some gas associated with this process suggesting infection or recent procedure as well. Electronically Signed: Marilyn Moreno MD at 5:02 EST ,
[2022-07-01 13:51] LABS: CREATININE FINGERSTICK 1.3 mg/dL (0.70-1.30)
== END | disposition home or self-care (01) ==
LOC: MRI 13:08
PROVIDERS: PCP Family Medicine; Referring Provider Orthopaedic Surgery; Visit Provider Orthopaedic Surgery
DX: Z98.1 Arthrodesis status (principal)
CPT/HCPCS: 72158; A9575

== ENCOUNTER → 2022-09-30 | Outpatient (CLI) | payer MEDICARE, BC, SELFPAY | END | disposition home or self-care (01) | PROVIDERS: PCP Family Medicine; Referring Provider Urology; Visit Provider Urology | DX: R97.20 Elevated prostate specific antigen [PSA] (principal) | CPT/HCPCS: 36415; 84153 ==

== ENCOUNTER → 2022-11-11 | Outpatient (CLI) | payer MEDICARE, BC, SELFPAY | END | disposition home or self-care (01) | LOC: SL 20:08 | PROVIDERS: PCP Family Medicine; Referring Provider Internal Medicine Critical Care Medicine; Visit Provider Internal Medicine Critical Care Medicine | DX: G47.33 Obstructive sleep apnea (adult) (pediatric) (principal) | CPT/HCPCS: 95811 ==

== ENCOUNTER → 2022-12-30 | Outpatient (CLI) | payer MEDICARE, BC, SELFPAY ==
--- NOTE | 2022-12-30 13:09 | CT_ITS ---
STUDY: CT CHEST WITH CONTRAST REASON FOR EXAM: Male, 72 years old. Follow up adenopathy RADIATION DOSAGE (If Supplied By Facility): CTDIvol = ( 21.98 ) mGy, DLP = ( 889.77 ) mGycm TECHNIQUE: Transaxial imaging was performed following intravenous administration of IV 100mL Isovue-370. Multiplanar coronal and sagittal images were reformatted. Individualized dose optimization techniques were used for this CT. COMPARISON: Comparison is made with prior examination dated January 16, 2020. FINDINGS: CHEST Since prior study, there has been a marked degree of improvement of the groundglass appearance involving both lungs. Mild residual interstitial markings with areas of confluence is seen in the posterior aspect of the right upper lobe. Findings may suggest sarcoidosis. There is no demonstrated pleural abnormality. There are calcifications of the coronary arteries. Stable enlargement of the mediastinal adenopathy. Largest node is once again seen in the precarinal space and measures 2.5 size by 1.3 cm. There is also evidence of subcarinal enlarged lymph nodes with the punctate calcifications. Calcified lymph nodes in the aortopulmonary window. Normal hilar regions. Normal unenhanced pulmonary arteries. Normal aorta arch and descending thoracic aorta. There are multi-level degenerative changes of the thoracic spine. There is no demonstrated abnormality of the visualized upper abdomen. CT/Chest WITH Contrast IMPRESSION: Residual mediastinal lymphadenopathy. Interval improvement in the bilateral pulmonary infiltrates with residual changes in the posterior aspect of the right upper lobe. Electronically Signed: Anthony Sorenson MD at 14:42 EDT ,
[2022-12-30 13:40] LABS: CREATININE FINGERSTICK 1.2 mg/dL (0.70-1.30); EGFR FINGERSTICK > 60.0000 mL/min (>60)
== END | disposition home or self-care (01) ==
LOC: CT 13:07
PROVIDERS: PCP Family Medicine; Referring Provider Family Medicine; Visit Provider Family Medicine
DX: R59.0 Localized enlarged lymph nodes (principal)
CPT/HCPCS: 71260; Q9967

== ENCOUNTER → 2023-01-12 | Outpatient (CLI) | payer MEDICARE, BC, SELFPAY ==
[2023-01-12 12:09] LABS: Absolute Lymphocyte Count 0.97 X10^3/uL (0.83-4.51); Basophil# 0.02 X10^3/uL; Basophil% 0.4 % (0-1); Eosinophil# 0.05 X10^3/uL; Eosinophils% 1.1 % (0-5); Hematocrit 31.4 % (40-54); Hemoglobin 9.9 g/dL (13.0-16.5); Lymphocyte # 0.97 X10^3/ul (0.83-4.51); Lymphocyte % 20.5 % (19-41); Mean Corp Hgb Conc 31.5 g/dL (32-36); Mean Corpuscular Hgb 25.9 pg (27.0-32.0); Mean Corpuscular Volume 82.2 fL (80-94); Mean Platelet Vol. 9.8 fl (6.2-12.0); Monocyte# 0.64 X10^3/uL; Monocyte% 13.5 % (0-10); NRBC Flagged by Analyzer 0 % (0-5); Neutrophil % 63.4 % (47-70); Platelet Count 185 K/mm3 (150-450); RBC Distribution Width CV 18.3 % (11.6-14.6); RBC Distribution Width SD 54.9 fl (35.1-43.9); Red Blood Count 3.82 M/mm3 (4.6-6.2); White Blood Count 4.7 K/mm3 (4.4-11.0)
[2023-01-12 12:22] LABS: International Normalized Ratio 1.4
[2023-01-12 12:32] LABS: Anion Gap 7 (5-15); BUN 16 mg/dL (7-18); BUN/Creat Ratio 13.9 RATIO (10-20); Calcium,Total 8.8 mg/dL (8.5-10.1); Chloride 104 mmol/L (98-107); Cholesterol 93 mg/dL (200); Creatinine, Serum 1.15 mg/dL (0.70-1.30); EST Glomerular Filtration Rate 66 mL/min (>60); Est Glom Filt Rate - Afr Amer 80 mL/min (>60); Glucose 163 mg/dL (74-106); High Density Lipoprotein 37 mg/dL; Potassium 4.1 mmol/L (3.5-5.1); Sodium Level 134 mmol/L (136-145); Triglycerides 71 mg/dL; Very Low Density Lipoprotein 14 mg/dL (5-40)
[2023-02-26 10:17] LABS: Absolute Lymphocyte Count 0.97 X10^3/uL (0.83-4.51); Absolute Neutrophil Count 2.6 X10^3/uL (2.0-7.7); Basophil# 0.02 X10^3/uL; Basophil% 0.5 % (0-1); Eosinophil# 0.04 X10^3/uL; Eosinophils% 0.9 % (0-5); Hematocrit 33.2 % (40-54); Hemoglobin 10.2 g/dL (13.0-16.5); Lymphocyte # 0.97 X10^3/ul (0.83-4.51); Lymphocyte % 22.7 % (19-41); Mean Corp Hgb Conc 30.7 g/dL (32-36); Mean Corpuscular Hgb 25.8 pg (27.0-32.0); Mean Corpuscular Volume 84.1 fL (80-94); Mean Platelet Vol. 9.6 fl (6.2-12.0); Monocyte# 0.62 X10^3/uL; Monocyte% 14.5 % (0-10); NRBC Flagged by Analyzer 0 % (0-5); Neutrophil % 60.7 % (47-70); Platelet Count 201 K/mm3 (150-450); RBC Distribution Width CV 17.5 % (11.6-14.6); RBC Distribution Width SD 53.8 fl (35.1-43.9); Red Blood Count 3.95 M/mm3 (4.6-6.2); White Blood Count 4.3 K/mm3 (4.4-11.0)
[2023-02-26 10:27] LABS: International Normalized Ratio 1.4; Prothrombin Time (Protime)PT. 17.4 SECONDS (11.7-14.9)
[2023-02-26 10:55] LABS: Anion Gap 7 (5-15); BUN 16 mg/dL (7-18); Calcium,Total 8.7 mg/dL (8.5-10.1); Chloride 106 mmol/L (98-107); Creatinine, Serum 1.33 mg/dL (0.70-1.30); EST Glomerular Filtration Rate 56 mL/min (>60); Est Glom Filt Rate - Afr Amer 68 mL/min (>60); Glucose 199 mg/dL (74-106); Potassium 3.9 mmol/L (3.5-5.1); Sodium Level 136 mmol/L (136-145)
--- NOTE | 2023-02-26 16:06 | HP.PCM_ITS ---
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 He initially presented to the hospital in December 2019 with COVID at that time he was noted to be in atrial fibrillation. I do not have a copy of that report. He also has a history of hypertension. He did have an EKG performed in July of this year and he was noted to be in atrial flutter with a controlled ventricular response rate. He has been on anticoagulation. He tells me that he thinks he is in regular rhythm. He denies any shortness of breath paroxysmal nocturnal dyspnea pedal edema no neck arm or jaw discomfort suggest angina. He did undergo an echocardiographic evaluation in November 2020 demonstrating an ejection fraction of 55%. His EKG here done today demonstrates atrial flutter with a rate of 67 bpm and inferiorly directed flutter waves in leads II, III and aVF. Intake Vital Signs See EMR Allergies See EMR Medications See EMR PFS Medical History Acute respiratory failure with hypoxia Atrial fibrillation Atrial flutter Bilateral pneumonia CKD (chronic kidney disease), stage III Cough COVID-19 Essential hypertension GERD (gastroesophageal reflux disease) Hypoxia Intractable back pain Morbid obesity JOE (obstructive sleep apnea) Peripheral neuropathy Postoperative pain after spinal surgery Prediabetes Risk for falls Severe sepsis Vocal cord mass Surgical History History of back surgery History of foot surgery S/P excision of vocal cord nodule Family History Mother Myocardial infarction Heart disease Cancer parathyroid cancerBrother CAD (coronary artery disease), Onset Age: 65 CABG Social History household members: spouse current occupational status: retired Smoking Status: Never smoker alcohol intake: never substance use type: does not use caffeine: No ROS Const Const: Negative for fatigue, weakness, headache(s), frequent falls, difficulty sleeping or excessive sweating Eyes Eyes: Negative for loss of peripheral vision, transient loss of vision, blurry vision, double vision or tunnel vision ENT ENT: Negative for headache(s), dizziness, Nosebleed/epistaxis or balance problems Cardio Chest Pain: No Palpitations: No Edema: Bilateral Muscle aches with walking: None Resp Respiratory: Negative for SOB with activity, SOB at rest, SOB orthopnea\SOB lying down, Cough or paroxysmal nocturnal dyspnea GI GI: Negative nausea, vomiting or heartburn : Negative for hematuria Musc Musc: Negative for muscle aches/ myalgia, muscle weakness, joint pain or balance problems Skin Skin: Negative non-healing lesions, rash or unusual bruising Neuro Neuro: Negative for dizziness, lightheadedness, near syncope, syncope, orthostatic symptoms, frequent falls, headache(s), weakness, confusion, memory loss, blurry vision, double vision, vertigo or lack of coordination Ananda Hematologic/Lymphatic: Negative for easy bleeding or easy bruising Endo Endo: Negative for fatigue, excessive sweating, flushing or increased thirst/d rinking Psych Psych: Negative for anxiety or depression Allergy Allergy/Immunology: Negative for hives and Negative for rash Cardiology Exam Const Appearance: cooperative, healthy appearing, comfortable, no acute distress and well developed Nutritional Appearance: obese Orientation: alert, awake and oriented x3 Head Head: normal to inspection Ears: hearing grossly normal bilaterally Nose: external nose normal Face and Sinus: face symmetric Mouth: oral mucosae normal, lip normal and moist mucous membranes Eyes General: appearance normal, both eyes and all related structures Eyelids: eyelids normal Conjunctivae: conjunctivae normal Pupils: PERRL EOM: EOM intact bilaterally Neck Neck: normal visual inspection and trachea midline; Negative no JVD Carotids: Negative bruit Chest Chest inspection: normal inspection of the chest Auscultation: Bilateral: Clear to Auscultation Cardio Palpation: normal PMI Rate: regular rate Rhythm: regular rhythm Heart sounds: S1 normal and S2 normal; Negative rub, gallop or murmur GI GI: soft, no hepatosplenomegaly, bowel sounds present and obese Neuro General: patient alert, patient awake, patient oriented x3 and CN's II-XI intact bilaterally Extremities Pulses: Normal: Right Posterior Tibial Pulse, Left Posterior Tibial Pulse, Right Radial Pulse and Left Radial Pulse Lower Extremity Edema: None: Bilateral Psych Psychological: normal affect Supplemental Info Supplemental Information Echocardiogram 12/11/2020: Normal LV size. Left ventricular systolic function is normal. The estimated ejection fraction is 55 %. Bubble contrast study negative for right to left interatrial shunt. Contrast injection was performed. Assessment and Plan Assessment and Plan (1) Atrial flutter: Status: Chronic Qualifiers: Atrial flutter type: typical Qualified Code(s): I48.3 - Typical atrial flutter Plan: He does appear to have typical atrial flutter. He is anticoagulated and he does have preserved ejection fraction. I think that he will be a good candidate for an atrial flutter ablation here in [place]. I have discussed the above with him he understands and agrees to proceed. He will continue anticoagulation through the ablation.
--- NOTE | 2023-03-16 12:42 | HP.PCM_ITS ---
History and Physical Date of Admission: 04/08/23 Jassi Sands is a 73-year-old gentleman that presents here today for an ablation procedure. He initially presented to the hospital in December 2019 with COVID at that time he was noted to be in atrial fibrillation. He also has a history of hypertension. He did have an EKG performed in July of this year and he was noted to be in atrial flutter with a controlled ventricular response rate. He has been on anticoagulation. He denies any shortness of breath paroxysmal nocturnal dyspnea pedal edema no neck arm or jaw discomfort suggest angina. He did undergo an echocardiographic evaluation in November 2020 demonstrating an ejection fraction of 55%. His EKG on 12/10/2022 demonstrates atrial flutter with a rate of 67 bpm and inferiorly directed flutter waves in leads II, III and aVF. 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: No Accompanied by: None Is patient in pain?: No Allergies No Known Allergies Allergy (Verified 12/10/22 13:19) Medications See EMR [facility] Medical History Acute respiratory failure with hypoxia Atrial fibrillation Atrial flutter Bilateral pneumonia CKD (chronic kidney disease), stage III Cough COVID-19 Essential hypertension GERD (gastroesophageal reflux disease) Hypoxia Intractable back pain Morbid obesity JOE (obstructive sleep apnea) Peripheral neuropathy Postoperative pain after spinal surgery Prediabetes Risk for falls Severe sepsis Vocal cord mass Surgical History History of back surgery History of foot surgery S/P excision of vocal cord nodule Family History Mother Myocardial infarction Heart disease Cancer parathyroid cancerBrother CAD (coronary artery disease), Onset Age: 65 CABG Social History household members: spouse current occupational status: retired Smoking Status: Never smoker alcohol intake: never substance use type: does not use caffeine: No ROS Const Const: Negative for fatigue, weakness, headache(s), frequent falls, difficulty sleeping or excessive sweating Eyes Eyes: Negative for loss of peripheral vision, transient loss of vision, blurry vision, double vision or tunnel vision ENT ENT: Negative for headache(s), dizziness, Nosebleed/epistaxis or balance problems Cardio Chest Pain: No Palpitations: No Edema: Bilateral Muscle aches with walking: None Resp Respiratory: Negative for SOB with activity, SOB at rest, SOB orthopnea\SOB lying down, Cough or paroxysmal nocturnal dyspnea GI GI: Negative nausea, vomiting or heartburn : Negative for hematuria Musc Musc: Negative for muscle aches/ myalgia, muscle weakness, joint pain or balance problems Skin Skin: Negative non-healing lesions, rash or unusual bruising Neuro Neuro: Negative for dizziness, lightheadedness, near syncope, syncope, orthostatic symptoms, frequent falls, headache(s), weakness, confusion, memory loss, blurry vision, double vision, vertigo or lack of coordination Ananda Hematologic/Lymphatic: Negative for easy bleeding or easy bruising Endo Endo: Negative for fatigue, excessive sweating, flushing or increased thirst/drinking Psych Psych: Negative for anxiety or depression Allergy Allergy/Immunology: Negative for hives and Negative for rash Cardiology Exam Const Appearance: cooperative, healthy appearing, comfortable, no acute distress and well developed Nutritional Appearance: obese Orientation: alert, awake and oriented x3 Head Head: normal to inspection Ears: hearing grossly normal bilaterally Nose: external nose normal Face and Sinus: face symmetric Mouth: oral mucosae normal, lip normal and moist mucous membranes Eyes General: appearance normal, both eyes and all related structures Eyelids: eyelids normal Conjunctivae: conjunctivae normal Pupils: PERRL EOM: EOM intact bilaterally Neck Neck: normal visual inspection and trachea midline; Negative no JVD Carotids: Negative bruit Chest Chest inspection: normal inspection of the chest Auscultation: Bilateral: Clear to Auscultation Cardio Palpation: normal PMI Rate: regular rate Rhythm: regular rhythm Heart sounds: S1 normal and S2 normal; Negative rub, gallop or murmur GI GI: soft, no hepatosplenomegaly, bowel sounds present and obese Neuro General: patient alert, patient awake, patient oriented x3 and CN's II-XI intact bilaterally Extremities Pulses: Normal: Right Posterior Tibial Pulse, Left Posterior Tibial Pulse, Right Radial Pulse and Left Radial Pulse Lower Extremity Edema: None: Bilateral Psych Psychological: normal affect Supplemental Info Supplemental Information Echocardiogram 12/11/2020: Normal LV size. Left ventricular systolic function is normal. The estimated ejection fraction is 55 %. Bubble contrast study negative for right to left interatrial shunt. Contrast injection was performed. Assessment and Plan Assessment and Plan (1) Atrial flutter: Status: Chronic Qualifiers: Atrial flutter type: typical Qualified Code(s): I48.3 - Typical atrial flutter Plan: He does appear to have typical atrial flutter. He is anticoagulated and he does have preserved ejection fraction. I think that he will be a good candidate for an atrial flutter ablation here in [place]. I have discussed the above with him he understands and agrees to proceed. He will continue anticoagulation through the ablation. (2) Essential hypertension: Status: Chronic Plan: His blood pressure appears to be under good control I would not recommend that we make any changes. He should continue the same medications.
== END | disposition home or self-care (01) ==
LOC: PAT 05-06 09:05
PROVIDERS: Internal Medicine Cardiovascular Disease; PCP Family Medicine; Referring Provider Internal Medicine Cardiovascular Disease; Visit Provider Internal Medicine Cardiovascular Disease
DX: I48.3 Typical atrial flutter (principal); N18.30 Chronic kidney disease, stage 3 unspecified; E66.9 Obesity, unspecified; Z86.16 Personal history of COVID-19; I12.9 Hypertensive chronic kidney disease with stage 1 through stage 4 chronic kidney disease, or unspecified chronic kidney disease; K21.9 Gastro-esophageal reflux disease without esophagitis; Z79.01 Long term (current) use of anticoagulants
CPT/HCPCS: 36415; 80048; 80061; 85025; 85610

== ENCOUNTER 2023-10-06 13:20 | Observation (INO) | payer MEDICARE, BC, SELFPAY ==
[2023-09-22 12:57] LABS: Hematocrit 30.2 % (40-54); Hemoglobin 9.7 g/dL (13.0-16.5); Mean Corp Hgb Conc 32.1 g/dL (32-36); Mean Corpuscular Hgb 27.2 pg (27.0-32.0); Mean Corpuscular Volume 84.6 fL (80-94); Mean Platelet Vol. 9.6 fl (6.2-12.0); Platelet Count 191 K/mm3 (150-450); RBC Distribution Width CV 15.6 % (11.6-14.6); RBC Distribution Width SD 47.4 fl (35.1-43.9); Red Blood Count 3.57 M/mm3 (4.6-6.2); White Blood Count 3.4 K/mm3 (4.4-11.0)
[2023-09-22 13:33] LABS: Hemoglobin A1c 8.4 % (3.8-5.6)
[2023-09-22 13:34] LABS: Anion Gap 7 (5-15); BUN 16 mg/dL (7-18); BUN/Creat Ratio 13.4 RATIO (10-20); Calcium,Total 8.8 mg/dL (8.5-10.1); Chloride 103 mmol/L (98-107); Creatinine, Serum 1.19 mg/dL (0.70-1.30); EST Glomerular Filtration Rate 63 mL/min (>60); Est Glom Filt Rate - Afr Amer 77 mL/min (>60); Glucose 186 mg/dL (74-106); Potassium 4.1 mmol/L (3.5-5.1); Sodium Level 133 mmol/L (136-145)
[2023-10-06] VITALS (11 sets, daily range): BP systolic 123–150; BP diastolic 55–87; PULSE 70–105; RESP 16–18; TEMP 36.3–37.1; O2SAT 96–100; BMI 35.7
[2023-10-06] MEDS: Lactated Ringers 1,000 ML 15 ML IV ×2 (10:28→13:35)
[2023-10-06 10:37] LABS: Bedside Glucose 204 mg/dL (74-106)
[2023-10-06] MEDS: Cefazolin 3 GM in 0.9% Normal Saline (100mL Bag) 100 ML IV (11:40)
--- NOTE | 2023-10-06 11:40 | PROS_PTH ---
PATIENT: GLENNA PINTO LOC: MS3 U#:[id number] AGE/SX: 73/M ROOM: [facility] RE10/06/[address]: Dr. Terrell Elizondo MD : 1950 BED: 1 DIS: 10/07/2023 SPEC #: [id number] RECD: 10/06/23 13:48 STATUS: SUSHMA HANSEN #: [id number] MARICEL: 10/06/23 11:[address]: Terrell Elizondo DEPT: SURGICAL PATHOLOGY RECD BY: Vitor Delvalle ENTERED: 10/07/23 08:34 SP TYPE: TURP OTHR DR: Dr. Sharmaine Palma MD Tissues: Prostate, NOS Procedures: Surgery Specimen Level IV HEADER OPERATION: Transurethral resection of prostate with Olympus PRE-OP DIAGNOSIS: BPH with obstruction TISSUE SUBMITTED: Prostate tissue MICROSCOPIC DIAGNOSIS Prostate, transurethral resection: Benign nodular hyperplasia, glandular and stromal types. Mild chronic inflammation. AM/mr 10/08/2023 MICROSCOPIC DESCRIPTION Slides are reviewed. GROSS DESCRIPTION Received is one container labeled with the patient's name and designated prostate tissue. The specimen consists of multiple irregular fragments of pink-arshad, rubbery, soft tissue that in aggregate weigh 7.3. gm and measure in aggregate 5.0 x 4.0 x 1.5 cm. The entire specimen is submitted in nine cassettes. ARIEL/ 10/07/23 TC:5 CPT: 19726
--- NOTE | 2023-10-06 11:58 | HP.PCM_ITS ---
HPI - General General Date of Service: 10/06/23 Chief Complaint: bph with obstruction HPI Narrative GLENNA PINTO, is a 73 M who presents for a TUrP has h/o bph with obstruction, failed medical therapy. [facility] Medical History (Updated 09/21/23 @ 09:14 by Kylee Bowen) Wears glasses Wears partial dentures Diabetes History of renal disease Prostate disease High cholesterol CPAP (continuous positive airway pressure) dependence Sleep apnea Non-smoker History of echocardiogram Cardiology follow-up encounter Hypertension Hx of cardiac pacemaker Postoperative pain after spinal surgery Intractable back pain Risk for falls Essential hypertension Atrial flutter CKD (chronic kidney disease), stage III Morbid obesity Prediabetes Peripheral neuropathy GERD (gastroesophageal reflux disease) JOE (obstructive sleep apnea) Atrial fibrillation Bilateral pneumonia Acute respiratory failure with hypoxia Severe sepsis Cough Hypoxia COVID-19 Vocal cord mass Home Medications ?Medication ?Instructions ?Recorded ?Last Taken ?Type amlodipine 10 mg tablet 10 mg PO DAILY BP 06/21/16 10/06/23 07:00 History omeprazole 40 mg capsule,delayed 40 mg PO DAILY GERD 10/13/19 10/05/23 07:00 History release metformin 500 mg tablet,extended 500 mg PO QHS DM 01/16/20 10/05/23 07:00 History release 24 hr acetaminophen 325 mg tablet 650 mg (2 x 325 mg) PO Q6H PRN PRN 01/21/20 10/05/23 23:00 Rx Pain Score 1-10/Temp > 100.7 F tamsulosin 0.4 mg capsule 0.8 mg PO QHS 02/21/20 10/05/23 19:00 History oxycodone 5 mg tablet 5 mg PO BID PRN Pain 12/11/20 10/01/23 History atorvastatin 40 mg tablet 40 mg PO DAILY 05/27/21 10/05/23 07:00 History albuterol sulfate 90 mcg/actuation 2 puff inhalation 4X/DAY PRN Sob 06/08/22 10/06/23 07:00 Rx aerosol inhaler &/Or Wheezing #8.5 grams gabapentin 300 mg capsule 300 mg PO BID 02/08/23 10/05/23 19:00 History dofetilide 250 mcg capsule 250 mcg PO Q12H 07/08/23 10/05/23 09:00 History (Tikosyn) apixaban 5 mg tablet (Eliquis) See Rx Instructions .Route 07/12/23 10/02/23 Rx .COMPLEX #180 tabs losartan 50 mg tablet See Rx Instructions .Route 07/26/23 10/05/23 07:00 Rx .COMPLEX #90 tabs Allergy/AdvReac Type Severity Reaction Status Date / Time furosemide (From Lasix) AdvReac Other Verified 10/06/23 10:08 Family History Mother Myocardial infarction Heart disease Cancer parathyroid cancer Brother CAD (coronary artery disease), Onset Age: 65 CABG Surgical History History of tonsillectomy History of esophagogastroduodenoscopy (EGD) History of colonoscopy History of back surgery S/P excision of vocal cord nodule History of foot surgery Social History household members: spouse current occupational status: retired Smoking Status: Never smoker alcohol intake: never substance use type: does not use caffeine: No Vital Signs Vital Signs Vital Signs: 10/06/23 10:11 10/06/23 10:13 Temperature 98.5 F Temperature Source Temporal Pulse Rate 105 H Respiratory Rate 18 Respiratory Pattern Normal Blood Pressure 146/55 H Blood Pressure Mean 85 Blood Pressure Source Monitor Blood Pressure Position Semi-Fowlers Blood Pressure Location Right Arm Pulse Ox 98 Oxygen Delivery Method Room Air Weight Weight: 122.924 kg Body Mass Index (BMI) 35.7 Results Lab / Micro Data 09/22/23 11:38 09/22/23 11:38 Labs: Laboratory Results - last 24 hr 10/06/23 10:04: POC Glucose 204 H
--- NOTE | 2023-10-06 13:22 | PCM.DC ---
Discharge Instructions Diet Discharge Diet: No restrictions Activity Discharge Activity: Return to Normal Activity and May Not Drive (while taking narcotic pain medications.) Dressing / Incision Call your doctor if you observe: Fever of 101 or Higher Follow Up Care Please Follow Up With: Terrell Elizondo MD When: Call [phone] for an appointment Test Results: Test results from this visit will be discussed in further detail at your follow-up appointment, if applicable. Discharge Plan Admission Primary Reason for Your Visit: TURP Attending Provider: Terrell Elizondo Primary Care Provider: Sharmaine Palma Instructions Print Language: Micronesian Discharge Orders/Prescriptions Prescriptions: New cephalexin 500 mg capsule 500 mg PO TID Qty: 15 0RF Continued tamsulosin 0.4 mg capsule 0.8 mg PO QHS atorvastatin 40 mg tablet 40 mg PO DAILY albuterol sulfate 90 mcg/actuation HFA aerosol inhaler 2 puff INHALATION 4X/DAY PRN (Reason: Sob &/Or Wheezing) Qty: 8.5 11RF gabapentin 300 mg capsule 300 mg PO BID dofetilide [Tikosyn] 250 mcg capsule 250 mcg PO Q12H Patient Comments: pt takes at 9a and 9p amlodipine 10 MG tablet 10 mg PO DAILY omeprazole 40 MG capsule,delayed release(DR/EC) 40 mg PO DAILY metformin 500 MG tablet extended release 24 hr 500 mg PO QHS acetaminophen 325 MG tablet 650 mg PO Q6H PRN PRN (Reason: Pain Score 1-10/Temp > 100.7 F) 0RF oxycodone 5 mg Tablet 5 mg PO BID MDD PAIN PRN (Reason: Pain) losartan 50 mg tablet See Rx Instructions .ROUTE .COMPLEX Qty: 90 3RF Dose Instruction: TAKE 1 TABLET BY MOUTH EVERY DAY Rx Instructions: TAKE 1 TABLET BY MOUTH EVERY DAY Held Eliquis 5 mg tablet See Rx Instructions .ROUTE .COMPLEX Qty: 180 3RF Hold Instructions: Resume on 10/20/23. Dose Instruction: TAKE 1 TABLET BY MOUTH TWICE A DAY Rx Instructions: TAKE 1 TABLET BY MOUTH TWICE A DAY Referrals / Follow Up: Sharmaine Palma MD [Primary Care Provider] - Terrell Elizondo MD [Med Staff - Active Staff] - Disposition Disposition (needs filled in before D/C Order can be placed): Home, Self Care
--- NOTE | 2023-10-06 13:22 | PCM.OPRPT ---
Report of Operation Date of Procedure: 10/06/23 Pre-Operative Diagnosis: bph with obstruction Post-Operative Diagnosis: same Surgery/Procedure Performed:: turp Description of Surgical Findings:: In the preoperative setting I discussed with the patient how the surgery would be done with expect afterwards. We discussed how a prostate resection is done and we discussed the risk of the surgery including, bleeding, infection, retrograde ejaculation, changes with ejaculation or intercourse,. We discussed the possibility that the resection of the prostate may not alleviate his urinary symptoms. We discussed the small risk of developing scar tissue along the urethral channel and strictures. We also discussed the chance of the prostate could grow back and he may need further surgery or treatment in the future for prostate problems. Patient was taken back to the operating room, timeout procedure was performed, he was identified and marked and placed on the operating room table. He underwent general anesthesia. He was placed in dorsolithotomy position. Penis and testicles were prepped and draped in usual sterile fashion. Went into the bladder using the visual obturator with a resectoscope. Once inside the bladder identified the right and left ureteral orifice. I then identified the prostate and the anatomy of the prostate. I marked out the area of the sphincter and the verumontanum was identified. I then proceeded with the prostate resection first resected the median lobe. And then resected the right lobe of the prostate. Then to resect the left lobe of the prostate. I then resected the apical tissue of the prostate. This was a complete resection of all obstructive tissue to improve voiding and relieve obstruction. I then made sure that there was no injury to the sphincter or the verumontanum was still intact. At the end of the resection all the chips were Ellik out of the bladder. I then identified the left and right ureteral orifice and these were confirmed to be in good position and effluxing and not injured. The resectoscope was removed, a 22 Maori catheter was placed into the bladder on continuous irrigation. And the urine was fairly light pink color and draining normally. He was taken back to the PACU in good condition. Surgeon: Terrell Elizondo Type of Anesthesia: General Drains: none Admit VTE Documentation VTE Present on Admission: No VTE Mechan Device Prophylaxis: SCD's and None VTE Pharm Prophylaxis ordered?: No
[2023-10-06 13:49] LABS: Bedside Glucose 175 mg/dL (74-106)
[2023-10-06] MEDS: 0.9% Normal Saline (1000mL) 1,000 ML 125 ML IV ×2 (14:46→23:09)
[2023-10-06] MEDS: Acetaminophen 325 MG Tablet 650 MG PO ×2 (15:01→21:17)
[2023-10-06] MEDS: oxyCODONE 5 MG Tablet PO (15:02)
[2023-10-06] MEDS: Docusate Sodium 100 MG Capsule 200 MG PO (19:34)
[2023-10-06] MEDS: Cefazolin 1 GM/50 ML BAG IV (19:35)
[2023-10-06] MEDS: Gabapentin 300 MG Capsule PO (21:10)
[2023-10-06] MEDS: Tamsulosin HCl 0.4 MG Capsule 0.8 MG PO (21:11)
[2023-10-06] MEDS: metFORMIN (XR) 500 MG Tablet PO (21:11)
[2023-10-06] MEDS: DiphenhydrAMINE 25 MG Capsule PO (23:49)
[2023-10-07 02:50] VITALS: BP 140/74; PULSE 84; RESP 16; TEMP 36.6; O2SAT 96
[2023-10-07] MEDS: oxyCODONE 5 MG Tablet PO (03:21)
[2023-10-07] MEDS: Cefazolin 1 GM/50 ML BAG IV (03:24)
[2023-10-07 06:41] VITALS: BP 131/70; PULSE 75; RESP 16; TEMP 36.6; O2SAT 98
--- NOTE | 2023-10-07 07:27 | PCM.PN.GU ---
Subjective Subjective Status post transurethral resection of prostate urine looks fairly clear we can remove the catheter today for a voiding trial and he can be discharged after he is able to urinate a few times Objective Data Objective Data Vital Signs: Vital Signs Temp Pulse Resp BP Pulse Ox O2 Del Method 98 F 75 16 131/70 H 98 Room Air 10/07/23 06:41 10/07/23 06:41 10/07/23 06:41 10/07/23 06:41 10/07/23 06:41 10/07/23 06:41 Oxygen Delivery Method Room Air Weight: 122.924 kg Body Mass Index (BMI) 35.7 Intake & Output: Intake and Output for Last 24 Hours 10/05/23 10/06/23 10/07/23 23:59 23:59 23:59 Intake Total 2165 / 2165 50 / 50 Output Total 1750 / 1750 Balance 415 / 415 50 / 50 Lab / Micro Data 09/22/23 11:38 09/22/23 11:38 Labs: Laboratory Results - last 24 hr 10/06/23 10:04: POC Glucose 204 H 10/06/23 13:31: POC Glucose 175 H
[2023-10-07 07:44] VITALS: BP 147/68; PULSE 77; RESP 18; TEMP 36.6; O2SAT 98
[2023-10-07] MEDS: Gabapentin 300 MG Capsule PO (08:05)
[2023-10-07] MEDS: Docusate Sodium 100 MG Capsule 200 MG PO (08:06)
[2023-10-07] MEDS: Losartan Potassium 50 MG Tablet PO (08:06)
[2023-10-07] MEDS: amLODIPine 10 MG Tablet PO (08:06)
[2023-10-07] MEDS: Pantoprazole Sodium 40 MG Tablet PO (08:06)
[2023-10-07 08:18] VITALS: O2SAT 95
--- NOTE | 2023-10-07 09:23 | CASEMGMT ---
RAFAEL CM into pt room, pt sitting up in chair in no distress. Pt states he has a cane and walker at home but does not typically use. Pt states he will use if he feels he needs for safety. Pt denies any homegoing needs at this time. Pt ready for dc today.
[2023-10-07 12:56] VITALS: BP 126/70; PULSE 57; RESP 16; TEMP 36.6; O2SAT 97
== END 2023-10-07 13:16 | disposition home or self-care (01) ==
LOC: SDC 14:11 → MS3 14:11
PROVIDERS: Anesthesiology; Admitting Provider Urology; PCP Family Medicine; Referring Provider Urology; Visit Provider Urology
PROC: 0VT08ZZ Resection of Prostate, Via Natural or Artificial Opening Endoscopic (ICD-10-PCS; CPT 52601; principal; 2023-10-06 11:30)
DX: N40.1 Benign prostatic hyperplasia with lower urinary tract symptoms (principal); I48.91 Unspecified atrial fibrillation; E66.01 Morbid (severe) obesity due to excess calories; E11.22 Type 2 diabetes mellitus with diabetic chronic kidney disease; E11.42 Type 2 diabetes mellitus with diabetic polyneuropathy; N18.30 Chronic kidney disease, stage 3 unspecified; E78.00 Pure hypercholesterolemia, unspecified; I12.9 Hypertensive chronic kidney disease with stage 1 through stage 4 chronic kidney disease, or unspecified chronic kidney disease; Z79.84 Long term (current) use of oral hypoglycemic drugs; Z79.01 Long term (current) use of anticoagulants; N13.8 Other obstructive and reflux uropathy; G47.33 Obstructive sleep apnea (adult) (pediatric); Z68.35 Body mass index [BMI] 35.0-35.9, adult
CPT/HCPCS: 52601; 00914; 36415; 80048; 82962; 83036; 85027; 88305; 96361; 96365; 96366; 99221; J7030; J7120; G0378; J2405

== ENCOUNTER → 2023-10-19 | Outpatient (CLI) | payer MEDICARE, BC, SELFPAY ==
--- NOTE | 2023-10-15 | TISS_PTH ---
PATIENT: GLENNA PINTO LOC: [facility] U#:[id number] AGE/SX: 73/M ROOM: RE10/19/[address]: Meli Rossi MD : 1950 BED: DIS: 10/19/2023 SPEC #: [id number] RECD: 10/19/23 12:07 STATUS: SUSHMA JADE #: [id number] MARICEL: 10/15/23 00:[address]: Meli Rossi DEPT: SURGICAL PATHOLOGY RECD BY: Vitor Delvalle ENTERED: 10/19/23 15:23 SP TYPE: Tissue Bx KERVIN DR: Dr. Sharmaine Palma MD Tissues: TISSUE SURGICALLY REMOVED Procedures: Surgery Specimen Level IV HEADER OPERATION: Biopsy lump right leg PRE-OP DIAGNOSIS: Right leg lump TISSUE SUBMITTED: Biopsy right leg MICROSCOPIC DIAGNOSIS Lesion of right leg, punch biopsy: Consistent with verrucoid keratosis. AM/mr 10/20/2023 MICROSCOPIC DESCRIPTION Slides are reviewed. GROSS DESCRIPTION Received in fixative is one container labeled with the patient's name and designated Right leg biopsy. The specimen consists of a punch biopsy of light arshad skin measuring 0.5 x 0.5 x 0.2cm. The specimen is inked, bisected and totally submitted in one cassette. AM/mr 10/19/2023 TC:5 CPT:83734
== END | disposition home or self-care (01) ==
LOC: LABSPEC 14:31
PROVIDERS: PCP Family Medicine; Referring Provider Family Medicine; Visit Provider Family Medicine
DX: R22.41 Localized swelling, mass and lump, right lower limb (principal)
CPT/HCPCS: 88305

== ENCOUNTER 2023-11-10 13:30 | Day surgery (SDC) | payer MEDICARE, BC, SELFPAY ==
--- NOTE | 2023-11-10 13:40 | RAD_ITS ---
STUDY: X-RAY CHEST REASON FOR EXAM: Male, 73 years old. Preoperative evaluation. TECHNIQUE: Frontal and lateral views of the chest. COMPARISON: None. FINDINGS: Mild hyperinflation with granulomatous calcifications and mild diffuse interstitial prominence. There is no demonstrated pleural abnormality. Cardiomegaly with dual lead cardiac pacer. Normal mediastinum and toro. Prominent central pulmonary arteries. Aortic tortuosity with calcification. Diffuse mild thoracic spondylosis. Normal visualized ribs, clavicles, and shoulders. No abnormality of the visualized soft tissue structures of the upper abdomen. RAD/Chest PA and Lateral IMPRESSION: Cardiomegaly with hyperinflation and no acute or active cardiopulmonary disease. Electronically Signed: Alexander Corcoran MD at 13:49 EDT ,
[2023-11-10 15:27] LABS: Hemoglobin A1c 8.5 % (3.8-5.6)
[2023-11-10 15:36] LABS: Absolute Lymphocyte Count 0.73 X10^3/uL (0.83-4.51); Absolute Neutrophil Count 2.2 X10^3/uL (2.0-7.7); Basophil# 0.01 X10^3/uL; Basophil% 0.3 % (0-1); Eosinophil# 0.02 X10^3/uL; Eosinophils% 0.6 % (0-5); Hematocrit 30.2 % (40-54); Hemoglobin 9.5 g/dL (13.0-16.5); Lymphocyte # 0.73 X10^3/ul (0.83-4.51); Lymphocyte % 20.9 % (19-41); Mean Corp Hgb Conc 31.5 g/dL (32-36); Mean Corpuscular Hgb 26.2 pg (27.0-32.0); Mean Corpuscular Volume 83.4 fL (80-94); Mean Platelet Vol. 10.1 fl (6.2-12.0); Monocyte% 14.3 % (0-10); NRBC Flagged by Analyzer 0 % (0-5); Neutrophil # 2.23 X10^3/uL (2.7-7.7); Neutrophil % 63.6 % (47-70); Platelet Count 197 K/mm3 (150-450); RBC Distribution Width CV 15.9 % (11.6-14.6); RBC Distribution Width SD 48.7 fl (35.1-43.9); Red Blood Count 3.62 M/mm3 (4.6-6.2); White Blood Count 3.5 K/mm3 (4.4-11.0)
[2023-11-10 16:30] LABS: Magnesium 1.6 mg/dL (1.6-2.6)
[2023-11-10 16:35] LABS: Albumin, Serum 3.3 g/dL (3.2-5.0); Anion Gap 10 (5-15); BUN 14 mg/dL (7-18); BUN/Creat Ratio 10.8 RATIO (10-20); Calcium,Total 8.9 mg/dL (8.5-10.1); Chloride 103 mmol/L (98-107); EST Glomerular Filtration Rate 57 mL/min (>60); Est Glom Filt Rate - Afr Amer 69 mL/min (>60); Glucose 267 mg/dL (74-106); Potassium 3.8 mmol/L (3.5-5.1); Sodium Level 134 mmol/L (136-145)
== END 2023-11-16 09:50 | disposition home or self-care (01) ==
LOC: SDC 07-26 16:23
PROVIDERS: Anesthesiology; PCP Family Medicine; Visit Provider Student in an Organized Health Care Education/Training Program
DX: Z01.818 Encounter for other preprocedural examination (principal)
CPT/HCPCS: 36415; 71046; 80048; 82040; 83036; 83735; 85025; 87081

== ENCOUNTER → 2023-11-10 | Outpatient (CLI) | payer MEDICARE, BC, SELFPAY ==
--- NOTE | 2023-11-10 13:38 | CT_ITS ---
CT RIGHT LOWER EXTREMITY WITH 3-D IMAGING CLINICAL INDICATION: PRE OP TECHNIQUE: Axial CT images of the right lower extremity (including right hip, right knee, and right ankle) was performed without IV contrast material. Coronal and sagittal reformats were provided. The protocol utilizes one or more of the following dose reduction techniques: automated exposure control, adjustment of mA and/or kV according to patient size, and/or use of iterative reconstruction technique. RADIATION DOSAGE (If Supplied By Facility): CTDIvol = ( 18.93 ) mGy, DLP = ( 1220.39 ) mGycm COMPARISON: No relevant prior comparison study available. FINDINGS: Bones: There is degenerative arthrosis of the right hip joint with marginal osteophyte formation and joint space narrowing. There is tricompartment degenerative arthrosis of the right knee joint, most severe in the patellofemoral and medial femorotibial compartments. There is mild tibiotalar and talonavicular arthrosis. Osseous structures are intact without evidence of fracture or dislocation. No lytic or blastic osseous masses. Soft Tissues: There is a small right knee joint effusion. The deep soft tissue structures are unremarkable. The superficial soft tissues are unremarkable without evidence of edema, hematoma, or foreign body. 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 Small right knee joint effusion. Electronically Signed: Gonzalo Juarez MD at 15:00 EDT ,
== END | disposition home or self-care (01) ==
LOC: CT 13:35
PROVIDERS: PCP Family Medicine; Referring Provider Student in an Organized Health Care Education/Training Program; Visit Provider Student in an Organized Health Care Education/Training Program
DX: M17.11 Unilateral primary osteoarthritis, right knee (principal)
CPT/HCPCS: 73700

== ENCOUNTER → 2023-12-24 | Outpatient (CLI) | payer MEDICARE, BC, SELFPAY ==
[2023-12-24 16:31] LABS: Cholesterol 95 mg/dL (200); High Density Lipoprotein 36 mg/dL; Triglycerides 73 mg/dL; Very Low Density Lipoprotein 15 mg/dL (5-40)
[2023-12-24 16:38] LABS: Protein, Urine (Random) 46.1 mg/dL (<11.9); Protein:Creat Ratio 216 mg/g CRE (0-200)
== END | disposition home or self-care (01) ==
PROVIDERS: PCP Family Medicine; Visit Provider Family Medicine
DX: E11.9 Type 2 diabetes mellitus without complications (principal)
CPT/HCPCS: 36415; 80061; 82570; 84156

== ENCOUNTER → 2024-01-21 | Outpatient (CLI) | payer MEDICARE, BC, SELFPAY ==
[2024-01-21 16:26] LABS: PSA,Total- Diagnostic 5.01 ng/mL (0.0-4.0)
== END | disposition home or self-care (01) ==
LOC: MTLAB 11:11
PROVIDERS: PCP Family Medicine; Referring Provider Urology; Visit Provider Urology
DX: N40.1 Benign prostatic hyperplasia with lower urinary tract symptoms (principal)
CPT/HCPCS: 36415; 84153

== ENCOUNTER 2024-02-24 14:55 | Observation (INO) | payer MEDICARE, BC, SELFPAY ==
[2024-02-14 12:26] LABS: Absolute Lymphocyte Count 0.73 X10^3/uL (0.83-4.51); Basophil# 0.01 X10^3/uL; Basophil% 0.3 % (0-1); Eosinophil# 0.03 X10^3/uL; Eosinophils% 0.9 % (0-5); Hematocrit 29.8 % (40-54); Hemoglobin 9.3 g/dL (13.0-16.5); Lymphocyte # 0.73 X10^3/ul (0.83-4.51); Lymphocyte % 21.6 % (19-41); Mean Corp Hgb Conc 31.2 g/dL (32-36); Mean Corpuscular Hgb 26.1 pg (27.0-32.0); Mean Corpuscular Volume 83.7 fL (80-94); Monocyte% 17.8 % (0-10); NRBC Flagged by Analyzer 0 % (0-5); Neutrophil # 1.99 X10^3/uL (2.7-7.7); Neutrophil % 58.8 % (47-70); Platelet Count 178 K/mm3 (150-450); RBC Distribution Width CV 17.1 % (11.6-14.6); Red Blood Count 3.56 M/mm3 (4.6-6.2); White Blood Count 3.4 K/mm3 (4.4-11.0)
[2024-02-14 12:53] LABS: Magnesium 1.5 mg/dL (1.6-2.6)
[2024-02-14 13:07] LABS: Hemoglobin A1c 7.1 % (3.8-5.6)
[2024-02-14 13:08] LABS: Anion Gap 7 (5-15); BUN 14 mg/dL (7-18); BUN/Creat Ratio 13.1 RATIO (10-20); Calcium,Total 9.1 mg/dL (8.5-10.1); Chloride 104 mmol/L (98-107); Creatinine, Serum 1.07 mg/dL (0.70-1.30); EST Glomerular Filtration Rate 72 mL/min (>60); Est Glom Filt Rate - Afr Amer 87 mL/min (>60); Glucose 131 mg/dL (74-106); Potassium 3.7 mmol/L (3.5-5.1); Sodium Level 135 mmol/L (136-145)
[2024-02-24] VITALS (14 sets, daily range): BP systolic 127–156; BP diastolic 61–86; PULSE 70–102; RESP 16–18; TEMP 36.1–37.6; O2SAT 92–99; BMI 33.4
[2024-02-24] MEDS: Gabapentin 600 MG Tablet PO (09:45)
[2024-02-24] MEDS: Acetaminophen 500 MG Tablet 1000 MG PO ×2 (09:45→20:59)
[2024-02-24] MEDS: Magnesium 2 GM for ERAS IV (09:45)
[2024-02-24] MEDS: Lactated Ringers 1,000 ML 15 ML IV (10:45)
--- NOTE | 2024-02-24 11:01 | PCM.PRE.AN2 ---
ASA Classification* ASA Classification ASA Classification: 3 Assessment & Plan Anesthesia* Anesthesia Assessment Anesthesia Assessment: Discussed sedation and/or anesthesia options, risks, benefits, and alternatives with patient/parents/legal guardian/POA. Questions invited. The patient/parents/legal guardian/POA seems to understand and agrees to proceed with anesthesia plan. Reviewed the physical assessment, medical history, allergy history and patient home medications list prior to surgery/procedure/anesthetic and documented any changes. Performed airway and anesthesia risk assessments. Anesthesia Type Anesthesia Type: General (see written pre anesthesia record for full assessment) and Block Anesthesia Focused Assessment* Airway Assessment Mouth opens: >3 cm Mallampati Score: II Focused Labs Anesthesia Preop lab: CBC WBC 3.4 K/mm3 (4.4-11.0) L 02/14/24 11:49 RBC 3.56 M/mm3 (4.6-6.2) L 02/14/24 11:49 Hgb 9.3 g/dL (13.0-16.5) L 02/14/24 11:49 Hct 29.8 % (40-54) L 02/14/24 11:49 Plt Count 178 K/mm3 (150-450) 02/14/24 11:49 CHEMISTRY Potassium 3.7 mmol/L (3.5-5.1) 02/14/24 11:49 Sodium 135 mmol/L (136-145) L 02/14/24 11:49 Magnesium 1.5 mg/dL (1.6-2.6) L 02/14/24 11:48 BUN 14 mg/dL (7-18) 02/14/24 11:49 Creatinine 1.07 mg/dL (0.70-1.30) 02/14/24 11:49 Glucose 131 mg/dL (74-106) H 02/14/24 11:49 POC Glucose 175 mg/dL (74-106) H 10/06/23 13:31 TSH 1.05 uIU/mL (0.358-3.74) 10/14/20 11:37 COAG PT 17.4 SECONDS (11.7-14.9) H 02/26/23 09:32 Pre-Assessment Diagnosis/Proposed Procedure Planned Operative Procedure(s): ROBOTIC ASSISTED RIGHT TOTAL KNEE ARTHROPLASTY Anesthesia History 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 When Was Last Pacemaker Check QUESTION #4 FULL TEXT: You/Your Family Experience fever (hyperthermia) with Anesthesia Last Oral Intake Last Oral intake: Last Oral Intake NPO since Meds taken in AM with sips of water? 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: PONV - school library media specialist Female No 01/31/24 09:20 HX of Motion Sickness No 01/31/24 09:20 HX of N/V After Surgery No 01/31/24 09:20 Non-Smoker Yes 01/31/24 09:20 Duration of Surgery greater Yes 01/31/24 09:20 than 60 minutes Number of Risk Factors 2 01/31/24 09:20 PONV Score Moderate Risk 01/31/24 09:20 Height & Weight Height & Weight: Anesthesia: Height & Weight Height 6 ft 1 in 01/06/24 10:48 Respiratory Assessment Respiratory Assessment - school library media specialist: Respiratory Tract Infection Hx - school library media specialist Hx Respiratory Tract Infection No 01/31/24 09:20 STOP Sleep Apnea STOP Sleep Apnea - school library media specialist: STOP Sleep Apnea - school library media specialist Hx Hypertension Yes: controlled with med 01/31/24 09:20 Hx Sleep Apnea Yes 01/31/24 09:20 CPAP Yes 01/31/24 09:20 BIPAP No 01/31/24 09:20 Do you snore loudly (louder than talking or can be heard Do you often feel tired/ fatigued/ sleepy during daytime? Has anyone observed you stop breathing during sleep? STOP Results Positive 01/31/24 09:20 QUESTION #5 FULL TEXT : Do you snore loudly (louder than talking or can be heard through closed doors)? Tobacco Use History Tobacco Use History - school library media specialist: Tobacco Use History - school library media specialist Tobacco Use Smoking Status Never smoker 01/31/24 09:20 Hx Tobacco Use No 01/31/24 09:20 Years Smoking Packs Smoked per Day Smoking Cessation Date was within the last 15 years Hx Smoking Cessation Date Hx Smoking Cessation Counseling Hematologic Medial History Hematologic Hx - school library media specialist: Hematologic Medical Hx - [place] specialist Hx of Blood Transfusion No 01/31/24 09:20 Hx of Transfusion in last 3 No 01/31/24 09:20 Months Date of Last Transfusion (if within last 3 months) Ever experience any problems No 01/31/24 09:20 with transfusion(s)? Specify any problems Hx of Preganancy in last 3 N/A 01/31/24 09:20 Months Nurse Filling Out Transfusion [email or web address] 01/31/24 09:20 & Questions: Date: 01/31/24 01/31/24 09:20 Time: 01/31/24 09:20 Patient unable to answer at this time (ie. confused, unrespo /Reproduction History /Reproductive History - school library media specialist: /Reproductive Hx- school library media specialist Hx Now Gestational Age (in weeks): EDC: Hx Hx Para Hx Section SAB Active Medications Active Medications: Current Medications Generic Name Dose Route Start Last Admin Trade Name Freq PRN Reason Stop Dose Admin Lactated Ringer's 1,000 mls @ 999 mls/hr 02/24/24 10:45 IV 02/24/24 11:45 .Q1H1M ELLE Lactated Ringer's 1,000 mls @ 125 mls/hr 02/24/24 11:45 IV 02/24/24 19:44 .Q8H ELLE Lactated Ringer's 1,000 mls @ 15 mls/hr 02/24/24 10:45 IV .Q48H ELLE Insulin Human Lispro 1 - 6 unit 02/24/24 09:45 Insulin Lispro 100 Unit/Ml Insuln.Pen SC 02/24/24 15:45 Q4H PRN PRN BG>/= 180, SEE PROTOCOL Protocol PFSH Medical History Back pain Dietary restriction Leg cramps History of edema History of pain when walking Wears glasses Wears partial dentures Diabetes Prostate disease High cholesterol CPAP (continuous positive airway pressure) dependence Non-smoker History of echocardiogram Cardiology follow-up encounter Hypertension Hx of cardiac pacemaker Postoperative pain after spinal surgery Intractable back pain Risk for falls Essential hypertension Atrial flutter CKD (chronic kidney disease), stage III Morbid obesity Prediabetes Peripheral neuropathy GERD (gastroesophageal reflux disease) JOE (obstructive sleep apnea) Atrial fibrillation Bilateral pneumonia Acute respiratory failure with hypoxia Severe sepsis Cough Hypoxia COVID-19 Vocal cord mass Home Medications ?Medication ?Instructions ?Recorded ?Last Taken ?Type amlodipine 10 mg tablet 10 mg PO DAILY BP 06/21/16 10/06/23 07:00 History omeprazole 40 mg capsule,delayed 40 mg PO DAILY GERD 10/13/19 10/05/23 07:00 History release metformin 500 mg tablet,extended 500 mg PO BID DM 01/16/20 10/05/23 07:00 History release 24 hr atorvastatin 40 mg tablet 40 mg PO DAILY CHOLESTEROL 05/27/21 10/05/23 07:00 History albuterol sulfate 90 mcg/actuation 2 puff inhalation 4X/DAY PRN Sob 06/08/22 10/06/23 07:00 Rx aerosol inhaler &/Or Wheezing #8.5 grams gabapentin 300 mg capsule 300 mg PO QHS PAIN 02/08/23 10/05/23 19:00 History dofetilide 250 mcg capsule 250 mcg PO 0900,2100 HEART MED 07/08/23 10/05/23 09:00 History (Tikosyn) apixaban 5 mg tablet (Eliquis) 5 mg PO BID BLOOD THINNER 11/08/23 Unknown History losartan 50 mg tablet 50 mg PO DAILY BP 01/31/24 Unknown History Allergy/AdvReac Type Severity Reaction Status Date / Time furosemide (From Lasix) AdvReac Other Verified 02/24/24 11:00 Family History Mother Myocardial infarction Heart disease Cancer parathyroid cancer Brother CAD (coronary artery disease), Onset Age: 65 CABG Surgical History Hx of transurethral resection of prostate History of tonsillectomy History of esophagogastroduodenoscopy (EGD) History of colonoscopy History of back surgery S/P excision of vocal cord nodule History of foot surgery Social History household members: spouse current occupational status: retired Smoking Status: Never smoker alcohol intake: never substance use type: does not use caffeine: No Review of Systems (Anesthesia) ROS Narrative System reviewed and no additional complaints, except as documented.
[2024-02-24 11:36] LABS: Bedside Glucose 269 mg/dL (74-106)
[2024-02-24] MEDS: Insulin Lispro 100 UNIT/ML INSULN.PEN SC (11:45)
[2024-02-24] MEDS: Cefazolin 2 GM in 0.9% Normal Saline (100mL Bag) 100 ML IV (12:16)
--- NOTE | 2024-02-24 13:45 | KNEE_PTH ---
PATIENT: GLENNA PINTO LOC: MS3 U#:[id number] AGE/SX: 74/M ROOM: [facility] RE02/24/[address]: Dr. Hema Escalera DO : 1950 BED: 1 DIS: 02/26/2024 SPEC #: [id number] RECD: 02/24/24 18:15 STATUS: SUSHMA REMirna #: [id number] MARICEL: 02/24/24 13:[address]: Hema Escalera DEPT: SURGICAL PATHOLOGY RECD BY: Vitor Delvalle ENTERED: 02/25/24 07:43 SP TYPE: TOTAL KNEE OTHR DR: MD Dr. Natalia Yung MD Tissues: Knee, NOS Procedures: Decalcification bone/plaque Surgery Specimen Level IV HEADER OPERATION: Total knee replacement robotic arm assist PRE-OP DIAGNOSIS: Unilateral primary osteoarthritis, right knee, varus deformity, not elsewhere classified, hypertension TISSUE SUBMITTED: Right knee bone and tissue MICROSCOPIC DIAGNOSIS Bone and tissue of right knee, total knee resection: Severe degenerative joint disease. Mild synovial hyperplasia. AM: 03/01/2024 MICROSCOPIC DESCRIPTION Slides are reviewed. GROSS DESCRIPTION Received is one container designated bone and soft tissue right knee. The specimen consists of multiple fragments of arshad-yellow bone measuring in aggregate 14.0 x 12.0 x 4.0 cm. Also in the specimen container are multiple fragments of yellow-white soft tissue consists of fibrocartilaginous tissue and measuring in aggregate 8.5 x 4.0 x 2.0 cm. A number of bony fragments contain articular surfaces consistent with tibial plateau and femoral condyle and displaying prominent osteophyte formation, eburnation and bone erosion. Carton Marker Machine sections are submitted in two cassettes as follows: 1 - soft tissue, 2 - bone after decalcification. / ARIEL. 02/25/2024 TC:5 CPT: 87179, [id number]
[2024-02-24] MEDS: TXA in NS 100ml (Placed in Wound) OPERA.SITE (13:48)
[2024-02-24] MEDS: JPS (Morphine 10mg/ml) OPERA.SITE (13:53)
[2024-02-24] MEDS: Lactated Ringers 1,000 ML 999 ML IV (14:25)
--- NOTE | 2024-02-24 14:28 | PCM.POST.ANE ---
Anesthesia: Postop Eval I Current Vital Signs Temperature: 97 F Pulse Rate: 76 Blood Pressure: 135/69 Respiratory Rate: 16 Pulse Ox: 94 Oxygen Delivery Method: Room Air Assessment Airway patent: Yes Spontaneous unlabored respirations: Yes Mental status: Awake and Calm nausea: No Vomiting: No Anesthesia Complication: No Fluid Hydration Crystalloid volume administer (ml): 1,400 Total IV fluid infused: 1,400 Progress Note Anesthesia document: Postop Eval 1 completed: Yes
[2024-02-24 14:33] LABS: Bedside Glucose 179 mg/dL (74-106)
--- NOTE | 2024-02-24 14:54 | POSTOPAN2_ITS ---
Anesthesia Postop Eval I Sum Postop Eval Completion status Anesthesia document: Postop Eval 1 completed: Yes Anesthesia Postop Eval I Summary Anesthesia Postop Eval I Summary: Anesthesia Postop Eval I: Assessment Summary Airway patent Yes 02/24/24 14:29 [email or web address] Spontaneous unlabored Yes 02/24/24 14:29 MUNITIONS [email or web address] [email or web address] respirations Mental status Awake,Calm 02/24/24 14:29 MUNITIONS [email or web address] nausea No 02/24/24 14:29 MUNITIONS [email or web address] [email or web address] Vomiting No 02/24/24 14:29 [email or web address] Anesthesia Postop Eval I: Fluid Summary Crystalloid volume administer 1,400 02/24/24 14:29 MUNITIONS [email or web address] (ml) Colloids volume administered ( ml) Blood Product volume administered (ml) Total IV fluid infused 1,400 02/24/24 14:29 [email or web address] Anesthesia Postop Eval I: Summary Notes Anesthesia Complication No 02/24/24 14:29 MUNITIONS [email or web address] Anesthesia Complication Comment: Post-operative progress note Anesthesia: Postop Eval II Evaluation Mental status: Awake Pain Level: 0 nausea: No Vomiting: No
--- NOTE | 2024-02-24 14:54 | PCM.POSTANE2 ---
Anesthesia Postop Eval I Sum Postop Eval Completion status Anesthesia document: Postop Eval 1 completed: Yes Anesthesia Postop Eval I Summary Anesthesia Postop Eval I Summary: Anesthesia Postop Eval I: Assessment Summary Airway patent Yes 02/24/24 14:29 LEAN [email or web address] Spontaneous unlabored Yes 02/24/24 14:29 LEAN [email or web address] respirations Mental status Awake,Calm 02/24/24 14:29 LEAN [email or web address] nausea No 02/24/24 14:29 LEAN [email or web address] Vomiting No 02/24/24 14:29 LEAN [email or web address] Anesthesia Postop Eval I: Fluid Summary Crystalloid volume administer 1,400 02/24/24 14:29 LEAN [email or web address] (ml) Colloids volume administered ( ml) Blood Product volume administered (ml) Total IV fluid infused 1,400 02/24/24 14:29 LEAN [email or web address] Anesthesia Postop Eval I: Summary Notes Anesthesia Complication No 02/24/24 14:29 LEAN [email or web address] Anesthesia Complication Comment: Post-operative progress note Anesthesia: Postop Eval II Evaluation Mental status: Awake Pain Level: 0 nausea: No Vomiting: No
[2024-02-24] MEDS: Lactated Ringers 1,000 ML 125 ML IV (15:00)
--- NOTE | 2024-02-24 15:00 | RAD_ITS ---
STUDY: X-RAY - RIGHT KNEE REASON FOR EXAM: Male, 74 years old. Post op -- AP and Lateral xray of operative knee in PACU TECHNIQUE: 2 view(s) of the knee. COMPARISON: None. FINDINGS: Normal visualized distal femur. Normal visualized proximal tibia and fibula. Normal proximal tibiofibular articulation. The patient is status post total knee replacement. There is good alignment. Postoperative soft tissue changes. RAD/Knee 1 or 2 Views IMPRESSION: Status post total knee replacement. There is good alignment. Postoperative soft tissue changes. Electronically Signed: Anthony Sorenson MD at 15:17 EDT ,
--- NOTE | 2024-02-24 15:21 | OP.PCM_ITS ---
Report of Operation Date of Procedure: 02/24/24
--- NOTE | 2024-02-24 15:21 | PCM.OPRPT ---
Report of Operation Date of Procedure: 02/24/24 Description of Surgical Findings:: Preoperative diagnosis: Right knee primary osteoarthritis Postoperative diagnosis: Right knee primary osteoarthritis Procedure: Robotic arm assisted right total knee arthroplasty Surgeon: Hema Escalera DO Communications Tower Climber: Petra Gutierrez PA-C Anesthesia: General Endotracheal Anesthesiologist: Dr. Markham Complications: None apparent Drains: None Estimated blood loss: 100 cc Urinary output: None recorded IV fluids: 1200 cc crystalloid Specimens: Total knee resections Surgical implants: Rick triathlon X3 asymmetric patella size a32 mm thickness cemented, triathlon cruciate retaining femoral #5, primary tibial baseplate #6, triathlon X3 tibial bearing insert CS 11 mm Indications: This is a 74-year-old male seen in the outpatient setting diagnosed with right knee osteoarthritis with significant varus deformity and flexion contracture. He failed nonoperative management with intra-articular corticosteroid injections, activity modification, bracing, [id number] analgesics. X-rays revealed grade 4 medial compartment changes. He also had significant patellofemoral arthritis. I recommended a right total knee arthroplasty. The risk, benefits, alternatives to procedure reviewed with patient at length and he agreed to proceed. Risks included but were not limited to bleeding, infection, loss of life or limb, need for additional surgery, persistent pain, intraoperative or postoperative fracture, instability, loosening of components, wound complications, stiffness, neurovascular injury, DVT or PE. Patient expressed understanding these risks and wished to proceed with surgery. Informed consent was obtained in the outpatient setting. Description of procedure: Patient was identified in the preoperative holding area by name, medical record number, and date of . Informed set was confirmed with the patient. The operative knee was marked with a surgical marker. At time of his procedure, patient brought to the operative suite and positioned supine on a standard operating table. General anesthesia was induced and endotracheal tube placed. All bony prominences were well-padded.. We then placed a well-padded pneumatic tourniquet on the right upper thigh. The right upper extremity was brought across patient's chest throughout the procedure. We then prepped and draped the right lower extremity in a normal, sterile orthopedic fashion. We performed a timeout with all parties in attendance in agreement with the side, site, operation be performed. No concerns were voiced and would like to proceed with surgery. 3 g Ancef was administered prior to the incision by anesthesia staff. First exsanguinated the right lower extremity with a Esmarch bandage. Tourniquet was inflated to 250 mmHg which remained up for approximately 1 hour. Esmarch was removed. I planned a standard midline approach to the right knee approximately 15 cm in length. Skin was sharply incised with a 10 blade scalpel developing full-thickness layers down to the retinaculum. Layers were developed identifying the VMO. I then planned a standard medial parapatellar arthrotomy performed in flexion. The anterior horn of the medial meniscus was released. Hoffa's fat pad was then released. I then everted the patella in extension and brought the knee into 90 degrees of flexion. The anterior horn of the lateral meniscus was then released. The ACL was split in its mid substance with a 10 blade. We then brought the knee back into extension. I measured the outer diameter of the patella and an appropriately sized patellar reamer was then selected. I measured the thickness of the patella to be 28 mm. I then reamed the patella to a depth of approximately 15 mm. A protective baseplate was then placed on the patella. I then placed pins in the metaphyseal distal femur medial to lateral for the Chi arrays. In similar fashion, I made a 2 cm incision approximately a handsbreadth distal to the tibial tubercle along the medial aspect of the tibia, drilling 2 bicortical pins for the tibial array. The knee was brought into flexion. The patella was subluxed laterally but not everted. Medial lateral retractors were placed. We then utilized the Am[employer] software to confirm our planned surgical procedure and oriented with the patient's osseous anatomy. All checks with the Ambronite system were confirmed. Patient had a significant fixed varus deformity after performing stress examination utilizing the Chi software. We elected to place the tibial baseplate in approximately 3 degrees of varus to allow for appropriate balancing. Sawblade was then brought in. I first started with the tibial cut, ensuring protection of the MCL and patellar tendon. A tibial wafer was then excised. I then proceeded to make the posterior femoral, anterior, anterior chamfer cuts with the same blade. Ligaments were protected with Intermedics retractors. Sawblade was then exchanged to perform the distal femoral and posterior chamfer cuts. The robot was then removed from the surgical field. Remaining loose bone and meniscus was excised carefully. Posterior osteophytes were removed from the distal femur with a curved osteotome and rongeur. Trial components were then placed. Balance was excellent in both extension and 90 degrees flexion. No mid flexion instability was apparent. I then drilled for a size 32 patella. Patella was trialed. Tracking was excellent. We then marked for tibial baseplate. Distal femoral pegs were drilled. Tibial keel was punched. Trials were removed. Periarticular block was administered. The wound was copiously irrigated with normal saline solution. Press-fit tibial and femoral components were impacted with good purchase. Betadine solution was irrigated into the wound and the wound edges. The patella was then cemented in place. After cement had cured fully, trial polyethylene was removed. Tourniquet was deflated. Hemostasis was excellent. 1 g IV TXA was administered topically in the wound for 2 minutes. This I selected a size 11 mm polyethylene which was placed and impacted per archivist military history recommendations. Final components appeared very well balanced with excellent range of motion. There is no significant remaining flexion contracture. The wound was copiously irrigated with normal saline solution. Capsule was closed watertight with #1 strata fix barbed suture. Deeper report muscle layer was reapproximated with 0 Vicryl suture. Dermis was reapproximated buried interrupted 2-0 Vicryl suture. Skin was finally reapproximated shira. Patient tolerated the procedure well without apparent complication. He was safely awakened in the operative suite, transferred to his hospital bed and subsequently to PACU in stable condition. Need for skilled senior office assistant: Petra Gutierrez PA-C was critical to the outcome of the case. During the course of the procedure the physician senior office assistant played a vital role. Her intimate knowledge of my steps in the procedure aided in safe and expedient completion of the procedure. The PA played a vital role in positioning particularly in obtaining the appropriate positioning. The PA was also vital in the retraction of soft tissues during the exposure and projecting vital structures. The PA was also vital and protecting soft tissues during times of bony cuts. She also played a vital role in closure with my direct supervision. The PA was also important during reduction and dislocation of the joint and trials intraoperatively. Post Operative Plan: Patient will be placed in observation overnight due to his cardiac history for medical monitoring and early convalescence. Weightbearing: Range of motion and weightbearing as tolerated right lower extremity. Antibiotics: Ancef 2 g every 8 hours x 3 doses DVT Prophylaxis: Restart home Eliquis postoperative day #1 Dockery: None Dressing: Maintain silver dressing x 5 days X-Rays: 2-week x-rays in the office. Follow-up: 2 weeks in my office for staple removal
--- NOTE | 2024-02-24 15:54 | PCM.CONS.GEN ---
Assessment & Plan Assessment/Plan (1) Status post total right knee replacement: (2) Atrial fibrillation: QUALIFIERS: Atrial fibrillation type: paroxysmal Qualified Code(s): I48.0 - Paroxysmal atrial fibrillation (3) Essential hypertension: PLAN: Plan Patient is a 74-year-old male who presented [facility] on 02/24/2024 for planned right knee replacement. Medicine consulted postoperatively for medical management. 1. Right knee primary osteoarthritis ? Orthopedic surgery primary. S/p right total knee arthroplasty with Dr. Escalera on 02/23. Tolerated procedure well, no intraoperative complications. Pain control with scheduled Tylenol and oxycodone as needed. On Eliquis for A-fib, no DVT prophylaxis needed. PT/OT/case management consulted. Further management per orthopedics. 2. Normocytic anemia ? Hemoglobin 9.3 on preop labs on 02/13. Baseline hemoglobin is 9-10. Hemodynamically stable postoperatively. Follow-up a.m. CBC. 3. Chronic A-fib/flutter with history of pacemaker placement ? Follows with both [facility] and Sandra GARCIA. Rate controlled postoperatively. Continue home Tikosyn and Eliquis. 4. CKD stage II ? Creatinine 1.07 on preop labs. Follow-up a.m. BMP. Chronic medical conditions: ? Obesity: BMI 33 on admit. Complicates hospital course, care and prognosis. ? JOE: Continue nocturnal CPAP. ? Hypertension: Blood pressure stable postoperatively. Continue home amlodipine and losartan. ? Hyperlipidemia: Continue home statin. ? Type 2 diabetes mellitus: On home metformin 500 mg twice daily. A1c 7.1% on 02/13. Patient prefers no glucose checks or insulin administration while here if able. Will hold on placing orders per insulin order set and monitor blood sugars on daily BMP. ? GERD: Continue home PPI. DVT prophylaxis: Not indicated, on Eliquis Total clinical time spent by myself addressing the patient's medical issues, reviewing all the data, and collaborating with patient's care team: 35 minutes. HPI Consult Data Date of Consult: 02/24/24 HPI Narrative Reason for Consultation: Postoperative medical management HPI Narrative: GLENNA PINTO, is a 74 M who presented to [facility] on 02/24/2024 for planned right knee replacement. Had right total knee arthroplasty with Dr. Escalera today. Tolerated procedure well, no intraoperative complications. Medicine consulted postoperatively for medical management. I saw patient at the bedside on the floor earlier this evening. Patient was sitting up comfortably in bed, conversing normally, in no acute distress. Patient was very pleasant. Reported mild knee discomfort currently. The knee was wrapped and an ice pack was in place over top the wrap. No gross abnormalities were noted. He noted the knee discomfort was primarily in the anterior part of his knee. Had not gotten out of bed yet since arriving back up to the floor. He otherwise stated he was feeling well. Denied any other pain or discomfort. He was breathing comfortably on room air and hemodynamically stable. No other acute concerns this time. [facility] Medical History Back pain Dietary restriction Leg cramps History of edema History of pain when walking Wears glasses Wears partial dentures Diabetes Prostate disease High cholesterol CPAP (continuous positive airway pressure) dependence Non-smoker History of echocardiogram Cardiology follow-up encounter Hypertension Hx of cardiac pacemaker Postoperative pain after spinal surgery Intractable back pain Risk for falls Essential hypertension Atrial flutter CKD (chronic kidney disease), stage III Morbid obesity Prediabetes Peripheral neuropathy GERD (gastroesophageal reflux disease) JOE (obstructive sleep apnea) Atrial fibrillation Bilateral pneumonia Acute respiratory failure with hypoxia Severe sepsis Cough Hypoxia COVID-19 Vocal cord mass Home Medications ?Medication ?Instructions ?Recorded ?Last Taken ?Type amlodipine 10 mg tablet 10 mg PO DAILY BP 06/21/16 02/24/24 08:30 History omeprazole 40 mg capsule,delayed 40 mg PO DAILY GERD 10/13/19 02/24/24 History release metformin 500 mg tablet,extended 500 mg PO BID DM 01/16/20 02/23/24 History release 24 hr atorvastatin 40 mg tablet 40 mg PO DAILY CHOLESTEROL 05/27/21 02/23/24 History albuterol sulfate 90 mcg/actuation 2 puff inhalation 4X/DAY PRN Sob 06/08/22 10/06/23 07:00 Rx aerosol inhaler &/Or Wheezing #8.5 grams gabapentin 300 mg capsule 300 mg PO QHS PAIN 02/08/23 02/23/24 History dofetilide 250 mcg capsule 250 mcg PO 0900,2100 HEART MED 07/08/23 02/24/24 09:00 History (Tikosyn) apixaban 5 mg tablet (Eliquis) 5 mg PO BID BLOOD THINNER 11/08/23 02/20/24 History losartan 50 mg tablet 50 mg PO DAILY BP 01/31/24 02/24/24 08:30 History Allergy/AdvReac Type Severity Reaction Status Date / Time furosemide (From Lasix) AdvReac Other Verified 02/24/24 11:00 Family History Mother Myocardial infarction Heart disease Cancer parathyroid cancer Brother CAD (coronary artery disease), Onset Age: 65 CABG Surgical History Hx of transurethral resection of prostate History of tonsillectomy History of esophagogastroduodenoscopy (EGD) History of colonoscopy History of back surgery S/P excision of vocal cord nodule History of foot surgery Social History household members: spouse current occupational status: retired Smoking Status: Never smoker alcohol intake: never substance use type: does not use caffeine: No ROS Constitutional Constitutional: Denies chills, fatigue, fever(s) or weakness Cardiovascular Cardiovascular: Denies chest pain Respiratory/Chest Respiratory/Chest: Denies shortness of breath at rest Gastrointestinal Gastrointestinal: Denies abdominal pain Musculoskeletal Musculoskeletal: Reports joint pain; Denies arthralgias, back pain or myalgias Physical Exam Const alert, oriented x3 and no apparent distress Constitutional Narrative: Pleasant elderly male, obese, sitting up comfortably in bed, conversing normally, in no acute distress. General Appearance: cooperative and comfortable HEENT normocephalic, head/scalp atraumatic, hearing grossly normal bilaterally, nasal mucous membranes and turbinates normal and moist oral mucous membranes Eyes PERRL, EOMs intact bilaterally and conjunctivae normal Neck full ROM Chest inspection of chest normal Resp normal respiratory effort, normal air movement, no use of accessory muscles and clear to auscultation bilaterally Cardio regular rate, regular rhythm, no murmurs and peripheral pulses 2+ throughout GI normal to inspection, nondistended, normoactive bowel sounds, soft to palpation, non-tender and non-distended Back/Spine normal ROM Extremity Extremity Narrative: Right knee wrapped in place with ice pack over top. No gross abnormalities noted on visual exam. Skin no rashes or lesions noted Neuro moves all extremities and no focal motor deficits Speech: speech normal Psych mental status grossly normal Lab / Micro Data 02/14/24 11:49 02/14/24 11:49 Labs: Laboratory Results - last 24 hr 02/24/24 11:02: POC Glucose 269 H 02/24/24 14:15: POC Glucose 179 H Imaging Radiology Impression Knee X-Ray 02/24/24 15:00 IMPRESSION: Status post total knee replacement. There is good alignment. Postoperative soft tissue changes. Electronically Signed: Anthony Sorenson MD at 15:17 EDT , Charges/Coding Visit Charges Inpatient E&M: 51384 Subs Hosp L2
[2024-02-24] MEDS: Cefazolin 1 GM/50 ML BAG IV (19:52)
[2024-02-24] MEDS: Dofetilide 250 MCG Capsule PO (20:58)
[2024-02-24] MEDS: Senna/Docusate Sodium 1 Tablet 2 TABLET PO (20:59)
[2024-02-24] MEDS: Gabapentin 300 MG Capsule PO (21:04)
[2024-02-24] MEDS: oxyCODONE 5 MG Tablet PO (22:41)
[2024-02-25 03:12] VITALS: BP 124/68; PULSE 74; RESP 16; TEMP 37.3; O2SAT 97
[2024-02-25] MEDS: oxyCODONE 5 MG Tablet PO ×5 (03:12→21:07)
[2024-02-25] MEDS: Cefazolin 1 GM/50 ML BAG IV (03:32)
[2024-02-25] MEDS: Acetaminophen 500 MG Tablet 1000 MG PO ×3 (05:54→20:27)
[2024-02-25 06:35] LABS: Hematocrit 24.4 % (40-54); Hemoglobin 7.7 g/dL (13.0-16.5); Mean Corp Hgb Conc 31.6 g/dL (32-36); Mean Corpuscular Hgb 25.9 pg (27.0-32.0); Mean Corpuscular Volume 82.2 fL (80-94); Mean Platelet Vol. 9.7 fl (6.2-12.0); Platelet Count 178 K/mm3 (150-450); RBC Distribution Width CV 16.9 % (11.6-14.6); RBC Distribution Width SD 50.8 fl (35.1-43.9); Red Blood Count 2.97 M/mm3 (4.6-6.2); White Blood Count 11.1 K/mm3 (4.4-11.0)
[2024-02-25 06:47] VITALS: BP 128/70; PULSE 78; RESP 16; TEMP 37.2; O2SAT 98
[2024-02-25 07:01] LABS: Anion Gap 5 (5-15); BUN 17 mg/dL (7-18); Calcium,Total 8.6 mg/dL (8.5-10.1); Chloride 99 mmol/L (98-107); Creatinine, Serum 1.21 mg/dL (0.70-1.30); EST Glomerular Filtration Rate 62 mL/min (>60); Est Glom Filt Rate - Afr Amer 75 mL/min (>60); Estimated Creatinine Clearance 70.09 ml/min; Glucose 214 mg/dL (74-106); Potassium 4.6 mmol/L (3.5-5.1); Sodium Level 129 mmol/L (136-145)
[2024-02-25] MEDS: Dofetilide 250 MCG Capsule PO ×2 (09:05→21:03)
[2024-02-25 09:09] VITALS: BP 142/76; PULSE 86; RESP 17; TEMP 37; O2SAT 97
[2024-02-25] MEDS: amLODIPine 10 MG Tablet PO (09:12)
[2024-02-25] MEDS: APIXABAN 5 MG TABLET PO ×2 (09:13→21:03)
[2024-02-25] MEDS: Pantoprazole Sodium 40 MG Tablet PO (09:13)
[2024-02-25] MEDS: Senna/Docusate Sodium 1 Tablet 2 TABLET PO (09:13)
[2024-02-25] MEDS: Losartan Potassium 50 MG Tablet PO (09:13)
[2024-02-25] MEDS: Atorvastatin Calcium 40 MG Tablet PO (09:13)
--- NOTE | 2024-02-25 09:35 | CASEMGMT ---
Addendum entered by Alta Vazquez 02/25/24 10:40: RAFAEL VASQUEZ into pt room, [facility]. Original Note: RAFAEL VASQUEZ Assessment: Face to Face with pt for initial transition planning/care coordination assessment. RAFAEL VASQUEZ introduced self and role at [facility], pt voices understanding and consents to assessment. Pt is A&O x4 and answers all questions appropriately at this time. Pt sitting up in chair in no distress. Care providers, pharmacy, and demographics verified/updated. Admitting Dx: TKR Strata Score: 2 PCP:Louie Specialists:[facility] ortho; Henry, cardio; michel Pleitez Preferred Pharmacy: [facility] Retail Insurance: [employer] Prescription Benefit: yes LNOK: Lucretia Sands, Living Arrangements: Pt lives with in a single story home with a 1 step to enter with a grab bar. Pt reports prior to surgery he was I in ADLs. Transportation: Pt drives self and denies concerns with transportation. Pt able to transport him until he can drive again. DME:FWW, shower chair, pharmacy graduate intern, CPAP HHC/SNF: Pt has had HHC in the past and cannot recall name of agency. Pt has been to [facility]. PT made aware that pt leg buckled during therapy session and pt is not safe to return home. Pt states his is too aged to assist him. Discussed inpt rehab units that would be covered by insurance and provided pt a list created by dc ophthalmic assistant. Discussed SNF and that this will not be covered by the insurance at this time. Pt to review list and call his . He is aware that the RN CHRISTINA or ALTHAE will follow up with him on his top 3 preferences. Pt states no further concerns/needs. CM to follow. Advised pt to ask CM if any further question/concerns/needs arise, voices understanding. Pt Goal: Was initially home but pt agreeable to inpatient rehab unit Plan: Inpatient rehab unit pending acceptance Miranda HALL CM
--- NOTE | 2024-02-25 11:13 | CASEMGMT ---
Addendum entered by Emani Thomson 02/25/24 13:57: [facility] has accepted patient. [facility] has no bed availability and [facility] didn't respond to referral. Emani Thomson DC Planning Asst. Original Note: Discharge Planning [facility], [facility], and [facility]. Emani Thomson DC Planning Asst.
--- NOTE | 2024-02-25 11:19 | PN_ITS ---
Subjective Subjective Patient seen and examined. He complained of pain in his left knee. He says his knee nearly buckled when working with therapy. He is now willing to go to inpatient rehab as he doesnt think his will be able to handle him at home in his current state. He has remained hemodynamically stable. He is on room air. Objective Data Objective Data Vital Signs: Vital Signs Temp Pulse Resp BP Pulse Ox O2 Del Method O2 Flow Rate 98.6 F 86 17 142/76 H 97 Room Air 2 02/25/24 09:09 02/25/24 09:09 02/25/24 09:09 02/25/24 09:09 02/25/24 09:09 02/25/24 09:20 02/25/24 06:47 Oxygen Flow Rate (L/min) 2 Oxygen Delivery Method Room Air Weight: 253 lb 8.505 oz Body Mass Index (BMI) 33.4 Intake & Output: Intake and Output for Last 24 Hours 02/23/24 02/24/24 02/25/24 23:59 23:59 23:59 Intake Total 3564 / 3564 250 / 250 Balance 3564 / 3564 250 / 250 Lab / Micro Data 02/25/24 06:16 02/25/24 06:16 Labs: Laboratory Results - last 24 hr 02/24/24 11:02: POC Glucose 269 H 02/24/24 14:15: POC Glucose 179 H 02/25/24 06:16: WBC 11.1 H, RBC 2.97 L, Hgb 7.7 L, Hct 24.4 L, MCV 82.2, MCH 25.9 L, MCHC 31.6 L, RDW Std Deviation 50.8 H, RDW Coeff of [place] 16.9 H, Plt Count 178, MPV 9.7, Sodium 129 L, Potassium 4.6, Chloride 99, Carbon Dioxide 25.0, Anion Gap 5, BUN 17, Creatinine 1.21, Estim Creat Clear Calc 70.09, Est GFR (MDRD) Af Amer 75, Est GFR (MDRD) Non-Af 62, BUN/Creatinine Ratio 14.0, G lucose 214 H, Calcium 8.6 Micro: Microbiology 02/14/24 11:49 Swab (Method) Nasal Screen MRSA/MSSA - Final Radiography Diagnostic Testing: Radiology Impression Knee X-Ray 02/24/24 15:00 IMPRESSION: Status post total knee replacement. There is good alignment. Postoperative soft tissue changes. Electronically Signed: Anthony Sorenson MD at 15:17 EDT , Physical Exam Const alert, oriented x3, no apparent distress and well nourished General Appearance: cooperative and well developed HEENT normocephalic, head/scalp atraumatic, moist oral mucous membranes and oropharynx normal Eyes PERRL and EOMs intact bilaterally Neck no lymphadenopathy and supple Lymph Lymphatic: no lymphadenopathy noted and no lymphedema noted Resp normal respiratory effort, normal air movement and clear to auscultation bilaterally Cardio regular rate, regular rhythm, S1 normal heart sound, S2 normal heart sound and no murmurs GI normal to inspection, nondistended, normoactive bowel sounds, soft to palpation, non-tender and non-distended Extremity Extremity Narrative: intact dressing over right knee; no erythema or tenderness General Extremity: no tenderness to palpation of joints or extremities Skin Skin Narrative: as under extremities Neuro CN's II-XII intact bilaterally, no focal motor deficits, no sensory deficits noted and deep tendon reflexes 2+ bilaterally Motor Exam: general weakness Psych thought process normal, cooperative and affect normal Appearance: appropriate Assessment & Plan Assessment/Plan (1) Status post total right knee replacement: (2) Hx of cardiac pacemaker: (3) Essential hypertension: (4) Atrial flutter: QUALIFIERS: Atrial flutter type: typical Qualified Code(s): I48.3 - Typical atrial flutter PLAN: Plan #Right knee osteoarthritis * s/p right knee total arthroplasty on 02/24/2024. Today is POD 1 * pain control as per primary service; on tylenol and oxycodone prn * on eliquis for DVT prophylaxis * PT/OT on board. Fall precautions. * incentive spirometry #Chronic atrial fibrillation: on eliquis and tikosyn. Has a pacemaker in situ. # Acute on chronic anemia: * Likely due to acute blood loss anemia from surgery. Hemoglobin was 9.3 on 02/14/2024 which is the last time hemoglobin was checked. Hemoglobin is 7.7 today. * May be due to blood loss from anemia. Will monitor closely transfuse if hemoglobin is less than 7. #JOE: On CPAP nightly #Hypertension: Amlodipine and losartan. IV hydralazine. #Hyperlipidemia: On statin #Type 2 diabetes mellitus: On metformin 500 mg twice daily. On insulin sliding scale. Accu-Cheks ACHS. Last known A1c was 7.1 on 02/14/2024. #GERD: On PPI DVT prophylaxis: Patient currently on Eliquis Charges/Coding Visit Charges Inpatient E&M: 04654 Subs Hosp L2
--- NOTE | 2024-02-25 11:40 | PN.ORTHO_ITS ---
Subjective Subjective Patient is s/p right total knee arthroplasty with Dr. Escalera 02/24/2024 patient resting comfortably in bed. Rates pain 3/ 10 at rest. With movement 10/10. States taking Tylenol, gabapentin, and oxycodone and ice help to relieve pain. Patient has been up with therapy. Walking with the assit of a walker. Afebrile, no chest pain, shortness of breath, negative calf pain/ erythema, and no other signs of DVT. On today's labs his hemoglobin has dropped to 7.7 from 9.3. Medicine is following. They plan to continue to monitor and may consider transfusion if drops less than 7. patients main complaint is spasms in the back of his knee. I believe these are hamstring spasm and tightness. Patient did have a flexion contracture prior to surgery for which was attempted to be corrected. Patient states that the oxycodone, Tylenol, gabapentin is not improving his pain with the spasms. Objective Data Objective Data Vital Signs: Vital Signs Temp Pulse Resp BP Pulse Ox O2 Del Method O2 Flow Rate 98.6 F 86 17 142/76 H 97 Room Air 2 02/25/24 09:09 02/25/24 09:09 02/25/24 09:09 02/25/24 09:09 02/25/24 09:09 02/25/24 09:20 02/25/24 06:47 Oxygen Flow Rate (L/min) 2 Oxygen Delivery Method Room Air Weight: 115 kg Body Mass Index (BMI) 33.4 Intake & Output: Intake and Output for Last 24 Hours 02/23/24 02/24/24 02/25/24 23:59 23:59 23:59 Intake Total 3564 / 3564 250 / 250 Balance 3564 / 3564 250 / 250 Lab / Micro Data 02/25/24 06:16 02/25/24 06:16 Labs: Laboratory Results - last 24 hr 02/24/24 14:15: POC Glucose 179 H 02/25/24 06:16: WBC 11.1 H, RBC 2.97 L, Hgb 7.7 L, Hct 24.4 L, MCV 82.2, MCH 25.9 L, MCHC 31.6 L, RDW Std Deviation 50.8 H, RDW Coeff of [place] 16.9 H, Plt Count 178, MPV 9.7, Sodium 129 L, Potassium 4.6, Chloride 99, Carbon Dioxide 25.0, Anion Gap 5, BUN 17, Creatinine 1.21, Estim Creat Clear Calc 70.09, Est GFR (MDRD) Af Amer 75, Est GFR (MDRD) Non-Af 62, BUN/Creatinine Ratio 14.0, G lucose 214 H, Calcium 8.6 Micro: Microbiology 02/14/24 11:49 Swab (Method) Nasal Screen MRSA/MSSA - Final Radiography Diagnostic Testing: Radiology Impression Knee X-Ray 02/24/24 15:00 IMPRESSION: Status post total knee replacement. There is good alignment. Postoperative soft tissue changes. Electronically Signed: Anthony Sorenson MD at 15:17 EDT , Physical Exam Narrative Patient resting comfortably in bedside chair No signs of acute distress Satting well on room air Limb is warm to touch, Sensation intact throughout entire lower extremity, including saphenous, sural, superficial and deep peroneal, and tibial distribution. knee is considerably stiff to extension. he is lacking about 40 degrees full extension due to severe hamstring pain. DP/PT pulses bounding. Dorsiflexion plantarflexion strength 5/5 Dressing clear dry intact Calf nontender to palpation, no erythema, no edema. Negative Homans Assessment & Plan Assessment/Plan (1) Status post total right knee replacement: PLAN: Plan Patient is postop day 1 right total knee arthroplasty Dr. Escalera 02/24/2024 1. Will continue PT today. Weightbearing as tolerated 2. plan for discharge: pending. Case management is following. Referrals have been sent to 3 different inpatient rehabs. 3. Patient will follow up for post op appointment as previously scheduled in 2 weeks in our office 4. Patient has outpatient PT appointment as previously scheduled 5. WBC 11.1 acute reactive leukocytosis: secondary to pre operative decadron. no acute systemic signs of infection. will monitor, and likely self resolve. 6. H/H 7.7/24.4: post operavtive anemia secondary to acute blood loss intraoperatively. Patient is asymptomatic at this time. No intraoperative complications. will continue to monitor. no acute interventions. Medicine continues to monitor will consider transfusion if drops less than 7.0. 7. DVT prophylaxis : Patient resumed Eliquis postop day 1. He will continue this as previously prescribed this is acceptable for DVT prophylaxis. 8. Pain control: patient instructed to take tylenol 500mg 2 tablets TID. and oxycodone 1-2 tablets every 4-6 hours only as needed for pain control. 9. orthopaedically stable at this time. will await final recommendations from medicine when medically optimized. likely will draw another CBC 10. ok to remove post op dressing. post op day 5 [address] will speak [address] Dr[address] Escalera about spasms of the hamstrings to see if he would like to add another medication such as meloxicam vs muscle relaxer. will not add anything right now. For now I recommend gentle stretching and heat pad for the hamstrings.
--- NOTE | 2024-02-25 11:43 | DCINST_ITS ---
Discharge Instructions Diet Discharge Diet: No restrictions Activity Discharge Activity: Return to Normal Activity Weight Bearing Status: Weight bearing as tolerated Dressing / Incision Call your doctor if your incision/area has: Continuous Slow Oozing, Sudden Increased Bleeding, Increased Pain/ Swelling, Increased Redness, Foul Smelling Discharge and Swelling at the incision site Call your doctor if you observe: Fever of 101 or Higher, Inability to have a bowel movement, Shortness of breath, Dizziness, Swelling in the ankles, Chest pain, Increased palpitations (irregular heartbeat) and Calf discomfort Remove Dressing in: 5 days Cleanse incision/area with: Soap & Water and Keep Dressing Clean & Dry Additional Dressing/Incision Instructions:: Okay to remove dressing postop day 5. Dustin open to air. Okay for showering or sponge bathing. No submerging x 6 weeks postoperatively. Follow Up Care When: As previously scheduled. [facility] in our office Test Results: Test results from this visit will be discussed in further detail at your follow- up appointment, if applicable. Discharge Plan Admission Admit Date/Time: 02/24/24 14:55 Attending Provider: Hema Escalera Primary Care Provider: Sharmaine Palma Consulting Providers: Natalia Galvan Discharge Orders/Prescriptions Prescriptions: No Action atorvastatin 40 mg tablet 40 mg PO DAILY albuterol sulfate 90 mcg/actuation HFA aerosol inhaler 2 puff INHALATION 4X/DAY PRN (Reason: Sob &/Or Wheezing) Qty: 8.5 11RF gabapentin 300 mg capsule 300 mg PO QHS dofetilide [Tikosyn] 250 mcg capsule 250 mcg PO 0900,2100 Patient Comments: pt takes at 9a and 9p amlodipine 10 MG tablet 10 mg PO DAILY omeprazole 40 MG capsule,delayed release(DR/EC) 40 mg PO DAILY metformin 500 MG tablet extended release 24 hr 500 mg PO BID Eliquis 5 mg tablet 5 mg PO BID Rx Instructions: TAKE 1 TABLET BY MOUTH TWICE A DAY losartan 50 mg tablet 50 mg PO DAILY Rx Instructions: TAKE 1 TABLET BY MOUTH EVERY DAY Referrals / Follow Up: Sharmaine Palma MD [Primary Care Provider] -
--- NOTE | 2024-02-25 11:45 | TREXTCAR_ITS ---
Diet Diet Order/Speech Therapy: 02/24/24 16:31 Diet: Regular - General Routine Orders/Code Status Routine Lab Work: CBC Wound(s) RIGHT KNEE: Wound Type: Surgical Incision Dressing Change: Maintain dressing x 5 days then okay to remove. [place] okay open to air Therapies Weight Bearing: Full weight bearing Extremity Affected:: Right Lower Physical Therapy: Eval and Treat Occupational Therapy: Eval and Treat Narrative: Weightbearing as tolerated right lower extremity Problem/Diagnosis (1) Status post total right knee replacement: Status: Acute Code(s): Z96.651 - Presence of right artificial knee joint Plan Patient is postop day 1 right total knee arthroplasty Dr. Escalera 02/24/2024 1. Will continue PT today. Weightbearing as tolerated 2. plan for discharge: Case management is following. Referrals have been sent to 3 different inpatient rehabs. 3. Patient will follow up for post op appointment as previously scheduled in 2 weeks in our office 4. Patient has outpatient PT appointment as previously scheduled 5. WBC 11.1 acute reactive leukocytosis: secondary to pre operative decadron. no acute systemic signs of infection. will monitor, and likely self resolve. 6. H/H 7.7/.4: post operavtive anemia secondary to acute blood loss intraoperatively. Patient is asymptomatic at this time. No intraoperative complications. will continue to monitor. no acute interventions. Medicine continues to monitor will consider transfusion if drops less than 7.0. 7. DVT prophylaxis : Patient resumed Eliquis postop day 1. He will continue this as previously prescribed this is acceptable for DVT prophylaxis. 8. Pain control: patient instructed to take tylenol 500mg 2 tablets TID. and oxycodone 1-2 tablets every 4-6 hours only as needed for pain control. 9. Patient also given a prescription of Pepcid for ulcer prophylaxis. 10. ok to remove post op dressing. post op day 5 Allergies/Procedures Done in Hospital Allergies furosemide (From Lasix) Adverse Reaction (Verified 02/24/24 11:00) Other urinary retention Type of Care/Length of Stay Estimated LOS: Convalescent Care Less Than 30 days Type of Care Needed: Acute Rehab Rehab Potential: Good Prognosis: Good Additional Orders/Day of Discharge Day of Discharge: 02/26/24 Discharge Plan Admission Admit Date/Time: 02/24/24 14:55 Attending Provider: Hema Escalera Primary Care Provider: Sharmaine Palma Consulting Providers: Natalia Galvan Discharge Orders/Prescriptions Prescriptions: New acetaminophen 500 mg Tablet 1,000 mg PO Q8 Qty: 180 0RF sennosides-docusate sodium [Stimulant Laxative Plus] 8.6-50 mg Tablet 2 tab PO BID Qty: 14 0RF oxycodone 5 mg Tablet 5 - 10 mg PO .q4-6prn PRN (Reason: Pain Score 4-10) 7 Days Qty: 56 0RF Continued atorvastatin 40 mg tablet 40 mg PO DAILY albuterol sulfate 90 mcg/actuation HFA aerosol inhaler 2 puff INHALATION 4X/DAY PRN (Reason: Sob &/Or Wheezing) Qty: 8.5 11RF gabapentin 300 mg capsule 300 mg PO QHS dofetilide [Tikosyn] 250 mcg capsule 250 mcg PO 0900,2100 Patient Comments: pt takes at 9a and 9p amlodipine 10 MG tablet 10 mg PO DAILY omeprazole 40 MG capsule,delayed release(DR/EC) 40 mg PO DAILY metformin 500 MG tablet extended release 24 hr 500 mg PO BID Eliquis 5 mg tablet 5 mg PO BID Rx Instructions: TAKE 1 TABLET BY MOUTH TWICE A DAY losartan 50 mg tablet 50 mg PO DAILY Rx Instructions: TAKE 1 TABLET BY MOUTH EVERY DAY Referrals / Follow Up: Sharmaine Palma MD [Primary Care Provider] -
[2024-02-25] MEDS: tiZANidine HCl 2 MG Tablet 4 MG PO ×2 (14:57→21:08)
[2024-02-25 15:02] VITALS: BP 137/74; PULSE 80; RESP 17; TEMP 37.1; O2SAT 95
--- NOTE | 2024-02-25 15:09 | CASEMGMT ---
Met with patient to complete RAE form. RAE form explained to patient who voiced understanding and signed form. Original form placed in pt?s chart and copy provided to patient. Emani Thomson, Discharge Planning Asst
--- NOTE | 2024-02-25 15:11 | CASEMGMT ---
Social Work [facility] is able to accept pt, [facility] are not. SW met with pt and informed of this and pt is agreeable to [facility]. Ortho and hospitalist notifed and pt is not ready for dc today but possibly tomorrow. Pt is aware. Green Sheet on the chart to facility weekend discharge. Plan: [facility], when medically ready JOCELYN Le
--- NOTE | 2024-02-25 15:15 | CASEMGMT ---
Social Work SW met with pt to discuss advance directives.? Pt confirms he has completed a living will and health care POA naming his Lucretia Sands.? Pt notified that documents are not on file at [facility] and SW requested they be brought in for scanning into the EMR.? JOCELYN Le
[2024-02-25] MEDS: Lidocaine 5% Patch 1 PATCH TOPICAL (18:01)
[2024-02-25] MEDS: Gabapentin 300 MG Capsule PO (20:27)
[2024-02-25 23:15] VITALS: BP 112/57; PULSE 72; RESP 16; TEMP 37.1; O2SAT 96
[2024-02-26 02:53] VITALS: BP 132/62; PULSE 82; RESP 16; TEMP 36.8; O2SAT 99
[2024-02-26] MEDS: oxyCODONE 5 MG Tablet PO ×2 (02:53→10:17)
[2024-02-26] MEDS: Acetaminophen 500 MG Tablet 1000 MG PO (05:10)
[2024-02-26 07:18] LABS: Hematocrit 23.8 % (40-54); Hemoglobin 7.5 g/dL (13.0-16.5); Mean Corp Hgb Conc 31.5 g/dL (32-36); Mean Corpuscular Hgb 26.4 pg (27.0-32.0); Mean Corpuscular Volume 83.8 fL (80-94); Mean Platelet Vol. 10.3 fl (6.2-12.0); Platelet Count 178 K/mm3 (150-450); RBC Distribution Width CV 17.2 % (11.6-14.6); RBC Distribution Width SD 52.3 fl (35.1-43.9); Red Blood Count 2.84 M/mm3 (4.6-6.2); White Blood Count 7.7 K/mm3 (4.4-11.0)
[2024-02-26 07:54] VITALS: BP 148/68; PULSE 80; RESP 16; TEMP 37.6; O2SAT 94
[2024-02-26] MEDS: Dofetilide 250 MCG Capsule PO (08:58)
--- NOTE | 2024-02-26 09:43 | CASEMGMT ---
Addendum entered by Kirti Nelsno 02/26/24 10:44: Social Work Updates sent to [facility] via [facility] per their request. As per orthopedic physician, pt does not need a blood transfusion, and will be discharged today. ODIN Bhardwaj Original Note: Social Work SW called [facility] to inquire how late pt can arrive to their unit, as pt needs a blood transfusion prior to discharging from [facility]. [facility] had told SW yesterday they would like pt discharged to them by 1pm. ALTHEA spoke w/the steam powerplant supervisor Rimma, and she states they can accept pt any time, tomorrow they can accept pt any time after 11am. ALTHEA updated green sheet, physician and charge master analyst. ODIN Bhardwaj
[2024-02-26] MEDS: tiZANidine HCl 2 MG Tablet 4 MG PO (10:17)
[2024-02-26] MEDS: Losartan Potassium 50 MG Tablet PO (10:19)
[2024-02-26] MEDS: Lidocaine 5% Patch 1 PATCH TOPICAL (10:20)
[2024-02-26] MEDS: APIXABAN 5 MG TABLET PO (10:20)
[2024-02-26] MEDS: Pantoprazole Sodium 40 MG Tablet PO (10:22)
[2024-02-26] MEDS: amLODIPine 10 MG Tablet PO (10:22)
[2024-02-26] MEDS: Atorvastatin Calcium 40 MG Tablet PO (10:22)
[2024-02-26] MEDS: Senna/Docusate Sodium 1 Tablet 2 TABLET PO (10:22)
--- NOTE | 2024-02-26 10:23 | PN_ITS ---
Subjective Subjective Patient seen and examined. He still complain of pain in his knee. Review of systems otherwise negative. Hemoglobin is 7.5 today. Objective Data Objective Data Vital Signs: Vital Signs Temp Pulse Resp BP Pulse Ox O2 Del Method O2 Flow Rate 99.7 F H 80 16 148/68 H 94 Room Air 2 02/26/24 07:54 02/26/24 07:54 02/26/24 07:54 02/26/24 07:54 02/26/24 07:54 02/26/24 07:54 02/25/24 06:47 Oxygen Flow Rate (L/min) 2 Oxygen Delivery Method Room Air Weight: 253 lb 8.505 oz Body Mass Index (BMI) 33.4 Intake & Output: Intake and Output for Last 24 Hours 02/24/24 02/25/24 02/26/24 23:59 23:59 23:59 Intake Total 3564 / 3564 650 / 650 400 / 400 Balance 3564 / 3564 650 / 650 400 / 400 Lab / Micro Data 02/26/24 06:15 02/25/24 06:16 Labs: Laboratory Results - last 24 hr 02/26/24 06:15: WBC 7.7, RBC 2.84 L, Hgb 7.5 L, Hct 23.8 L, MCV 83.8, MCH 26.4 L , MCHC 31.5 L, RDW Std Deviation 52.3 H, RDW Coeff of [place] 17.2 H, Plt Count 178, MPV 10.3 02/26/24 09:58: Crossmatch See Detail Micro: Microbiology 02/14/24 11:49 Swab (Method) Nasal Screen MRSA/MSSA - Final Physical Exam Const alert, oriented x3, no apparent distress and well nourished General Appearance: cooperative and comfortable HEENT normocephalic, head/scalp atraumatic, hearing grossly normal bilaterally, nasal mucous membranes and turbinates normal, moist oral mucous membranes and oropharynx normal Eyes PERRL, EOMs intact bilaterally and conjunctivae normal Neck full ROM, no lymphadenopathy and supple Lymph Lymphatic: no lymphadenopathy noted and no lymphedema noted Chest inspection of chest normal Resp normal respiratory effort, normal air movement, no use of accessory muscles and clear to auscultation bilaterally Cardio regular rate, regular rhythm, S1 normal heart sound, S2 normal heart sound, no murmurs and peripheral pulses 2+ throughout GI normal to inspection, nondistended, normoactive bowel sounds, soft to palpation, non-tender and non-distended Back/Spine normal ROM Extremity Extremity Narrative: intact dressing over right knee; no erythema or tenderness General Extremity: no tenderness to palpation of joints or extremities Skin no rashes or lesions noted Skin Narrative: as under extremities Neuro CN's II-XII intact bilaterally, moves all extremities, no focal motor deficits, no sensory deficits noted and deep tendon reflexes 2+ bilaterally Speech: speech normal Motor Exam: general weakness Psych mental status grossly normal, thought process normal, cooperative and affect normal Appearance: appropriate Assessment & Plan Assessment/Plan (1) Status post total right knee replacement: (2) Hx of cardiac pacemaker: (3) Essential hypertension: (4) Atrial flutter: QUALIFIERS: Atrial flutter type: typical Qualified Code(s): I48.3 - Typical atrial flutter PLAN: Plan #Right knee osteoarthritis * s/p right knee total arthroplasty on 02/24/2024. Today is POD 2 * pain control as per primary service; on tylenol and oxycodone prn * on eliquis for DVT prophylaxis * PT/OT on board. Fall precautions. * incentive spirometry #Chronic atrial fibrillation: on eliquis and tikosyn. Has a pacemaker in situ. # Acute on chronic anemia: * Likely due to acute blood loss anemia from surgery. Hemoglobin was 9.3 on 02/14/2024 which is the last time hemoglobin was checked. Hemoglobin is 7.5 today, from 7.7 yesterday * I had wanted to give a unit of blood today, but per discussion with Dr Escalera, he would prefer that patient not be given any blood transfusion, due to the risk of prosthetic joint infection in such patients after they receive blood. * will therefore hold off on blood transfusion; to have HH monitored in the rehab facility. #JOE: On CPAP nightly #Hypertension: Amlodipine and losartan. IV hydralazine. #Hyperlipidemia: On statin #Type 2 diabetes mellitus: * On metformin 500 mg twice daily. * On insulin sliding scale. * Accu-Cheks ACHS. * Last known A1c was 7.1 on 02/14/2024. #GERD: On PPI DVT prophylaxis: Patient currently on Eliquis Charges/Coding Visit Charges Inpatient E&M: 21686 Subs Hosp L2
--- NOTE | 2024-02-26 10:25 | PN.ORTHO_ITS ---
Subjective Subjective Patient seen and examined. Pain was absent last night following administration of Zanaflex. He has significant posterior knee pain this morning. He has not received his Zanaflex dose yet this morning. He has been up with nursing to the bathroom. He has not worked with physical therapy today. He denies any lightheadedness, dizziness. Denies any chest pain, shortness of breath, fevers or chills, nausea or vomiting. Objective Data Objective Data Vital Signs: Vital Signs Temp Pulse Resp BP Pulse Ox O2 Del Method O2 Flow Rate 99.7 F H 80 16 148/68 H 94 Room Air 2 02/26/24 07:54 02/26/24 07:54 02/26/24 07:54 02/26/24 07:54 02/26/24 07:54 02/26/24 07:54 02/25/24 06:47 Oxygen Flow Rate (L/min) 2 Oxygen Delivery Method Room Air Weight: 253 lb 8.505 oz Body Mass Index (BMI) 33.4 Intake & Output: Intake and Output for Last 24 Hours 02/24/24 02/25/24 02/26/24 23:59 23:59 23:59 Intake Total 3564 / 3564 650 / 650 400 / 400 Balance 3564 / 3564 650 / 650 400 / 400 Lab / Micro Data 02/26/24 06:15 02/25/24 06:16 Labs: Laboratory Results - last 24 hr 02/26/24 06:15: WBC 7.7, RBC 2.84 L, Hgb 7.5 L, Hct 23.8 L, MCV 83.8, MCH 26.4 L , MCHC 31.5 L, RDW Std Deviation 52.3 H, RDW Coeff of [place] 17.2 H, Plt Count 178, MPV 10.3 02/26/24 09:58: Crossmatch See Detail Micro: Microbiology 02/14/24 11:49 Swab (Method) Nasal Screen MRSA/MSSA - Final Physical Exam Narrative General - A&Ox3, NAD. VSS/AF Right lower extremity -incisional dressing shows dried blood around the proximal third otherwise clean dry and intact. Severe pain with attempted passive extension referred to the posterior knee/posterior distal thigh. SILT Sural, Saphenous, SPN, DPN, Tibial N. distributions. DP, PT 2+. BCR. DF, PF, EHL 5/5. No calf TTP. Assessment & Plan Assessment/Plan (1) Status post total right knee replacement: PLAN: POD# 2 s/p robotic arm assisted right total knee arthroplasty -Hemoglobin stable at 7.5 today. Prefer not to transfuse the patient as he is hemodynamically stable, asymptomatic especially in the setting of baseline chronic anemia/pancytopenia. Hospitalist initially ordered blood this morning but after discussion and explaining the increased risk of prosthetic joint infection with blood transfusion, we agreed upon monitoring the anemia. Would recommend rechecking CBC in the next 24 to 48 hours upon transfer to acute rehab. - Pain control -Multimodal with Tylenol, oxycodone, as needed Zanaflex. - Medicine following for medical management - PT/OT - DVT PPX -Multimodal with SCDs, ROJELIO ackerman, early mobilization, home Eliquis - Case management - D/C planning Plan for discharge to acute rehab today.
--- NOTE | 2024-02-26 10:31 | PCM.TXEXTCAR ---
Diet Diet Order/Speech Therapy: 02/24/24 16:31 Diet: Regular - General Routine Orders/Code Status Routine Lab Work: CBC Wound(s) RIGHT KNEE: Wound Type: Surgical Incision Dressing Change: Maintain dressing x 5 days then okay to remove. [place] okay open to air Therapies Physical Therapy: Eval and Treat Occupational Therapy: Eval and Treat Problem/Diagnosis (1) Status post total right knee replacement: Status: Acute Code(s): Z96.651 - Presence of right artificial knee joint Plan: POD# 2 s/p robotic arm assisted right total knee arthroplasty -Hemoglobin stable at 7.5 today. Prefer not to transfuse the patient as he is hemodynamically stable, asymptomatic especially in the setting of baseline chronic anemia/pancytopenia. Hospitalist initially ordered blood this morning but after discussion and explaining the increased risk of prosthetic joint infection with blood transfusion, we agreed upon monitoring the anemia. Would recommend rechecking CBC in the next 24 to 48 hours upon transfer to acute rehab. - Pain control -Multimodal with Tylenol, oxycodone, as needed Zanaflex. - Medicine following for medical management - PT/OT - DVT PPX -Multimodal with SCDs, ROJELIO ackerman, early mobilization, home Eliquis - Case management - D/C planning Plan for discharge to acute rehab today. (2) Hx of cardiac pacemaker: Status: Acute Code(s): Z95.0 - Presence of cardiac pacemaker (3) Essential hypertension: Status: Chronic Code(s): I10 - Essential (primary) hypertension (4) Atrial flutter: Status: Chronic Code(s): I48.92 - Unspecified atrial flutter Allergies/Procedures Done in Hospital Allergies furosemide (From Lasix) Adverse Reaction (Verified 02/24/24 11:00) Other urinary retention Type of Care/Length of Stay Estimated LOS: Convalescent Care Less Than 30 days Type of Care Needed: Acute Rehab Rehab Potential: Good Prognosis: Good Additional Orders/Day of Discharge Day of Discharge: 02/26/24 Follow Up Care Please Follow Up With: Hema Escalera DO When: 2 weeks as scheduled Discharge Plan Admission Admit Date/Time: 02/24/24 14:55 Primary Reason for Your Visit: Right total knee replacement Attending Provider: Hema Escalera Primary Care Provider: Sharmaine Palma Consulting Providers: Natalia Galvan Discharge Orders/Prescriptions Prescriptions: New acetaminophen 500 mg Tablet 1,000 mg PO Q8 Qty: 180 0RF sennosides-docusate sodium [Stimulant Laxative Plus] 8.6-50 mg Tablet 2 tab PO BID Qty: 14 0RF oxycodone 5 mg Tablet 5 - 10 mg PO .q4-6prn PRN (Reason: Pain Score 4-10) 7 Days Qty: 56 0RF doxycycline monohydrate 100 mg Capsule 100 mg PO BID 7 Days Qty: 14 0RF tizanidine 4 mg capsule 4 mg PO Q8H PRN (Reason: spasm) 7 Days Qty: 21 0RF Continued atorvastatin 40 mg tablet 40 mg PO DAILY albuterol sulfate 90 mcg/actuation HFA aerosol inhaler 2 puff INHALATION 4X/DAY PRN (Reason: Sob &/Or Wheezing) Qty: 8.5 11RF gabapentin 300 mg capsule 300 mg PO QHS dofetilide [Tikosyn] 250 mcg capsule 250 mcg PO 0900,2100 Patient Comments: pt takes at 9a and 9p amlodipine 10 MG tablet 10 mg PO DAILY omeprazole 40 MG capsule,delayed release(DR/EC) 40 mg PO DAILY metformin 500 MG tablet extended release 24 hr 500 mg PO BID Eliquis 5 mg tablet 5 mg PO BID Rx Instructions: TAKE 1 TABLET BY MOUTH TWICE A DAY losartan 50 mg tablet 50 mg PO DAILY Rx Instructions: TAKE 1 TABLET BY MOUTH EVERY DAY Referrals / Follow Up: Sharmaine Palma MD [Primary Care Provider] - Hema Escalera DO [Med Staff - Active Staff] - Disposition Disposition (needs filled in before D/C Order can be placed): Inpatient Rehab Unit/Facility (4) Atrial flutter Qualifiers: Atrial flutter type: typical Qualified Code(s): I48.3 - Typical atrial flutter
[2024-02-26] MEDS: Doxycycline 100 MG CAPSULE PO (10:43)
--- NOTE | 2024-02-26 10:45 | DCINST_ITS ---
Discharge Instructions Diet Discharge Diet: No restrictions Activity Weight Bearing Status: Weight bearing as tolerated Dressing / Incision Call your doctor if your incision/area has: Continuous Slow Oozing, Sudden Increased Bleeding, Increased Pain/ Swelling, Increased Redness, Foul Smelling Discharge and Swelling at the incision site Call your doctor if you observe: Fever of 101 or Higher, Inability to have a bowel movement, Shortness of breath, Dizziness, Swelling in the ankles, Chest pain, Increased palpitations (irregular heartbeat) and Calf discomfort Cleanse incision/area with: Soap & Water and Keep Dressing Clean & Dry Additional Dressing/Incision Instructions:: Okay to remove dressing postop day 5. [place] open to air. Okay for showering or sponge bathing. No submerging x 6 weeks postoperatively. Follow Up Care Please Follow Up With: Hema Escalera DO Test Results: Test results from this visit will be discussed in further detail at your follow- up appointment, if applicable. Discharge Plan Admission Admit Date/Time: 02/24/24 14:55 Primary Reason for Your Visit: Right total knee replacement Attending Provider: Hema Escalera Primary Care Provider: Sharmaine Palma Consulting Providers: Natalia Galvan Discharge Orders/Prescriptions Prescriptions: New acetaminophen 500 mg Tablet 1,000 mg PO Q8 Qty: 180 0RF sennosides-docusate sodium [Stimulant Laxative Plus] 8.6-50 mg Tablet 2 tab PO BID Qty: 14 0RF oxycodone 5 mg Tablet 5 - 10 mg PO .q4-6prn PRN (Reason: Pain Score 4-10) 7 Days Qty: 56 0RF doxycycline monohydrate 100 mg Capsule 100 mg PO BID 7 Days Qty: 14 0RF tizanidine 4 mg capsule 4 mg PO Q8H PRN (Reason: spasm) 7 Days Qty: 21 0RF Continued atorvastatin 40 mg tablet 40 mg PO DAILY albuterol sulfate 90 mcg/actuation HFA aerosol inhaler 2 puff INHALATION 4X/DAY PRN (Reason: Sob &/Or Wheezing) Qty: 8.5 11RF gabapentin 300 mg capsule 300 mg PO QHS dofetilide [Tikosyn] 250 mcg capsule 250 mcg PO 0900,2100 Patient Comments: pt takes at 9a and 9p amlodipine 10 MG tablet 10 mg PO DAILY omeprazole 40 MG capsule,delayed release(DR/EC) 40 mg PO DAILY metformin 500 MG tablet extended release 24 hr 500 mg PO BID Eliquis 5 mg tablet 5 mg PO BID Rx Instructions: TAKE 1 TABLET BY MOUTH TWICE A DAY losartan 50 mg tablet 50 mg PO DAILY Rx Instructions: TAKE 1 TABLET BY MOUTH EVERY DAY Referrals / Follow Up: Sharmaine Palma MD [Primary Care Provider] - Hema Escalera DO [Med Staff - Active Staff] - Disposition Disposition (needs filled in before D/C Order can be placed): Inpatient Rehab Unit/Facility
== END 2024-02-26 13:27 ==
LOC: SDC 15:25 → MS3 18:01
PROVIDERS: Anesthesiology; Admitting Provider Student in an Organized Health Care Education/Training Program; PCP Family Medicine; Referring Provider Student in an Organized Health Care Education/Training Program; Visit Provider Student in an Organized Health Care Education/Training Program
PROC: 0SRC0JZ Replacement of Right Knee Joint with Synthetic Substitute, Open Approach (ICD-10-PCS; CPT 27447; principal; 2024-02-24 13:15)
DX: M17.11 Unilateral primary osteoarthritis, right knee (principal); I48.3 Typical atrial flutter; I48.0 Paroxysmal atrial fibrillation; E11.22 Type 2 diabetes mellitus with diabetic chronic kidney disease; E11.42 Type 2 diabetes mellitus with diabetic polyneuropathy; N18.30 Chronic kidney disease, stage 3 unspecified; K21.9 Gastro-esophageal reflux disease without esophagitis; M21.161 Varus deformity, not elsewhere classified, right knee; E78.00 Pure hypercholesterolemia, unspecified; Z79.01 Long term (current) use of anticoagulants; M24.561 Contracture, right knee; Z79.84 Long term (current) use of oral hypoglycemic drugs; E66.9 Obesity, unspecified; Z86.16 Personal history of COVID-19; G47.33 Obstructive sleep apnea (adult) (pediatric); I12.9 Hypertensive chronic kidney disease with stage 1 through stage 4 chronic kidney disease, or unspecified chronic kidney disease; Z68.33 Body mass index [BMI] 33.0-33.9, adult; Z79.899 Other long term (current) drug therapy
CPT/HCPCS: 27447; S2900; 01402; 64447; 36415; 73560; 80048; 82962; 83036; 83735; 85025; 85027; 86850; 86900; 86901; 87081; 88305; 88311; 94668; 96361; 96365; 96366; 97110; 97162; 97166; 97530; 97535; 99221; 99252; C1776; J7120; G0378; G0463; J2405

== ENCOUNTER → 2024-03-21 | Outpatient (CLI) | payer MEDICARE, BC, SELFPAY ==
[2024-03-21 15:51] LABS: Cholesterol 99 mg/dL (200); High Density Lipoprotein 39 mg/dL; Triglycerides 90 mg/dL; Very Low Density Lipoprotein 18 mg/dL (5-40)
== END | disposition home or self-care (01) ==
LOC: MFPLAB 11:39
PROVIDERS: PCP Family Medicine; Referring Provider Family Medicine; Visit Provider Family Medicine
DX: E11.9 Type 2 diabetes mellitus without complications (principal)
CPT/HCPCS: 36415; 80061

== ENCOUNTER → 2024-12-26 | Outpatient (CLI) | payer MEDICARE, BC, SELFPAY ==
[2024-12-26 10:47] LABS: Creatinine, Urine (random) 126.00 mg/dL (39.00-259.00); Microalbumin,Random Urine < 12.0 mg/L (<20 mg/L)
[2024-12-26 11:40] LABS: Anion Gap 14 (5-15); BUN 18 mg/dL (4-19); BUN/Creat Ratio 14.9 RATIO (10-20); Calcium,Total 9.5 mg/dL (7.6-11.0); Carbon Dioxide 21.0 mmol/L (21.0-32.0); Chloride 99 mmol/L (98-108); Cholesterol 119 mg/dL (<=200); Glucose 153 mg/dL (70-99); Low Density Lipoprotein Calc. 49 mg/dL; Potassium 4.1 mmol/L (3.3-5.1); Triglycerides 97 mg/dL; Very Low Density Lipoprotein 19 mg/dL (5-40); cholesterol:hdl ratio screen 2.37
== END | disposition home or self-care (01) ==
LOC: MTLAB 09:04
PROVIDERS: PCP Family Medicine; Referring Provider Family Medicine; Visit Provider Family Medicine
DX: E11.9 Type 2 diabetes mellitus without complications (principal)
CPT/HCPCS: 36415; 80048; 80061; 82043; 82570

== ENCOUNTER → 2025-01-24 | Outpatient (CLI) | payer MEDICARE, BC, SELFPAY ==
[2025-01-24 15:40] LABS: PSA,Total- Diagnostic 6.37 ng/mL (0.00-4.00)
== END | disposition home or self-care (01) ==
PROVIDERS: PCP Family Medicine; Referring Provider Nurse Practitioner; Visit Provider Nurse Practitioner
DX: R97.20 Elevated prostate specific antigen [PSA] (principal)
CPT/HCPCS: 36415; 84153

== ENCOUNTER → 2025-02-22 | Outpatient (CLI) | payer MEDICARE, BC, SELFPAY ==
--- NOTE | 2025-02-22 13:30 | PROSBIL_PTH ---
PATIENT: GLENNA PINTO LOC: [facility] U#:[id number] AGE/SX: 75/M ROOM: RE02/22/[address]: Dr. Terrell Elizondo MD : [id number] BED: DIS: 02/22/2025 SPEC #: [id number] RECD: 02/22/25 15:22 STATUS: SUSHMA JADE #: [id number] MARICEL: 02/22/25 13:[address]: Terrell Elizondo DEPT: SURGICAL PATHOLOGY RECD BY: Vitor Delvalle ENTERED: 02/23/25 06:51 SP TYPE: PROST BX KERVIN DR: Dr. Carl Mei MD Tissues: A - PROSTATE RIGHT B - PROSTATE RIGHT C - PROSTATE RIGHT D - PROSTATE LEFT E - PROSTATE LEFT F - PROSTATE LEFT Procedures: PROSTATE BX HEADER OPERATION: Prostate biopsy PRE-OP DIAGNOSIS: Elevated PSA TISSUE SUBMITTED: A - Right apex, B - Right mid, C - Right base, D - Left apex, E - Left mid, F - Left base MICROSCOPIC DIAGNOSIS A. Prostate, right, apex, biopsy: * Focal atypical small acinar proliferation suspicious for adenocarcinoma. B. Prostate, right, mid, biopsy: * Benign prostate tissue. C. Prostate, right, base, biopsy: * Benign prostate tissue. D. Prostate, left, apex, biopsy: * Adenocarcinoma [place] 3+3=6, one of one core, involving 50% of the specimen. E. Prostate, left, mid, biopsy: * Adenocarcinoma [place] 3+3=6, one of one core, involving 92% of the specimen. F. Prostate, left, base, biopsy: * Adenocarcinoma [place] 3+3=6, one of one core, involving 99% of the specimen MICROSCOPIC DESCRIPTION Slides are reviewed. GROSS DESCRIPTION Received in 6 formalin containers labeled with the patient's name and date of . Designated as: A. "RA" is a arshad tissue core, 1.4 cm in length by 0.1 cm in diameter. Entirely submitted in 1 cassette. B. "RM" is a arshad tissue core, 1.8 cm in length by 0.1 cm in diameter. Entirely submitted in 1 cassette. C. "RB" is a arshad tissue core, 1.5 cm in length by 0.1 cm in diameter. Entirely submitted in 1 cassette. D. "LA" is a arshad tissue core, 1.8 cm in length by 0.1 cm in diameter. Entirely submitted in 1 cassette. E. "LM" is a arshad tissue core, 1.4 cm in length by 0.1 cm in diameter. Entirely submitted in 1 cassette. F. "LB" is a arshad tissue core, 1.5 cm in length by 0.1 cm in diameter. Entirely submitted in 1 cassette. UT 02/23/2025 CPT:[id number]
== END | disposition home or self-care (01) ==
LOC: LABSPEC 15:47
PROVIDERS: PCP Family Medicine; Referring Provider Urology; Visit Provider Urology
DX: R97.20 Elevated prostate specific antigen [PSA] (principal)
CPT/HCPCS: 88305; G0416

== ENCOUNTER 2025-03-28 09:38 | Day surgery (SDC) | payer MEDICARE, BC, SELFPAY ==
--- NOTE | 2025-03-22 18:27 | PAT.ANESEVAL ---
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 When Was Last Pacemaker Check QUESTION #4 FULL TEXT: You/Your Family Experience fever (hyperthermia) with Anesthesia Last Oral Intake Last Oral intake: Last Oral Intake NPO since Meds taken in AM with sips of water? 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 driver Female No 03/22/25 10:12 HX of Motion Sickness No 03/22/25 10:12 HX of N/V After Surgery No 03/22/25 10:12 Non-Smoker Yes 03/22/25 10:12 Duration of Surgery greater No 03/22/25 10:12 than 60 minutes Number of Risk Factors 1 03/22/25 10:12 PONV Score Low Risk 03/22/25 10:12 Height & Weight Height & Weight: Anesthesia: Height & Weight Height 6 ft 1 in 03/19/25 13:42 Respiratory Assessment Respiratory Assessment - ems driver: Respiratory Tract Infection Hx - ems driver Hx Respiratory Tract Infection No 03/22/25 10:12 STOP Sleep Apnea STOP Sleep Apnea - ems driver: STOP Sleep Apnea - ems driver Hx Hypertension Yes: controlled with med 03/22/25 10:12 Hx Sleep Apnea Yes 03/22/25 10:12 CPAP Yes 03/22/25 10:12 BIPAP No 03/22/25 10:12 Do you snore loudly (louder than talking or can be heard Do you often feel tired/ fatigued/ sleepy during daytime? Has anyone observed you stop breathing during sleep? STOP Results Positive 03/22/25 10:12 QUESTION #5 FULL TEXT : Do you snore loudly (louder than talking or can be heard through closed doors)? 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 Specify any problems Hx of Preganancy in last 3 N/A 03/22/25 10:12 Months Nurse Filling Out Transfusion [email or web address] 03/22/25 10:12 & Questions: Date: 03/22/25 03/22/25 10:12 Time: 10:15 03/22/25 10:12 Patient unable to answer at this time (ie. confused, unrespo /Reproduction History /Reproductive History - ems driver: /Reproductive Hx- ems driver Hx Now Gestational Age (in weeks): EDC: Hx Hx Para Hx Section SAB PFSH Medical History Gastric reflux History of atrial fibrillation Diabetes Back pain Dietary restriction Leg cramps History of edema History of pain when walking Wears glasses Wears partial dentures Prostate disease High cholesterol CPAP (continuous positive airway pressure) dependence Non-smoker History of echocardiogram Cardiology follow-up encounter Hypertension Hx of cardiac pacemaker Postoperative pain after spinal surgery Intractable back pain Risk for falls Essential hypertension Atrial flutter Morbid obesity Peripheral neuropathy GERD (gastroesophageal reflux disease) JOE (obstructive sleep apnea) Atrial fibrillation Bilateral pneumonia Acute respiratory failure with hypoxia Severe sepsis Cough Hypoxia COVID-19 Vocal cord mass Home Medications ?Medication ?Instructions ?Recorded ?Last Taken ?Type amlodipine 10 mg tablet 10 mg PO DAILY BP 06/21/16 02/24/24 08:30 History omeprazole 40 mg capsule,delayed 40 mg PO DAILY GERD 10/13/19 02/24/24 History release metformin 500 mg tablet,extended 500 mg PO BID DM 01/16/20 02/23/24 History release 24 hr atorvastatin 40 mg tablet 40 mg PO DAILY CHOLESTEROL 05/27/21 02/23/24 History albuterol sulfate 90 mcg/actuation 2 puff inhalation 4X/DAY PRN Sob 06/08/22 10/06/23 07:00 Rx aerosol inhaler &/Or Wheezing #8.5 grams dofetilide 250 mcg capsule 250 mcg PO 0900,2100 HEART MED 07/08/23 02/24/24 09:00 History (Tikosyn) apixaban 5 mg tablet (Eliquis) 5 mg PO BID #180 TABLETS 04/19/24 Unknown Rx gabapentin 300 mg capsule 300 mg PO BID PAIN 08/29/24 Unknown History empagliflozin 10 mg tablet 10 mg PO DAILY Pre-Diabetes 03/14/25 Unknown History (Jardiance) losartan 50 mg tablet 50 mg PO QDAY 03/19/25 Unknown History Allergy/AdvReac Type Severity Reaction Status Date / Time furosemide (From Lasix) AdvReac Other Verified 03/22/25 10:08 Family History Mother Myocardial infarction Heart disease Cancer parathyroid cancer Brother CAD (coronary artery disease), Onset Age: 65 CABG Surgical History (Updated 03/22/25 @ 10:39 by Arden Bragg) H/O heart surgery History of carpal tunnel surgery History of right knee joint replacement (02/24/24) Hx of transurethral resection of prostate History of tonsillectomy History of esophagogastroduodenoscopy (EGD) History of colonoscopy History of back surgery S/P excision of vocal cord nodule History of foot surgery Social History household members: spouse current occupational status: retired Smoking Status: Never smoker alcohol intake: never substance use type: does not use caffeine: No Audit: Pertinent Findings Pertinent Findings EKG Perinent findings: 01/06/2024. AV sequential pacing. Echo (EF%) pertinent findings: 04/21/2023. EF is 50 to 55%. RVSP is 21 mmHg. 12/11/2020. EF of 55%. PASP is 26 mmHg. No aortic stenosis noted. Consult pertinent findings: 08/29/2024. Dr. Figueroa. 1. Atrial flutter-currently following with EP at [facility]. He is status post pacemaker placement and is on Tikosyn. Doing well. No changes at this time. 2. History of pacemaker. Followed by EP at [facility]. 3. Hypertension-good control. Continue same medications. Recommendation Anesthesia Recommendation Anesthesia recommendation: OPTIMIZED for anesthesia
[2025-03-28] VITALS (9 sets, daily range): BP systolic 118–142; BP diastolic 69–79; PULSE 68–91; RESP 16; TEMP 36.3–36.5; O2SAT 95–100; BMI 36.8
--- NOTE | 2025-03-28 10:24 | PCM.PRE.AN2 ---
ASA Classification* ASA Classification ASA Classification: 3 (JOE on CPAP, atrial flutter with pacemaker. Pt states he is claustrophobic with masks) Assessment & Plan Anesthesia* Anesthesia Assessment Anesthesia Assessment: Discussed sedation and/or anesthesia options, risks, benefits, and alternatives with patient/parents/legal guardian/POA. Questions invited. The patient/parents/legal guardian/POA seems to understand and agrees to proceed with anesthesia plan. Reviewed the physical assessment, medical history, allergy history and patient home medications list prior to surgery/procedure/anesthetic and documented any changes. Performed airway and anesthesia risk assessments. Anesthesia Type Anesthesia Type: General History Source History Obtained from:: Patient and Chart Anesthesia Focused Assessment* Temperature: 97.5 F Pulse Rate: 91 Blood Pressure: 142/69 Respiratory Rate: 16 Pulse Ox: 100 Oxygen Delivery Method: Room Air Airway Assessment Mouth opens: >3 cm Mallampati Score: III Neck Range of motion (ROM): Full ROM Labs Anesthesia Preop lab: CBC WBC, (4.4-11.0) 7.7 K/mm3 02/26/24, 06:15 RBC, (4.6-6.2) 2.84 M/mm3 L 02/26/24, 06:15 Hgb, (13.0-16.5) 7.5 g/dL L 02/26/24, 06:15 Hct, (40-54) 23.8 % L 02/26/24, 06:15 Plt Count, (150-450) 178 K/mm3 02/26/24, 06:15 CHEMISTRY Potassium, (3.3-5.1) 4.1 mmol/L 12/26/24, 09:07 Sodium, (133-145) 134 mmol/L 12/26/24, 09:07 Magnesium, (1.6-2.6) 1.5 mg/dL L 02/14/24, 11:48 BUN, (4-19) 18 mg/dL 12/26/24, 09:07 Creatinine, (0.70-1.20) 1.23 mg/dL H 12/26/24, 09:07 Glucose, (70-99) 153 mg/dL H 12/26/24, 09:07 POC Glucose, (74-106) 179 mg/dL H 02/24/24, 14:15 TSH, (0.358-3.74) 1.05 uIU/mL 10/14/20, 11:37 COAG PT, (11.7-14.9) 17.4 SECONDS H 02/26/23, 09:32 Pre-Assessment Diagnosis/Proposed Procedure Planned Operative Procedure(s): BIG MACHINE CONSULTANT SPACE OAR GEL Anesthesia History Anesthesia History - spirits model: Anesthesia History - spirits model Hx Hospitalization Yes: 02/23 KNEE REPLACEMENT 03/22/25 10:12 Any Problems With Anesthesia No 03/22/25 10:12 Cholinesterase deficiency No 03/22/25 10:12 You/Your Family Experience No 03/22/25 10:12 fever (hyperthermia) with Relationship Recent Exposure to Contagious No 03/28/25 09:57 Disease Does patient have nerve No 03/22/25 10:12 stimulator Patient instructed to have device shut off --Does patient have Pacemaker No 03/28/25 09:57 or ICD? When Was Last Pacemaker Check QUESTION #4 FULL TEXT: You/Your Family Experience fever (hyperthermia) with Anesthesia Last Oral Intake Last Oral intake: Last Oral Intake NPO since 22:00 03/28/25 09:57 Meds taken in AM with sips of Yes 03/28/25 09:57 water? Meds patient instructed to INHALER, AMLODPINE, TIKOSYN, 03/28/25 09:57 take am of surgery LOSARTAN, OMEPRAZOLE 0730 PONV PONV - spirits model: PONV - spirits model Female No 03/22/25 10:12 HX of Motion Sickness No 03/22/25 10:12 HX of N/V After Surgery No 03/22/25 10:12 Non-Smoker Yes 03/22/25 10:12 Duration of Surgery greater No 03/22/25 10:12 than 60 minutes Number of Risk Factors 1 03/22/25 10:12 PONV Score Low Risk 03/22/25 10:12 Height & Weight Height & Weight: Anesthesia: Height & Weight Height 6 ft 03/28/25 09:57 Weight: 123 kg 03/28/25 09:57 Body Mass Index (BMI) 36.8 03/28/25 09:57 Respiratory Assessment Respiratory Assessment - spirits model: Respiratory Tract Infection Hx - spirits model Hx Respiratory Tract Infection No 03/22/25 10:12 STOP Sleep Apnea STOP Sleep Apnea - spirits model: STOP Sleep Apnea - spirits model Hx Hypertension Yes: controlled with med 03/22/25 10:12 Hx Sleep Apnea Yes 03/22/25 10:12 CPAP Yes 03/22/25 10:12 BIPAP No 03/22/25 10:12 Do you snore loudly (louder than talking or can be heard Do you often feel tired/ fatigued/ sleepy during daytime? Has anyone observed you stop breathing during sleep? STOP Results Positive 03/22/25 10:12 QUESTION #5 FULL TEXT : Do you snore loudly (louder than talking or can be heard through closed doors)? 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 Specify any problems Hx of Preganancy in last 3 N/A 03/22/25 10:12 Months Nurse Filling Out Transfusion [email or web address] 03/22/25 10:12 & Questions: Date: 03/22/25 03/22/25 10:12 Time: 10:15 03/22/25 10:12 Patient unable to answer at this time (ie. confused, unrespo /Reproduction History /Reproductive History - spirits model: /Reproductive Hx- spirits model Hx Now Gestational Age (in weeks): EDC: Hx Hx Para Hx Section SAB Active Medications Active Medications: Current Medications Generic Name Dose Route Start Last Admin Trade Name Freq PRN Reason Stop Dose Admin Cefazolin Sodium 2 gm/ Sodium 110 mls @ 200 mls/hr 03/28/25 11:45 Chloride IV 03/28/25 12:17 INTRAOP ONE Lactated Ringer's 1,000 mls @ 15 mls/hr 03/28/25 09:45 IV .Q48H ELLE PFSH Medical History Gastric reflux History of atrial fibrillation Diabetes Back pain Dietary restriction Leg cramps History of edema History of pain when walking Wears glasses Wears partial dentures Prostate disease High cholesterol CPAP (continuous positive airway pressure) dependence Non-smoker History of echocardiogram Cardiology follow-up encounter Hypertension Hx of cardiac pacemaker Postoperative pain after spinal surgery Intractable back pain Risk for falls Essential hypertension Atrial flutter Morbid obesity Peripheral neuropathy GERD (gastroesophageal reflux disease) JOE (obstructive sleep apnea) Atrial fibrillation Bilateral pneumonia Acute respiratory failure with hypoxia Severe sepsis Cough Hypoxia COVID-19 Vocal cord mass Home Medications ?Medication ?Instructions ?Recorded ?Last Taken ?Type amlodipine 10 mg tablet 10 mg PO DAILY BP 06/21/16 03/28/25 07:30 History omeprazole 40 mg capsule,delayed 40 mg PO DAILY GERD 10/13/19 03/28/25 07:30 History release metformin 500 mg tablet,extended 500 mg PO BID DM 01/16/20 03/27/25 History release 24 hr atorvastatin 40 mg tablet 40 mg PO DAILY CHOLESTEROL 05/27/21 03/27/25 History albuterol sulfate 90 mcg/actuation 2 puff inhalation 4X/DAY PRN Sob 06/08/22 03/28/25 07:30 Rx aerosol inhaler &/Or Wheezing #8.5 grams dofetilide 250 mcg capsule 250 mcg PO 0900,2100 HEART MED 07/08/23 03/28/25 07:30 History (Tikosyn) apixaban 5 mg tablet (Eliquis) 5 mg PO BID #180 TABLETS 04/19/24 03/24/25 Rx gabapentin 300 mg capsule 300 mg PO BID PAIN 08/29/24 03/27/25 History empagliflozin 10 mg tablet 10 mg PO DAILY Pre-Diabetes 03/14/25 03/24/25 History (Jardiance) losartan 50 mg tablet 50 mg PO QDAY 03/19/25 03/28/25 07:30 History Allergy/AdvReac Type Severity Reaction Status Date / Time furosemide (From Lasix) AdvReac Other Verified 03/22/25 10:08 Family History Mother Myocardial infarction Heart disease Cancer parathyroid cancer Brother CAD (coronary artery disease), Onset Age: 65 CABG Surgical History (Updated 03/22/25 @ 10:39 by Arden Bragg) H/O heart surgery History of carpal tunnel surgery History of right knee joint replacement (02/24/24) Hx of transurethral resection of prostate History of tonsillectomy History of esophagogastroduodenoscopy (EGD) History of colonoscopy History of back surgery S/P excision of vocal cord nodule History of foot surgery Social History household members: spouse current occupational status: retired Smoking Status: Never smoker alcohol intake: never substance use type: does not use caffeine: No Review of Systems (Anesthesia) ROS Narrative System reviewed and no additional complaints, except as documented. Physical Exam Const alert, oriented x3 and average body habitus Resp normal respiratory effort, normal air movement and clear to auscultation bilaterally Cardio regular rate, regular rhythm, no murmurs and diaphoretic
[2025-03-28] MEDS: Midazolam 2 MG/2 ML Syringe IV (11:36)
[2025-03-28] MEDS: Lidocaine 1% (5 ml sdv) 5 ML Vial IV (11:37)
[2025-03-28] MEDS: Cefazolin 1 GM/5 ML Vial 2 GM IV (11:39)
[2025-03-28] MEDS: fentaNYL 100 MCG/2 ML Ampul IV (11:43)
--- NOTE | 2025-03-28 11:52 | POSTOP.ANE_ITS ---
Anesthesia: Postop Eval I
--- NOTE | 2025-03-28 11:52 | PCM.POST.ANE ---
Anesthesia: Postop Eval I Current Vital Signs Temperature: 97.6 F Pulse Rate: 81 Blood Pressure: 131/73 Respiratory Rate: 16 Pulse Ox: 97 Assessment Airway patent: Yes Spontaneous unlabored respirations: Yes nausea: No Vomiting: No Anesthesia Complication: No Fluid Hydration Crystalloid volume administer (ml): 700 Total IV fluid infused: 700 Progress Note Anesthesia document: Postop Eval 1 completed: Yes
--- NOTE | 2025-03-28 11:55 | DCINST_ITS ---
Discharge Instructions
--- NOTE | 2025-03-28 11:55 | OP.PCM_ITS ---
Operative Report (Standard)
--- NOTE | 2025-03-28 11:55 | PCM.DC ---
Discharge Instructions DC O2, CPAP, BIPAP needs Home O2 Discharge instructions: No Dressing / Incision Discharge Activity: Return to Normal Activity and May Not Drive (while taking narcotic pain medications.) Dressing / Incision Call your doctor if you observe: Fever of 101 or Higher Follow Up Care Please Follow Up With: Terrell Elizondo MD When: Call [phone] for an appointment Test Results: Test results from this visit will be discussed in further detail at your follow-up appointment, if applicable. Discharge Plan Admission Primary Reason for Your Visit: markers spacer gel Attending Provider: Terrell Elizondo Primary Care Provider: Carl Mei Instructions Print Language: Wolof Discharge Orders/Prescriptions Prescriptions: Continued atorvastatin 40 mg tablet 40 mg PO DAILY albuterol sulfate 90 mcg/actuation HFA aerosol inhaler 2 puff INHALATION 4X/DAY PRN (Reason: Sob &/Or Wheezing) Qty: 8.5 11RF gabapentin 300 mg capsule 300 mg PO BID dofetilide [Tikosyn] 250 mcg capsule 250 mcg PO 0900,2100 Patient Comments: pt takes at 9a and 9p losartan 50 mg tablet 50 mg PO QDAY Jardiance 10 mg tablet 10 mg PO DAILY amlodipine 10 MG tablet 10 mg PO DAILY omeprazole 40 MG capsule,delayed release(DR/EC) 40 mg PO DAILY metformin 500 MG tablet extended release 24 hr 500 mg PO BID Eliquis 5 mg tablet 5 mg PO BID Qty: 180 3RF Referrals / Follow Up: Carl Mei MD [Primary Care Provider, Family Practice] Disposition Disposition (needs filled in before D/C Order can be placed): Home, Self Care
--- NOTE | 2025-03-28 11:55 | PCM.OPRPT ---
Operative Report (Standard) Operative Information Date of Procedure: 03/28/25 Pre-Operative Diagnosis: Prostate cancer Post-Operative Diagnosis: The same Surgery/Procedure Performed: Placement of gold markers and spacer gel net coordinator: No Type of Anesthesia: General RN Documented Start/Stop Times: Operation Date: 03/28/25 11:45 Case Time Into Pre-Op 03/28/25 09:44 Out of Pre-Op 03/28/25 11:32 Anesthesia Start 03/28/25 11:33 Into Room 03/28/25 11:33 Procedure Start 03/28/25 11:45 Procedure End 03/28/25 11:52 Procedure Start Time: 11:45 Procedure Stop Time: 11:55 Select all DRAINS/GRAFTS/IMPLANTS that apply: None Estimated Blood Loss: None Specimen collected: No Description of surgery: In the preoperative area I reviewed with the patient how the procedure is done we talked about the risk of the procedure including the risk of infection, bleeding, migration of the spacer gel, the patient is planning to have radiation to the prostate he understands that the spacer gel has demonstrated benefit in reducing the risk of toxicity from the ration radiation to the rectum but there is no guarantees that this spacer gel will prevent any serious complications or toxicity to the rectum or bowels. After reviewing this with the patient and his family organ to proceed with placement of a spacer gel matrix. Patient was taken back to the operating room after smooth induction of anesthesia he was placed supine on the table. The penis and testicles were prepped and draped in usual sterile fashion, ultrasound probe was placed into the rectum and biplanar ultrasound was performed on the prostate. Identified the base mid and apex of the prostate identified the transition zone prostate. Then using a needle the first ambulatory nurse was placed into the right base of the prostate, the second ambulatory nurse was placed in the left base of the prostate, and the third core marker was placed in the right apex of the prostate after all 3 markers were placed the placement of the markers were confirmed by ultrasonography.The genitals and perineum were prepped and draped in usual sterile fashion. I then introduced a biplanar ultrasound probe into the rectum and performed ultrasonography and identified the Denonvilliers' fascia the prostate mid base and apex and seminal vesicles. The spacer gel mix was then prepared on the back table per manufactures instruction. Under ultrasound guidance in the midline perineum a bevel needle down we advanced through the perineum below the prostate into the space of Denonvilliers' fascia. This space which could be identified by ultrasound with a bright white layer between the prostate and the rectum. I then injected a puff of normal saline to identify the space further. After I confirmed that the needle was in the correct space in the mid prostate and the space of Denonvilliers' fascia between the rectum and the prostate. Then over the course of 15 seconds the gel matrix was injected slowly there was nice separation between the prostate and the rectum at the gel matrix was injected. The position of the gel matrix was confirmed by ultrasound. Then the injection needle was removed intact. Patient's perineum was cleaned patient was taken out of stirrups and then taken back to the PACU in good condition. Surgical Findings: Markers and spacer gel placed Complications Complications: No Admit VTE Documentation VTE Present on Admission: No VTE Mechan Device Prophylaxis: None VTE Pharm Prophylaxis ordered?: No
--- NOTE | 2025-03-28 12:38 | POSTOPAN2_ITS ---
Anesthesia Postop Eval I Sum
--- NOTE | 2025-03-28 12:38 | PCM.POSTANE2 ---
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[employer]TOGENET[employer].ABAR Spontaneous unlabored Yes 03/28/25 12:03 LEAD TECHNOLOGIST IN [employer].ABAR respirations Mental status nausea No 03/28/25 12:03 LEAD TECHNOLOGIST IN [employer].ABAR Vomiting No 03/28/25 12:03 LEAD TECHNOLOGIST IN [employer]TO[employer]ET[employer].ABAR Anesthesia Postop Eval I: Fluid Summary Crystalloid volume administer 700 03/28/25 12:03 LEAD TECHNOLOGIST IN [employer]TO[employer].ABAR (ml) Colloids volume administered ( ml) Blood Product volume administered (ml) Total IV fluid infused 700 03/28/25 12:03 LEAD TECHNOLOGIST IN [employer]TOGENET[employer].ABAR Anesthesia Postop Eval I: Summary Notes Anesthesia Complication No 03/28/25 12:03 LEAD TECHNOLOGIST IN [employer]TOGENET[employer].ABAR Anesthesia Complication Comment: Post-operative progress note Anesthesia: Postop Eval II Evaluation Mental status: Awake Pain Level: 0 nausea: No Vomiting: No Complications Anesthesia Complication: No
== END 2025-03-28 13:11 | disposition home or self-care (01) ==
LOC: SDC 09:39 → AC 09:40
PROVIDERS: PCP Family Medicine; Referring Provider Urology; Visit Provider Urology
PROC: (CPT 55874; principal; 2025-03-28 11:30)
DX: C61 Malignant neoplasm of prostate (principal); I48.91 Unspecified atrial fibrillation; E11.9 Type 2 diabetes mellitus without complications; Z79.01 Long term (current) use of anticoagulants; Z79.84 Long term (current) use of oral hypoglycemic drugs; Z79.899 Other long term (current) drug therapy; I10 Essential (primary) hypertension; R97.20 Elevated prostate specific antigen [PSA]; N40.3 Nodular prostate with lower urinary tract symptoms; N39.498 Other specified urinary incontinence; K21.9 Gastro-esophageal reflux disease without esophagitis; E78.00 Pure hypercholesterolemia, unspecified
CPT/HCPCS: 55876; 55874; 00902; 82962; A4648; C1889; J2405

== ENCOUNTER → 2025-05-07 | Outpatient (CLI) | payer MEDICARE, BC, SELFPAY | END | disposition home or self-care (01) | LOC: SL 11:20 | PROVIDERS: PCP Family Medicine; Referring Provider Nurse Practitioner Acute Care; Visit Provider Nurse Practitioner Acute Care | DX: G47.33 Obstructive sleep apnea (adult) (pediatric) (principal) ==